=== PATIENT | female | born 1940 | race Caucasian/White ===

== ENCOUNTER 2020-08-06 16:06 | Inpatient (IN) | payer MEDICARE, BC, SELFPAY ==
[2020-08-06] VITALS (11 sets, daily range): BP systolic 118–145; BP diastolic 53–68; PULSE 68–88; RESP 15–22; TEMP 36.7; O2SAT 93–96; BMI 27.1; BMI 26.6
--- NOTE | 2020-08-06 16:07 | CT_ITS ---
STUDY: CT HEAD STROKE PROTOCOL W/O CONTRAST INJECTION REASON FOR EXAM: Female, 79 years old. neuro deficit, acute, stroke suspected, fall also RADIATION DOSAGE (If Supplied By Facility): CTDIvol = ( 44.99 ) mGy, DLP = ( 745.49 ) mGycm TECHNIQUE: Transaxial CT imaging of the brain was performed without administration of intravenous contrast material. Individualized dose optimization techniques were used for this CT. COMPARISON: No relevant priors. FINDINGS: Normal soft tissue structures. Normal calvarium. Normal size ventricles and extra-axial spaces for the patient''s age. Normal white matter tracts of the cerebral hemispheres. Normal basal ganglia and thalami. Normal brainstem. Normal cerebellum. There is no intracranial hemorrhage. There are no findings of an acute ischemic infarction. Normal visualized paranasal sinuses. CT/STROKE Brain/Head without Cont IMPRESSION: No acute intracranial hemorrhage or mass effect. N.B. : The above information has been verbally conveyed by Tirso Díaz MD (Brooks) to Jarrett Saucedo on 08/06/2020 16:18:02 (ET). Electronically Signed: Tirso Díaz MD (Brooks) at 16:19 EST , Service support ,
--- NOTE | 2020-08-06 16:07 | EKG12_ITS ---
Test Reason : STROKE TEAM Blood Pressure : / mmHG Vent. Rate : 075 BPM Atrial Rate : 075 BPM P-R Int : 230 ms QRS Dur : 138 ms QT Int : 430 ms P-R-T Axes : 037 072 031 degrees QTc Int : 480 ms Sinus Rhythm with First Degree AV Block Right bundle branch block Abnormal ECG Confirmed by HARJIT CARRION, KELIN ([id number]), newspaper photo editor RUPERTO NICHOLE ([id number]) on 08/10/2020 9:31:11 AM Referred By: SACHIN Confirmed By:KELIN LOMBARDI MD
--- NOTE | 2020-08-06 16:08 | CT_ITS ---
STUDY: CTA HEAD AND NECK WITH CONTRAST REASON FOR EXAM: Female, 79 years old. STROKE RADIATION DOSAGE (If Supplied By Facility): CTDIvol = ( 25.27 ) mGy, DLP = ( 687.24 ) mGycm TECHNIQUE: CT angiography was performed with a multi-detector CT scanner. Data acquisition was obtained from the skull base through the vertex following intravenous administration of IV 100mL Isovue-370. MIP images were reconstructed from the axial data set. Post-processing of the angiographic images was performed, with multiplanar reformation and 3D reconstruction. Degree of stenosis (when present) measured utilizing NASCET criteria. Individualized dose optimization techniques were used for this CT. COMPARISON: No relevant priors. FINDINGS: Normal bilateral petrous carotid arteries. Normal right cavernous carotid artery with a normal supraclinoid bifurcation. Normal left cavernous carotid artery with a normal supraclinoid bifurcation. Normal right A1 segments of the anterior cerebral artery. Normal left A1 segments of the anterior cerebral artery. Normal intact anterior communicating artery (ACOM). Normal bilateral A2 segments of the anterior cerebral arteries. Normal right M1 and M2 segments of the middle cerebral arteries, with a normal M1 bifurcation. Normal left M1 and M2 segments of the middle cerebral arteries, with a normal M1 bifurcation. Normal right posterior communicating artery (PCOM). Normal left posterior communicating artery (PCOM). Normal bilateral vertebral arteries. Normal basilar artery with a normal basilar bifurcation. The visualized bilateral superior cerebellar (SCA) arteries are normal. Normal bilateral P1, P2 and visualized P3 segments of the posterior cerebral arteries. There is no demonstrated aneurysm of the [place]. There is no demonstrated abnormality of the visualized brain. AORTIC ARCH: There is atherosclerosis of the aortic arch. Minimal atherosclerosis but patent origins of the brachiocephalic, left common carotid, and left subclavian arteries. RIGHT CAROTID ARTERIES: Normal right common carotid artery (CCA). There is mild atherosclerotic plaque formation with minimal narrowing of the right carotid bulb. There is moderate atherosclerotic plaque formation of the origin of the right internal carotid artery with 30% stenosis. There is atherosclerotic tortuous elongation of the cervical portion of the right internal carotid artery. There is mild atherosclerotic plaque formation of the origin of the right external carotid artery with less than 50% cross sectional diameter stenosis. LEFT CAROTID ARTERIES: Normal left common carotid artery (CCA). There is mild atherosclerotic plaque formation with minimal narrowing of the left carotid bulb. There is moderate atherosclerotic plaque formation of the origin of the left internal carotid artery with 40% stenosis. There is atherosclerotic tortuous elongation of the cervical portion of the left internal carotid artery. There is mild atherosclerotic plaque formation of the origin of the left external carotid artery with less than 50% cross sectional diameter stenosis. VERTEBRAL ARTERIES: Normal bilateral vertebral arteries. There are surgical clips on each side of the neck. There are degenerative changes of the cervical spine. Fusion hardware of the mandible noted. There are surgical clips in the submandibular region. There is anterior subluxation of the bilateral mandibular condyles, right more than left, with bony remodeling. CT/STROKE CTA Head AND Neck W/Con IMPRESSION: 1. No large vessel occlusion or intracranial aneurysm. 2. Bilateral proximal ICA atherosclerosis without hemodynamically significant stenosis or arterial dissection. N.B. : The above information has been verbally conveyed by Tirso Díaz MD (Brooks) to Jarrett Saucedo on 08/06/2020 16:34:29 (ET). Electronically Signed: Tirso Díaz MD (Brooks) at 16:40 EST , Service support ,
[2020-08-06 16:23] LABS: Absolute Lymphocyte Count 1.98 X10^3/uL (0.83-4.51); Basophil# 0.04 X10^3/uL; Basophil% 0.4 % (0-1); Eosinophil# 0.11 X10^3/uL; Hemoglobin 12.7 g/dL (12.0-15.0); Lymphocyte # 1.98 X10^3/ul (4.0); Lymphocyte % 17.7 % (19-41); Mean Corp Hgb Conc 33.4 g/dL (32-36); Mean Corpuscular Hgb 31.6 pg (27.0-32.0); Mean Corpuscular Volume 94.5 fL (81-99); Mean Platelet Vol. 9.1 fl (6.2-12.0); Monocyte# 0.93 X10^3/uL; Monocyte% 8.3 % (0-10); NRBC Flagged by Analyzer 0 % (0-5); Neutrophil # 8.02 X10^3/uL (2.7-7.7); Neutrophil % 71.7 % (47-70); Platelet Count 288 K/mm3 (150-450); RBC Distribution Width SD 49.3 fl (35.1-43.9); Red Blood Count 4.02 M/mm3 (4.2-5.4); White Blood Count 11.2 K/mm3 (4.4-11.0)
--- NOTE | 2020-08-06 16:26 | RAD_ITS ---
STUDY: X-RAY - PELVIS AND RIGHT HIP REASON FOR EXAM: Female, 79 years old. right sided hip pain, patient states she unsure of any falls, also stroke patient TECHNIQUE: 3 views of the pelvis and hip. COMPARISON: None. FINDINGS: There is a non-specific bowel gas pattern. Normal visualized soft tissue structures. There is excreted contrast in the urinary bladder. Normal bilateral iliac wings, sacroiliac joints and visualized sacrum. Normal bilateral superior and inferior pubic rami. Normal pubic symphysis. Normal bilateral ischial tuberosities. Right femoral neck fracture identified with proximal subsidence of the femoral shaft. Normal acetabulum. Normal hip joint. RAD/HIP, UNI W/ Pelvis 2-3 Views IMPRESSION: Right femoral neck fracture. Electronically Signed: Tirso Díaz MD (Brooks) at 17:26 EST , Service support ,
--- NOTE | 2020-08-06 16:27 | ED.DCSUM_ITS ---
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 The call received from [facility] was that she was complaining of headache. She was found on the ground and was not responding. In route, the patient began to respond more but was confused. On arrival, she does have a component of expressive aphasia and difficulty moving her right lower extremity. Patient was sent immediately for CT scan which was read as negative. During that time, I did call her significant other, Diony. He was able to explain her symptoms. He states that she was doing very well today. She came out of the bathroom, and collapsed. He states she fell to the ground and had a tonic-clonic seizure that lasted about a minute. He is unsure if he hit her head. He states that she is never had a seizure before. He states that she has been doing very well with her chronic medical conditions and has not been ill at all recently. She has no history of prior stroke. Prior similar symptoms: No Recent Illness/Hospitalization: No Past Medical History - Allergies and Home Meds Allergies/Adverse Reactions: Allergies Penicillins Allergy (Verified 08/06/20 16:48) Rash oxycodone [From OxyContin] Adverse Reaction (Verified 08/06/20 16:48) Vomiting sulfamethoxazole [From Bactrim] Adverse Reaction (Verified 08/06/20 16:48) Vomiting trimethoprim [From Bactrim] Adverse Reaction (Verified 08/06/20 16:48) Vomiting Prior records reviewed: Yes Past Medical History: - - Hypertension, hyperlipidemia, thyroid disease, squamous cell carcinoma of the jaw Surgical History: noncontributory Lives: With Family Smoking Status: Never smoker Review of Systems General: Denies: Chills, Fever, Sweats Eyes: Denies: Visual changes - bilaterally, Diplopia ENT: Denies: Rhinorrhea, Sore throat Cardiovascular: Denies: Chest pain, Palpitations Respiratory: Denies: Dyspnea, Cough, Dyspnea on exertion Gastrointestinal: Denies: Abdominal pain, Nausea, Vomiting, Diarrhea, Melena, Hematochezia Genitourinary: Denies: Dysuria, Hematuria, Frequency Musculoskeletal: Denies: Back pain, Extremity Pain Skin: Denies: Rash, Wounds Neurological: Denies: Headache, Weakness, Numbness Physical Exam Inital Vital Signs reviewed: Yes General: Well nourished, Well developed, No Acute Distress Head: Normocephalic, Atraumatic Eyes: Perrl, EOMI ENT: Moist mucous membranes, No rhinorrhea Neck: Supple, Nontender Cardiovascular: Regular rate, Regular rhythm, No murmurs Respiratory: No distress, CTA bilaterally, Chest nontender Abdomen: Soft, Nontender, Nondistended, Normal bowel sounds Back: Nontender, Normal Inspection Extremities: No edema, Tenderness Skin: Normal color, No rash Neurological: Alert, Oriented x3, Cranial nerves II-XII grossly intact, Normal Strength, Normal Sensation Psychological: Normal affect, Normal Mood Diagnostic/Tx/Re-eval Clinical Impression(s) from Imaging Studies Brain CT 08/06/20 16:07 IMPRESSION: No acute intracranial hemorrhage or mass effect. N.B. : The above information has been verbally conveyed by Tirso Díaz MD (Brooks) to Jarrett Saucedo on 08/06/2020 16:18:02 (ET). Electronically Signed: Tirso Díaz MD (Brooks) at 16:19 EST , Service support , ADDENDUM: 08/06/20 1626 IMPRESSION: No acute intracranial hemorrhage or mass effect. N.B. : The above information has been verbally conveyed by Tirso Díaz MD (Brooks) to Jarrett Saucedo on 08/06/2020 16:18:02 (ET). Electronically Signed: Tirso Díaz MD (Brooks) at 16:19 EST , Service support , Head/Neck CTA 08/06/20 16:08 IMPRESSION: 1. No large vessel occlusion or intracranial aneurysm. 2. Bilateral proximal ICA atherosclerosis without hemodynamically significant stenosis or arterial dissection. N.B. : The above information has been verbally conveyed by Tirso Díaz MD (Brooks) to Jarrett Saucedo on 08/06/2020 16:34:29 (ET). Electronically Signed: Tirso Díaz MD (Brooks) at 16:40 EST , Service support , ADDENDUM: 08/06/20 1647 IMPRESSION: 1. No large vessel occlusion or intracranial aneurysm. 2. Bilateral proximal ICA atherosclerosis without hemodynamically significant stenosis or arterial dissection. N.B. : The above information has been verbally conveyed by Tirso Díaz MD (Brooks) to Jarrett Saucedo on 08/06/2020 16:34:29 (ET). Electronically Signed: Tirso Díaz MD (Brooks) at 16:40 EST , Service support , Hip/Pelvis X-Ray 08/06/20 16:26 IMPRESSION: Right femoral neck fracture. Electronically Signed: Tirso Díaz MD (Brooks) at 17:26 EST , Service support , Chest X-Ray 08/06/20 17:05 IMPRESSION: Left lower lobe atelectasis. Electronically Signed: Tirso Díaz MD (Brooks) at 17:25 EST , Service support , Abnormal Lab Results 08/06/20 08/06/20 08/06/20 16:10 16:10 16:10 WBC 11.2 H RBC 4.02 L Hgb 12.7 Hct 38.0 MCV 94.5 MCH 31.6 MCHC 33.4 RDW Std Deviation 49.3 H RDW Coeff of Alpa 14.0 Plt Count 288 MPV 9.1 Immature Gran % (Auto) 0.900 Neut % (Auto) 71.7 H Lymph % (Auto) 17.7 L [place] % (Auto) 8.3 Eos % (Auto) 1.0 Baso % (Auto) 0.4 Absolute Neuts (auto) 8.0 H Absolute Lymphs (auto) 1.98 Nucleated RBC % 0 PT 12.7 INR 1.0 APTT 25.1 Sodium 135 L Potassium 3.9 Chloride 101 Carbon Dioxide 26.0 Anion Gap 8 BUN 23 H Creatinine 0.93 Estim Creat Clear Calc 44.41 Est GFR (MDRD) Af Amer 74 Est GFR (MDRD) Non-Af 61 BUN/Creatinine Ratio 24.7 H Glucose 120 H Calcium 9.1 Troponin I < 0.015 - Rhythm Strip Rhythm Strip: Sinus Rhythm Rate: 80 Ectopy: None - EKG Initial EKG Interpretation: Sinus Rhythm, AV Block Prior: No Prior - Medical Decision Making On arrival, I did see the patient in the ambulance bay. She did have confused speech. She was answering questions inappropriately but had normal fluency. She also stated that she cannot really move her right leg. Her foot was externally rotated and leg appear to be shortened. She was sent immediately for CT and CTA. I had discussed her presentation with her significant other during that time. It does sound more consistently like she had an acute seizure. CT and CTA were read as negative. Patient was evaluated by neurology who recommended Keppra and MRI. Patient underwent x-ray which was reviewed by myself and the radiologist, which shows impacted femoral neck fracture. I did discuss this with Dr. Pereira, on-call for orthopedics. He did state that they would likely be able to fix this operatively when she is cleared from a neurology standpoint. The patient was discussed with the hospitalist for admission. Impression 1. New onset seizure 2. Right femoral neck fracture - Critical Care Time Critical care time (excluding procedures): 30-74 minutes, Discussing w/Patient &/or Family/Scene And Lighting Design Lecturer, Discussing w/Consultants, Arranging Admission or Transfer, Performing Direct Patient Care at Bedside ED Disposition - Plan for ED Patient: Disposition: Acute Care [facility]
[2020-08-06 16:47] LABS: Anion Gap 8 (5-15); BUN 23 mg/dL (7-18); BUN/Creat Ratio 24.7 RATIO (10-20); Calcium,Total 9.1 mg/dL (8.5-10.1); Chloride 101 mmol/L (98-107); Creatinine, Serum 0.93 mg/dL (0.55-1.02); EST Glomerular Filtration Rate 61 mL/min (>60); Est Glom Filt Rate - Afr Amer 74 mL/min (>60); Estimated Creatinine Clearance 44.41 ml/min; Glucose 120 mg/dL (74-106); Potassium 3.9 mmol/L (3.5-5.1); Sodium Level 135 mmol/L (136-145)
[2020-08-06] MEDS: fentaNYL 100 MCG/2 ML Ampul 50 MCG IV (16:49)
[2020-08-06] MEDS: levETIRAcetam IV 1,000 MG/100 ML BAG 400 MG IV (16:49)
--- NOTE | 2020-08-06 17:05 | RAD_ITS ---
STUDY: X-RAY CHEST REASON FOR EXAM: Female, 79 years old. stroke symptoms, fall TECHNIQUE: AP COMPARISON: None. FINDINGS: EKG leads project over the chest. There is reticulation of the left lung base. There is no demonstrated pleural abnormality. Normal size heart. Normal mediastinum and marco. Normal visualized pulmonary arteries. There is atherosclerotic calcification of the aortic arch with tortuosity. There is demineralization of the osseous structures. Normal visualized ribs, clavicles, and shoulders. Cholecystectomy clips are present. There is excreted contrast in the kidneys. RAD/Chest 1 View IMPRESSION: Left lower lobe atelectasis. Electronically Signed: Tirso Díaz MD (Brooks) at 17:25 EST , Service support ,
[2020-08-06 17:19] LABS: Prothrombin Time (Protime)PT. 12.7 SECONDS (11.7-14.9)
[2020-08-06 17:22] LABS: Partial Thromboplast Time 25.1 Seconds (24.1-36.2)
--- NOTE | 2020-08-06 17:32 | PCM.HP.STD ---
Problem List (1) New onset seizure Status: Acute (2) Hypertension Status: Chronic Qualifiers: Hypertension type: essential hypertension Qualified Code(s): I10 - Essential (primary) hypertension (3) Hip fracture Status: Acute Qualifiers: Encounter type: initial encounter Fracture type: closed Laterality: right Qualified Code(s): S72.001A - Fracture of unspecified part of neck of right femur, initial encounter for closed fracture History of Present Illness Date of Admission: 08/06/20 Chief Complaint: Seizure, fall, right hip pain - 1 day The patient is a 79 year old F with past medical history of cancer of the jaw status post jaw excision, status post plating in October 2019, hypertension, hyperlipidemia numbness in left arm a seizure episode and fall. History was taken from patient and her . Patient was in her usual state of health. No recent illness. She has been fairly stable. She went to the bathroom, came back was going to go for her pitcher of water when her noticed that she fell and was having tonic-clonic seizures. This lasted for a few minutes. The EMS was called and patient was found in the postictal state with weakness on the right side and her mouth was drooping to the left and she had expressive aphasia. This happened at 1530 hrs. She was transferred to the hospital, and stroke alert was called. Teleneurology was consulted and did not think patient had a stroke. Her symptoms of weakness were all resolved by the time she came back from CT. Her vitals in the ED showed temperature of 90 8.1F, heart rate 78, blood pressure 145/61, respiratory rate 21, SPO2 is 95% on room air. Her WBC count 11.2, hemoglobin 12.7, platelet count 288, INR 1.2, sodium 135, potassium 3.9, chloride 101, bicarbonate 26, BUN 20, creatinine 0.93, troponin 0.015. CT of the brain showed no acute intracranial hemorrhage or mass-effect. CTA of the head and neck showed bilateral proximal internal carotid artery atherosclerosis without hemodynamically significant stenosis. X-ray of the hip shows right femoral neck fracture. Chest X-ray shows left lower lobe atelectasis. Past Medical History Past Medical History (Chronic Problems): Chronic Problems Hypertension (Chronic) Allergies Penicillins Allergy (Verified 08/06/20 16:48) Rash oxycodone [From OxyContin] Adverse Reaction (Verified 08/06/20 16:48) Vomiting sulfamethoxazole [From Bactrim] Adverse Reaction (Verified 08/06/20 16:48) Vomiting trimethoprim [From Bactrim] Adverse Reaction (Verified 08/06/20 16:48) Vomiting Home Medications: Ambulatory Orders Medication Instructions Recorded Amlodipine [Norvasc] 10 mg PO DAILY 08/06/20 Aspirin [Aspirin, Baby] 81 mg PO DAILY@0800 08/06/20 Levothyroxine Sodium [Synthroid] 125 mcg PO DAILY 08/06/20 Metoprolol(XL)Succ [Toprol Xl 100 mg PO DAILY 08/06/20 (Beta Dawson)] Surgical History: cholecystectomy, hysterectomy, - - s/p bilateral jaw surgery Psychiatric History: No pertinent psych hx STUFFED CASING TIER History: No pertinent STUFFED CASING TIER history Lives: Spouse/ Significant Other, With Family Smoking Status: Never smoker Tobacco Use: Non-smoker Alcohol: None Drugs: None - *Family History Maternal History Items: Heart Disease Paternal History Items: Stroke Review of Systems Constitutional: Denies: Anorexia, Chills, Fever, Malaise, Weakness, Weight Change, Fatigue Eyes: Denies: Blurred vision, Cataracts, Pain, Redness HEENT: Denies: Difficulty Hearing, Difficulty Swallowing, Head Aches, Hearing Changes, Sinus Congestion, Sinus Drainage Cardiovascular: Denies: Chest Pain, Claudication, Orthopnea, Palpitations, Paroxysmal Noc. Dyspnea Respiratory: Denies: Cough, Hemoptysis, Shortness of breath at rest, Shortness of breath upon exertion, Sputum production Gastrointestinal: Denies: Abdominal Pain, Hematemesis, Hematochezia, Nausea, Vomiting Genitourinary: Denies: Dysuria, Frequency Musculoskeletal: Reports: Joint Pain, Joint Tenderness, Leg Pain, Muscle pain. Denies: Joint stiffness, Joint swelling Skin: Denies: Rash, Wounds Neurological: Denies: Difficulty swallowing, Focal weakness, Numbness, Tingling Psychiatric: Denies: Anxiety, Depression, Homicidal Ideations, Suicidal Ideations Hematologic/ Lymphatic: Denies: Easy Bruising, Easy Bleeding VTE Information - Inpt Only VTE Present on Admission: No VTE Pharm Prophylaxis ordered?: Yes Patient Problems: Active and Suspected Problems New onset seizure (Acute) - Physical Exam Vitals/I&O's: Vital Signs Temp Pulse Resp BP Pulse Ox 98.1 F 71 18 138/59 H 93 08/06/20 16:07 08/06/20 17:00 08/06/20 17:00 08/06/20 17:00 08/06/20 17:00 Oxygen Delivery Method Room Air Weight: 76.1 kg Body Mass Index (BMI) 27.1 Finger Stick Blood Glucose 167 Intake and Output for Last 24 Hours 08/04/20 08/05/20 08/06/20 23:59 23:59 23:59 Intake Total 100 / 100 Balance 100 / 100 General: Alert, Oriented x3, Cooperative, No apparent distress HEENT: Atraumatic, PERRLA, EOMI, Normocephalic Oral: Moist Mucosa Neck: Supple Lungs: Diminished Cardiovascular: Regular rate, Regular Rhythm, Normal S1, Normal S2, No murmurs Abdomen: Bowel Sounds Present, Soft, Non Tender, Non-Distended, No Hepato-splenomegaly Extremities: No edema Skin: No rashes Musculoskeletal: Tenderness - over the right hip Lymphatic: No Cervical, Supraclavicular, or Inguinal Adenopathy Neurological: Cranial nerves II-XII grossly intact, Neuro grossly intact Psych/Mental Status: Normal Affect, Appropriate Laboratory Results 08/06/20 16:10: WBC 11.2 H, RBC 4.02 L, Hgb 12.7, Hct 38.0, MCV 94.5, MCH 31.6, MCHC 33.4, RDW Std Deviation 49.3 H, RDW Coeff of Alpa 14.0, Plt Count 288, MPV 9.1, Immature Gran % (Auto) 0.900, Neut % (Auto) 71.7 H, Lymph % (Auto) 17.7 L, [place] % (Auto) 8.3, Eos % (Auto) 1.0, Baso % (Auto) 0.4, Absolute Neuts (auto) 8.0 H, Absolute Lymphs (auto) 1.98, Nucleated RBC % 0 08/06/20 16:10: PT 12.7, INR 1.0, APTT 25.1 08/06/20 16:10: Sodium 135 L, Potassium 3.9, Chloride 101, Carbon Dioxide 26.0, Anion Gap 8, BUN 23 H, Creatinine 0.93, Estim Creat Clear Calc 44.41, Est GFR (MDRD) Af Amer 74, Est GFR (MDRD) Non-Af 61, BUN/Creatinine Ratio 24.7 H, Glucose 120 H, Calcium 9.1, Troponin I < 0.015 Current Medications Amlodipine Besylate (Amlodipine 10 Mg Tablet) 10 mg PO DAILY [facility] Aspirin (Aspirin 81 Mg Tab.Chew) 81 mg PO DAILY@0800 [facility] Labetalol HCl (Labetalol (Prefilled) 20 Mg/4 Ml) 20 mg IV X1 PRN PRN Reason: Blood Pressure Levothyroxine Sodium (Levothyroxine 125 Mcg Tablet) 125 mcg PO DAILY [facility] Metoprolol Succinate (Metoprolol(Xl)Succ 100 Mg Tablet) 100 mg PO DAILY [facility] Assessment/Plan All Active Problems New onset seizure (Acute) Hip fracture (Acute) 1. New onset seizures in a patient with history of cancer of the jaws status post jaw excisions Reported as generalized tonic-clonic, lasted for a few minutes with subsequent postictal weakness Patient started on Keppra, will continue on Keppra 500 mg IV twice daily Patient will need an MRI to rule out brain metastases -not sure if she could have an MRI in the light of jaw plating Will consult SOC for preop risk stratification, obtain records from [facility] to assist in determining if patient can have an MRI 2. Right hip fracture, traumatic status post fall Orthopedic consulted from ED Will continue with pain control 3. Hypertension, controlled, continue home medications -amlodipine, metoprolol 4. Hypothyroidism, continue levothyroxine 5. DVT prophylaxis - Heparin subcu 6. Code Status: Full code I discussed and explained in details the various types of CODE STATUS-full code, DNR CCA, DNR CC. Patient chose full code. She wants all aggressive measures to keep her alive. Her was in agreement that at bedside. Time spent discussing CODE STATUS 16 minutes Inpatient E&M: 31408 Init Hosp L3 Procedures: 75331 Advncd Care Plan 30 Min
--- NOTE | 2020-08-06 18:55 | TELEMED_ITS ---
SOC Telemed has confirmed receipt of a request for visit. This document confirms receipt of the order initiating the consult. To find the results of the consultation, please view the patient's reports for the scanned Telemed Consult.
[2020-08-06] MEDS: 0.9% Normal Saline 1,000 ML 100 ML IV (19:03)
[2020-08-06] MEDS: 0.9% Saline Lock 10 ML Syringe IV (20:32)
[2020-08-06] MEDS: Heparin Injection (Vial) 5,000 UNIT/ML VIAL 5000 UNIT SC (20:32)
[2020-08-06] MEDS: Morphine 2 MG/ML Syringe IV (20:32)
[2020-08-06] MEDS: Ondansetron 4 MG/2 ML Vial IV (20:32)
[2020-08-07] VITALS (12 sets, daily range): BP systolic 111–155; BP diastolic 42–65; PULSE 65–89; RESP 15–18; TEMP 36.4–38.1; O2SAT 94–96
[2020-08-07 05:31] LABS: Absolute Lymphocyte Count 1.09 X10^3/uL (0.83-4.51); Absolute Neutrophil Count 7.6 X10^3/uL (2.0-7.7); Basophil# 0.02 X10^3/uL; Basophil% 0.2 % (0-1); Eosinophil# 0.03 X10^3/uL; Eosinophils% 0.3 % (0-5); Hematocrit 32.9 % (37-47); Hemoglobin 11.2 g/dL (12.0-15.0); Lymphocyte # 1.09 X10^3/ul (4.0); Lymphocyte % 11.4 % (19-41); Mean Corpuscular Hgb 31.7 pg (27.0-32.0); Mean Corpuscular Volume 93.2 fL (81-99); Mean Platelet Vol. 9.3 fl (6.2-12.0); Monocyte# 0.73 X10^3/uL; Monocyte% 7.6 % (0-10); NRBC Flagged by Analyzer 0 % (0-5); Neutrophil # 7.64 X10^3/uL (2.7-7.7); Neutrophil % 80.1 % (47-70); Platelet Count 252 K/mm3 (150-450); RBC Distribution Width SD 47.5 fl (35.1-43.9); Red Blood Count 3.53 M/mm3 (4.2-5.4); White Blood Count 9.6 K/mm3 (4.4-11.0)
[2020-08-07 05:56] LABS: AST(SGOT) 92 U/L (15-37); Alanine Aminotransfer ALT/SGPT 65 U/L (13-56); Albumin, Serum 3.1 g/dL (3.2-5.0); Alkaline Phosphatase 96 U/L (45-117); Anion Gap 5 (5-15); BUN 14 mg/dL (7-18); BUN/Creat Ratio 20.1 RATIO (10-20); Calcium,Total 8.5 mg/dL (8.5-10.1); Chloride 104 mmol/L (98-107); EST Glomerular Filtration Rate 86 mL/min (>60); Est Glom Filt Rate - Afr Amer 104 mL/min (>60); Glucose 113 mg/dL (74-106); Potassium 3.4 mmol/L (3.5-5.1); Protein, Total 6.1 g/dL (6.4-8.2); Sodium Level 137 mmol/L (136-145)
--- NOTE | 2020-08-07 07:55 | PN_ITS ---
Patient Problems: Active and Suspected Problems New onset seizure (Acute) Hip fracture (Acute) Subjective: Chief complaint: Follow-up after admission for new onset seizure and acute traumatic right femoral neck fracture. Patient seen and examined. No acute events overnight. She complains of right hip pain upon movement. Denied other complaints. Her vital signs are stable. - Physical Exam Vitals/I&O's: Vital Signs Temp Pulse Resp BP Pulse Ox 97.6 F L 81 18 146/63 H 94 08/07/20 02:15 08/07/20 07:31 08/07/20 02:15 08/07/20 02:15 08/07/20 02:15 Oxygen Delivery Method Room Air Weight: 158 lb 1.143 oz Body Mass Index (BMI) 26.6 Finger Stick Blood Glucose 167 Intake and Output for Last 24 Hours 08/05/20 08/06/20 08/07/20 23:59 23:59 23:59 Intake Total 100 / 300 1200 / 1200 Output Total 450 / 450 Balance 100 / -100 750 / 750 General: Alert, Oriented x3, Cooperative, No apparent distress HEENT: Atraumatic, PERRLA, EOMI, Normocephalic Oral: Moist Mucosa, No Gingival or Mucosal Lesions/ Ulcerations Neck: Supple, No JVD, Negative Carotid Bruits, Trachea Midline, Thyroid Normal Size and Texture Lungs: Clear to auscultation, Normal air movement, No rhonchi, No wheeze, No rales, Diminished Cardiovascular: Regular rate, Regular Rhythm, Normal S1, Normal S2, PMI Normal Abdomen: Bowel Sounds Present, Soft, Non Tender, Non-Distended, No Hepato- splenomegaly Extremities: No clubbing, No cyanosis, No edema Skin: No rashes, No breakdown Lymphatic: No Cervical, Supraclavicular, or Inguinal Adenopathy Neurological: Cranial nerves II-XII grossly intact, Motor Exam 5/5 strength throughout Psych/Mental Status: Normal Affect, Appropriate, Alert and oriented to time, place, person, mood and affect Laboratory Results 08/06/20 16:10: WBC 11.2 H, RBC 4.02 L, Hgb 12.7, Hct 38.0, MCV 94.5, MCH 31.6, MCHC 33.4, RDW Std Deviation 49.3 H, RDW Coeff of Alpa 14.0, Plt Count 288, MPV 9.1, Immature Gran % (Auto) 0.900, Neut % (Auto) 71.7 H, Lymph % (Auto) 17.7 L, [place] % (Auto) 8.3, Eos % (Auto) 1.0, Baso % (Auto) 0.4, Absolute Neuts (auto) 8.0 H, Absolute Lymphs (auto) 1.98, Nucleated RBC % 0 08/06/20 16:10: PT 12.7, INR 1.0, APTT 25.1 08/06/20 16:10: Sodium 135 L, Potassium 3.9, Chloride 101, Carbon Dioxide 26.0, Anion Gap 8, BUN 23 H, Creatinine 0.93, Estim Creat Clear Calc 44.41, Est GFR (MDRD) Af Amer 74, Est GFR (MDRD) Non-Af 61, BUN/Creatinine Ratio 24.7 H, Glucose 120 H, Calcium 9.1, Troponin I < 0.015 08/07/20 05:11: WBC 9.6, RBC 3.53 L, Hgb 11.2 L, Hct 32.9 L, MCV 93.2, MCH 31.7, MCHC 34.0, RDW Std Deviation 47.5 H, RDW Coeff of Alpa 14.0, Plt Count 252, MPV 9.3, Immature Gran % (Auto) 0.400, Neut % (Auto) 80.1 H, Lymph % (Auto) 11.4 L, [place] % (Auto) 7.6, Eos % (Auto) 0.3, Baso % (Auto) 0.2, Absolute Neuts (auto) 7.6, Absolute Lymphs (auto) 1.09, Nucleated RBC % 0 08/07/20 05:11: Sodium 137, Potassium 3.4 L, Chloride 104, Carbon Dioxide 28.0, Anion Gap 5, BUN 14, Creatinine 0.70, Estim Creat Clear Calc 41.30, Est GFR (MDRD) Af Amer 104, Est GFR (MDRD) Non-Af 86, BUN/Creatinine Ratio 20.1 H, Glucose 113 H, Calcium 8.5, Total Bilirubin 0.60, AST 92 H, ALT 65 H, Alkaline Phosphatase 96, Total Protein 6.1 L, Albumin 3.1 L, Globulin 3.0, Albumin/Globulin Ratio 1.0 Clinical Impression(s) from Imaging Studies Brain CT 08/06/20 16:07 IMPRESSION: No acute intracranial hemorrhage or mass effect. N.B. : The above information has been verbally conveyed by Tirso Díaz MD ([facility]) to Jarrett Saucedo on 08/06/2020 16:18:02 (ET). Electronically Signed: Tirso Díaz MD ([facility]) at 16:19 EST , Service support , ADDENDUM: 08/06/20 1626 IMPRESSION: No acute intracranial hemorrhage or mass effect. N.B. : The above information has been verbally conveyed by Tirso Díaz MD ([facility]) to Jarrett Saucedo on 08/06/2020 16:18:02 (ET). Electronically Signed: Tirso Díaz MD ([facility]) at 16:19 EST , Service support , Head/Neck CTA 08/06/20 16:08 IMPRESSION: 1. No large vessel occlusion or intracranial aneurysm. 2. Bilateral proximal ICA atherosclerosis without hemodynamically significant stenosis or arterial dissection. N.B. : The above information has been verbally conveyed by Tirso Díaz MD ([facility]) to Jarrett Saucedo on 08/06/2020 16:34:29 (ET). Electronically Signed: Tirso Díaz MD ([facility]) at 16:40 EST , Service support , ADDENDUM: 08/06/20 1647 IMPRESSION: 1. No large vessel occlusion or intracranial aneurysm. 2. Bilateral proximal ICA atherosclerosis without hemodynamically significant stenosis or arterial dissection. N.B. : The above information has been verbally conveyed by Tirso Díaz MD ([facility]) to Jarrett Saucedo on 08/06/2020 16:34:29 (ET). Electronically Signed: Tirso Díaz MD ([facility]) at 16:40 EST , Service support , Hip/Pelvis X-Ray 08/06/20 16:26 IMPRESSION: Right femoral neck fracture. Electronically Signed: Tirso Díaz MD ([facility]) at 17:26 EST , Service support , Chest X-Ray 08/06/20 17:05 IMPRESSION: Left lower lobe atelectasis. Electronically Signed: Tirso Díaz MD ([facility]) at 17:25 EST , Service support , Current Medications Acetaminophen (Acetaminophen 325 Mg Tablet) 650 mg PO Q6H PRN PRN PRN Reason: Pain Score 1-10/Temp > 100.7 F Albuterol Sulfate (Albuterol 2.5 Mg/3 Ml Vial.Neb.) 2.5 mg INHALATION Q2H PRN PRN PRN Reason: SOB/Wheezing Amlodipine Besylate (Amlodipine 10 Mg Tablet) 10 mg PO DAILY [facility] Heparin Sodium (Porcine) (Heparin Injection (Vial) 5,000 Unit/Ml Vial) 5,000 unit SC Q12 [facility] Last Admin: 08/06/20 20:32 Dose: 5,000 unit Documented by: Levetiracetam 500 mg/ Sodium (Chloride) 105 mls @ 400 mls/hr IV Q12 [facility] Levothyroxine Sodium (Levothyroxine 125 Mcg Tablet) 125 mcg PO DAILY@0600 [facility] Last Admin: 08/07/20 05:53 Dose: Not Given Documented by: Lorazepam (Lorazepam 2 Mg/Ml Syringe) 1 mg IV PRN PRN PRN Reason: SEIZURES Metoprolol Succinate (Metoprolol(Xl)Succ 100 Mg Tablet) 100 mg PO DAILY [facility] Morphine Sulfate (Morphine 2 Mg/Ml Syringe) 2 mg IV Q3H PRN PRN PRN Reason: Pain Score 6-10 Last Admin: 08/06/20 20:32 Dose: 2 mg Documented by: Ondansetron HCl (Ondansetron 4 Mg/2 Ml Vial) 4 mg IV Q8H PRN PRN PRN Reason: NAUSEA/VOMITING Last Admin: 08/06/20 20:32 Dose: 4 mg Documented by: Sodium Chloride (0.9% Saline Lock 10 Ml Syringe) 10 - 40 ml IV UD PRN PRN Reason: SALINE FLUSH Last Admin: 08/06/20 20:32 Dose: 10 ml Documented by: Medical Necessity - Tobacco Use Smoking Status: Never smoker Tobacco Use: Non-smoker Assessment/Plan All Active Problems New onset seizure (Acute) Hip fracture (Acute) This is an 79 years old female patient presented to the emergency room because of new onset seizure, found to have acute traumatic right femoral neck fracture and she was admitted for evaluation and treatment. #1 new onset seizure: This was generalized tonic-clonic. Currently, she is on IV Keppra. Her vital signs are stable. Routine blood work was unremarkable a part from potassium of 3.4. LFT was unremarkable. CT scan brain showed no acute findings. CTA of the neck was unremarkable. SOC teleneurology consulted and recommended MRI brain and EEG which was ordered. Plan for MRI and EEG as previous. #2 acute traumatic right femoral neck fracture: Due to fall secondary to seizure. She is on IV morphine as needed for pain, pain is manageable. Orthopedic surgery consulted, awaiting their recommendation. #3 preoperative evaluation: 79 years old with history of hypertension and hypothyroidism as well as new onset seizure. She lives at home with his significant other, doing day-to-day activities without restrictions. Chest x- ray showed no acute findings. EKG revealed normal sinus rhythm with RBBB, no acute ischemic changes. Troponin was negative. Based on her age, kidney function, functional status and past medical history, her estimated risk for perioperative myocardial infarction or cardiac arrest is 0.41%. Based on ACS NSQIP surgical risk calculator, her risk for serious complications as well as any complications is at average, predicted length of stay 5.5 days. This patient will be at moderate to low high risk for perioperative and postoperative medications. No indication for further testing. We can proceed with surgery. #4 hypertension: Blood pressure stable, continue Norvasc and metoprolol. #5 hypothyroidism: Continue levothyroxine. 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 Stable, no acute issues. #7 DVT prophylaxis: Subcu heparin. This note was generated with Datum[employer] software. It may contain incorrect words, spelling, and punctuation that were not noted in checking the note before signing. Inpatient E&M: 09157 Subs Hosp L2
--- NOTE | 2020-08-07 08:16 | PCS.PANDOC ---
PANDEMIC DOCUMENTATION INITIATED: Date: Time: 1604
[2020-08-07] MEDS: amLODIPine 10 MG Tablet PO (08:30)
[2020-08-07] MEDS: Levothyroxine 125 MCG Tablet PO (08:30)
[2020-08-07] MEDS: Morphine 2 MG/ML Syringe IV ×2 (08:30→18:30)
[2020-08-07] MEDS: 0.9% Normal Saline 1,000 ML 75 ML IV ×2 (08:31→21:19)
[2020-08-07] MEDS: 0.9% Saline Lock 10 ML Syringe IV ×2 (08:33→18:31)
--- NOTE | 2020-08-07 09:53 | CON.PCM_ITS ---
Reason for Consult Date of Consultation: 08/07/20 Reason for Consultation: right hip pain s/p fall at home History of Present Illness: The patient is a 79 year old F [was in her usual state of health at home. she had a seizure and fell suffering a right femoral neck fracture. She was admitted to [facility] by the hospitalist. Stroke was ruled out and she was consulted upon via tele neurology. At the time of my evaluation, she complains of right hip pain. She has had no further seizures and has no previous history of seizures.] Past Medical History Past Medical History (Chronic Problems): Chronic Problems Hypertension (Chronic) Allergies Penicillins Allergy (Verified 08/06/20 16:48) Rash oxycodone [From OxyContin] Adverse Reaction (Verified 08/06/20 16:48) Vomiting sulfamethoxazole [From Bactrim] Adverse Reaction (Verified 08/06/20 16:48) Vomiting trimethoprim [From Bactrim] Adverse Reaction (Verified 08/06/20 16:48) Vomiting Home Medications: Ambulatory Orders Medication Instructions Recorded Amlodipine [Norvasc] 10 mg PO DAILY 08/06/20 Aspirin [Aspirin, Baby] 81 mg PO DAILY@0800 08/06/20 Levothyroxine Sodium [Synthroid] 125 mcg PO DAILY 08/06/20 Metoprolol(XL)Succ [Toprol Xl 100 mg PO DAILY 08/06/20 (Beta Dawson)] Surgical History: cholecystectomy, hysterectomy, - - s/p bilateral jaw surgery Psychiatric History: No pertinent psych hx RESIDENT CAREGIVER History: No pertinent RESIDENT CAREGIVER history Lives: Spouse/ Significant Other, With Family Smoking Status: Never smoker Tobacco Use: Non-smoker Alcohol: None Drugs: None - *Family History Maternal History Items: Heart Disease Paternal History Items: Stroke Patient Problems: Active and Suspected Problems New onset seizure (Acute) Hip fracture (Acute) - Physical Exam Vitals/I&O's: Vital Signs Temp Pulse Resp BP Pulse Ox 99.4 F H 79 16 148/58 H 96 08/07/20 08:05 08/07/20 08:05 08/07/20 08:05 08/07/20 08:05 08/07/20 08:05 Oxygen Delivery Method Room Air Weight: 158 lb 1.143 oz Body Mass Index (BMI) 26.6 Finger Stick Blood Glucose 167 Intake and Output for Last 24 Hours 08/05/20 08/06/20 08/07/20 23:59 23:59 23:59 Intake Total 100 / 300 1200 / 1200 Output Total 450 / 450 Balance 100 / -100 750 / 750 General: Alert, Oriented x3, Cooperative, No apparent distress Extremities: Tenderness - About right hip. RLE is shortend and externally rotated. ROM no tested due to known fracture. Skin: No rashes, No breakdown Neurological: Neuro grossly intact Laboratory Results 08/06/20 16:10: WBC 11.2 H, RBC 4.02 L, Hgb 12.7, Hct 38.0, MCV 94.5, MCH 31.6, MCHC 33.4, RDW Std Deviation 49.3 H, RDW Coeff of Alpa 14.0, Plt Count 288, MPV 9.1, Immature Gran % (Auto) 0.900, Neut % (Auto) 71.7 H, Lymph % (Auto) 17.7 L, [place] % (Auto) 8.3, Eos % (Auto) 1.0, Baso % (Auto) 0.4, Absolute Neuts (auto) 8.0 H, Absolute Lymphs (auto) 1.98, Nucleated RBC % 0 08/06/20 16:10: PT 12.7, INR 1.0, APTT 25.1 08/06/20 16:10: Sodium 135 L, Potassium 3.9, Chloride 101, Carbon Dioxide 26.0, Anion Gap 8, BUN 23 H, Creatinine 0.93, Estim Creat Clear Calc 44.41, Est GFR (MDRD) Af Amer 74, Est GFR (MDRD) Non-Af 61, BUN/Creatinine Ratio 24.7 H, Glucose 120 H, Calcium 9.1, Troponin I < 0.015 08/07/20 05:11: WBC 9.6, RBC 3.53 L, Hgb 11.2 L, Hct 32.9 L, MCV 93.2, MCH 31.7, MCHC 34.0, RDW Std Deviation 47.5 H, RDW Coeff of Alpa 14.0, Plt Count 252, MPV 9.3, Immature Gran % (Auto) 0.400, Neut % (Auto) 80.1 H, Lymph % (Auto) 11.4 L, [place] % (Auto) 7.6, Eos % (Auto) 0.3, Baso % (Auto) 0.2, Absolute Neuts (auto) 7.6, Absolute Lymphs (auto) 1.09, Nucleated RBC % 0 08/07/20 05:11: Sodium 137, Potassium 3.4 L, Chloride 104, Carbon Dioxide 28.0, Anion Gap 5, BUN 14, Creatinine 0.70, Estim Creat Clear Calc 41.30, Est GFR (MDRD) Af Amer 104, Est GFR (MDRD) Non-Af 86, BUN/Creatinine Ratio 20.1 H, Glucose 113 H, Calcium 8.5, Total Bilirubin 0.60, AST 92 H, ALT 65 H, Alkaline Phosphatase 96, Total Protein 6.1 L, Albumin 3.1 L, Globulin 3.0, Albumin/Globulin Ratio 1.0 Current Medications Acetaminophen (Acetaminophen 325 Mg Tablet) 650 mg PO Q6H PRN PRN PRN Reason: Pain Score 1-10/Temp > 100.7 F Albuterol Sulfate (Albuterol 2.5 Mg/3 Ml Vial.Neb.) 2.5 mg INHALATION Q2H PRN PRN PRN Reason: SOB/Wheezing Amlodipine Besylate (Amlodipine 10 Mg Tablet) 10 mg PO DAILY [facility] Last Admin: 08/07/20 08:30 Dose: 10 mg Documented by: Heparin Sodium (Porcine) (Heparin Injection (Vial) 5,000 Unit/Ml Vial) 5,000 unit SC Q12 [facility] Last Admin: 08/06/20 20:32 Dose: 5,000 unit Documented by: Levetiracetam 500 mg/ Sodium (Chloride) 105 mls @ 400 mls/hr IV Q12 [facility] Sodium Chloride () 1,000 mls @ 75 mls/hr IV .[id number] [facility] Last Admin: 08/07/20 08:31 Dose: 75 mls/hr Documented by: Levothyroxine Sodium (Levothyroxine 125 Mcg Tablet) 125 mcg PO DAILY@0600 [facility] Last Admin: 08/07/20 08:30 Dose: 125 mcg Documented by: Lorazepam (Lorazepam 2 Mg/Ml Syringe) 1 mg IV PRN PRN PRN Reason: SEIZURES Metoprolol Succinate (Metoprolol(Xl)Succ 100 Mg Tablet) 100 mg PO DAILY [facility] Morphine Sulfate (Morphine 2 Mg/Ml Syringe) 2 mg IV Q3H PRN PRN PRN Reason: Pain Score 6-10 Last Admin: 12/13/20 08:30 Dose: 2 mg Documented by: Ondansetron HCl (Ondansetron 4 Mg/2 Ml Vial) 4 mg IV Q8H PRN PRN PRN Reason: NAUSEA/VOMITING Last Admin: 08/06/20 20:32 Dose: 4 mg Documented by: Sodium Chloride (0.9% Saline Lock 10 Ml Syringe) 10 - 40 ml IV UD PRN PRN Reason: SALINE FLUSH Last Admin: 08/07/20 08:33 Dose: 10 ml Documented by: Assessment/Plan All Active Problems New onset seizure (Acute) Hip fracture (Acute) Displaced subcapital right hip fracture New onset seizure In terms of her right hip fracture, I recommend a cemented right hip hemiarthroplasty. I would plan on doing this tomorrow pending medical and neurology clearance.
[2020-08-07] MEDS: Heparin Injection (Vial) 5,000 UNIT/ML VIAL 5000 UNIT SC ×2 (11:29→21:23)
[2020-08-07 16:34] LABS: Probe Check PASS; Specimen Processing Control PASS
[2020-08-07] MEDS: Acetaminophen 325 MG Tablet 650 MG PO (18:30)
[2020-08-07] MEDS: Metoprolol(XL)Succ 100 MG Tablet PO (21:24)
[2020-08-08] VITALS (15 sets, daily range): BP systolic 117–152; BP diastolic 46–78; PULSE 62–72; RESP 16–20; TEMP 36.2–37; O2SAT 93–100; BMI 26.6
--- NOTE | 2020-08-08 | HIP_PTH ---
PATIENT: ANTOLIN GIPSON LOC: [facility] U#:[id number] AGE/SX: 79/F ROOM: [facility] RE08/06/[address]: Dr. Cam Morales MD : [id number] BED: 1 DIS: 08/10/2020 SPEC #: [id number] RECD: 08/08/20 15:35 STATUS: ARSALAN REQ #: [id number] EVELIN: 08/08/20 00:[address]: Jarrett Rashid DEPT: SURGICAL PATHOLOGY RECD BY: Abhishek Jiang ENTERED: 08/09/20 07:51 SP TYPE: TOTAL HIP OTHR DR: MD Dr. Jarrett Kee DO Dr. Prakash Chand, MD Tissues: Hip, NOS Procedures: Decalcification bone/plaque Surgery Specimen Level IV Comments: @ Ordering doctor for DEC edited from to DR.MKNAPI Johnson by YEN at 08/09/20 09 @ Ordering doctor for SUIV edited from to DR.MKNAPI Johnson by YEN at 08/09/20 09 @ Submitting doctor edited from to DR.MKNAPI Elizabeth BARLOW at 08/09/2020 HEADER OPERATION: Hemiarthroplasty, right hip, cemented PRE-OP DIAGNOSIS: Right hip fracture TISSUE SUBMITTED: Femoral head and soft tissue right hip MICROSCOPIC DIAGNOSIS Femoral head and soft, right hip, hemiarthroplasty: Femoral head and detached pieces of tissue with focal area of hemorrhage, clinically right hip fracture. Fragments of fibroadipose tissue and skeletal muscle tissue. ANANTH:jr 08/12/20 MICROSCOPIC DESCRIPTION Slides are reviewed. GROSS DESCRIPTION Received is one container labeled with the patient's name and designated femoral head and soft tissue of right hip. The specimen consists of a femoral head measuring 4 x 4 x 3 cm. The articular surface is smooth. The resection margin is irregular and hemorrhagic. Also present in the specimen container are multiple pieces of soft tissue measuring in aggregate 3 x 2.5 x 0.3 cm. Also present in the container are multiple pieces of bone measuring in aggregate 6 x 6 x 2 cm. Consumer Marketing Analyst sections are submitted in three cassettes as follows: 1 - soft tissue, entirely submitted, 2 - detached pieces of bone after decalcification, 3 - femoral head after decalcification. / ANANTH:jr 08/09/20 TC:5 CPT: 62385, 45899
--- NOTE | 2020-08-08 07:54 | PN_ITS ---
Patient Problems: Active and Suspected Problems New onset seizure (Acute) Hip fracture (Acute) Subjective: Chief complaint: Follow-up after admission for new onset seizure and acute traumatic right femoral neck fracture. Patient seen and examined. No acute events overnight. Still complaining of right hip pain up with movement. No pain at rest. No other complaints. Her vital signs are stable. - Physical Exam Vitals/I&O's: Vital Signs Temp Pulse Resp BP Pulse Ox 98.2 F 66 16 141/78 H 93 08/08/20 03:15 08/08/20 07:13 08/08/20 03:15 08/08/20 03:15 08/08/20 03:15 Oxygen Delivery Method Room Air Weight: 158 lb 1.143 oz Body Mass Index (BMI) 26.6 Finger Stick Blood Glucose 167 Intake and Output for Last 24 Hours 08/06/20 08/07/20 08/08/20 23:59 23:59 23:59 Intake Total 100 / 300 2850 / 3150 300 / 300 Output Total 1050 / 1550 600 / 600 Balance 100 / -100 1800 / 1600 -300 / -300 General: Alert, Oriented x3, Cooperative, No apparent distress HEENT: Atraumatic, PERRLA, EOMI, Normocephalic Oral: Moist Mucosa, No Gingival or Mucosal Lesions/ Ulcerations Neck: Supple, No JVD, Negative Carotid Bruits, Trachea Midline, Thyroid Normal Size and Texture Lungs: Clear to auscultation, Normal air movement, No rhonchi, No wheeze, No rales Cardiovascular: Regular rate, Regular Rhythm, Normal S1, Normal S2, PMI Normal Abdomen: Bowel Sounds Present, Soft, Non Tender, Non-Distended, No Hepato- splenomegaly Extremities: No clubbing, No cyanosis, No edema Skin: No rashes, No breakdown Lymphatic: No Cervical, Supraclavicular, or Inguinal Adenopathy Neurological: Cranial nerves II-XII grossly intact, Neuro grossly intact Psych/Mental Status: Normal Affect, Appropriate, Alert and oriented to time, place, person, mood and affect Laboratory Results 08/07/20 15:15: COVID-19 (SHEILA) Negative Current Medications Acetaminophen (Acetaminophen 325 Mg Tablet) 650 mg PO Q6H PRN PRN PRN Reason: Pain Score 1-10/Temp > 100.7 F Last Admin: 08/07/20 18:30 Dose: 650 mg Documented by: Albuterol Sulfate (Albuterol 2.5 Mg/3 Ml Vial.Neb.) 2.5 mg INHALATION Q2H PRN PRN PRN Reason: SOB/Wheezing Amlodipine Besylate (Amlodipine 10 Mg Tablet) 10 mg PO DAILY [facility] Last Admin: 08/07/20 08:30 Dose: 10 mg Documented by: Heparin Sodium (Porcine) (Heparin Injection (Vial) 5,000 Unit/Ml Vial) 5,000 unit SC Q12 [facility] Last Admin: 08/07/20 21:23 Dose: 5,000 unit Documented by: Levetiracetam 500 mg/ Sodium (Chloride) 105 mls @ 400 mls/hr IV Q12 [facility] Last Infusion: 08/07/20 21:34 Dose: Infused Documented by: Sodium Chloride () 1,000 mls @ 75 mls/hr IV .[id number] [facility] Last Admin: 08/07/20 21:19 Dose: 75 mls/hr Documented by: Levothyroxine Sodium (Levothyroxine 125 Mcg Tablet) 125 mcg PO DAILY@0600 [facility] Last Admin: 08/08/20 06:17 Dose: Not Given Documented by: Lorazepam (Lorazepam 2 Mg/Ml Syringe) 1 mg IV PRN PRN PRN Reason: SEIZURES Metoprolol Succinate (Metoprolol(Xl)Succ 100 Mg Tablet) 100 mg PO QHS [facility] Last Admin: 08/07/20 21:24 Dose: 100 mg Documented by: Morphine Sulfate (Morphine 2 Mg/Ml Syringe) 2 mg IV Q3H PRN PRN PRN Reason: Pain Score 6-10 Last Admin: 08/07/20 18:30 Dose: 2 mg Documented by: Nutritional Formula (Lactose Free) (Ensure Enlive 120 Ml Liquid) 120 ml PO 4X/DAY [facility] Last Admin: 08/07/20 21:23 Dose: 120 ml Documented by: Ondansetron HCl (Ondansetron 4 Mg/2 Ml Vial) 4 mg IV Q8H PRN PRN PRN Reason: NAUSEA/VOMITING Last Admin: 08/06/20 20:32 Dose: 4 mg Documented by: Sodium Chloride (0.9% Saline Lock 10 Ml Syringe) 10 - 40 ml IV UD PRN PRN Reason: SALINE FLUSH Last Admin: 12/13/20 18:31 Dose: 10 ml Documented by: Medical Necessity - Tobacco Use Smoking Status: Never smoker Tobacco Use: Non-smoker Assessment/Plan All Active Problems New onset seizure (Acute) Hip fracture (Acute) This is an 79 years old female patient presented to the emergency room because of new onset seizure, found to have acute traumatic right femoral neck fracture and she was admitted for evaluation and treatment. #1 new onset seizure: She is on IV Keppra twice daily. She has no more seizure episodes. Her vital signs are stable. CT scan brain showed no acute findings. CTA of the neck was unremarkable. [facility] teleneurology consulted and recommended MRI brain and EEG which was ordered. MRI brain cannot be done because of mandibular implants. Plan for EEG today. #2 acute traumatic right femoral neck fracture: Due to fall secondary to seizure. She is on IV morphine as needed for pain, pain is manageable. Orthopedic surgery consulted. Plan for surgery today. #3 preoperative evaluation: 79 years old with history of hypertension and hypothyroidism as well as new onset seizure. She lives at home with his significant other, doing day-to-day activities without restrictions. Chest x- ray showed no acute findings. EKG revealed normal sinus rhythm with RBBB, no acute ischemic changes. Troponin was negative. Based on her age, kidney function, functional status and past medical history, her estimated risk for perioperative myocardial infarction or cardiac arrest is 0.41%. Based on ACS NSQIP surgical risk calculator, her risk for serious complications as well as any complications is at average, predicted length of stay 5.5 days. This patient will be at intermediate to high risk for perioperative and postoperative medications. No indication for further testing. We can proceed with surgery. #4 hypertension: Blood pressure stable, continue Norvasc and metoprolol. #5 hypothyroidism: Continue levothyroxine. 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 Stable, no acute issues. #7 DVT prophylaxis: Subcu heparin. This note was generated with [employer] software. It may contain incorrect words, spelling, and punctuation that were not noted in checking the note before signing. Inpatient E&M: 32879 Subs Hosp L2
[2020-08-08 08:31] LABS: Absolute Lymphocyte Count 0.93 X10^3/uL (0.83-4.51); Absolute Neutrophil Count 8.3 X10^3/uL (2.0-7.7); Basophil# 0.04 X10^3/uL; Basophil% 0.4 % (0-1); Eosinophil# 0.08 X10^3/uL; Eosinophils% 0.8 % (0-5); Hematocrit 34.1 % (37-47); Hemoglobin 11.2 g/dL (12.0-15.0); Lymphocyte # 0.93 X10^3/ul (4.0); Lymphocyte % 9.1 % (19-41); Mean Corp Hgb Conc 32.8 g/dL (32-36); Mean Corpuscular Hgb 31.3 pg (27.0-32.0); Mean Corpuscular Volume 95.3 fL (81-99); Mean Platelet Vol. 9.1 fl (6.2-12.0); Monocyte# 0.75 X10^3/uL; Monocyte% 7.4 % (0-10); NRBC Flagged by Analyzer 0 % (0-5); Neutrophil # 8.34 X10^3/uL (2.7-7.7); Neutrophil % 81.9 % (47-70); Platelet Count 231 K/mm3 (150-450); RBC Distribution Width CV 14.5 % (11.6-14.6); RBC Distribution Width SD 50.9 fl (35.1-43.9); Red Blood Count 3.58 M/mm3 (4.2-5.4); White Blood Count 10.2 K/mm3 (4.4-11.0)
[2020-08-08 08:38] LABS: Prothrombin Time (Protime)PT. 12.8 SECONDS (11.7-14.9)
[2020-08-08 08:55] LABS: Anion Gap 3 (5-15); BUN 15 mg/dL (7-18); BUN/Creat Ratio 24.9 RATIO (10-20); Calcium,Total 8.7 mg/dL (8.5-10.1); Chloride 106 mmol/L (98-107); EST Glomerular Filtration Rate 101 mL/min (>60); Est Glom Filt Rate - Afr Amer 123 mL/min (>60); Glucose 109 mg/dL (74-106); Potassium 3.7 mmol/L (3.5-5.1); Sodium Level 137 mmol/L (136-145)
--- NOTE | 2020-08-08 09:05 | CASEMGMT ---
Assessment- SW completed assessment with patient at her bedside. SW also confirmed address and phone numbers. Living situation- Patient lives with her significant other in a 1 story home with 2 entry steps. PCP: Amilcar Macias [facility] in [place] Specialists: Cardiology- Dr Gudino [place] Pharmacy: [facility] DME: walker, cane, shower chair ADL's/IADL's: Patient is independent in her activities. She sometimes uses her cane when she is outside of the home. She drives. She manages her own medications. She bathes and dresses herself. Past SNF/rehab: None Past HH: Yes. She does not remember the agency. LW: Yes POA: No. SW spoke with patient letting her know that without having a healthcare Power of Credit Card Specialist in writing any medical decisions would automatically go to her children. SW told her if she wants her significant other to make decisions she should do documents. Plan: OMAR let patient know that OMAR and RN CM will be following for discharge planning. She told SW she does not want to go to a custodial. SW told her that most hip fractures generally end up going to a custodial, but we will watch and follow. SW told her about some of the local facilities including [facility] TCU and [facility] 4th floor Inpatient Rehab Unit. Ivone SANTIAGO MSW
[2020-08-08] MEDS: amLODIPine 10 MG Tablet PO (10:24)
[2020-08-08] MEDS: 0.9% Normal Saline 1,000 ML 75 ML IV ×2 (10:25→16:44)
--- NOTE | 2020-08-08 14:21 | PCM.OPRPT ---
Report of Operation Date of Procedure: 08/08/20 Pre-Operative Diagnosis: Comminuted, displaced subcapital fracture right hip Post-Operative Diagnosis: same Surgery/Procedure Performed:: Cemented hemiarthroplasty right hip Description of Surgical Findings:: Primary Surgeon/Physician: Jarrett Rashid missile tracking technician: REINA Deleon missile tracking technician: Pre-Operative Diagnosis: Displace subcapital fracture right hip Post-Operative Diagnosis: same Surgery/Procedure Performed: Cemented hemiarthroplasty right hip Estimated Blood Loss: 100 cc Specimen's Removed: bone Type of Anesthesia: general ASA Class: III Implants: [Redfield Accolade C size 2 femur with 43 mm, +4 bipolar femoral head ] Surgical Indications: Patient has fracture of the [right ] hip. Patient was cleared from a medical standpoint. The risks of the surgery was discussed with the patient and family at length. Procedure Description: The patient was greeted in the preoperative area. The [right ] hip was marked with surgical marker and preoperative antibiotics administered. The patient was then taken to OR suite in stable condition. Once the patient was placed in the supine position on the operating room table and once adequate anesthesia was obtained the patient was then placed in the lateral decubitus position with the surgical hip facing the field. All bony prominences were well-padded. A commercial hip position was utilized. The appropriate extremity was then prepped and draped in usual sterile fashion. Ioban was placed on the skin. Surgical timeout was performed and surgery was commenced. Standard anterolateral approach to the hip was then performed incision was planned and carried out with a #10 blade. Dissection was then carried length of the incision to the IT band which was split proximally and distally. A Charnley retractor was then placed for soft tissue retraction exposing the gluteus medius. The hip was then approached through a transgluteal approach and dislocated through a posterior capsulectomy. The incarcerated femoral head was removed and measured on the back table. Findings are consistent with a femoral neck fracture. A femoral osteotomy was then created approximately 1 fingerbreadth above the lesser trochanter. No significant abnormality of the acetabulum is identified. Any remaining tissue or bone was removed from the acetabulum Attention was then turned to the femoral preparation. The hip was placed in the 90/90 position and a lateralizing box osteotome was utilized. Femoral starting awl was used followed by sequential broaching to the appropriate size. Excellent purchase was obtained with the stem no stem subsidence and excellent rotational stability was confirmed. A calcar reamer was then used in the trial head neck was placed on the broach. The hip was then located and taken through full range of motion flexion internal and external rotation as well as extension. Excellent stability was noted no impingement was identified of the components and leg lengths appear to be appropriate. The hip was at this point dislocated and the trial femoral components were removed. Cement was mixed under third generation technique while the femoral canal was irrigated, brushed and dried thoroughly. Cement was then introduced in an antegrade fashion and pressurized. The final femoral stem was then implanted and impacted to the appropriate depth. Again excellent purchase was obtained no stem subsidence or rotational instability was noted. The stem was held in placxe in the appropriate version until the cement had cured, The hip was once again trialed and confirmation of leg length and stability was performed. Soft tissue tension also appeared to be appropriate. At this point the hip was redislocated and the trunnion was cleaned and dried meticulously in the appropriate size femoral head was placed on the clean dry trunnion using a 12/14 Espinoza taper. The acetabulum was irrigated and inspected to insure that there wer no incarcerated fragments of bone or cement. The hip was once again relocated and again taken through full range of motion. Copious irrigation was performed. Anatomic closure of the gluteus medius and minimus was performed with #1 Vicryl [id number] type fashion followed by closure of the IT band with #1 Vicryl 0 Vicryl was utilized in subcutaneous tissue and surgical danny were placed in the skin. A well-padded nonadherent dressing was applied. Patient was taken to PACU in stable condition. No complications were identified. Will follow standard postop protocol for hemiarthroplasty. Patient must use assistive device for ambulation for approximately 6 weeks of the gluteal musculature heals. missile tracking technician: Dante Leggett Type of Anesthesia:: General Anesthesiologist: Dillon Bridges Specimen's removed: bone Estimated Blood Loss (mL): 100 cc - Admit VTE Documentation VTE Present on Admission: No VTE Mechan Device Prophylaxis: SCD's VTE Pharm Prophylaxis ordered?: Yes
--- NOTE | 2020-08-08 15:21 | RAD_ITS ---
STUDY: X-RAY - PELVIS AND RIGHT HIP REASON FOR EXAM: Female, 79 years old. Post op right hip TECHNIQUE: 2 views of the pelvis and hip. COMPARISON: Comparison is made with prior study dated 08/06/2020. FINDINGS: The patient is status post total hip replacement. There is good alignment. Postoperative soft tissue changes. RAD/Hip Min 2 Views (Portable) IMPRESSION: Status post total hip replacement. There is good alignment. Postoperative soft tissue changes. Electronically Signed: Bill Foreman, at 15:39 EST , Service support ,
[2020-08-08 16:04] LABS: Hematocrit 36.9 % (37-47); Hemoglobin 12.4 g/dL (12.0-15.0); Mean Corp Hgb Conc 33.6 g/dL (32-36); Mean Corpuscular Hgb 32.5 pg (27.0-32.0); Mean Corpuscular Volume 96.6 fL (81-99); Mean Platelet Vol. 9.9 fl (6.2-12.0); Platelet Count 246 K/mm3 (150-450); RBC Distribution Width CV 14.5 % (11.6-14.6); RBC Distribution Width SD 51.3 fl (35.1-43.9); Red Blood Count 3.82 M/mm3 (4.2-5.4); White Blood Count 15.2 K/mm3 (4.4-11.0)
[2020-08-08 16:06] LABS: Anion Gap 6 (5-15); BUN 11 mg/dL (7-18); BUN/Creat Ratio 16.3 RATIO (10-20); Calcium,Total 8.4 mg/dL (8.5-10.1); Chloride 106 mmol/L (98-107); Creatinine, Serum 0.67 mg/dL (0.55-1.02); EST Glomerular Filtration Rate 89 mL/min (>60); Est Glom Filt Rate - Afr Amer 108 mL/min (>60); Glucose 119 mg/dL (74-106); Potassium 3.6 mmol/L (3.5-5.1); Sodium Level 137 mmol/L (136-145)
[2020-08-08] MEDS: Acetaminophen 500 MG Tablet 1000 MG PO ×2 (16:43→22:08)
[2020-08-08] MEDS: Senna/Docusate Sodium 1 Tablet 2 TABLET PO (22:04)
[2020-08-08] MEDS: Aspirin 81 MG TAB.CHEW PO (22:04)
[2020-08-08] MEDS: Heparin Injection (Vial) 5,000 UNIT/ML VIAL 5000 UNIT SC (22:04)
[2020-08-08] MEDS: Metoprolol(XL)Succ 100 MG Tablet PO (22:07)
[2020-08-09] VITALS (10 sets, daily range): BP systolic 128–159; BP diastolic 48–75; PULSE 54–74; RESP 16–18; TEMP 36.6–37.5; O2SAT 94–97; BMI 26.6
[2020-08-09] MEDS: Levothyroxine 125 MCG Tablet PO (07:00)
[2020-08-09] MEDS: Acetaminophen 500 MG Tablet 1000 MG PO ×3 (07:00→21:46)
[2020-08-09 07:12] LABS: Hematocrit 30.4 % (37-47); Mean Corp Hgb Conc 32.9 g/dL (32-36); Mean Corpuscular Hgb 31.5 pg (27.0-32.0); Mean Corpuscular Volume 95.9 fL (81-99); Platelet Count 245 K/mm3 (150-450); RBC Distribution Width CV 14.4 % (11.6-14.6); RBC Distribution Width SD 50.3 fl (35.1-43.9); Red Blood Count 3.17 M/mm3 (4.2-5.4); White Blood Count 8.4 K/mm3 (4.4-11.0)
[2020-08-09 07:46] LABS: Anion Gap 6 (5-15); BUN 14 mg/dL (7-18); BUN/Creat Ratio 24.3 RATIO (10-20); Calcium,Total 8.5 mg/dL (8.5-10.1); Chloride 105 mmol/L (98-107); Creatinine, Serum 0.58 mg/dL (0.55-1.02); EST Glomerular Filtration Rate 106 mL/min (>60); Est Glom Filt Rate - Afr Amer 129 mL/min (>60); Glucose 98 mg/dL (74-106); Potassium 3.6 mmol/L (3.5-5.1); Sodium Level 138 mmol/L (136-145)
[2020-08-09] MEDS: 0.9% Normal Saline 1,000 ML 75 ML IV (08:04)
--- NOTE | 2020-08-09 08:06 | PN_ITS ---
Patient Problems: Active and Suspected Problems New onset seizure (Acute) Hip fracture (Acute) Vitals/I&O's: Vital Signs Temp Pulse Resp BP Pulse Ox 98.9 F 72 18 141/55 H 97 08/09/20 04:00 08/09/20 07:21 08/09/20 04:00 08/09/20 04:00 08/09/20 04:00 Oxygen Flow Rate (L/min) 6 Oxygen Delivery Method Room Air Weight: 161 lb 6.054 oz Body Mass Index (BMI) 26.6 Finger Stick Blood Glucose 167 Intake and Output for Last 24 Hours 08/07/20 08/08/20 08/09/20 23:59 23:59 23:59 Intake Total 2850 / 3150 2434.25 / 2794.25 2013.0 / 2013.0 Output Total 1050 / 1550 2560 / 2810 775 / 775 Balance 1800 / 1600 -125.75 / -15.75 1239.0 / 1239.0 Laboratory Results 08/08/20 08:20: WBC 10.2, RBC 3.58 L, Hgb 11.2 L, Hct 34.1 L, MCV 95.3, MCH 31.3, MCHC 32.8, RDW Std Deviation 50.9 H, RDW Coeff of Alpa 14.5, Plt Count 231, MPV 9.1, Immature Gran % (Auto) 0.400, Neut % (Auto) 81.9 H, Lymph % (Auto) 9.1 L, Caroline % (Auto) 7.4, Eos % (Auto) 0.8, Baso % (Auto) 0.4, Absolute Neuts (auto) 8.3 H, Absolute Lymphs (auto) 0.93, Nucleated RBC % 0 08/08/20 08:20: PT 12.8, INR 1.0, APTT 27.0 08/08/20 08:20: Sodium 137, Potassium 3.7, Chloride 106, Carbon Dioxide 28.0, Anion Gap 3 L, BUN 15, Creatinine 0.60, Estim Creat Clear Calc 41.30, Est GFR (MDRD) Af Amer 123, Est GFR (MDRD) Non-Af 101, BUN/Creatinine Ratio 24.9 H, Glucose 109 H, Calcium 8.7 08/08/20 08:20: Blood Type A POSITIVE, Antibody Screen NEGATIVE 08/08/20 15:40: WBC 15.2 H, RBC 3.82 L, Hgb 12.4, Hct 36.9 L, MCV 96.6, MCH 32.5 H, MCHC 33.6, RDW Std Deviation 51.3 H, RDW Coeff of Alpa 14.5, Plt Count 246, MPV 9.9 08/08/20 15:47: Sodium 137, Potassium 3.6, Chloride 106, Carbon Dioxide 25.0, Anion Gap 6, BUN 11, Creatinine 0.67, Estim Creat Clear Calc 41.30, Est GFR (MDRD) Af Amer 108, Est GFR (MDRD) Non-Af 89, BUN/Creatinine Ratio 16.3, Glucose 119 H, Calcium 8.4 L 08/09/20 05:35: WBC 8.4, RBC 3.17 L, Hgb 10.0 L, Hct 30.4 L, MCV 95.9, MCH 31.5, MCHC 32.9, RDW Std Deviation 50.3 H, RDW Coeff of Alpa 14.4, Plt Count 245, MPV 10.0 08/09/20 05:35: Sodium 138, Potassium 3.6, Chloride 105, Carbon Dioxide 27.0, Anion Gap 6, BUN 14, Creatinine 0.58, Estim Creat Clear Calc 41.30, Est GFR (MDRD) Af Amer 129, Est GFR (MDRD) Non-Af 106, BUN/Creatinine Ratio 24.3 H, Glucose 98, Calcium 8.5 Current Medications Acetaminophen (Acetaminophen 325 Mg Tablet) 650 mg PO Q6H PRN PRN PRN Reason: Pain Score 1-10/Temp > 100.7 F Last Admin: 08/07/20 18:30 Dose: 650 mg Documented by: Acetaminophen (Acetaminophen 500 Mg Tablet) 1,000 mg PO Q8 [facility] Last Admin: 08/09/20 07:00 Dose: 1,000 mg Documented by: Albuterol Sulfate (Albuterol 2.5 Mg/3 Ml Vial.Neb.) 2.5 mg INHALATION Q2H PRN PRN PRN Reason: SOB/Wheezing Amlodipine Besylate (Amlodipine 10 Mg Tablet) 10 mg PO DAILY [facility] Last Admin: 08/08/20 10:24 Dose: 10 mg Documented by: Aspirin (Aspirin 81 Mg Tab.Chew) 81 mg PO BID [facility] Last Admin: 08/08/20 22:04 Dose: 81 mg Documented by: Heparin Sodium (Porcine) (Heparin Injection (Vial) 5,000 Unit/Ml Vial) 5,000 unit SC Q12 [facility] Last Admin: 08/08/20 22:04 Dose: 5,000 unit Documented by: Levetiracetam 500 mg/ Sodium (Chloride) 105 mls @ 400 mls/hr IV Q12 [facility] Last Infusion: 08/08/20 22:19 Dose: Infused Documented by: Sodium Chloride () 1,000 mls @ 75 mls/hr IV .[id number] [facility] Last Infusion: 08/09/20 06:55 Dose: Infused Documented by: Levothyroxine Sodium (Levothyroxine 125 Mcg Tablet) 125 mcg PO DAILY@0600 [facility] Last Admin: 08/09/20 07:00 Dose: 125 mcg Documented by: Lorazepam (Lorazepam 2 Mg/Ml Syringe) 1 mg IV PRN PRN PRN Reason: SEIZURES Metoprolol Succinate (Metoprolol(Xl)Succ 100 Mg Tablet) 100 mg PO QHS [facility] Last Admin: 08/08/20 22:07 Dose: 100 mg Documented by: Morphine Sulfate (Morphine 2 Mg/Ml Syringe) 2 mg IV Q3H PRN PRN PRN Reason: Pain Score 6-10 Last Admin: 08/07/20 18:30 Dose: 2 mg Documented by: Nutritional Formula (Lactose Free) (Ensure Enlive 120 Ml Liquid) 120 ml PO 4X/DAY [facility] Last Admin: 08/08/20 22:04 Dose: 120 ml Documented by: Ondansetron HCl (Ondansetron 4 Mg/2 Ml Vial) 4 mg IV Q8H PRN PRN PRN Reason: NAUSEA/VOMITING Last Admin: 08/06/20 20:32 Dose: 4 mg Documented by: Promethazine HCl (Promethazine 25 Mg/Ml Syringe) 12.5 mg IM Q6H PRN PRN; Protocol PRN Reason: NAUSEA/VOMITING Senna/Docusate Sodium (Senna/Docusate Sodium 1 Tablet) 2 tablet PO BID [facility] Last Admin: 08/08/20 22:04 Dose: 2 tablet Documented by: Sodium Chloride (0.9% Saline Lock 10 Ml Syringe) 10 - 40 ml IV UD PRN PRN Reason: SALINE FLUSH Last Admin: 08/07/20 18:31 Dose: 10 ml Documented by: Tramadol HCl (Tramadol 50 Mg Tablet) 50 - 100 mg PO Q6H PRN PRN PRN Reason: Pain Score 4-10 STROKE Vital Signs/Narrative: Vital Signs Pulse 08/09/20 07:21 72 Medical Necessity - Tobacco Use Smoking Status: Never smoker Tobacco Use: Non-smoker Assessment/Plan All Active Problems New onset seizure (Acute) Hip fracture (Acute) This is an 79 years old female patient presented to the emergency room because of new onset seizure, found to have acute traumatic right femoral neck fracture and she was admitted for evaluation and treatment. #1 new onset seizure: She is on IV Keppra twice daily. She has no more seizure episodes. Her vital signs are stable. CT scan brain showed no acute findings. CTA of the neck was unremarkable. SOC teleneurology consulted and recommended MRI brain and EEG which was ordered. MRI brain cannot be done because of mandibular implants. Plan for EEG today. #2 acute traumatic right femoral neck fracture: Due to fall secondary to seizure. She is on IV morphine as needed for pain, pain is manageable. Orthopedic surgery consulted. Plan for surgery today. #3 preoperative evaluation: 79 years old with history of hypertension and hypothyroidism as well as new onset seizure. She lives at home with his significant other, doing day-to-day activities without restrictions. Chest x- ray showed no acute findings. EKG revealed normal sinus rhythm with RBBB, no acute ischemic changes. Troponin was negative. Based on her age, kidney function, functional status and past medical history, her estimated risk for perioperative myocardial infarction or cardiac arrest is 0.41%. Based on ACS NSQIP surgical risk calculator, her risk for serious complications as well as any complications is at average, predicted length of stay 5.5 days. This patient will be at intermediate to high risk for perioperative and postoperative medications. No indication for further testing. We can proceed with surgery. #4 hypertension: Blood pressure stable, continue Norvasc and metoprolol. #5 hypothyroidism: Continue levothyroxine. 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 Stable, no acute issues. #7 DVT prophylaxis: Subcu heparin.
--- NOTE | 2020-08-09 08:25 | PN.ORTHO_ITS ---
Patient Problems: Active and Suspected Problems New onset seizure (Acute) Hip fracture (Acute) Subjective: Pt. doing well. Pain well controlled on current regimen. - Physical Exam Vitals/I&O's: Vital Signs Temp Pulse Resp BP Pulse Ox 98.9 F 72 18 141/55 H 97 08/09/20 04:00 08/09/20 07:21 08/09/20 04:00 08/09/20 04:00 08/09/20 04:00 Oxygen Flow Rate (L/min) 6 Oxygen Delivery Method Room Air Weight: 161 lb 6.054 oz Body Mass Index (BMI) 26.6 Finger Stick Blood Glucose 167 Intake and Output for Last 24 Hours 08/07/20 08/08/20 08/09/20 23:59 23:59 23:59 Intake Total 2850 / 3150 2434.25 / 2794.25 2014.0 / 2014.0 Output Total 1050 / 1550 2560 / 2810 775 / 775 Balance 1800 / 1600 -125.75 / -15.75 1239.0 / 1239.0 General: Alert, Oriented x3, Cooperative, No apparent distress Extremities: No clubbing, No cyanosis, No edema, Capillary Refill Less than 3 Seconds Skin: Incision - stable Neurological: Neuro grossly intact Laboratory Results 08/08/20 08:20: WBC 10.2, RBC 3.58 L, Hgb 11.2 L, Hct 34.1 L, MCV 95.3, MCH 31.3, MCHC 32.8, RDW Std Deviation 50.9 H, RDW Coeff of Alpa 14.5, Plt Count 231, MPV 9.1, Immature Gran % (Auto) 0.400, Neut % (Auto) 81.9 H, Lymph % (Auto) 9.1 L, [place] % (Auto) 7.4, Eos % (Auto) 0.8, Baso % (Auto) 0.4, Absolute Neuts (auto) 8.3 H, Absolute Lymphs (auto) 0.93, Nucleated RBC % 0 08/08/20 08:20: PT 12.8, INR 1.0, APTT 27.0 08/08/20 08:20: Sodium 137, Potassium 3.7, Chloride 106, Carbon Dioxide 28.0, Anion Gap 3 L, BUN 15, Creatinine 0.60, Estim Creat Clear Calc 41.30, Est GFR (MDRD) Af Amer 123, Est GFR (MDRD) Non-Af 101, BUN/Creatinine Ratio 24.9 H, Glucose 109 H, Calcium 8.7 08/08/20 08:20: Blood Type A POSITIVE, Antibody Screen NEGATIVE 08/08/20 15:40: WBC 15.2 H, RBC 3.82 L, Hgb 12.4, Hct 36.9 L, MCV 96.6, MCH 32.5 H, MCHC 33.6, RDW Std Deviation 51.3 H, RDW Coeff of Alpa 14.5, Plt Count 246, MPV 9.9 08/08/20 15:47: Sodium 137, Potassium 3.6, Chloride 106, Carbon Dioxide 25.0, Anion Gap 6, BUN 11, Creatinine 0.67, Estim Creat Clear Calc 41.30, Est GFR (MDRD) Af Amer 108, Est GFR (MDRD) Non-Af 89, BUN/Creatinine Ratio 16.3, Glucose 119 H, Calcium 8.4 L 08/09/20 05:35: WBC 8.4, RBC 3.17 L, Hgb 10.0 L, Hct 30.4 L, MCV 95.9, MCH 31.5, MCHC 32.9, RDW Std Deviation 50.3 H, RDW Coeff of Alpa 14.4, Plt Count 245, MPV 10.0 08/09/20 05:35: Sodium 138, Potassium 3.6, Chloride 105, Carbon Dioxide 27.0, Anion Gap 6, BUN 14, Creatinine 0.58, Estim Creat Clear Calc 41.30, Est GFR (MDRD) Af Amer 129, Est GFR (MDRD) Non-Af 106, BUN/Creatinine Ratio 24.3 H, Glucose 98, Calcium 8.5 Current Medications Acetaminophen (Acetaminophen 325 Mg Tablet) 650 mg PO Q6H PRN PRN PRN Reason: Pain Score 1-10/Temp > 100.7 F Last Admin: 08/07/20 18:30 Dose: 650 mg Documented by: Acetaminophen (Acetaminophen 500 Mg Tablet) 1,000 mg PO Q8 [facility] Last Admin: 08/09/20 07:00 Dose: 1,000 mg Documented by: Albuterol Sulfate (Albuterol 2.5 Mg/3 Ml Vial.Neb.) 2.5 mg INHALATION Q2H PRN PRN PRN Reason: SOB/Wheezing Amlodipine Besylate (Amlodipine 10 Mg Tablet) 10 mg PO DAILY [facility] Last Admin: 08/08/20 10:24 Dose: 10 mg Documented by: Aspirin (Aspirin 81 Mg Tab.Chew) 81 mg PO BID [facility] Last Admin: 08/08/20 22:04 Dose: 81 mg Documented by: Heparin Sodium (Porcine) (Heparin Injection (Vial) 5,000 Unit/Ml Vial) 5,000 unit SC Q12 [facility] Last Admin: 08/08/20 22:04 Dose: 5,000 unit Documented by: Levetiracetam 500 mg/ Sodium (Chloride) 105 mls @ 400 mls/hr IV Q12 [facility] Last Infusion: 08/08/20 22:19 Dose: Infused Documented by: Sodium Chloride () 1,000 mls @ 75 mls/hr IV .[id number] [facility] Last Admin: 08/09/20 08:04 Dose: 75 mls/hr Documented by: Levothyroxine Sodium (Levothyroxine 125 Mcg Tablet) 125 mcg PO DAILY@0600 [facility] Last Admin: 08/09/20 07:00 Dose: 125 mcg Documented by: Lorazepam (Lorazepam 2 Mg/Ml Syringe) 1 mg IV PRN PRN PRN Reason: SEIZURES Metoprolol Succinate (Metoprolol(Xl)Succ 100 Mg Tablet) 100 mg PO QHS [facility] Last Admin: 08/08/20 22:07 Dose: 100 mg Documented by: Morphine Sulfate (Morphine 2 Mg/Ml Syringe) 2 mg IV Q3H PRN PRN PRN Reason: Pain Score 6-10 Last Admin: 08/07/20 18:30 Dose: 2 mg Documented by: Nutritional Formula (Lactose Free) (Ensure Enlive 120 Ml Liquid) 120 ml PO 4X/DAY [facility] Last Admin: 08/08/20 22:04 Dose: 120 ml Documented by: Ondansetron HCl (Ondansetron 4 Mg/2 Ml Vial) 4 mg IV Q8H PRN PRN PRN Reason: NAUSEA/VOMITING Last Admin: 08/06/20 20:32 Dose: 4 mg Documented by: Promethazine HCl (Promethazine 25 Mg/Ml Syringe) 12.5 mg IM Q6H PRN PRN; Protocol PRN Reason: NAUSEA/VOMITING Senna/Docusate Sodium (Senna/Docusate Sodium 1 Tablet) 2 tablet PO BID [facility] Last Admin: 08/08/20 22:04 Dose: 2 tablet Documented by: Sodium Chloride (0.9% Saline Lock 10 Ml Syringe) 10 - 40 ml IV UD PRN PRN Reason: SALINE FLUSH Last Admin: 08/07/20 18:31 Dose: 10 ml Documented by: Tramadol HCl (Tramadol 50 Mg Tablet) 50 - 100 mg PO Q6H PRN PRN PRN Reason: Pain Score 4-10 Medical Necessity - Tobacco Use Smoking Status: Never smoker Tobacco Use: Non-smoker Assessment/Plan All Active Problems New onset seizure (Acute) Hip fracture (Acute) s/p right hi hemiarthroplasty Continue WBAT D/c danny 10 days post op Continue PT May discharge when stable per hospitalist F/u in my office 2 weeks post discharge Ortho off case for now Will see agin at your request, otherwise will follow up as an outpatient.
[2020-08-09] MEDS: Heparin Injection (Vial) 5,000 UNIT/ML VIAL 5000 UNIT SC ×2 (08:38→21:47)
[2020-08-09] MEDS: Aspirin 81 MG TAB.CHEW PO ×2 (08:38→21:46)
[2020-08-09] MEDS: Senna/Docusate Sodium 1 Tablet 2 TABLET PO ×2 (08:39→21:45)
[2020-08-09] MEDS: amLODIPine 10 MG Tablet PO (08:39)
[2020-08-09] MEDS: traMADol 50 MG Tablet PO (10:51)
--- NOTE | 2020-08-09 11:59 | CASEMGMT ---
SW spoke with therapy and patient did not do well. It is being recommended she go to a SNF for rehab. SW met with patient. SW asked her how therapy went. She said it was harder than what she thought it would be. SW asked her if she would like SW to check on a bed in out TCU or another community SNF. She said she is going home. She said she has a that can take care of her. SW asked her if he could care for her even in this condition. She said, Yes. OMAR asked if she will be able to get in and out of a car. She said, I hope so. OMAR will follow and see how patient does with therapy tomorrow. Ivone SANTIAGO [employer] SUPERVISOR
[2020-08-09] MEDS: 0.9% Saline Lock 10 ML Syringe IV (12:46)
--- NOTE | 2020-08-09 13:03 | PN_ITS ---
<Quinn Liang - Last Filed: 08/09/20 13:03> Patient Problems: Active and Suspected Problems New onset seizure (Acute) Hip fracture (Acute) Reason for Visit: new onset seizure Subjective: Pt resting comfortably in bed NAD. No fever/chills. No further seizure activity. Ongoing right hip pain. Vitals/I&O's: Vital Signs Temp Pulse Resp BP Pulse Ox 98.2 F 70 18 128/59 H 97 08/09/20 12:48 08/09/20 12:48 08/09/20 12:48 08/09/20 12:48 08/09/20 12:48 Oxygen Flow Rate (L/min) 6 Oxygen Delivery Method Room Air Weight: 161 lb 6.054 oz Body Mass Index (BMI) 26.6 Finger Stick Blood Glucose 167 Intake and Output for Last 24 Hours 08/07/20 08/08/20 08/09/20 23:59 23:59 23:59 Intake Total 2850 / 3150 2434.25 / 2794.25 2384.25 / 2384.25 Output Total 1050 / 1550 2560 / 2810 775 / 775 Balance 1800 / 1600 -125.75 / -15.75 1609.25 / 1609.25 General: Alert, Oriented x3, Cooperative HEENT: Atraumatic, PERRLA, EOMI, Normocephalic Neck: Supple, No JVD, Negative Carotid Bruits Lungs: Clear to auscultation, Normal air movement Cardiovascular: Regular rate, No murmurs Abdomen: Bowel Sounds Present, Soft, Non Tender Extremities: No edema, Capillary Refill Less than 3 Seconds Skin: No rashes, No breakdown Musculoskeletal: No Tenderness to Palpation of Joints or Extremities Neurological: Cranial nerves II-XII grossly intact Psych/Mental Status: Normal Affect, Appropriate, Alert and oriented to time, place, person, mood and affect Laboratory Results 08/08/20 15:40: WBC 15.2 H, RBC 3.82 L, Hgb 12.4, Hct 36.9 L, MCV 96.6, MCH 32.5 H, MCHC 33.6, RDW Std Deviation 51.3 H, RDW Coeff of Alpa 14.5, Plt Count 246, MPV 9.9 08/08/20 15:47: Sodium 137, Potassium 3.6, Chloride 106, Carbon Dioxide 25.0, Anion Gap 6, BUN 11, Creatinine 0.67, Estim Creat Clear Calc 41.30, Est GFR (MDRD) Af Amer 108, Est GFR (MDRD) Non-Af 89, BUN/Creatinine Ratio 16.3, Glucose 119 H, Calcium 8.4 L 08/09/20 05:35: WBC 8.4, RBC 3.17 L, Hgb 10.0 L, Hct 30.4 L, MCV 95.9, MCH 31.5, MCHC 32.9, RDW Std Deviation 50.3 H, RDW Coeff of Alpa 14.4, Plt Count 245, MPV 10.0 08/09/20 05:35: Sodium 138, Potassium 3.6, Chloride 105, Carbon Dioxide 27.0, Anion Gap 6, BUN 14, Creatinine 0.58, Estim Creat Clear Calc 41.30, Est GFR (MDRD) Af Amer 129, Est GFR (MDRD) Non-Af 106, BUN/Creatinine Ratio 24.3 H, Glucose 98, Calcium 8.5 Current Medications Acetaminophen (Acetaminophen 325 Mg Tablet) 650 mg PO Q6H PRN PRN PRN Reason: Pain Score 1-10/Temp > 100.7 F Last Admin: 08/07/20 18:30 Dose: 650 mg Documented by: Acetaminophen (Acetaminophen 500 Mg Tablet) 1,000 mg PO Q8 [facility] Last Admin: 08/09/20 07:00 Dose: 1,000 mg Documented by: Albuterol Sulfate (Albuterol 2.5 Mg/3 Ml Vial.Neb.) 2.5 mg INHALATION Q2H PRN PRN PRN Reason: SOB/Wheezing Amlodipine Besylate (Amlodipine 10 Mg Tablet) 10 mg PO DAILY [facility] Last Admin: 08/09/20 08:39 Dose: 10 mg Documented by: Aspirin (Aspirin 81 Mg Tab.Chew) 81 mg PO BID [facility] Last Admin: 08/09/20 08:38 Dose: 81 mg Documented by: Heparin Sodium (Porcine) (Heparin Injection (Vial) 5,000 Unit/Ml Vial) 5,000 unit SC Q12 [facility] Last Admin: 08/09/20 08:38 Dose: 5,000 unit Documented by: Levetiracetam 500 mg/ Sodium (Chloride) 105 mls @ 400 mls/hr IV Q12 [facility] Last Infusion: 08/09/20 11:05 Dose: Infused Documented by: Sodium Chloride () 1,000 mls @ 75 mls/hr IV .[id number] [facility] Last Infusion: 08/09/20 12:48 Dose: Infused Documented by: Levothyroxine Sodium (Levothyroxine 125 Mcg Tablet) 125 mcg PO DAILY@0600 [facility] Last Admin: 08/09/20 07:00 Dose: 125 mcg Documented by: Lorazepam (Lorazepam 2 Mg/Ml Syringe) 1 mg IV PRN PRN PRN Reason: SEIZURES Metoprolol Succinate (Metoprolol(Xl)Succ 100 Mg Tablet) 100 mg PO QHS [facility] Last Admin: 08/08/20 22:07 Dose: 100 mg Documented by: Morphine Sulfate (Morphine 2 Mg/Ml Syringe) 2 mg IV Q3H PRN PRN PRN Reason: Pain Score 6-10 Last Admin: 08/07/20 18:30 Dose: 2 mg Documented by: Nutritional Formula (Lactose Free) (Ensure Enlive 120 Ml Liquid) 120 ml PO 4X/DAY [facility] Last Admin: 08/09/20 08:38 Dose: 120 ml Documented by: Ondansetron HCl (Ondansetron 4 Mg/2 Ml Vial) 4 mg IV Q8H PRN PRN PRN Reason: NAUSEA/VOMITING Last Admin: 08/06/20 20:32 Dose: 4 mg Documented by: Promethazine HCl (Promethazine 25 Mg/Ml Syringe) 12.5 mg IM Q6H PRN PRN; Protocol PRN Reason: NAUSEA/VOMITING Senna/Docusate Sodium (Senna/Docusate Sodium 1 Tablet) 2 tablet PO BID [facility] Last Admin: 08/09/20 08:39 Dose: 2 tablet Documented by: Sodium Chloride (0.9% Saline Lock 10 Ml Syringe) 10 - 40 ml IV UD PRN PRN Reason: SALINE FLUSH Last Admin: 08/09/20 12:46 Dose: 10 ml Documented by: Tramadol HCl (Tramadol 50 Mg Tablet) 50 - 100 mg PO Q6H PRN PRN PRN Reason: Pain Score 4-10 Last Admin: 08/09/20 10:51 Dose: 50 mg Documented by: STROKE Vital Signs/Narrative: Vital Signs Temp Pulse Resp BP Pulse Ox 08/09/20 12:48 98.2 F 70 18 128/59 H 97 Medical Necessity - Tobacco Use Smoking Status: Never smoker Tobacco Use: Non-smoker Assessment/Plan All Active Problems New onset seizure (Acute) Hip fracture (Acute) 1. New onset seizure - continue keppra. EEG read pending. Cannot have MRI due to mandibular implants. 2. post op right total hip, right femoral neck fracture - per Dr. Rashid POD#1. Doing well. PTOT evals. Has not walked yet. 3. 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 hypothyroidism - synthroid 5. anemia - normocytic - may be normal post op loss/fluid dilution. will recheck Hgb in AM. 6. HTN - stable DVT ppx: per ortho aspirin bid DC planning: possible SNF placement - PTOT evals pending This patient was seen by Quinn Liang PA-C under the supervision of Dr. Morales <Cam Morales - Last Filed: 08/09/20 16:40> Reason for Visit: Follow-up for new onset seizure. Objective: Patient denies any previous history of seizure disorder. EEG was done and reported as no focal epileptiform activity. CTA brain did not show large vessel occlusion or intracranial aneurysm. Bilateral proximal ICA atherosclerosis without hemodynamically significant stenosis or arterial dissection. Patient had right femoral neck fracture. Physical exam General: Alert, Oriented x3, Cooperative HEENT: Atraumatic, PERRLA, EOMI, Normocephalic Oral: No Gingival or Mucosal Lesions/ Ulcerations Neck: Supple, No JVD, Negative Carotid Bruits Lungs: Air entry diminished in bilateral lung bases. No crepitation/rhonchi Cardiovascular: Regular rate, Regular Rhythm, Normal S1, Normal S2, No murmurs Abdomen: Bowel Sounds Present, Soft, Non Tender, Non-Distended : No renal angle tenderness. No suprapubic tenderness. Extremities: No edema, Capillary Refill Less than 3 Seconds Skin: No rashes, No breakdown Musculoskeletal: Right femoral neck surgical site is dry. No hematoma. Mild expected postoperative tenderness. Neurological: Cranial nerves II-XII grossly intact, Deep Tendon Reflexes 2+/4 and Symmetrical, Neuro grossly intact Psych/Mental Status: Normal Affect, Appropriate. Vitals/I&O's: Vital Signs Temp Pulse Resp BP Pulse Ox 98.2 F 54 L 18 128/59 H 97 08/09/20 12:48 08/09/20 13:30 08/09/20 12:48 08/09/20 12:48 08/09/20 13:40 Oxygen Flow Rate (L/min) 6 Oxygen Delivery Method Room Air Weight: 161 lb 6.054 oz Body Mass Index (BMI) 26.6 Finger Stick Blood Glucose 167 Intake and Output for Last 24 Hours 08/07/20 08/08/20 08/09/20 23:59 23:59 23:59 Intake Total 2850 / 3150 2434.25 / 2794.25 2384.25 / 2384.25 Output Total 1050 / 1550 2560 / 2810 1125 / 1125 Balance 1800 / 1600 -125.75 / -15.75 1259.25 / 1259.25 Laboratory Results 08/09/20 05:35: WBC 8.4, RBC 3.17 L, Hgb 10.0 L, Hct 30.4 L, MCV 95.9, MCH 31.5, MCHC 32.9, RDW Std Deviation 50.3 H, RDW Coeff of Alpa 14.4, Plt Count 245, MPV 10.0 08/09/20 05:35: Sodium 138, Potassium 3.6, Chloride 105, Carbon Dioxide 27.0, Anion Gap 6, BUN 14, Creatinine 0.58, Estim Creat Clear Calc 41.30, Est GFR (MDRD) Af Amer 129, Est GFR (MDRD) Non-Af 106, BUN/Creatinine Ratio 24.3 H, Glucose 98, Calcium 8.5 Current Medications Acetaminophen (Acetaminophen 325 Mg Tablet) 650 mg PO Q6H PRN PRN PRN Reason: Pain Score 1-10/Temp > 100.7 F Last Admin: 08/07/20 18:30 Dose: 650 mg Documented by: Acetaminophen (Acetaminophen 500 Mg Tablet) 1,000 mg PO Q8 [facility] Last Admin: 08/09/20 14:53 Dose: 1,000 mg Documented by: Albuterol Sulfate (Albuterol 2.5 Mg/3 Ml Vial.Neb.) 2.5 mg INHALATION Q2H PRN PRN PRN Reason: SOB/Wheezing Amlodipine Besylate (Amlodipine 10 Mg Tablet) 10 mg PO DAILY [facility] Last Admin: 08/09/20 08:39 Dose: 10 mg Documented by: Aspirin (Aspirin 81 Mg Tab.Chew) 81 mg PO BID [facility] Last Admin: 08/09/20 08:38 Dose: 81 mg Documented by: Heparin Sodium (Porcine) (Heparin Injection (Vial) 5,000 Unit/Ml Vial) 5,000 unit SC Q12 [facility] Last Admin: 08/09/20 08:38 Dose: 5,000 unit Documented by: Levetiracetam 500 mg/ Sodium (Chloride) 105 mls @ 400 mls/hr IV Q12 [facility] Last Infusion: 08/09/20 11:05 Dose: Infused Documented by: Sodium Chloride () 1,000 mls @ 75 mls/hr IV .[id number] [facility] Last Infusion: 08/09/20 12:48 Dose: Infused Documented by: Levothyroxine Sodium (Levothyroxine 125 Mcg Tablet) 125 mcg PO DAILY@0600 [facility] Last Admin: 08/09/20 07:00 Dose: 125 mcg Documented by: Lorazepam (Lorazepam 2 Mg/Ml Syringe) 1 mg IV PRN PRN PRN Reason: SEIZURES Metoprolol Succinate (Metoprolol(Xl)Succ 100 Mg Tablet) 100 mg PO QHS [facility] Last Admin: 08/08/20 22:07 Dose: 100 mg Documented by: Morphine Sulfate (Morphine 2 Mg/Ml Syringe) 2 mg IV Q3H PRN PRN PRN Reason: Pain Score 6-10 Last Admin: 08/07/20 18:30 Dose: 2 mg Documented by: Nutritional Formula (Lactose Free) (Ensure Enlive 120 Ml Liquid) 120 ml PO 4X/DAY [facility] Last Admin: 08/09/20 14:53 Dose: 120 ml Documented by: Ondansetron HCl (Ondansetron 4 Mg/2 Ml Vial) 4 mg IV Q8H PRN PRN PRN Reason: NAUSEA/VOMITING Last Admin: 08/06/20 20:32 Dose: 4 mg Documented by: Promethazine HCl (Promethazine 25 Mg/Ml Syringe) 12.5 mg IM Q6H PRN PRN; Protocol PRN Reason: NAUSEA/VOMITING Senna/Docusate Sodium (Senna/Docusate Sodium 1 Tablet) 2 tablet PO BID [facility] Last Admin: 08/09/20 08:39 Dose: 2 tablet Documented by: Sodium Chloride (0.9% Saline Lock 10 Ml Syringe) 10 - 40 ml IV UD PRN PRN Reason: SALINE FLUSH Last Admin: 08/09/20 12:46 Dose: 10 ml Documented by: Tramadol HCl (Tramadol 50 Mg Tablet) 50 - 100 mg PO Q6H PRN PRN PRN Reason: Pain Score 4-10 Last Admin: 08/09/20 10:51 Dose: 50 mg Documented by: STROKE Vital Signs/Narrative: Vital Signs Temp Pulse Resp BP Pulse Ox 08/09/20 13:40 97 08/09/20 13:30 54 L 08/09/20 12:48 98.2 F 70 18 128/59 H 97 Assessment/Plan This patient was seen in conjunction with Quinn ROSE. I have independently interviewed and examined the patient and reviewed pertinent history, examination findings, laboratory and plan of management. I have reviewed the note and agree with the documented findings with the few additional points. In brief, patient is 79-year-old patient female was admitted with new onset seizure. Patient on Keppra. EEG did not show epileptiform focus or activity. Patient cannot have MRI due to mandibular implant. CTA shows bilateral ICA atherosclerotic but no hemodynamically segment stenosis or aneurysm. Right head comminuted displaced subcapital fracture right hip. Patient had cemented hemiarthroplasty of right hip. PT and OT on board. Patient has other comorbid including squamous cell cancer of the jaw status post reconstruction and radiation in the past. Hypothyroidism, chronic normocytic anemia and hypertension. VTE prophylaxis as per orthopedic surgeon. I have discussed my assessment with Quinn ROSE and orders have been reviewed. Inpatient E&M: 04986 Subs Hosp L2
--- NOTE | 2020-08-09 14:23 | CHAPLAIN ---
Type of Pastoral Visit _x__ Initial Visit ___ Follow-up Visit ___ On-call Visit ___ General Patient Visit ___ Spiritual Assessment ___ Family Conference ___ Bereavement ___ Rapid Response ___ Code Blue ___ Other (describe below) Pastoral Care Referral From _x__ Patient ___ Family ___ Nurse ___ Physician ___ Risk Control Representative ___ Quality Process Engineer ___ Other (describe below) Sacrament/Intervention _x__ Active listening ___ Anointing ___ Taoist ___ Bereavement ___ Communion ___ Ella exploration ___ ___ Life review _x__ Prayer ___ Reconciliation ___ Sacrament of Sick _x__ Supportive presence ___ Wedding ___ Other (describe below) Pastoral Comments patient welcoming of spiritual care; pt is member of [employer] and they are aware of her admittance; pt states she feels bad about falling and having to be in hospital; prayer welcomed
--- NOTE | 2020-08-09 18:19 | NURSING ---
Removed jaimes cath. Yuly care given.
[2020-08-09] MEDS: Metoprolol(XL)Succ 100 MG Tablet PO (21:47)
[2020-08-10 01:00] VITALS: PULSE 57
[2020-08-10 02:00] VITALS: BP 143/63; PULSE 67; RESP 18; TEMP 36.6; O2SAT 97
[2020-08-10 03:05] VITALS: PULSE 56
[2020-08-10 05:41] LABS: Absolute Lymphocyte Count 0.85 X10^3/uL (0.83-4.51); Absolute Neutrophil Count 9.3 X10^3/uL (2.0-7.7); Basophil# 0.03 X10^3/uL; Basophil% 0.3 % (0-1); Eosinophil# 0.14 X10^3/uL; Eosinophils% 1.2 % (0-5); Hematocrit 31.9 % (37-47); Hemoglobin 10.2 g/dL (12.0-15.0); Lymphocyte # 0.85 X10^3/ul (4.0); Lymphocyte % 7.4 % (19-41); Mean Corpuscular Hgb 31.3 pg (27.0-32.0); Mean Corpuscular Volume 97.9 fL (81-99); Mean Platelet Vol. 9.2 fl (6.2-12.0); Monocyte# 1.14 X10^3/uL; Monocyte% 9.9 % (0-10); NRBC Flagged by Analyzer 0 % (0-5); Neutrophil # 9.34 X10^3/uL (2.7-7.7); Neutrophil % 80.7 % (47-70); Platelet Count 215 K/mm3 (150-450); RBC Distribution Width CV 14.5 % (11.6-14.6); RBC Distribution Width SD 52.3 fl (35.1-43.9); Red Blood Count 3.26 M/mm3 (4.2-5.4); White Blood Count 11.6 K/mm3 (4.4-11.0)
[2020-08-10] MEDS: Levothyroxine 125 MCG Tablet PO (06:49)
[2020-08-10] MEDS: Acetaminophen 500 MG Tablet 1000 MG PO ×2 (06:49→14:26)
[2020-08-10 07:15] VITALS: PULSE 67
[2020-08-10 10:00] VITALS: PULSE 75; RESP 18
--- NOTE | 2020-08-10 10:38 | CASEMGMT ---
Per MILTON Ball, patient is willing to go to TCU if her significant other is in agreement. SW called patient's significant other, Diony and explained the situations. He said he wants whatever is best for patient. He was hoping she would be able to walk a little bit before coming home and according to the patient she is not doing this. SW told her that is correct. He is in agreement with her going to TCU. SW told him she would stay there until she is a little stronger to return home. He thanked SW for the phone call. SW went to patient's room and let her know SW did talk with Diony and he is in agreement with her going to TCU. She thanked SW. Plan: d/c to [facility] TCU under skilled level of care. Ivone SANTIAGO MSW
[2020-08-10 11:15] VITALS: BP 145/64; PULSE 75; RESP 18; TEMP 36.6; O2SAT 99
[2020-08-10] MEDS: Heparin Injection (Vial) 5,000 UNIT/ML VIAL 5000 UNIT SC (11:18)
[2020-08-10] MEDS: Aspirin 81 MG TAB.CHEW PO (11:18)
[2020-08-10] MEDS: amLODIPine 10 MG Tablet PO (11:19)
[2020-08-10] MEDS: Senna/Docusate Sodium 1 Tablet 2 TABLET PO (11:19)
[2020-08-10] MEDS: levETIRAcetam 500 MG Tablet PO (11:19)
--- NOTE | 2020-08-10 11:26 | PCM.EXTCARCO ---
<Quinn Liang - Last Filed: 08/10/20 11:26> - Diet 08/09/20 13:22 Diet: Regular - General Is pt able to select menu?: Yes - Routine Orders/Code Status Suppository Type: Dulcolax 10mg Suppository Frequency: Daily PRN Routine Lab Work: CBC - 5 days, BMP - 5 days Code Status: Full Code - Wound(s) RIGHT HIP Wound Type: Surgical Incision - Therapies Weight Bearing: Weight bearing as tolerated Physical Therapy: Eval and Treat Occupational Therapy: Eval and Treat - Problem/Diagnosis (1) Hip fracture Status: Acute (2) New onset seizure Status: Acute (3) Anemia Status: Chronic (4) Hypothyroid Status: Chronic (5) 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 (6) Hypertension Status: Chronic - Allergies/Procedures Done in Hospital Allergies/Adverse Reactions: Allergies Penicillins Allergy (Verified 08/06/20 16:48) Rash oxycodone [From OxyContin] Adverse Reaction (Verified 08/06/20 16:48) Vomiting sulfamethoxazole [From Bactrim] Adverse Reaction (Verified 08/06/20 16:48) Vomiting trimethoprim [From Bactrim] Adverse Reaction (Verified 08/06/20 16:48) Vomiting Procedures: Electroencephalogram - Type of Care/Length of Stay Estimated LOS: Convalescent Care Less Than 30 days Type of Care Needed: Skilled Rehab Potential: Fair Prognosis: Fair - Additional Orders/Day of Discharge Day of Discharge: 08/10/20 - Dietary and Speech Recommendations Dietitian Recommendations/Changes: Advance diet as tolerated to regular- pt requesting mechanical soft d/t jaw surgery. 240mL strawberry Ensure Enlive w/ breakfast. 120mL ensure enlive 4x/day w/ medpass. - Follow Up Care Primary Care Physician: Care Physician,No Primary [NON-STAFF] - Please follow up with your Primary Care Physician in: 1-2 weeks Please Follow Up With: Jerry Chow MD - Neurology When: 2 weeks Please Follow Up With: Jarrett Rashid DO - Orthopedics When: 2 weeks <Cam Morales - Last Filed: 08/10/20 12:14> - Diet 08/09/20 13:22 Diet: Regular - General Is pt able to select menu?: Yes
--- NOTE | 2020-08-10 11:50 | PHA.DC.MR ---
Pharmacy Service has performed discharge medication reconciliation for this patient. The patient's discharge medication list was reviewed for discrepancies and discrepancies were resolved. Home Medications Amlodipine [Norvasc] 10 mg PO DAILY 08/06/20 Levothyroxine Sodium [Synthroid] 125 mcg PO DAILY 08/06/20 Metoprolol(XL)Succ [Toprol Xl (Beta Dawson)] 100 mg PO DAILY 08/06/20 Acetaminophen [Tylenol] 1,000 mg PO Q8 tab 08/10/20 Aspirin [Aspirin, Baby] 81 mg PO BID tab.chew 08/10/20 Ensure Enlive 120 ml PO 4X/DAY liquid 08/10/20 Senna/Docusate Sodium [Senokot-S] 2 tab PO BID tab 08/10/20 levETIRAcetam tablet [Keppra tablet] 500 mg PO BID tab 08/10/20 traMADol [Ultram] 50 mg PO Q6H PRN PRN #12 tab 08/10/20
--- NOTE | 2020-08-10 13:34 | DS.PCM_ITS ---
<Quinn Liang - Last Filed: 08/10/20 13:34> Discharge Date and Diagnosis - Problem List Patient Problems: Active and Suspected Problems New onset seizure (Acute) Hip fracture (Acute) Date of Admission: 08/06/20 Date of Discharge: 08/10/20 - Primary Discharge Diagnosis Acute Problems: Active Problems New onset seizure (Acute) Hip fracture (Acute) - Secondary Discharge Diagnosis Chronic Problems: Chronic Problems Hypertension (Chronic) Anemia (Chronic) Hypothyroid (Chronic) Squamous cell carcinoma of mandible (Chronic) Hospital Course and Treatment Imaging Results: CT/STROKE Brain/Head without Cont IMPRESSION: No acute intracranial hemorrhage or mass effect. CT/STROKE CTA Head AND Neck W/Con IMPRESSION: 1. No large vessel occlusion or intracranial aneurysm. 2. Bilateral proximal ICA atherosclerosis without hemodynamically significant stenosis or arterial dissection. RAD/HIP, UNI W/ Pelvis 2-3 Views IMPRESSION: Right femoral neck fracture. RAD/Chest 1 View IMPRESSION: Left lower lobe atelectasis. RAD/Hip Min 2 Views (Portable) IMPRESSION: Status post total hip replacement. There is good alignment. Postoperative soft tissue changes. 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 She was found by the having tonic-clonic seizures. She was found by EMS to have weakness on the right side, mouth drooping to the left, and expressive aphasia. She was brought to the ER. Stroke alert was called-teleneurology did not feel that she had a stroke. She was felt to have had a seizure. She appeared to have a right femoral neck fracture on x-ray of the hip. She was admitted to the PCU. She was started on IV Keppra. She was taken to the OR for cemented right hemiarthroplasty by on August 08. Teleneurology was consulted. EEG did not demonstrate any further seizure activity. She could not have an MRI due to the reconstruction surgery on her jaw. She was transitioned to oral Keppra. She continued to have severe difficulty ambulating and SNF was recommended. She was discharged to the TCU in stable condition. She will need to follow-up with PCP in 1 to 2 weeks, neurology 2 weeks, orthopedics 2 weeks. This patient was seen by Quinn Liang PA-C under the supervision of Doctor Andrew. [] Patient Problems: Active and Suspected Problems New onset seizure (Acute) Hip fracture (Acute) - Physical Exam Vitals/I&O's: Vital Signs Temp Pulse Resp BP Pulse Ox 98 F 75 18 145/64 H 99 08/10/20 11:15 08/10/20 11:15 08/10/20 11:15 08/10/20 11:15 08/10/20 11:15 Oxygen Flow Rate (L/min) 6 Oxygen Delivery Method Room Air Weight: 166 lb 0.129 oz Body Mass Index (BMI) 26.6 Finger Stick Blood Glucose 167 Intake and Output for Last 24 Hours 08/08/20 08/09/20 08/10/20 23:59 23:59 23:59 Intake Total 2434.25 / 2794.25 2489.25 / 2489.25 930 / 930 Output Total 2560 / 2810 1275 / 1275 900 / 900 Balance -125.75 / -15.75 1214.25 / 1214.25 30 / 30 General: Alert, Oriented x3, Cooperative HEENT: Atraumatic, PERRLA, EOMI, Normocephalic Neck: Supple, No JVD, Negative Carotid Bruits Lungs: Clear to auscultation, Normal air movement Cardiovascular: Regular rate, No murmurs Abdomen: Bowel Sounds Present, Soft, Non Tender Extremities: No edema, Capillary Refill Less than 3 Seconds Skin: No rashes, No breakdown Musculoskeletal: No Tenderness to Palpation of Joints or Extremities Neurological: Cranial nerves II-XII grossly intact Psych/Mental Status: Normal Affect, Appropriate, Alert and oriented to time, place, person, mood and affect Laboratory Results 08/10/20 05:30: WBC 11.6 H, RBC 3.26 L, Hgb 10.2 L, Hct 31.9 L, MCV 97.9, MCH 31.3, MCHC 32.0, RDW Std Deviation 52.3 H, RDW Coeff of Alpa 14.5, Plt Count 215, MPV 9.2, Immature Gran % (Auto) 0.500, Neut % (Auto) 80.7 H, Lymph % (Auto) 7.4 L, [place] % (Auto) 9.9, Eos % (Auto) 1.2, Baso % (Auto) 0.3, Absolute Neuts (auto) 9.3 H, Absolute Lymphs (auto) 0.85, Nucleated RBC % 0 Current Medications Acetaminophen (Acetaminophen 325 Mg Tablet) 650 mg PO Q6H PRN PRN PRN Reason: Pain Score 1-10/Temp > 100.7 F Last Admin: 08/07/20 18:30 Dose: 650 mg Documented by: Acetaminophen (Acetaminophen 500 Mg Tablet) 1,000 mg PO Q8 [facility] Last Admin: 08/10/20 06:49 Dose: 1,000 mg Documented by: Albuterol Sulfate (Albuterol 2.5 Mg/3 Ml Vial.Neb.) 2.5 mg INHALATION Q2H PRN PRN PRN Reason: SOB/Wheezing Amlodipine Besylate (Amlodipine 10 Mg Tablet) 10 mg PO DAILY [facility] Last Admin: 08/10/20 11:19 Dose: 10 mg Documented by: Aspirin (Aspirin 81 Mg Tab.Chew) 81 mg PO BID [facility] Last Admin: 08/10/20 11:18 Dose: 81 mg Documented by: Heparin Sodium (Porcine) (Heparin Injection (Vial) 5,000 Unit/Ml Vial) 5,000 unit SC Q12 [facility], [facility] Last Admin: 08/10/20 11:18 Dose: 5,000 unit Documented by: Levetiracetam (Levetiracetam 500 Mg Tablet) 500 mg PO BID [facility] Last Admin: 08/10/20 11:19 Dose: 500 mg Documented by: Levothyroxine Sodium (Levothyroxine 125 Mcg Tablet) 125 mcg PO DAILY@0600 [facility] Last Admin: 08/10/20 06:49 Dose: 125 mcg Documented by: Lorazepam (Lorazepam 2 Mg/Ml Syringe) 1 mg IV PRN PRN PRN Reason: SEIZURES Metoprolol Succinate (Metoprolol(Xl)Succ 100 Mg Tablet) 100 mg PO QHS [facility] Last Admin: 08/09/20 21:47 Dose: 100 mg Documented by: Morphine Sulfate (Morphine 2 Mg/Ml Syringe) 2 mg IV Q3H PRN PRN PRN Reason: Pain Score 6-10 Last Admin: 08/07/20 18:30 Dose: 2 mg Documented by: Nutritional Formula (Lactose Free) (Ensure Enlive 120 Ml Liquid) 120 ml PO 4X/DAY [facility] Last Admin: 08/10/20 11:18 Dose: 120 ml Documented by: Ondansetron HCl (Ondansetron 4 Mg/2 Ml Vial) 4 mg IV Q8H PRN PRN PRN Reason: NAUSEA/VOMITING Last Admin: 08/06/20 20:32 Dose: 4 mg Documented by: Promethazine HCl (Promethazine 25 Mg/Ml Syringe) 12.5 mg IM Q6H PRN PRN; Protocol PRN Reason: NAUSEA/VOMITING Senna/Docusate Sodium (Senna/Docusate Sodium 1 Tablet) 2 tablet PO BID [facility] Last Admin: 08/10/20 11:19 Dose: 2 tablet Documented by: Sodium Chloride (0.9% Saline Lock 10 Ml Syringe) 10 - 40 ml IV UD PRN PRN Reason: SALINE FLUSH Last Admin: 08/09/20 12:46 Dose: 10 ml Documented by: Tramadol HCl (Tramadol 50 Mg Tablet) 50 - 100 mg PO Q6H PRN PRN PRN Reason: Pain Score 4-10 Last Admin: 08/09/20 10:51 Dose: 50 mg Documented by: Discharge Diet: Low fat/ Low Cholesterol, 2000 mg Sodium Diet Discharge Activity: Return to Normal Activity Home Medications: Medications to take at Discharge Amlodipine [Norvasc] 10 mg PO DAILY 08/06/20 Levothyroxine Sodium [Synthroid] 125 mcg PO DAILY 08/06/20 Metoprolol(XL)Succ [Toprol Xl (Beta Dawson)] 100 mg PO DAILY 08/06/20 Acetaminophen [Tylenol] 1,000 mg PO Q8 tab 08/10/20 Aspirin [Aspirin, Baby] 81 mg PO BID tab.chew 08/10/20 Ensure Enlive 120 ml PO 4X/DAY liquid 08/10/20 Senna/Docusate Sodium [Senokot-S] 2 tab PO BID tab 08/10/20 levETIRAcetam tablet [Keppra tablet] 500 mg PO BID tab 08/10/20 traMADol [Ultram] 50 mg PO Q6H PRN PRN #12 tab 08/10/20 Following Prescriptions Were Given to Patient: traMADol [Ultram] 50 mg PO Q6H PRN PRN #12 tab PRN Reason: Pain Score 4-10 Prescription Printed Primary Care Physician: Care Physician,No Primary [NON-STAFF] - Please follow up with your Primary Care Physician in: 1-2 weeks Please Follow Up With: Jerry Chow MD - Neurology When: 2 weeks Please Follow Up With: Jarrett Rashid DO - Orthopedics When: 2 weeks Medical Necessity - Tobacco Use Smoking Status: Never smoker Tobacco Use: Non-smoker Meaningful Use Info Meaningful Use Diagnoses (Choose all that apply): None applicable <Cam Morales - Last Filed: 08/10/20 15:55> Discharge Date and Diagnosis - Primary Discharge Diagnosis Acute Problems: Active Problems New onset seizure (Acute) Hip fracture (Acute) - Secondary Discharge Diagnosis Chronic Problems: Chronic Problems Hypertension (Chronic) Anemia (Chronic) Hypothyroid (Chronic) Squamous cell carcinoma of mandible (Chronic) Hospital Course and Treatment Summary of Care Provided: This patient was seen in conjunction with Quinn ROSE. I have independently interviewed and examined the patient and reviewed pertinent history, examination findings, laboratory and plan of management. I have reviewed the note and agree with the documented findings with the few additional points. In brief, patient is 79-year-old patient female was admitted with new onset seizure. Patient on Keppra. EEG did not show epileptiform focus or activity. Patient cannot have MRI due to mandibular implant. CTA shows bilateral ICA atherosclerotic but no hemodynamically segment stenosis or aneurysm. Continue Keppra. Right head comminuted displaced subcapital fracture right hip. Patient had cemented hemiarthroplasty of right hip. PT and OT on board. Patient has other comorbid including squamous cell cancer of the jaw status post reconstruction and radiation in the past. Hypothyroidism, chronic normocytic anemia and hypertension. VTE prophylaxis as per orthopedic surgeon. Physical therapist recommended additional skilled physical therapy and patient agreed to go to SNF. Discharge to TCU. Discharge medication reconciliation done. Discharge follow-up instructions completed. Discharge process discussed with the patient and all questions were answered to patient's satisfaction. Total time spent, exact 35 minutes on discharge meds reconciliation, examination, coordination of care with nurses and ancillary staff, review of imaging and blood test and discussion with the patient on follow-up instructions I have discussed my assessment with Quinn ROSE and orders have been reviewed. [] Objective: Seen and examined. Patient agreed to go to SNF. No acute event overnight. Physical therapist recommended additional skilled therapy to return home. Patient has impaired ambulation, balance, and transfer ability. Decreased right lower extremity strength. Physical exam General: Alert, Oriented x3, Cooperative HEENT: Atraumatic, PERRLA, EOMI, Normocephalic Oral: No Gingival or Mucosal Lesions/ Ulcerations Neck: Supple, No JVD, Negative Carotid Bruits Lungs: Air entry diminished in bilateral lung bases. No crepitation/rhonchi Cardiovascular: Regular rate, Regular Rhythm, Normal S1, Normal S2, No murmurs Abdomen: Bowel Sounds Present, Soft, Non Tender, Non-Distended : No renal angle tenderness. No suprapubic tenderness. Extremities: No edema, Capillary Refill Less than 3 Seconds Skin: No rashes, No breakdown Musculoskeletal: Right femoral neck surgical site is dry. No hematoma. No tenderness. Neurological: Cranial nerves II-XII grossly intact, Deep Tendon Reflexes 2+/4 and Symmetrical, Neuro grossly intact Psych/Mental Status: Normal Affect, Appropriate. - Physical Exam Vitals/I&O's: Vital Signs Temp Pulse Resp BP Pulse Ox 98 F 75 18 145/64 H 99 08/10/20 11:15 08/10/20 11:15 08/10/20 11:15 08/10/20 11:15 08/10/20 11:15 Oxygen Flow Rate (L/min) 6 Oxygen Delivery Method Room Air Weight: 166 lb 0.129 oz Body Mass Index (BMI) 26.6 Finger Stick Blood Glucose 167 Intake and Output for Last 24 Hours 08/08/20 08/09/20 08/10/20 23:59 23:59 23:59 Intake Total 2434.25 / 2794.25 2489.25 / 2489.25 930 / 930 Output Total 2560 / 2810 1275 / 1275 900 / 900 Balance -125.75 / -15.75 1214.25 / 1214.25 30 / 30 Laboratory Results 08/10/20 05:30: WBC 11.6 H, RBC 3.26 L, Hgb 10.2 L, Hct 31.9 L, MCV 97.9, MCH 31.3, MCHC 32.0, RDW Std Deviation 52.3 H, RDW Coeff of Alpa 14.5, Plt Count 215, MPV 9.2, Immature Gran % (Auto) 0.500, Neut % (Auto) 80.7 H, Lymph % (Auto) 7.4 L, [place] % (Auto) 9.9, Eos % (Auto) 1.2, Baso % (Auto) 0.3, Absolute Neuts (auto) 9.3 H, Absolute Lymphs (auto) 0.85, Nucleated RBC % 0 Current Medications Acetaminophen (Acetaminophen 325 Mg Tablet) 650 mg PO Q6H PRN PRN PRN Reason: Pain Score 1-10/Temp > 100.7 F Last Admin: 08/07/20 18:30 Dose: 650 mg Documented by: Acetaminophen (Acetaminophen 500 Mg Tablet) 1,000 mg PO Q8 [facility] Last Admin: 08/10/20 14:26 Dose: 1,000 mg Documented by: Albuterol Sulfate (Albuterol 2.5 Mg/3 Ml Vial.Neb.) 2.5 mg INHALATION Q2H PRN PRN PRN Reason: SOB/Wheezing Amlodipine Besylate (Amlodipine 10 Mg Tablet) 10 mg PO DAILY [facility] Last Admin: 08/10/20 11:19 Dose: 10 mg Documented by: Aspirin (Aspirin 81 Mg Tab.Chew) 81 mg PO BID [facility] Last Admin: 08/10/20 11:18 Dose: 81 mg Documented by: Heparin Sodium (Porcine) (Heparin Injection (Vial) 5,000 Unit/Ml Vial) 5,000 unit SC Q12 [facility] Last Admin: 08/10/20 11:18 Dose: 5,000 unit Documented by: Levetiracetam (Levetiracetam 500 Mg Tablet) 500 mg PO BID [facility] Last Admin: 08/10/20 11:19 Dose: 500 mg Documented by: Levothyroxine Sodium (Levothyroxine 125 Mcg Tablet) 125 mcg PO DAILY@0600 [facility] Last Admin: 08/10/20 06:49 Dose: 125 mcg Documented by: Lorazepam (Lorazepam 2 Mg/Ml Syringe) 1 mg IV PRN PRN PRN Reason: SEIZURES Metoprolol Succinate (Metoprolol(Xl)Succ 100 Mg Tablet) 100 mg PO QHS [facility] Last Admin: 08/09/20 21:47 Dose: 100 mg Documented by: Morphine Sulfate (Morphine 2 Mg/Ml Syringe) 2 mg IV Q3H PRN PRN PRN Reason: Pain Score 6-10 Last Admin: 08/07/20 18:30 Dose: 2 mg Documented by: Nutritional Formula (Lactose Free) (Ensure Enlive 120 Ml Liquid) 120 ml PO 4X/DAY [facility] Last Admin: 08/10/20 14:26 Dose: 120 ml Documented by: Ondansetron HCl (Ondansetron 4 Mg/2 Ml Vial) 4 mg IV Q8H PRN PRN PRN Reason: NAUSEA/VOMITING Last Admin: 08/06/20 20:32 Dose: 4 mg Documented by: Promethazine HCl (Promethazine 25 Mg/Ml Syringe) 12.5 mg IM Q6H PRN PRN; Protocol PRN Reason: NAUSEA/VOMITING Senna/Docusate Sodium (Senna/Docusate Sodium 1 Tablet) 2 tablet PO BID [facility] Last Admin: 08/10/20 11:19 Dose: 2 tablet Documented by: Sodium Chloride (0.9% Saline Lock 10 Ml Syringe) 10 - 40 ml IV UD PRN PRN Reason: SALINE FLUSH Last Admin: 08/09/20 12:46 Dose: 10 ml Documented by: Tramadol HCl (Tramadol 50 Mg Tablet) 50 - 100 mg PO Q6H PRN PRN PRN Reason: Pain Score 4-10 Last Admin: 08/09/20 10:51 Dose: 50 mg Documented by: Inpatient E&M: [id number] [facility]
== END 2020-08-10 18:41 | disposition skilled nursing facility (03) | DRG 522 ==
LOC: ED 17:20 → PCU 17:37
PROVIDERS: Hospitalist; Orthopaedic Surgery; Physician Assistant; Admitting Provider Internal Medicine; Emergency Provider Emergency Medicine; Visit Provider Internal Medicine
PROC: 0SRR0J9 Replacement of Right Hip Joint, Femoral Surface with Synthetic Substitute, Cemented, Open Approach (ICD-10-PCS; CPT 27125; principal; 2020-08-08 12:10)
DX: S72.011A Unspecified intracapsular fracture of right femur, initial encounter for closed fracture (principal); D62 Acute posthemorrhagic anemia; G40.409 Other generalized epilepsy and epileptic syndromes, not intractable, without status epilepticus; W19.XXXA Unspecified fall, initial encounter; Y93.9 Activity, unspecified; Y92.9 Unspecified place or not applicable; E03.9 Hypothyroidism, unspecified; E78.5 Hyperlipidemia, unspecified; I10 Essential (primary) hypertension; I45.10 Unspecified right bundle-branch block; I65.23 Occlusion and stenosis of bilateral carotid arteries; Z79.82 Long term (current) use of aspirin; Z79.899 Other long term (current) drug therapy; Z85.830 Personal history of malignant neoplasm of bone; Z92.3 Personal history of irradiation
CPT/HCPCS: 36415; 70450; 70496; 70498; 71045; 73502; 80048; 80053; 84484; 85025; 85027; 85610; 85730; 86850; 86900; 86901; 87635; 88305; 88311; 93005; 95819; 97110; 97162; 97166; 97535; 97802; 99285; C1776; J7030; Q9967; A4216; J2405; U0002

== ENCOUNTER 2020-08-10 19:01 | Inpatient (IN) | payer MEDICARE, BC, SELFPAY ==
[2020-08-06 18:21] VITALS: BMI 26.6
[2020-08-10 19:29] VITALS: BP 142/55; PULSE 77; RESP 16; TEMP 37.2; BMI 25.9; BMI 26.0
--- NOTE | 2020-08-10 21:50 | HP.PCM_ITS ---
Problem List (1) Debility Status: Acute (2) Fall Status: Acute (3) Unresponsive Status: Acute (4) Closed right hip fracture Status: Acute (5) Seizure disorder Status: Acute (6) Squamous cell cancer of skin of jawline Status: Chronic (7) Melanoma Status: Chronic (8) Hyperlipidemia Status: Chronic (9) Hypertension Status: Chronic Qualifiers: (10) Hypothyroid Status: Chronic History of Present Illness Date of Admission: 08/10/20 Chief Complaint: Here for rehabilitation, strengthening, prior to discharge home with family. 08/06/20 The patient is a 79 year old Female with below past medical history presented to [facility] [place] with neuro signs and symptoms. Expressive aphasia, right lower extremity weakness, left facial droop. 08/06/20 CT brain negative. 08/06/20 CTA head/neck no large vessel occlusion or intracranial aneurysm, bilateral proximal internal carotid artery atherosclerosis without significant stenosis. 08/06/20 Chest X-ray negative. 08/06/20 X-ray pelvis, right hip showed right hip fracture. Headache, concern for stroke, found on ground. Not responding, expressive aphasia. Collapsed, tonic-clonic seizure x 1 minute. Neurology recommended Keppra, MRI brain. 08/08/20 Admit to Hospital. Keppra 500MG IV twice daily for new onset seizure disorder. Recommended MRI brain to rule out mets, recent squamous cell cancer of jaw requiring bilateral reconstruction jaw surgery. 08/08/20 Orthopedics performed cemented hemiarthroplasty of right hip. EEG NEGATIVE Seizure activity. MRI brain unable due to reconstruction of jaw. IV Keppra transitioned to oral Keppra. PT/OT recommended Snf Facility. 08/10/20 Admit to TCU with debility, here for rehabilitation, strengthening, prior to discharge home with family. 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 (Chronic) Melanoma (Chronic) Hyperlipidemia (Chronic) Allergies Penicillins Allergy (Verified 08/06/20 16:48) Rash oxycodone [From OxyContin] Adverse Reaction (Verified 08/06/20 16:48) Vomiting sulfamethoxazole [From Bactrim] Adverse Reaction (Verified 08/06/20 16:48) Vomiting trimethoprim [From Bactrim] Adverse Reaction (Verified 12/12/20 16:48) Vomiting Home Medications: Ambulatory Orders Medication Instructions Recorded Amlodipine [Norvasc] 10 mg PO DAILY 08/06/20 Levothyroxine Sodium [Synthroid] 125 mcg PO DAILY 08/06/20 Metoprolol(XL)Succ [Toprol Xl 100 mg PO DAILY 08/06/20 (Beta Dawson)] Acetaminophen [Tylenol] 1,000 mg PO Q8 08/10/20 Aspirin [Aspirin, Baby] 81 mg PO BID 08/10/20 Ensure Enlive 120 ml PO 4X/DAY 08/10/20 Senna/Docusate Sodium [Senokot-S] 2 tab PO BID 08/10/20 levETIRAcetam tablet [Keppra 500 mg PO BID 08/10/20 tablet] traMADol [Ultram] 50 mg PO Q6H PRN PRN #12 tab 08/10/20 Surgical History: cholecystectomy, hysterectomy, - - s/p bilateral jaw surgery Psychiatric History: No pertinent psych hx TIRE ADJUSTER History: No pertinent TIRE ADJUSTER history Lives: With Family Smoking Status: Never smoker Tobacco Use: Non-smoker Alcohol: None, Rare - *Family History Maternal History Items: Heart Disease Paternal History Items: Stroke Review of Systems Constitutional: Reports: Weakness. Denies: Chills, Fever, Weight Change HEENT: Denies: Head Aches, Sinus Congestion, Sinus Drainage Cardiovascular: Denies: Chest Pain, Palpitations Respiratory: Denies: Cough, Shortness of breath at rest, Sputum production Gastrointestinal: Denies: Abdominal Pain, Nausea, Vomiting Genitourinary: Denies: Dysuria Musculoskeletal: Denies: Joint Pain, Joint Tenderness Skin: Denies: Rash, Wounds Neurological: Denies: Numbness, Tingling, Focal weakness Psychiatric: Denies: Anxiety, Depression, Homicidal Ideations, Suicidal Ideations Hematologic/ Lymphatic: Denies: Easy Bruising, Easy Bleeding VTE Information - Inpt Only VTE Present on Admission: No VTE Mechan Device Prophylaxis: Knee High [place] Hose VTE Pharm Prophylaxis ordered?: Yes Patient Problems: Active and Suspected Problems Debility (Acute) Fall (Acute) Unresponsive (Acute) Closed right hip fracture (Acute) Seizure disorder (Acute) - Physical Exam Vitals/I&O's: Vital Signs Temp Pulse Resp BP 98.9 F 77 16 142/55 H 08/10/20 19:29 08/10/20 19:29 08/10/20 19:29 08/10/20 19:29 Oxygen Delivery Method Room Air Weight: 73.028 kg Body Mass Index (BMI) 25.9 Finger Stick Blood Glucose 167 General: Alert, Oriented x3, Cooperative HEENT: Atraumatic, PERRLA, EOMI, Normocephalic Neck: Supple, No JVD, Negative Carotid Bruits Lungs: Clear to auscultation, Normal air movement Cardiovascular: Regular rate, No murmurs Abdomen: Bowel Sounds Present, Soft, Non Tender Extremities: No edema, Capillary Refill Less than 3 Seconds Skin: No rashes, No breakdown Musculoskeletal: No Tenderness to Palpation of Joints or Extremities Neurological: Cranial nerves II-XII grossly intact Psych/Mental Status: Normal Affect, Appropriate Current Medications Acetaminophen (Acetaminophen 500 Mg Tablet) 1,000 mg PO Q8 [facility] Amlodipine Besylate (Amlodipine 10 Mg Tablet) 10 mg PO DAILY [facility] Aspirin (Aspirin 81 Mg Tab.Chew) 81 mg PO BIDCM [facility] Levetiracetam (Levetiracetam 500 Mg Tablet) 500 mg PO BID [facility] Levothyroxine Sodium (Levothyroxine 125 Mcg Tablet) 125 mcg PO DAILY [facility] Metoprolol Succinate (Metoprolol(Xl)Succ 100 Mg Tablet) 100 mg PO QHS [facility] Nutritional Formula (Lactose Free) (Ensure Enlive 120 Ml Liquid) 120 ml PO 4X/DAY [facility] Senna/Docusate Sodium (Senna/Docusate Sodium 1 Tablet) 2 tablet PO BID [facility] Tramadol HCl (Tramadol 50 Mg Tablet) 50 mg PO Q6H PRN PRN PRN Reason: Pain Score 4-10 Tuberculin PPD (Tuberculin,Purif.Prot.Deriv. 50 Tu/Ml Vial) 5 tu ID [id number] ONE Stop: 08/11/20 10:01 Tuberculin PPD (Tuberculin,Purif.Prot.Deriv. 50 Tu/Ml Vial) 5 tu ID X1 ONE Stop: 08/18/20 10:01 Assessment/Plan All Active Problems New onset seizure (Acute) Hip fracture (Acute) Debility (Acute) Fall (Acute) Unresponsive (Acute) Closed right hip fracture (Acute) Seizure disorder (Acute) 79 year old female with below past medical history hospitalized for right hip fracture, underwent right hip cemented hemiarthroplasty 08/08/20, complicated by new onset seizure disorder, admitted to TCU with debility, here for rehabilitation, strengthening, prior to discharge home with family. * Debility - PT/OT. * Pain - Tylenol 1000MG Q8H, Tramadol 50MG Q6H PRN pain (4-10). * Bowel - Miralax 17GM daily, Senna/colace 2 tablets BID, MOM 30ML daily PRN, Dulcolax 10MG [place] daily PRN. * Adult immunization - Administer Prevnar 13, Pneumovax 23, Fluzone as appropriate. * DVT prophylaxis - Aspirin 81MG BID. * Hypertension - Metoprolol succinate 100MG QHS, Amlodipine 10MG daily. * Nutrition - Ensure Enlive 120ML 4x/day. * Seizure disorder - Keppra 500MG BID. * Hypothyroidism - Levothyroxine 125MCG daily.
[2020-08-10] MEDS: Acetaminophen 500 MG Tablet 1000 MG PO (22:40)
[2020-08-10 22:41] VITALS: BP 144/58; PULSE 81
[2020-08-10] MEDS: Metoprolol(XL)Succ 100 MG Tablet PO (22:41)
[2020-08-10] MEDS: levETIRAcetam 500 MG Tablet PO (22:41)
[2020-08-11 06:25] VITALS: BP 154/62; PULSE 72; RESP 16; TEMP 36.9; O2SAT 97
[2020-08-11] MEDS: amLODIPine 10 MG Tablet PO (06:28)
[2020-08-11] MEDS: levETIRAcetam 500 MG Tablet PO ×2 (06:28→16:52)
[2020-08-11] MEDS: Acetaminophen 500 MG Tablet 1000 MG PO ×3 (06:28→20:53)
[2020-08-11] MEDS: Levothyroxine 125 MCG Tablet PO (06:28)
[2020-08-11 07:12] LABS: Absolute Lymphocyte Count 1.49 X10^3/uL (0.83-4.51); Basophil# 0.02 X10^3/uL; Basophil% 0.2 % (0-1); Eosinophil# 0.11 X10^3/uL; Eosinophils% 1.1 % (0-5); Hematocrit 28.9 % (37-47); Hemoglobin 9.9 g/dL (12.0-15.0); Lymphocyte # 1.49 X10^3/ul (4.0); Lymphocyte % 15.4 % (19-41); Mean Corp Hgb Conc 34.3 g/dL (32-36); Mean Corpuscular Hgb 31.8 pg (27.0-32.0); Mean Corpuscular Volume 92.9 fL (81-99); Mean Platelet Vol. 9.6 fl (6.2-12.0); Monocyte# 1.04 X10^3/uL; Monocyte% 10.7 % (0-10); NRBC Flagged by Analyzer 0 % (0-5); Neutrophil # 6.97 X10^3/uL (2.7-7.7); Neutrophil % 71.9 % (47-70); Platelet Count 282 K/mm3 (150-450); RBC Distribution Width CV 14.2 % (11.6-14.6); RBC Distribution Width SD 47.8 fl (35.1-43.9); Red Blood Count 3.11 M/mm3 (4.2-5.4); White Blood Count 9.7 K/mm3 (4.4-11.0)
[2020-08-11 07:54] LABS: Anion Gap 6 (5-15); BUN 20 mg/dL (7-18); BUN/Creat Ratio 30.8 RATIO (10-20); Calcium,Total 8.8 mg/dL (8.5-10.1); Chloride 101 mmol/L (98-107); Creatinine, Serum 0.65 mg/dL (0.55-1.02); EST Glomerular Filtration Rate 93 mL/min (>60); Est Glom Filt Rate - Afr Amer 112 mL/min (>60); Glucose 105 mg/dL (74-106); Potassium 3.9 mmol/L (3.5-5.1); Sodium Level 137 mmol/L (136-145)
[2020-08-11] MEDS: Aspirin 81 MG TAB.CHEW PO ×2 (08:46→16:52)
[2020-08-11] MEDS: Tuberculin,Purif.prot.deriv. 50 TU/ML Vial 5 ML ID (10:45)
[2020-08-11 13:06] VITALS: BP 126/55; PULSE 75; RESP 16; TEMP 36.8; O2SAT 97
--- NOTE | 2020-08-11 14:56 | PCM.PN.RX ---
<Razia Licea - Last Filed: 08/11/20 14:56> Progress Note - Pharmacy Subjective: TCU Admission Objective: Allergies Penicillins Allergy (Verified 08/06/20 16:48) Rash oxycodone [From OxyContin] Adverse Reaction (Verified 08/06/20 16:48) Vomiting sulfamethoxazole [From Bactrim] Adverse Reaction (Verified 08/06/20 16:48) Vomiting trimethoprim [From Bactrim] Adverse Reaction (Verified 08/06/20 16:48) Vomiting Current Medications Generic Name Dose Route Start Last Admin Trade Name Freq PRN Reason Stop Dose Admin Acetaminophen 1,000 mg 08/10/20 22:00 08/11/20 13:04 Acetaminophen 500 Mg Tablet PO 1,000 mg Q8 KEYONNA Administration Amlodipine Besylate 10 mg 08/11/20 06:00 08/11/20 06:28 Amlodipine 10 Mg Tablet PO 10 mg DAILY KEYONNA Administration Aspirin 81 mg 08/11/20 08:00 08/11/20 08:46 Aspirin 81 Mg Tab.Chew PO 81 mg BIDCM KEYONNA Administration Bisacodyl 10 mg 08/10/20 22:03 Bisacodyl 10 Mg Suppository RECTAL DAILY PRN Constipation Levetiracetam 500 mg 08/10/20 22:00 08/11/20 06:28 Levetiracetam 500 Mg Tablet PO 500 mg BID KEYONNA Administration Levothyroxine Sodium 125 mcg 08/11/20 06:00 08/11/20 06:28 Levothyroxine 125 Mcg Tablet PO 125 mcg DAILY KEYONNA Administration Magnesium Hydroxide 30 ml 08/10/20 22:03 Magnesium Hydroxide 30 Ml Udc PO DAILY PRN Constipation Metoprolol Succinate 100 mg 08/10/20 22:00 08/10/20 22:41 Metoprolol(Xl)Succ 100 Mg Tablet PO 100 mg QHS KEYONNA Administration Nutritional Formula (Lactose Free) 120 ml 08/10/20 22:00 08/11/20 11:58 Ensure Enlive 120 Ml Liquid PO 120 ml 4X/DAY KEYONNA Administration Polyethylene Glycol 17 gm 08/11/20 06:00 08/11/20 06:28 Polyethylene Glycol 3350 17 Gm Packet PO Not Given DAILY KEYONNA Senna/Docusate Sodium 2 tablet 08/11/20 06:00 08/11/20 06:28 Senna/Docusate Sodium 1 Tablet PO Not Given BID KEYONNA Sodium Chloride 10 - 40 ml 08/10/20 21:59 0.9% Saline Lock 10 Ml Syringe IV UD PRN SALINE FLUSH Tramadol HCl 50 mg 08/10/20 19:35 Tramadol 50 Mg Tablet PO Q6H PRN PRN Pain Score 4-10 Tuberculin PPD 5 tu 08/18/20 10:00 Tuberculin,Purif.Prot.Deriv. 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) Melanoma (Chronic) Hyperlipidemia (Chronic) Vital Signs Temp Pulse Resp BP Pulse Ox 98.3 F 75 16 126/55 H 97 08/11/20 13:06 08/11/20 13:06 08/11/20 13:06 08/11/20 13:06 08/11/20 13:06 Oxygen Delivery Method Room Air Weight: 73.028 kg Body Mass Index (BMI) 25.9 Finger Stick Blood Glucose 167 Sodium 137 mmol/L (136-145) 08/11/20 06:46 Potassium 3.9 mmol/L (3.5-5.1) 08/11/20 06:46 Chloride 101 mmol/L (98-107) 08/11/20 06:46 Carbon Dioxide 30.0 mmol/L (21.0-32.0) 08/11/20 06:46 Anion Gap 6 (5-15) 08/11/20 06:46 BUN 20 mg/dL (7-18) H 08/11/20 06:46 Creatinine 0.65 mg/dL (0.55-1.02) 08/11/20 06:46 Est GFR (MDRD) Af Amer 112 mL/min (>60) 08/11/20 06:46 Est GFR (MDRD) Non-Af 93 mL/min (>60) 08/11/20 06:46 BUN/Creatinine Ratio 30.8 RATIO (10-20) H 08/11/20 06:46 Glucose 105 mg/dL (74-106) 08/11/20 06:46 Assessment/Plan: 1. Pain: acetaminophen 1000mg PO Q8H and tramadol 50mg PO Q6H PRN pain 4-06/04. Please continue to monitor for increased pain and PRN usage. 2. DVT prophylaxis: aspirin 81mg PO BIDCM. Please continue to monitor for S/S of bleeding and DVT. 3. Hypertension: metoprolol succinate 100mg PO QHS and amlodipine 10mg PO daily. Please continue to monitor BP (last 126/55) and HR (last 75). 4. Seizure disorder: levetiracetam 500mg PO BID. Please continue to monitor for seizures, headache, and dizziness. *5. Hypothyroidism: levothyroxine 125mcg PO daily. Please consider ordering a TSH if clinically appropriate. Patient does not have one in chart. Thanks. Psychotropic Medications: None Unnecessary Medications: None Bowel Regimen: Miralax 17gm PO daily, senna/docusate 2T PO BID, MOM 30mL PO daily PRN constipation, and bisacodyl 10mg ND daily PRN constipation. Please continue to monitor for constipation and PRN usage. Date of Note:: 08/11/20 - Provider Comments Provider responsibility: Provider responsible to enter orders to implement recommendations <Bay Gonzalez Chi - Last Filed: 08/11/20 17:47> Progress Note - Pharmacy Subjective: [] Objective: Allergies Penicillins Allergy (Verified 08/06/20 16:48) Rash oxycodone [From OxyContin] Adverse Reaction (Verified 08/06/20 16:48) Vomiting sulfamethoxazole [From Bactrim] Adverse Reaction (Verified 08/06/20 16:48) Vomiting trimethoprim [From Bactrim] Adverse Reaction (Verified 08/06/20 16:48) Vomiting Current Medications Generic Name Dose Route Start Last Admin Trade Name Freq PRN Reason Stop Dose Admin Acetaminophen 1,000 mg 08/10/20 22:00 08/11/20 13:04 Acetaminophen 500 Mg Tablet PO 1,000 mg Q8 KEYONNA Administration Amlodipine Besylate 10 mg 08/11/20 06:00 08/11/20 06:28 Amlodipine 10 Mg Tablet PO 10 mg DAILY KEYONNA Administration Aspirin 81 mg 08/11/20 08:00 08/11/20 16:52 Aspirin 81 Mg Tab.Chew PO 81 mg BIDCM KEYONNA Administration Bisacodyl 10 mg 08/10/20 22:03 Bisacodyl 10 Mg Suppository RECTAL DAILY PRN Constipation Levetiracetam 500 mg 08/10/20 22:00 08/11/20 16:52 Levetiracetam 500 Mg Tablet PO 500 mg BID KEYONNA Administration Levothyroxine Sodium 125 mcg 08/11/20 06:00 08/11/20 06:28 Levothyroxine 125 Mcg Tablet PO 125 mcg DAILY KEYONNA Administration Magnesium Hydroxide 30 ml 08/10/20 22:03 Magnesium Hydroxide 30 Ml Udc PO DAILY PRN Constipation Metoprolol Succinate 100 mg 08/10/20 22:00 08/10/20 22:41 Metoprolol(Xl)Succ 100 Mg Tablet PO 100 mg QHS KEYONNA Administration Nutritional Formula (Lactose Free) 120 ml 08/10/20 22:00 08/11/20 16:52 Ensure Enlive 120 Ml Liquid PO 120 ml 4X/DAY KEYONNA Administration Polyethylene Glycol 17 gm 08/11/20 06:00 08/11/20 06:28 Polyethylene Glycol 3350 17 Gm Packet PO Not Given DAILY KEYONNA Senna/Docusate Sodium 2 tablet 08/11/20 06:00 08/11/20 17:36 Senna/Docusate Sodium 1 Tablet PO Not Given BID [facility] Sodium Chloride 10 - 40 ml 08/10/20 21:59 0.9% Saline Lock 10 Ml Syringe IV UD PRN SALINE FLUSH Tramadol HCl 50 mg 08/10/20 19:35 Tramadol 50 Mg Tablet PO Q6H PRN PRN Pain Score 4-10 Tuberculin PPD 5 tu 08/18/20 10:00 Tuberculin,Purif.Prot.Deriv. 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) Melanoma (Chronic) Hyperlipidemia (Chronic) Vital Signs Temp Pulse Resp BP Pulse Ox 98.3 F 75 16 126/55 H 97 08/11/20 13:06 08/11/20 13:06 08/11/20 13:06 08/11/20 13:06 08/11/20 13:06 Oxygen Delivery Method Room Air Weight: 73.028 kg Body Mass Index (BMI) 25.9 Finger Stick Blood Glucose 167 Sodium 137 mmol/L (136-145) 08/11/20 06:46 Potassium 3.9 mmol/L (3.5-5.1) 08/11/20 06:46 Chloride 101 mmol/L (98-107) 08/11/20 06:46 Carbon Dioxide 30.0 mmol/L (21.0-32.0) 08/11/20 06:46 Anion Gap 6 (5-15) 08/11/20 06:46 BUN 20 mg/dL (7-18) H 08/11/20 06:46 Creatinine 0.65 mg/dL (0.55-1.02) 08/11/20 06:46 Est GFR (MDRD) Af Amer 112 mL/min (>60) 08/11/20 06:46 Est GFR (MDRD) Non-Af 93 mL/min (>60) 08/11/20 06:46 BUN/Creatinine Ratio 30.8 RATIO (10-20) H 08/11/20 06:46 Glucose 105 mg/dL (74-106) 08/11/20 06:46 Assessment/Plan: Psychotropic Medications: Unnecessary Medications: Bowel Regimen: - Provider Comments Provider responsibility: Provider responsible to enter orders to implement recommendations Provider Comments to Recommendations by Pharmacy: Agree
--- NOTE | 2020-08-11 16:33 | CASEMGMT ---
Social Work SW reviewed end of life issues with pt and assisted with completing MOLST form. PT choosing full code with intubation and artificial nutrition. MOLST form placed on pt chart. TONYA Murphy
[2020-08-11] MEDS: 0.9% Saline Lock 10 ML Syringe IV (20:49)
[2020-08-11 20:53] VITALS: BP 156/67; PULSE 88
[2020-08-11] MEDS: Metoprolol(XL)Succ 100 MG Tablet PO (20:53)
[2020-08-12 05:12] VITALS: BP 152/66; PULSE 88; RESP 16; TEMP 37.6; O2SAT 96
[2020-08-12] MEDS: Levothyroxine 125 MCG Tablet PO (05:16)
[2020-08-12] MEDS: amLODIPine 10 MG Tablet PO (05:16)
[2020-08-12] MEDS: levETIRAcetam 500 MG Tablet PO ×2 (05:16→18:06)
[2020-08-12] MEDS: Acetaminophen 500 MG Tablet 1000 MG PO ×3 (05:16→20:59)
--- NOTE | 2020-08-12 06:00 | NURSING ---
Pt had several loose stools during night, message left for Dr Gonzalez
[2020-08-12] MEDS: Aspirin 81 MG TAB.CHEW PO ×2 (08:25→18:06)
--- NOTE | 2020-08-12 10:05 | RAD_ITS ---
STUDY: X-RAY - ABDOMEN/PELVIS REASON FOR EXAM: Female, 79 years old. DIARRHEA TECHNIQUE: Single AP view of the abdomen / pelvis. COMPARISON: None. FINDINGS: There is elevation of the left hemidiaphragm. There is an unremarkable bowel gas pattern. Surgical clips are seen in the right upper quadrant suggestive of prior cholecystectomy. There is a 7.8 mm calcification overlying the upper pole of the right kidney. Normal soft tissue structures. There are degenerative changes of the visualized lumbar spine. RAD/Abdomen Single View IMPRESSION: Nonspecific bowel gas pattern. 7.8 mm calcification in the upper pole of the right kidney. Electronically Signed: Bill Foreman, at 12:39 EST , Service support ,
[2020-08-12 14:56] VITALS: BP 120/50; PULSE 80; RESP 18; TEMP 36.9; O2SAT 92
[2020-08-12 15:23] VITALS: PULSE 80; RESP 18; O2SAT 92
--- NOTE | 2020-08-12 16:38 | NURSING ---
Resident and significant other notified of staff member testing positive for COVID.
[2020-08-12] MEDS: 0.9% Saline Lock 10 ML Syringe IV (20:58)
[2020-08-12 21:00] VITALS: BP 139/47; PULSE 68
[2020-08-12] MEDS: Metoprolol(XL)Succ 100 MG Tablet PO (21:00)
--- NOTE | 2020-08-12 23:43 | NURSING ---
Pt states had 1 loose stool this am and 1 this evelina, states feels better than last night
[2020-08-13 04:00] VITALS: BP 121/89; PULSE 71; RESP 15; TEMP 36.3; O2SAT 96
[2020-08-13] MEDS: Acetaminophen 500 MG Tablet 1000 MG PO ×3 (05:44→20:52)
[2020-08-13] MEDS: amLODIPine 10 MG Tablet PO (05:45)
[2020-08-13] MEDS: Levothyroxine 125 MCG Tablet PO (05:45)
[2020-08-13] MEDS: levETIRAcetam 500 MG Tablet PO ×2 (05:45→17:04)
[2020-08-13] MEDS: Aspirin 81 MG TAB.CHEW PO ×2 (08:48→17:04)
[2020-08-13 13:53] VITALS: BP 140/46; PULSE 72; RESP 18; TEMP 36.9; O2SAT 91
[2020-08-13 20:53] VITALS: BP 137/52; PULSE 67
[2020-08-13] MEDS: Metoprolol(XL)Succ 100 MG Tablet PO (20:53)
[2020-08-14 04:00] VITALS: BP 142/62; PULSE 65; RESP 16; TEMP 36.9; O2SAT 96
[2020-08-14] MEDS: levETIRAcetam 500 MG Tablet PO ×2 (05:27→16:14)
[2020-08-14] MEDS: Acetaminophen 500 MG Tablet 1000 MG PO ×3 (05:27→20:24)
[2020-08-14] MEDS: Levothyroxine 125 MCG Tablet PO (05:27)
[2020-08-14] MEDS: amLODIPine 10 MG Tablet PO (05:27)
[2020-08-14] MEDS: Aspirin 81 MG TAB.CHEW PO ×2 (08:36→16:14)
[2020-08-14 12:26] VITALS: BP 127/48; PULSE 60; RESP 18; TEMP 36.8; O2SAT 96
[2020-08-14 20:22] VITALS: BP 125/51; PULSE 63
[2020-08-14] MEDS: Metoprolol(XL)Succ 100 MG Tablet PO (20:22)
[2020-08-15 05:27] VITALS: BP 152/58; PULSE 65; RESP 16; TEMP 36.8; O2SAT 95
[2020-08-15] MEDS: amLODIPine 10 MG Tablet PO (05:28)
[2020-08-15] MEDS: levETIRAcetam 500 MG Tablet PO ×2 (05:28→17:08)
[2020-08-15] MEDS: Levothyroxine 125 MCG Tablet PO (05:28)
[2020-08-15] MEDS: Acetaminophen 500 MG Tablet 1000 MG PO ×3 (05:28→21:22)
[2020-08-15 05:30] VITALS: BP 146/62
[2020-08-15] MEDS: Loratadine 10 MG Tablet PO (08:36)
[2020-08-15] MEDS: Aspirin 81 MG TAB.CHEW PO ×2 (08:36→17:08)
[2020-08-15 14:53] VITALS: BP 125/48; PULSE 64; RESP 18; TEMP 36.3; O2SAT 94
[2020-08-15 21:22] VITALS: BP 131/46; PULSE 64
[2020-08-15] MEDS: Metoprolol(XL)Succ 100 MG Tablet PO (21:22)
[2020-08-16 04:27] VITALS: BP 146/51; PULSE 62; RESP 16; TEMP 37; O2SAT 96
[2020-08-16] MEDS: Saliva Substitute 237 ML BOTTLE 15 ML MM (04:28)
[2020-08-16] MEDS: Acetaminophen 500 MG Tablet 1000 MG PO ×3 (04:30→20:05)
[2020-08-16] MEDS: amLODIPine 10 MG Tablet PO (04:30)
[2020-08-16] MEDS: Levothyroxine 125 MCG Tablet PO (04:30)
[2020-08-16] MEDS: levETIRAcetam 500 MG Tablet PO ×2 (04:30→17:32)
[2020-08-16] MEDS: Loratadine 10 MG Tablet PO (04:30)
[2020-08-16] MEDS: Menthol/Lanolin/Calamine/Znox 113 GM Tube 1 APPLIC TOPICAL ×2 (04:34→20:05)
[2020-08-16] MEDS: Aspirin 81 MG TAB.CHEW PO ×2 (08:02→17:32)
[2020-08-16 14:31] VITALS: BP 109/39; PULSE 64; RESP 14; TEMP 36.9; O2SAT 95
[2020-08-16 20:05] VITALS: PULSE 80
[2020-08-16] MEDS: Metoprolol(XL)Succ 100 MG Tablet PO (20:05)
[2020-08-17 04:00] VITALS: BP 142/49; PULSE 60; RESP 16; TEMP 36.9; O2SAT 95
[2020-08-17] MEDS: Menthol/Lanolin/Calamine/Znox 113 GM Tube 1 APPLIC TOPICAL ×2 (07:08→19:36)
[2020-08-17] MEDS: Loratadine 10 MG Tablet PO (07:08)
[2020-08-17] MEDS: levETIRAcetam 500 MG Tablet PO ×2 (07:09→16:49)
[2020-08-17] MEDS: Levothyroxine 125 MCG Tablet PO (07:09)
[2020-08-17] MEDS: amLODIPine 10 MG Tablet PO (07:09)
[2020-08-17] MEDS: Acetaminophen 500 MG Tablet 1000 MG PO ×3 (07:10→19:36)
[2020-08-17] MEDS: Aspirin 81 MG TAB.CHEW PO ×2 (08:25→16:49)
--- NOTE | 2020-08-17 11:30 | CASEMGMT ---
Social Work IDT met with patient and via conference call for care plan meeting. Discussed patient's progress in therapy. Pt is min for bed mobility, SBA for tx, ambulating 100ft with FWW at SBA, 2# wts on LLE. Pt is CGA for toilet tx, CGA for LE dressing, SBA for toileting tasks. Pt is on a regular diet, mech soft textures, receiving ensure. pt is out of isolation 08/24. Explained Medicare benefit. pt lives at home with and both requesting pt to DC home 08/18. states he can assist her physically and with IADLs. IDT agreeable to DC 08/18. Pt requesting [facility]. Referral made for PT/OT/SN. No DME needs. to transport pt. Plan: DC home with with [facility] PT/OT/SN, no DME GLENYS LopezW
[2020-08-17 15:02] VITALS: BP 111/56; PULSE 60; RESP 18; TEMP 36.8; O2SAT 91
--- NOTE | 2020-08-17 16:05 | DCINST_ITS ---
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) Melanoma (Chronic) Hyperlipidemia (Chronic) You will use the following diet at home:: No restrictions, Regular Your food should be the consistency of: Regular Your liquids should be the consistency of: Regular/Thin Discharge Activity: Return to Normal Activity, May Shower, Use Walker Weight Bearing Status: Weight bearing as tolerated Call your doctor if you observe: Fever of 101 or Higher, Inability to urinate, Inability to have a bowel movement, Shortness of breath, Chest pain, Uncontrolled pain Allergies/Adverse Reactions: Allergies Penicillins Allergy (Verified 08/06/20 16:48) Rash oxycodone [From OxyContin] Adverse Reaction (Verified 08/06/20 16:48) Vomiting sulfamethoxazole [From Bactrim] Adverse Reaction (Verified 08/06/20 16:48) Vomiting trimethoprim [From Bactrim] Adverse Reaction (Verified 08/06/20 16:48) Vomiting Medications to take at Discharge Amlodipine [Norvasc] 10 mg PO DAILY 08/06/20 Levothyroxine Sodium [Synthroid] 125 mcg PO DAILY 08/06/20 Metoprolol(XL)Succ [Toprol Xl (Beta Dawson)] 100 mg PO DAILY 08/06/20 Aspirin [Aspirin, Baby] 81 mg PO BID 08/10/20 Menthol/Lanolin/Calamine/Znox [Calmoseptine Ointment] 1 applic TOPICAL 0600,2200 tube 08/17/20 Saliva Substitute [Biotene] 15 ml MM 5X/DAY PRN bottle 08/17/20 levETIRAcetam tablet [Keppra tablet] 500 mg PO BID #60 tab 08/17/20 The following prescriptions were given: levETIRAcetam tablet [Keppra tablet] 500 mg PO BID #60 tab Transmission Status: Pending to [id number] Primary Care Physician: Bay Gonzalez Chi, MD [COURTESY STAFF PHYSICIAN] - Please follow up with your Primary Care Physician in: 1 week. Test Results: Test results from this visit will be discussed in further detail at your follow- up appointment, if applicable. Please Follow Up With: Jarrett Rashid DO When: 2 weeks Please Follow Up With: Jerry Chow MD When: 2 weeks Proposed Discharge Date: 08/18/20
--- NOTE | 2020-08-17 16:07 | DS.PCM_ITS ---
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 Ensure pudding L&D. Clinical Impression(s) from Imaging Studies KUB X-Ray 08/12/20 10:05 IMPRESSION: Nonspecific bowel gas pattern. 7.8 mm calcification in the upper pole of the right kidney. Electronically Signed: Bill Foreman, at 12:39 EST , Service support , Microbiology 08/15/20 14:00 Nasal Secretion SARS-CoV-2 Antigen (Rapid) - Final Operations: None, - - 08/08 cemented hemiarthroplasty right hip Procedures: None Summary of Care Provided: The patient is a 79 year old Female with below past medical history hospitalized for right hip fracture, underwent right hip cemented hemiarthroplasty 08/08/20, complicated by new onset seizure disorder, admitted to TCU with debility, here for rehabilitation, strengthening, prior to discharge home with family. Discharge home with , [facility] PT/OT/SN, No durable medical equipment needs. Patient Problems: Active and Suspected Problems Debility (Acute) Fall (Acute) Unresponsive (Acute) Closed right hip fracture (Acute) Seizure disorder (Acute) - Physical Exam Vitals/I&O's: Vital Signs Temp Pulse Resp BP Pulse Ox 98.2 F 60 18 111/56 L 91 08/17/20 15:02 08/17/20 15:02 08/17/20 15:02 08/17/20 15:02 08/17/20 15:02 Oxygen Delivery Method Room Air Weight: 72.688 kg Body Mass Index (BMI) 25.9 Finger Stick Blood Glucose 167 Intake and Output for Last 24 Hours 08/15/20 08/16/20 08/17/20 23:59 23:59 23:59 Intake Total 720 / 720 1680 / 1680 120 / 120 Balance 720 / 720 1680 / 1680 120 / 120 Microbiology Past 72 Hours 08/15/20 14:00 Nasal Secretion SARS-CoV-2 Antigen (Rapid) - Final Current Medications Acetaminophen (Acetaminophen 500 Mg Tablet) 1,000 mg PO Q8 [facility] Last Admin: 08/17/20 13:06 Dose: 1,000 mg Documented by: Amlodipine Besylate (Amlodipine 10 Mg Tablet) 10 mg PO DAILY [facility] Last Admin: 08/17/20 07:09 Dose: 10 mg Documented by: Aspirin (Aspirin 81 Mg Tab.Chew) 81 mg PO BIDCM [facility] Last Admin: 08/17/20 08:25 Dose: 81 mg Documented by: Bisacodyl (Bisacodyl 10 Mg Suppository) 10 mg RECTAL DAILY PRN PRN Reason: Constipation Calamine/Phenol (Menthol/Lanolin/Calamine/Znox 113 Gm Tube) 1 applic TOPICAL 0600,2200 [facility], [facility]; Protocol Last Admin: 08/17/20 07:08 Dose: 1 applicatio Documented by: Levetiracetam (Levetiracetam 500 Mg Tablet) 500 mg PO BID [facility] Last Admin: 08/17/20 07:09 Dose: 500 mg Documented by: Levothyroxine Sodium (Levothyroxine 125 Mcg Tablet) 125 mcg PO DAILY [facility] Last Admin: 08/17/20 07:09 Dose: 125 mcg Documented by: Loratadine (Loratadine 10 Mg Tablet) 10 mg PO DAILY [facility] Last Admin: 08/17/20 07:08 Dose: 10 mg Documented by: Magnesium Hydroxide (Magnesium Hydroxide 30 Ml Udc) 30 ml PO DAILY PRN PRN Reason: Constipation Metoprolol Succinate (Metoprolol(Xl)Succ 100 Mg Tablet) 100 mg PO QHS [facility] Last Admin: 08/16/20 20:05 Dose: 100 mg Documented by: Polyethylene Glycol (Polyethylene Glycol 3350 17 Gm Packet) 17 gm PO DAILY [facility] Last Admin: 08/17/20 07:09 Dose: Not Given Documented by: Saliva Substitute (Saliva Substitute 237 Ml Bottle) 15 ml MM 5X/DAY PRN PRN Reason: DRY MOUTH Last Admin: 08/16/20 04:28 Dose: 15 ml Documented by: Senna/Docusate Sodium (Senna/Docusate Sodium 1 Tablet) 2 tablet PO BID [facility] Last Admin: 08/17/20 07:09 Dose: Not Given Documented by: Sodium Chloride (0.9% Saline Lock 10 Ml Syringe) 10 - 40 ml IV UD PRN PRN Reason: SALINE FLUSH Last Admin: 08/12/20 20:58 Dose: 10 ml Documented by: Sodium Chloride (0.9% Saline Lock 10 Ml Syringe) 10 - 40 ml IV UD PRN PRN Reason: SALINE FLUSH Tramadol HCl (Tramadol 50 Mg Tablet) 50 mg PO Q6H PRN PRN PRN Reason: Pain Score 4-10 Tuberculin PPD (Tuberculin,Purif.Prot.Deriv. 50 Tu/Ml Vial) 5 tu ID X1 ONE Stop: 08/18/20 10:01 Discharge Diet: No Restrictions, - - Mechanical texture. Discharge Activity: Return to Normal Activity, May Shower, Use Walker Weight Bearing Status: Weight bearing as tolerated Call your doctor if you observe: Fever of 101 or Higher, Inability to urinate, Inability to have a bowel movement, Shortness of breath, Chest pain, Uncontrolled pain Home Medications: Medications to take at Discharge Amlodipine [Norvasc] 10 mg PO DAILY 08/06/20 Levothyroxine Sodium [Synthroid] 125 mcg PO DAILY 08/06/20 Metoprolol(XL)Succ [Toprol Xl (Beta Dawson)] 100 mg PO DAILY 08/06/20 Aspirin [Aspirin, Baby] 81 mg PO BID 08/10/20 Menthol/Lanolin/Calamine/Znox [Calmoseptine Ointment] 1 applic TOPICAL 0600,2200 tube 08/17/20 Saliva Substitute [Biotene] 15 ml MM 5X/DAY PRN bottle 08/17/20 levETIRAcetam tablet [Keppra tablet] 500 mg PO BID #60 tab 08/17/20 Following Prescriptions Were Given to Patient: levETIRAcetam tablet [Keppra tablet] 500 mg PO BID #60 tab Transmission Status: Pending to [facility] Primary Care Physician: Bay Gonzalez Chi, MD [COURTESY STAFF PHYSICIAN] - Please follow up with your Primary Care Physician in: 1 week. Please Follow Up With: Jarrett Rashid DO When: 2 weeks Please Follow Up With: Jerry Chow MD When: 2 weeks Disposition: Home with Home Health Minutes spent on discharge:: 35 Patient Condition:: Stable Medical Necessity - Tobacco Use Smoking Status: Never smoker Tobacco Use: Non-smoker Meaningful Use Info Meaningful Use Diagnoses (Choose all that apply): None applicable
[2020-08-17 19:36] VITALS: BP 132/41; PULSE 63
[2020-08-17] MEDS: Metoprolol(XL)Succ 100 MG Tablet PO (19:36)
[2020-08-18 04:00] VITALS: BP 141/49; PULSE 89; RESP 16; TEMP 36.9; O2SAT 96
[2020-08-18 05:17] LABS: Absolute Lymphocyte Count 1.03 X10^3/uL (0.83-4.51); Absolute Neutrophil Count 4.8 X10^3/uL (2.0-7.7); Basophil# 0.04 X10^3/uL; Basophil% 0.6 % (0-1); Eosinophil# 0.14 X10^3/uL; Hematocrit 27.3 % (37-47); Hemoglobin 9.1 g/dL (12.0-15.0); Lymphocyte # 1.03 X10^3/ul (4.0); Lymphocyte % 14.8 % (19-41); Mean Corp Hgb Conc 33.3 g/dL (32-36); Mean Corpuscular Hgb 31.3 pg (27.0-32.0); Mean Corpuscular Volume 93.8 fL (81-99); Mean Platelet Vol. 8.8 fl (6.2-12.0); Monocyte# 0.88 X10^3/uL; Monocyte% 12.6 % (0-10); NRBC Flagged by Analyzer 0 % (0-5); Neutrophil # 4.79 X10^3/uL (2.7-7.7); Neutrophil % 68.7 % (47-70); Platelet Count 445 K/mm3 (150-450); RBC Distribution Width CV 14.6 % (11.6-14.6); RBC Distribution Width SD 50.2 fl (35.1-43.9); Red Blood Count 2.91 M/mm3 (4.2-5.4)
[2020-08-18 05:36] LABS: Anion Gap 6 (5-15); BUN 19 mg/dL (7-18); BUN/Creat Ratio 31.4 RATIO (10-20); Calcium,Total 8.1 mg/dL (8.5-10.1); Chloride 99 mmol/L (98-107); EST Glomerular Filtration Rate 101 mL/min (>60); Est Glom Filt Rate - Afr Amer 122 mL/min (>60); Glucose 95 mg/dL (74-106); Potassium 4.1 mmol/L (3.5-5.1); Sodium Level 130 mmol/L (136-145)
[2020-08-18] MEDS: Acetaminophen 500 MG Tablet 1000 MG PO (06:53)
[2020-08-18] MEDS: levETIRAcetam 500 MG Tablet PO (06:53)
[2020-08-18] MEDS: amLODIPine 10 MG Tablet PO (06:53)
[2020-08-18] MEDS: Levothyroxine 125 MCG Tablet PO (06:53)
[2020-08-18] MEDS: Loratadine 10 MG Tablet PO (06:53)
[2020-08-18] MEDS: Menthol/Lanolin/Calamine/Znox 113 GM Tube 1 APPLIC TOPICAL (06:54)
[2020-08-18] MEDS: Aspirin 81 MG TAB.CHEW PO (08:56)
--- NOTE | 2020-08-18 09:49 | NURSING ---
25 danny removed from rt hip incision, well approximated, sm amt of redness proximal incision. drsg applied. no active drng noted.
[2020-08-18 09:50] VITALS: PULSE 62; RESP 18; O2SAT 96
--- NOTE | 2020-08-23 08:42 | MDS.RN ---
Information for the mds was obtained from review of the clinical record, interview of resident, staff, and direct observation of resident's care.
== END 2020-08-18 10:13 | disposition home health service (06) | DRG 561 ==
PROVIDERS: Admitting Provider Family Medicine Geriatric Medicine; Visit Provider Family Medicine Geriatric Medicine
DX: S72.001D Fracture of unspecified part of neck of right femur, subsequent encounter for closed fracture with routine healing (principal); W19.XXXD Unspecified fall, subsequent encounter; E78.5 Hyperlipidemia, unspecified; I10 Essential (primary) hypertension; G40.909 Epilepsy, unspecified, not intractable, without status epilepticus; E03.9 Hypothyroidism, unspecified; Z85.820 Personal history of malignant melanoma of skin; Z85.830 Personal history of malignant neoplasm of bone
CPT/HCPCS: 74018; 80048; 85025; 87426; 87635; 97110; 97116; 97162; 97166; 97530; 97535; A4216; U0003

== ENCOUNTER → 2020-09-05 07:31 | Outpatient (CLI) | payer MEDICARE, BC, SELFPAY ==
[2020-09-02 09:25] VITALS: BMI 25.9
[2020-09-05 08:22] LABS: Hematocrit 35.7 % (37-47); Mean Corp Hgb Conc 33.6 g/dL (32-36); Mean Corpuscular Hgb 31.4 pg (27.0-32.0); Mean Corpuscular Volume 93.5 fL (81-99); Mean Platelet Vol. 8.9 fl (6.2-12.0); Platelet Count 347 K/mm3 (150-450); RBC Distribution Width CV 15.2 % (11.6-14.6); RBC Distribution Width SD 52.5 fl (35.1-43.9); Red Blood Count 3.82 M/mm3 (4.2-5.4); White Blood Count 6.9 K/mm3 (4.4-11.0)
[2020-09-05 08:54] LABS: Vitamin B12 839 pg/mL (211-911)
[2020-09-05 09:14] LABS: AST(SGOT) 12 U/L (15-37); Alanine Aminotransfer ALT/SGPT 14 U/L (13-56); Albumin, Serum 3.5 g/dL (3.2-5.0); Alkaline Phosphatase 72 U/L (45-117); Anion Gap 6 (5-15); BUN 20 mg/dL (7-18); BUN/Creat Ratio 27.1 RATIO (10-20); Calcium,Total 9.5 mg/dL (8.5-10.1); Chloride 98 mmol/L (98-107); Creatinine, Serum 0.74 mg/dL (0.55-1.02); EST Glomerular Filtration Rate 80 mL/min (>60); Est Glom Filt Rate - Afr Amer 97 mL/min (>60); Ferritin 99 ng/mL (8-252); Globulin 3.6 g/dL (2.2-4.2); Glucose 90 mg/dL (74-106); Iron 57 ug/dL (50-170); Potassium 3.8 mmol/L (3.5-5.1); Protein, Total 7.1 g/dL (6.4-8.2); Sodium Level 133 mmol/L (136-145); Thyroid Stim Hormone (TSH) 8.92 uIU/mL (0.358-3.74)
== END ==
PROVIDERS: Referring Provider Psychiatry & Neurology Neurology; Visit Provider Psychiatry & Neurology Neurology
DX: G40.909 Epilepsy, unspecified, not intractable, without status epilepticus (principal); E03.9 Hypothyroidism, unspecified; I10 Essential (primary) hypertension; D64.9 Anemia, unspecified; Z86.2 Personal history of diseases of the blood and blood-forming organs and certain disorders involving the immune mechanism
CPT/HCPCS: 36415; 80053; 82607; 82728; 82746; 83540; 84443; 85027

== ENCOUNTER → 2020-09-13 10:17 | Outpatient (CLI) | payer MEDICARE, BC, SELFPAY ==
[2020-09-02 09:25] VITALS: BMI 25.9
--- NOTE | 2020-09-13 10:21 | MRI_ITS ---
STUDY: MRI BRAIN WITH AND WITHOUT CONTRAST REASON FOR EXAM: Female, 80 years old. epilepsy, pt had one seizure 08/06/20 TECHNIQUE: Standardized multiplanar fat and water weighted pulse sequences were obtained. IV Dotarem 14ml was administered for the contrast portion of the examination. COMPARISON: CT 08/06/2020 FINDINGS: Normal size of the ventricles and extra-axial spaces for the patient''s age. Normal white matter tracts of the supratentorial brain. There is no evidence for recent intracranial ischemia or other cause of cytotoxic edema on diffusion weighted imaging (DWI). Normal T2* images of the brain without demonstrated susceptibility artifact. There is no demonstrated hemosiderin stain. Thin section coronal T2-weighted images through the temporal lobes demonstrate no evidence of hippocampal atrophy or hyperintensity to suggest mesial temporal sclerosis. Normal bilateral basal ganglia. Normal thalami. There is no extra-axial fluid accumulation. Normal flow voids within the major intracranial circulation suggesting patency by spin echo criteria. Normal venous enhancement. There is no enhancing intra-axial or extra-axial abnormality. Normal sella turcica, pituitary gland, infundibular stalk, optic chiasm and hypothalamus. Normal tectal plate and pineal gland. Normal midbrain, damaris and medulla. Normal cerebellum. Normal basal cisterns. Normal bilateral temporal bones. Normal bilateral internal auditory canals. No demonstrated orbital abnormality, within the constraints of a routine brain study. Normal visualized paranasal sinuses. Normal calvarium and skull base. Normal visualized soft tissue structures. Normal visualized upper cervical spine. MRI/Brain W/WO Contrast IMPRESSION: Normal unenhanced and enhanced MRI of the brain. Electronically Signed: Harsha Davis MD at 12:12 EST Tel , Service support ,
== END ==
PROVIDERS: Referring Provider Psychiatry & Neurology Neurology; Visit Provider Psychiatry & Neurology Neurology
DX: G40.909 Epilepsy, unspecified, not intractable, without status epilepticus (principal)
CPT/HCPCS: 70553; A9575

== ENCOUNTER → 2020-10-17 07:23 | Outpatient (CLI) | payer MEDICARE, BC, SELFPAY ==
[2020-10-19 12:16] LABS: KEPPRA (LEVETIRACETAM) 12.5 ug/mL (10.0-40.0)
== END ==
PROVIDERS: PCP Family Medicine Geriatric Medicine; Referring Provider Psychiatry & Neurology Neurology; Visit Provider Psychiatry & Neurology Neurology
DX: G40.909 Epilepsy, unspecified, not intractable, without status epilepticus (principal)
CPT/HCPCS: 36415; 80177

== ENCOUNTER 2020-11-10 09:58 | Outpatient (RCR) | payer MEDICARE, BC, SELFPAY ==
[2020-11-10] MEDS: COVID-19 VACC, MRNA(PFIZER)/PF 30 MCG/0.3 ML SYRINGE IM (15:09)
[2020-12-01] MEDS: COVID-19 VACC, MRNA(PFIZER)/PF 30 MCG/0.3 ML SYRINGE IM (15:09)
== END 2020-11-10 23:59 ==
LOC: IMMUN 09:58
PROVIDERS: PCP Family Medicine Geriatric Medicine; Visit Provider Family Medicine
DX: Z23 Encounter for immunization (principal)
CPT/HCPCS: 0001A; 0002A; 91300

== ENCOUNTER → 2020-11-21 16:24 | Outpatient (CLI) | payer MEDICARE, BC, SELFPAY ==
[2020-11-21 17:29] LABS: Absolute Lymphocyte Count 2.02 X10^3/uL (0.83-4.51); Absolute Neutrophil Count 4.5 X10^3/uL (2.0-7.7); Basophil# 0.04 X10^3/uL; Basophil% 0.5 % (0-1); Eosinophil# 0.18 X10^3/uL; Eosinophils% 2.4 % (0-5); Hematocrit 41.2 % (37-47); Hemoglobin 13.7 g/dL (12.0-15.0); Lymphocyte # 2.02 X10^3/ul (4.0); Lymphocyte % 26.4 % (19-41); Mean Corp Hgb Conc 33.3 g/dL (32-36); Mean Corpuscular Hgb 29.9 pg (27.0-32.0); Mean Platelet Vol. 9.7 fl (6.2-12.0); Monocyte# 0.89 X10^3/uL; Monocyte% 11.6 % (0-10); NRBC Flagged by Analyzer 0 % (0-5); Neutrophil % 58.8 % (47-70); Platelet Count 365 K/mm3 (150-450); RBC Distribution Width CV 14.8 % (11.6-14.6); RBC Distribution Width SD 48.6 fl (35.1-43.9); Red Blood Count 4.58 M/mm3 (4.2-5.4); White Blood Count 7.7 K/mm3 (4.4-11.0)
[2020-11-21 17:42] LABS: Vitamin D,25 Hydroxy 38.7 ng/mL
[2020-11-21 17:48] LABS: AST(SGOT) 17 U/L (15-37); Alanine Aminotransfer ALT/SGPT 18 U/L (13-56); Albumin, Serum 3.9 g/dL (3.2-5.0); Alkaline Phosphatase 88 U/L (45-117); Anion Gap 7 (5-15); BUN 22 mg/dL (7-18); BUN/Creat Ratio 29.9 RATIO (10-20); Calcium,Total 9.7 mg/dL (8.5-10.1); Chloride 99 mmol/L (98-107); Creatinine, Serum 0.74 mg/dL (0.55-1.02); EST Glomerular Filtration Rate 80 mL/min (>60); Est Glom Filt Rate - Afr Amer 97 mL/min (>60); Glucose 91 mg/dL (74-106); Protein, Total 7.9 g/dL (6.4-8.2); Sodium Level 134 mmol/L (136-145); Thyroid Stim Hormone (TSH) 4.29 uIU/mL (0.358-3.74)
== END ==
PROVIDERS: PCP Family Medicine Geriatric Medicine; Visit Provider Family Medicine Geriatric Medicine
DX: E55.9 Vitamin D deficiency, unspecified (principal); R53.83 Other fatigue
CPT/HCPCS: 36415; 80053; 82306; 84443; 85025

== ENCOUNTER → 2021-01-17 12:28 | Outpatient (CLI) | payer MEDICARE, BC, SELFPAY ==
[2021-01-17 15:09] LABS: Thyroid Stim Hormone (TSH) 2.99 uIU/mL (0.358-3.74)
== END ==
PROVIDERS: PCP Family Medicine Geriatric Medicine; Visit Provider Family Medicine Geriatric Medicine
DX: E03.9 Hypothyroidism, unspecified (principal)
CPT/HCPCS: 36415; 84443

== ENCOUNTER → 2021-03-21 08:10 | Outpatient (CLI) | payer MEDICARE, BC, SELFPAY ==
[2021-02-14 08:38] VITALS: BMI 25.9
[2021-03-24 10:19] LABS: KEPPRA (LEVETIRACETAM) 17.2 ug/mL (10.0-40.0)
== END ==
PROVIDERS: Psychiatry & Neurology Neurology; PCP Family Medicine Geriatric Medicine; Referring Provider Nurse Practitioner Family; Visit Provider Nurse Practitioner Family
DX: G40.309 Generalized idiopathic epilepsy and epileptic syndromes, not intractable, without status epilepticus (principal)
CPT/HCPCS: 36415; 80177; 82140

== ENCOUNTER → 2021-04-14 11:25 | Outpatient (CLI) | payer MEDICARE, BC, SELFPAY | PROVIDERS: PCP Family Medicine Geriatric Medicine; Visit Provider Family Medicine Geriatric Medicine | DX: R68.83 Chills (without fever) (principal) | CPT/HCPCS: 87426; 87804; 87807; C9803 ==

== ENCOUNTER → 2021-05-19 09:25 | Outpatient (CLI) | payer MEDICARE, BC, SELFPAY ==
[2021-05-19 12:52] LABS: Absolute Lymphocyte Count 0.71 X10^3/uL (0.83-4.51); Absolute Neutrophil Count 4.3 X10^3/uL (2.0-7.7); Basophil# 0.05 X10^3/uL; Basophil% 0.8 % (0-1); Eosinophil# 0.14 X10^3/uL; Eosinophils% 2.3 % (0-5); Hematocrit 36.7 % (37-47); Hemoglobin 12.4 g/dL (12.0-15.0); Lymphocyte # 0.71 X10^3/ul (0.83-4.51); Lymphocyte % 11.5 % (19-41); Mean Corp Hgb Conc 33.8 g/dL (32-36); Mean Corpuscular Hgb 31.2 pg (27.0-32.0); Mean Corpuscular Volume 92.4 fL (81-99); Mean Platelet Vol. 9.1 fl (6.2-12.0); Monocyte# 0.91 X10^3/uL; Monocyte% 14.8 % (0-10); NRBC Flagged by Analyzer 0 % (0-5); Neutrophil # 4.32 X10^3/uL (2.7-7.7); Neutrophil % 70.1 % (47-70); Platelet Count 285 K/mm3 (150-450); RBC Distribution Width CV 14.2 % (11.6-14.6); Red Blood Count 3.97 M/mm3 (4.2-5.4); White Blood Count 6.2 K/mm3 (4.4-11.0)
[2021-05-19 13:08] LABS: Vitamin D,25 Hydroxy 35.5 ng/mL
[2021-05-19 13:17] LABS: ALB/GLOB Ratio 0.8 RATIO (0.9-2.4); AST(SGOT) 18 U/L (15-37); Alanine Aminotransfer ALT/SGPT 23 U/L (13-56); Albumin, Serum 3.1 g/dL (3.2-5.0); Alkaline Phosphatase 80 U/L (45-117); Anion Gap 5 (5-15); BUN 15 mg/dL (7-18); BUN/Creat Ratio 21.8 RATIO (10-20); Chloride 98 mmol/L (98-107); Creatinine, Serum 0.69 mg/dL (0.55-1.02); EST Glomerular Filtration Rate 87 mL/min (>60); Est Glom Filt Rate - Afr Amer 105 mL/min (>60); Globulin 3.9 g/dL (2.2-4.2); Glucose 106 mg/dL (74-106); Potassium 4.3 mmol/L (3.5-5.1); Sodium Level 131 mmol/L (136-145); Thyroid Stim Hormone (TSH) 1.18 uIU/mL (0.358-3.74)
== END ==
PROVIDERS: PCP Family Medicine Geriatric Medicine; Visit Provider Family Medicine Geriatric Medicine
DX: I10 Essential (primary) hypertension (principal); E55.9 Vitamin D deficiency, unspecified
CPT/HCPCS: 36415; 80053; 82306; 84443; 85025

== ENCOUNTER 2021-09-08 09:26 | Outpatient (CLI) | payer MEDICARE, BC, SELFPAY | END 2021-09-08 23:59 | disposition short-term general hospital (02) | LOC: PSN 09:27 | PROVIDERS: PCP Family Medicine Geriatric Medicine; Referring Provider Family Medicine Geriatric Medicine; Visit Provider Family Medicine Geriatric Medicine | DX: R68.83 Chills (without fever) (principal) | CPT/HCPCS: 87635; 87804; 87807; C9803; U0003; U0005 ==

== ENCOUNTER 2021-09-15 11:55 | Outpatient (CLI) | payer MEDICARE, BC, SELFPAY ==
--- NOTE | 2021-09-15 12:05 | RAD_ITS ---
STUDY: X-RAY CHEST REASON FOR EXAM: Female, 81 years old. Fever cough and wheezing TECHNIQUE: PA and lateral views of the chest. COMPARISON: 08/06/2020 FINDINGS: Lungs are hyperexpanded with chronic interstitial changes, there is a new band of opacification in the right midlung field suggesting infiltrate or atelectasis. Follow-up is recommended to show resolution. No demonstrated effusions. Normal size heart. Normal mediastinum and marco. Normal visualized pulmonary arteries. There is atherosclerotic calcification of the aortic arch with tortuosity. There are diffuse degenerative changes of the visualized thoracic spine. There is degenerative osteoarthritis of the bilateral shoulders. There is no demonstrated abnormality of the visualized soft tissue structures of the upper abdomen. RAD/Chest PA and Lateral IMPRESSION: Hyperexpanded lungs with chronic interstitial changes. There is a linear band of opacification in the right midlung field likely atelectasis or early infiltrate. Follow-up recommended to ensure resolution Electronically Signed: Mor Kwan MD at 13:30 EST , Service support ,
== END 2021-09-15 23:59 | disposition short-term general hospital (02) ==
PROVIDERS: PCP Family Medicine Geriatric Medicine; Referring Provider Family Medicine Geriatric Medicine; Visit Provider Family Medicine Geriatric Medicine
DX: R06.2 Wheezing (principal); R68.83 Chills (without fever)
CPT/HCPCS: 71046; 87635; 87804; 87807; C9803; U0003; U0005

== ENCOUNTER 2021-09-25 11:07 | Outpatient (CLI) | payer MEDICARE, BC, SELFPAY ==
--- NOTE | 2021-09-25 11:11 | RAD_ITS ---
STUDY: X-RAY - THORACIC SPINE REASON FOR EXAM: Female, 81 years old. RIB PAIN TECHNIQUE: 3 view(s) of the thoracic spine were obtained. COMPARISON: Chest x-ray 09/15/2021 FINDINGS: There is an increase in the normal thoracic kyphosis. There is no substantial scoliosis. There is demineralization of the thoracic spine with endplate spondylosis. There is multilevel disc space narrowing of the thoracic spine. No compression fracture. Stable fibrotic band of the right upper lobe. RAD/Thoracic Spine 2 Views IMPRESSION: Multilevel degenerative changes. No compression fracture. Electronically Signed: Tirso Díaz MD ([place]) at 12:42 EST Reading Location ID and State: / [place] , Service support ,
--- NOTE | 2021-09-25 11:25 | RAD_ITS ---
STUDY: X-RAY - LUMBAR SPINE REASON FOR EXAM: Female, 81 years old. RIB PAIN TECHNIQUE: 3 view(s) of the lumbar spine were obtained. COMPARISON: None FINDINGS: Normal lumbar lordosis. There is no substantial scoliosis. Degenerative anterolisthesis of L3-L4 due to facet arthropathy (grade 1). There is diffuse demineralization with multi-level endplate spondylosis. There is multi-level degenerative disc disease with multi-level disc space narrowing. There is no demonstrated fracture. Multilevel facet arthropathy throughout the lumbar spine. There is atherosclerotic calcification of the abdominal aorta without a demonstrated aneurysm. Right hip replacement noted. Cholecystectomy clips. RAD/Lumbar Spine 2 or 3 Views IMPRESSION: Degenerative disc disease and facet arthropathy. No compression fracture. Electronically Signed: Tirso Díaz MD ([place]) at 12:47 EST ,
== END 2021-09-25 23:59 | disposition short-term general hospital (02) ==
LOC: RAD 11:10
PROVIDERS: PCP Family Medicine Geriatric Medicine; Referring Provider Family Medicine Geriatric Medicine; Visit Provider Family Medicine Geriatric Medicine
DX: R07.89 Other chest pain (principal)
CPT/HCPCS: 72070; 72100

== ENCOUNTER 2021-11-05 00:54 | Observation (INO) | payer MEDICARE, BC, SELFPAY ==
[2021-11-05] VITALS (8 sets, daily range): BP systolic 128–170; BP diastolic 50–69; PULSE 62–106; RESP 18; TEMP 36.4–37.2; O2SAT 93–95; BMI 27.5; BMI 25.8
--- NOTE | 2021-11-05 01:18 | RAD_ITS ---
STUDY: X-RAY - PELVIS AND LEFT HIP REASON FOR EXAM: Female, 81 years old. pain TECHNIQUE: 3 views of the pelvis and hip. COMPARISON: None. FINDINGS: Right hip arthroplasty appears intact. No acute findings of the left hip. RAD/HIP, UNI W/ Pelvis 2-3 Views IMPRESSION: As above Electronically Signed: Talat Mott DO at 3:22 EDT ,
[2021-11-05] MEDS: Ondansetron 4 MG/2 ML Vial IV (01:36)
[2021-11-05] MEDS: Morphine 4 MG/ML Syringe IV ×3 (01:37→13:43)
--- NOTE | 2021-11-05 01:37 | CT_ITS ---
STUDY: CT LUMBAR SPINE WITHOUT CONTRAST REASON FOR EXAM: Female, 81 years old. pain RADIATION DOSAGE (If Supplied By Facility): CTDIvol = ( 27.31 ) mGy, DLP = ( 814.04 ) mGycm TECHNIQUE: The patient was scanned in a multi detector CT scanner. High resolution transaxial imaging was performed. Images were obtained from T12 to S1. Sagittal and coronal images were reconstructed. Individualized dose optimization techniques were used for this CT. COMPARISON: None FINDINGS: Normal lumbar lordosis. There is no substantial scoliosis. Normal vertebrae of the lumbar spine. Moderate multilevel degenerative disc disease. No critical stenosis. No acute fracture or listhesis. Normal visualized paraspinous soft tissue structures. CT/Spine Lumbar without Contrast IMPRESSION: Multilevel degenerative changes, as described above. Electronically Signed: Talat Mott DO at 3:24 EDT ,
[2021-11-05] MEDS: Orphenadrine 60 MG/2 ML Ampul IV (01:40)
[2021-11-05 01:51] LABS: Absolute Lymphocyte Count 1.31 X10^3/uL (0.83-4.51); Basophil# 0.03 X10^3/uL; Basophil% 0.2 % (0-1); Eosinophil# 0.02 X10^3/uL; Eosinophils% 0.1 % (0-5); Hematocrit 33.9 % (37-47); Lymphocyte # 1.31 X10^3/ul (0.83-4.51); Lymphocyte % 9.2 % (19-41); Mean Corp Hgb Conc 35.4 g/dL (32-36); Mean Corpuscular Hgb 32.2 pg (27.0-32.0); Mean Corpuscular Volume 90.9 fL (81-99); Mean Platelet Vol. 8.2 fl (6.2-12.0); Monocyte# 0.76 X10^3/uL; Monocyte% 5.3 % (0-10); NRBC Flagged by Analyzer 0 % (0-5); Neutrophil # 11.96 X10^3/uL (2.7-7.7); Neutrophil % 84.1 % (47-70); Platelet Count 496 K/mm3 (150-450); RBC Distribution Width CV 15.6 % (11.6-14.6); RBC Distribution Width SD 51.7 fl (35.1-43.9); Red Blood Count 3.73 M/mm3 (4.2-5.4); White Blood Count 14.2 K/mm3 (4.4-11.0)
[2021-11-05 03:02] LABS: Anion Gap 9 (5-15); BUN 10 mg/dL (7-18); BUN/Creat Ratio 12.9 RATIO (10-20); Calcium,Total 9.4 mg/dL (8.5-10.1); Chloride 94 mmol/L (98-107); Creatinine, Serum 0.78 mg/dL (0.55-1.02); EST Glomerular Filtration Rate 75 mL/min (>60); Est Glom Filt Rate - Afr Amer 91 mL/min (>60); Glucose 153 mg/dL (74-106); Potassium 3.8 mmol/L (3.5-5.1); Sodium Level 129 mmol/L (136-145)
[2021-11-05 03:27] LABS: Bacteria 0 SEEN /hpf (None Seen); Mucous, Urine 0 SEEN /hpf (<or=2+); Red Blood Cells-Urine 0 SEEN /hpf (0-5)
[2021-11-05 03:28] LABS: Color, Urine Yellow (Yellow); Glucose, Dipstick Normal (Normal); Ketone-Dipstick 5 mg/dl (Negative); Leukocyte Esterase-Dipstick Negative /ul (Negative); Nitrite-Dipstick Negative (Negative); Occult Blood-Urine Negative /ul (Negative); Protein-Dipstick 15 mg/dl (Negative); Specific Gravity, Urine 1.015 (1.002-1.030); Urine Bilirubin Dipstick Negative (Negative); Urine Clarity Clear (Clear); Urine Urobilinogen Normal (Normal)
[2021-11-05 03:37] LABS: Squamous Epithelial Cells - UA 0-5 SEEN /hpf (5-10); White Blood Cells 0-5 SEEN /hpf (0-5)
--- NOTE | 2021-11-05 03:42 | EX.ED.DYSGE1 ---
HPI History of Present Illness Chief Complaint: Back Narrative Narrative: Patient is 81-year-old female from home who reports a past medical history of metastatic jaw cancer. She states she gets scans secondary to this every few months. She reports her last scan showed degenerative changes in her low back. She states that she has been treated with hydrocodone as well as steroids because of this. She states that in the last 4 to 5 days she has been noticing increased pain despite taking her medication. She denies any trauma prior to the increased pain and she denies any loss of bowel or bladder control or IV drug use. Patient states that it is to the point now where she cannot stand and ambulate because of the increased pain with any type of motion and therefore comes in for evaluation [facility] Medical History (Updated 11/05/21 @ 04:[address] Clair Swann MD) Anemia Generalized idiopathic epilepsy and epileptic syndromes, not intractable, without status epilepticus Hyperlipidemia Hypertension Hypothyroid Metastatic bone cancer Seizure disorder Squamous cell carcinoma of mandible Home Medications amlodipine 10 mg PO DAILY 08/06/20 [History Last Taken 08/10/20 11:19] levothyroxine 137 mcg PO DAILY 08/06/20 [History Last Taken 08/10/20 06:49] metoprolol succinate 100 mg PO DAILY 08/06/20 [History Last Taken 08/09/20 21:47] aspirin 81 mg PO DAILY 08/10/20 [History Last Taken 08/10/20 11:18] saliva substitute combo no.9 15 ml MM 5X/DAY PRN bottle 08/17/20 [Rx Last Taken Unknown] fexofenadine 60 mg tablet 60 mg PO DAILY tab 02/14/21 [History Last Taken Unknown] levetiracetam 750 mg tablet 750 mg PO BID #60 tab 06/19/21 [Rx Last Taken Unknown] Allergy/AdvReac Type Severity Reaction Status Date / Time Penicillins Allergy Rash Verified 11/05/21 00:55 oxycodone [From OxyContin] AdvReac Vomiting Verified 11/05/21 00:55 sulfamethoxazole AdvReac Vomiting Verified 11/05/21 00:55 [From Bactrim] trimethoprim [From Bactrim] AdvReac Vomiting Verified 11/05/21 00:55 Family History Mother Cerebral aneurysm Brother Cerebral aneurysm Father Myocardial infarction Surgical History (Updated 11/05/21 @ 03:[address] Clair Swann MD) History of cholecystectomy History of hysterectomy History of lumpectomy History of oral surgery Social History (Updated 11/05/21 @ 04:[address] Clair Swann MD) household members: spouse Smoking Status: Never smoker Electronic Cigarette Use: not used second hand exposure: Yes alcohol intake: never substance use type: does not use ROS ROS ED Constitutional Constitutional ED: Denies chills or fever(s) ENT ENT ED: Denies sore throat Cardiovascular Cardiovascular: Denies chest pain Respiratory/Chest Respiratory/Chest: Denies cough or dyspnea Gastrointestinal Gastrointestinal: Denies abdominal pain, diarrhea, nausea or vomiting Genitourinary Genitourinary ED: Denies dysuria Musculoskeletal Musculoskeletal: Reports arthralgias and back pain; Denies myalgias Integumentary Denies rash Neurologic Neurologic: Denies headache(s) Hematologic/Lymphatic Hematologic/Lymphatic: Denies easy bleeding or easy bruising EXAM Physical Exam Const Vital Signs: 11/05/21 00:55 Temperature 97.6 F L Temperature Source Oral Pulse Rate 106 H Respiratory Rate 18 Blood Pressure 170/69 H Blood Pressure Mean 102 Pulse Ox 94 Oxygen Delivery Method Room Air Positive well nourished and well developed General Appearance ED: well developed Eyes PERRL and EOMs intact bilaterally Neck supple Resp normal respiratory effort and clear to auscultation bilaterally Cardio regular rate and regular rhythm Rate: other Other Details: Radial pulses are plus 2 out of 4 bilaterally are equal and symmetric GI non-tender, non-distended and no masses GI Narrative: At soft nontender and nondistended with hypoactive bowel sounds. No voluntary guarding or rigidity no pulsatile mass. Palpation: soft Back/Spine Back/Spine Narrative: No bony deformity or step-off of the thoracic or lumbar spine no midline pain on palpation. No saddle anesthesia. Negative straight leg raise. No clonus or Babinski. Patellar reflexes are plus 1 out of 4 bilaterally Extremity Extremity Narrative: No asymmetric edema no pitting edema negative Homans' sign bilaterally. Pelvis is stable there is no shortening or external rotation of either lower extremity. Patient does have pain with palpation at and just above the left iliac crest. This pain worsens with flexion extension and rotation. No overlying soft tissue changes to suggest trauma or infection Neuro oriented x3 and CN's II-XII intact bilaterally Sensorium / Orientation: alert Psych mental status grossly normal Skin no rashes or lesions noted MDM MDM MDM Narrative Medical decision making narrative: Patient presented to the ER mildly hypertensive and tachycardic but otherwise afebrile. I felt the hypertension and tachycardia was secondary to pain based on her physical exam and history of present illness. She described back pain and talked about a recent scan showing a herniated disc but her location of pain is most consistent with abdominal wall muscle or hip. Therefore I did elect to perform a noncontrast CT of her low spine but also did a hip x-ray and basic blood work. Labs showed leukocytosis the patient has recently had a steroid injection as well as been on prednisone at home. Otherwise there is no clinically significant findings. Imaging studies also revealed degenerative disc disease/arthritis but no acute findings as the cause of her symptoms such as a pathologic fracture or metastatic mass. Patient did have improvement of her pain with morphine and Norflex but is still to the point where she could not sit up or turn without severe pain. Therefore at this time as the patient can still not stand and ambulate secondary to the persistent pain despite medication she will not be safe for discharge and will have to be admitted to the hospital to discuss further treatment options and possible retirement/rehab placement Lab Data Attestation: I reviewed the patient's lab results. Labs: Laboratory Results - last 24 hr 11/05/21 11/05/21 11/05/21 01:40 01:40 03:20 WBC 14.2 H RBC 3.73 L Hgb 12.0 Hct 33.9 L MCV 90.9 MCH 32.2 H MCHC 35.4 RDW Std Deviation 51.7 H RDW Coeff of Alpa 15.6 H Plt Count 496 H MPV 8.2 Immature Gran % (Auto) 1.100 H Neut % (Auto) 84.1 H Lymph % (Auto) 9.2 L Esmeralda % (Auto) 5.3 Eos % (Auto) 0.1 Baso % (Auto) 0.2 Absolute Neuts (auto) 12.0 H Absolute Lymphs (auto) 1.31 Nucleated RBC % 0 Sodium 129 L Potassium 3.8 Chloride 94 L Carbon Dioxide 26.0 Anion Gap 9 BUN 10 Creatinine 0.78 Estim Creat Clear Calc 39.90 Est GFR (MDRD) Af Amer 91 Est GFR (MDRD) Non-Af 75 BUN/Creatinine Ratio 12.9 Glucose 153 H Calcium 9.4 Urine Color Yellow Urine Clarity Clear Urine pH 7.0 Ur Specific [place] 1.015 Urine Protein 15 H Urine Glucose (UA) Normal Urine Ketones 5 H Urine Occult Blood Negative Urine Nitrite Negative Urine Bilirubin Negative Urine Urobilinogen Normal Ur Leukocyte Esterase Negative Urine RBC 0 SEEN Urine WBC 0-5 SEEN Ur Squamous Epith Cells 0-5 SEEN Urine Bacteria 0 SEEN Urine Mucus 0 SEEN Radiography Diagnostic Testing: Clinical Impression(s) from Imaging Studies Hip/Pelvis X-Ray 11/05/21 01:18 IMPRESSION: As above Electronically Signed: Talat Mott DO at 3:22 EDT Reading Location ID and State: [facility] / [place] Tel , Service support , Lumbar Spine CT 11/05/21 01:37 IMPRESSION: Multilevel degenerative changes, as described above. Electronically Signed: Talat Mott DO at 3:24 EDT , Discharge Plan Dx/Rx/DC Orders Clinical Impression: Inability to walk Disposition Disposition: Acute Care [facility]
--- NOTE | 2021-11-05 03:55 | HP.PCM.HOS_ITS ---
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 Orosco with lumbar injection and oral steroids; however, despite these interventions she had worsened pain over the last 1 week with near inability to sit up or walk with severe onset pain, sharp, 10/10 in severity prompting ED evaluation. Her notes that he has been helping her to perform all activities. In the ED work-up included T 97.6, heart rate 106, BP 10 70/69, respiratory rate 18, 94% on room air, CBC with WC 14.2, hemoglobin 12, platelet 496 with left shift, BMP with sodium 129, chloride 94, glucose 153 otherwise not marked appearing, urinalysis with no obvious evidence of UTI but mild dehydration, plain film of the left hip and pelvis with no acute findings with noted right hip arthroplasty intact, CT lumbar spine with multilevel degenerative changes otherwise no acute findings. In the ED patient was administered Norflex, Zofran and morphine with some improvement but still notable debility. [facility] Medical History (Updated 11/05/21 @ 04:[address] Clair Swann MD) Anemia Generalized idiopathic epilepsy and epileptic syndromes, not intractable, without status epilepticus Hyperlipidemia Hypertension Hypothyroid Metastatic bone cancer Seizure disorder Squamous cell carcinoma of mandible Home Medications amlodipine 10 mg PO DAILY 08/06/20 [History Last Taken 08/10/20 11:19] levothyroxine 137 mcg PO DAILY 08/06/20 [History Last Taken 08/10/20 06:49] metoprolol succinate 100 mg PO DAILY 08/06/20 [History Last Taken 08/09/20 21:47] aspirin 81 mg PO DAILY 08/10/20 [History Last Taken 08/10/20 11:18] saliva substitute combo no.9 15 ml MM 5X/DAY PRN bottle 08/17/20 [Rx Last Taken Unknown] fexofenadine 60 mg tablet 60 mg PO DAILY tab 02/14/21 [History Last Taken Unknown] levetiracetam 750 mg tablet 750 mg PO BID #60 tab 06/19/21 [Rx Last Taken Unknown] Allergy/AdvReac Type Severity Reaction Status Date / Time Penicillins Allergy Rash Verified 11/05/21 00:55 oxycodone [From OxyContin] AdvReac Vomiting Verified 11/05/21 00:55 sulfamethoxazole AdvReac Vomiting Verified 11/05/21 00:55 [From Bactrim] trimethoprim [From Bactrim] AdvReac Vomiting Verified 11/05/21 00:55 Family History Mother Cerebral aneurysm Brother Cerebral aneurysm Father Myocardial infarction Surgical History (Updated 11/05/21 @ 03:[address] Clair Swann MD) History of cholecystectomy History of hysterectomy History of lumpectomy History of oral surgery Social History (Updated 11/05/21 @ 04:[address] Clair Swann MD) household members: spouse Smoking Status: Never smoker Electronic Cigarette Use: not used second hand exposure: Yes alcohol intake: never substance use type: does not use ROS ROS Narrative Admission Review of Systems: CONSTITUTIONAL: No weight loss, fever, chills, + weakness or fatigue. HEENT: Eyes: No visual loss, blurred vision, double vision or yellow sclerae. Ears, Nose, Throat: No hearing loss, sneezing, congestion, runny nose or sore throat. SKIN: No rash or itching, lesions, wounds. CARDIOVASCULAR: No chest pain, chest pressure or chest discomfort, palpitations, edema, orthopnea, syncopal events. RESPIRATORY: No shortness of breath, cough or sputum, wheezing, hemoptysis. GASTROINTESTINAL: No anorexia, nausea, vomiting or diarrhea, abdominal pain, melena, BRBPR. GENITOURINARY: No dysuria, frequency, urgency or retention. NEUROLOGICAL: + Difficulty ambulation, No headache, dizziness, syncope, paralysis, ataxia, numbness or tingling in the extremities, focal weakness, change in bowel or bladder control, seizure. MUSCULOSKELETAL: + muscle, back pain, joint pain or stiffness. HEMATOLOGIC: + anemia, bleeding or bruising. LYMPHATICS: No enlarged nodes. No history of splenectomy. PSYCHIATRIC: No history of depression or anxiety. ENDOCRINOLOGIC: No reports of sweating, cold or heat intolerance. No polyuria or polydipsia. ALLERGIES: No history of asthma, hives, eczema or rhinitis. Vital Signs Vital Signs Vital Signs: 11/05/21 00:55 Temperature 97.6 F L Temperature Source Oral Pulse Rate 106 H Respiratory Rate 18 Blood Pressure 170/69 H Blood Pressure Mean 102 Pulse Ox 94 Oxygen Delivery Method Room Air Weight Weight: 170 lb 6.677 oz Body Mass Index (BMI) 27.5 Physical Exam Narrative Physical Examination: General: Awake, alert, oriented x 3 and cooperative, laying in the ED bed, notes pain meds did recently help but she is not moving or attempting to sit up. Skin: Normal color, normal turgor, no icterus, no cyanosis. HEENT: AT/NC, EOMI, PERRLA, moderately dry MM, no carotid bruits or JVD noted. Lungs: CTA bilaterally, moderate effort, mild decrease BL bases, no rales, ronchi or wheezing. Heart: Currently regular rate and rhythm; no gallop, rub audible. Abdomen: Soft, obese, NTTP, ND, normal BS, no HSM. Extremities: No cyanosis, clubbing, or edema. Tenderness to palpation of the left hip primarily the left iliac crest and discomfort with left paraspinous palpation. Neurological: Patient awake, alert, oriented as noted, cognitive function intact; pupils equally reactive to light and accommodation, cranial nerves II- XII grossly normal, moving all 4 extremities except limited with any movements that cause discomfort, strength severely global decreased, sensation intact. Psychiatric: Affect appears fatigued, no acute evidence of depressive or anxiety feelings. Results Lab / Micro Data Result Diagrams: 11/05/21 01:40 11/05/21 01:40 Labs: Laboratory Results - last 24 hr 11/05/21 01:40: WBC 14.2 H, RBC 3.73 L, Hgb 12.0, Hct 33.9 L, MCV 90.9, MCH 32.2 H, MCHC 35.4, RDW Std Deviation 51.7 H, RDW Coeff of Alpa 15.6 H, Plt Count 496 H , MPV 8.2, Immature Gran % (Auto) 1.100 H, Neut % (Auto) 84.1 H, Lymph % (Auto) 9.2 L, Hill % (Auto) 5.3, Eos % (Auto) 0.1, Baso % (Auto) 0.2, Absolute Neuts (auto) 12.0 H, Absolute Lymphs (auto) 1.31, Nucleated RBC % 0 11/05/21 01:40: Sodium 129 L, Potassium 3.8, Chloride 94 L, Carbon Dioxide 26.0, Anion Gap 9, BUN 10, Creatinine 0.78, Estim Creat Clear Calc 39.90, Est GFR (MDRD) Af Amer 91, Est GFR (MDRD) Non-Af 75, BUN/Creatinine Ratio 12.9, Glucose 153 H, Calcium 9.4 11/05/21 03:20: Urine Color Yellow, Urine Clarity Clear, Urine pH 7.0, Ur Specific [place] 1.015, Urine Protein 15 H, Urine Glucose (UA) Normal, Urine Ketones 5 H, Urine Occult Blood Negative, Urine Nitrite Negative, Urine Bilirubin Negative, Urine Urobilinogen Normal, Ur Leukocyte Esterase Negative, Urine RBC 0 SEEN, Urine WBC 0-5 SEEN, Ur Squamous Epith Cells 0-5 SEEN, Urine Bacteria 0 SEEN, Urine Mucus 0 SEEN Radiology Impression Hip/Pelvis X-Ray 11/05/21 01:18 IMPRESSION: As above Electronically Signed: Talat Mott DO at 3:22 EDT Reading Location ID and State: [facility] / [place] Tel , Service support , Lumbar Spine CT 11/05/21 01:37 IMPRESSION: Multilevel degenerative changes, as described above. 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 Orosco with lumbar injection and oral steroids; however, despite these interventions she had worsened pain over the last 1 week with near inability to sit up or walk with severe onset pain, sharp, 10/10 in severity prompting ED evaluation. Her notes that he has been helping her to perform all activities. #1. Intractable L Hip pain, Illiac Crest Pain, L Paraspinous musculoskeletal pain: Failed conservative therapies and treatments, will admit to [facility], maintain on fall precautions, frequent position changes, initiate regimen with arthritic compound, low dose gabapentin, PRN tramadol, PRN morphine, scheduled low dose toradol x 3 doses, bowel regimen, DVT Prophylaxis, PT/OT/CM for discharge planning. If ongoing debility, pain may need to consider additional imaging. #2. Leukocytosis, suspect secondary to recent steroid usage: CBC with WC 14.2 with left shift, from discussion patient had recent injection and oral steroid regimen, suspect this is likely the source, will continue to trend. #3. Hyponatremia, suspect hypovolemic: Suspect patient's poor intake contributing, admission BMP with sodium 129, chloride 94, will judiciously hydrate, repeat CMP in AM. #4. 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 Plain film with no obvious findings however if again i nterventions as noted above #1 not successful may need further in-depth imaging. #4. Seizure disorder: We will continue patient home Keppra regimen. #5. Chronic normocytic anemia: Admission hemoglobin 12, baseline more recently appears 11-12 but has in 2019 dropped as low as 9.9, continue to trend. #6. Hypothyroidism: We will continue patient home levothyroxine regimen. #7. Hypertension: Continue home regimen including amlodipine, PRN hydralazine. #8. Obesity: Weight loss and lifestyle changes encouraged. #9. DVT prophylaxis: SCDs, Lovenox. #10. CODE status: Patient RITO is her who is present and living will is currently in place. Discussed CODE status at length including difference between FULL code, DNR-CCA and DNR-CC status. Following discussions about the differences in these status, requested Full Code status. Advanced Care Planning Face to Face Time: 16 minutes. Charges/Coding Visit Charges OBSV E&M: 84351 Initial observation care L2 Procedures Hospitalists Procedures: 81968 Advncd Care Plan 30 Min
[2021-11-05] MEDS: 0.9% Normal Saline 1,000 ML 100 ML IV (05:11)
[2021-11-05] MEDS: 0.9% Saline Lock 10 ML Syringe IV ×3 (05:12→20:55)
[2021-11-05] MEDS: Ketorolac 15 MG/ML Vial IV ×3 (05:29→21:01)
[2021-11-05] MEDS: Gabapentin 100 MG Capsule PO (05:29)
[2021-11-05] MEDS: Levothyroxine 137 MCG Tablet PO (06:08)
[2021-11-05] MEDS: Arthritis Pain Compound 60 CLICK TUBE TOPICAL ×2 (06:08→20:52)
[2021-11-05] MEDS: tiZANidine HCl 2 MG Tablet PO (06:09)
--- NOTE | 2021-11-05 07:24 | PN.HOSP_ITS ---
Hospitalist Note Patient is an 81-year-old lady with multiple comorbidities including essential hypertension hypothyroidism history of facial melanoma status post resection , mandibular bone squamous cell carcinoma status post surgical resection and jaw reconstructionin October 2019 with mets to the lungs, seizure disorder who presented with intractable pain in the left hip. Imaging studies did not demonstrate any fractures. Admitted to regular nursing floor for pain management Patient seen and evaluated, her initial assessment including history and physic al, diagnostic data and management orders reviewed will follow.
[2021-11-05 08:36] LABS: Absolute Lymphocyte Count 0.82 X10^3/uL (0.83-4.51); Absolute Neutrophil Count 11.8 X10^3/uL (2.0-7.7); Basophil# 0.02 X10^3/uL; Basophil% 0.1 % (0-1); Eosinophil# 0.01 X10^3/uL; Eosinophils% 0.1 % (0-5); Hemoglobin 9.2 g/dL (12.0-15.0); Lymphocyte # 0.82 X10^3/ul (0.83-4.51); Mean Corp Hgb Conc 34.1 g/dL (32-36); Mean Corpuscular Hgb 31.1 pg (27.0-32.0); Mean Corpuscular Volume 91.2 fL (81-99); Monocyte# 0.84 X10^3/uL; Monocyte% 6.2 % (0-10); NRBC Flagged by Analyzer 0 % (0-5); Neutrophil # 11.78 X10^3/uL (2.7-7.7); Neutrophil % 86.6 % (47-70); Platelet Count 384 K/mm3 (150-450); RBC Distribution Width CV 15.8 % (11.6-14.6); RBC Distribution Width SD 52.4 fl (35.1-43.9); Red Blood Count 2.96 M/mm3 (4.2-5.4); White Blood Count 13.6 K/mm3 (4.4-11.0)
[2021-11-05 08:56] LABS: ALB/GLOB Ratio 0.8 RATIO (0.9-2.4); AST(SGOT) 669 U/L (15-37); Alanine Aminotransfer ALT/SGPT 359 U/L (13-56); Albumin, Serum 2.2 g/dL (3.2-5.0); Alkaline Phosphatase 197 U/L (45-117); Anion Gap 8 (5-15); BUN 9 mg/dL (7-18); BUN/Creat Ratio 13.3 RATIO (10-20); Calcium,Total 8.5 mg/dL (8.5-10.1); Chloride 99 mmol/L (98-107); Creatinine, Serum 0.68 mg/dL (0.55-1.02); EST Glomerular Filtration Rate 88 mL/min (>60); Est Glom Filt Rate - Afr Amer 107 mL/min (>60); Globulin 2.8 g/dL (2.2-4.2); Glucose 129 mg/dL (74-106); Potassium 3.7 mmol/L (3.5-5.1); Sodium Level 133 mmol/L (136-145)
[2021-11-05 09:13] LABS: Hemoglobin A1c 5.9 % (3.8-5.6)
[2021-11-05] MEDS: levETIRAcetam 750 MG Tablet PO ×2 (09:21→20:52)
[2021-11-05] MEDS: Aspirin 81 MG TAB.CHEW PO (09:22)
[2021-11-05] MEDS: Loratadine 10 MG Tablet PO (09:22)
[2021-11-05] MEDS: Enoxaparin 40 MG/0.4 ML Syringe SC (09:22)
[2021-11-05] MEDS: Saliva Substitute 237 ML BOTTLE 15 ML MUCOUS MEM (09:23)
[2021-11-05] MEDS: amLODIPine 10 MG Tablet PO (09:25)
[2021-11-05] MEDS: Metoprolol(XL)Succ 100 MG Tablet PO (09:25)
[2021-11-05] MEDS: Acetaminophen 325 MG Tablet 650 MG PO (16:14)
[2021-11-05] MEDS: Gabapentin 100 MG Capsule 200 MG PO (16:15)
[2021-11-05] MEDS: Senna Tablet 1 TABLET PO (20:52)
[2021-11-06] VITALS (10 sets, daily range): BP systolic 118–155; BP diastolic 53–71; PULSE 70–96; RESP 16–18; TEMP 36.3–37.1; O2SAT 91–97
[2021-11-06] MEDS: Levothyroxine 137 MCG Tablet PO (05:43)
[2021-11-06] MEDS: Arthritis Pain Compound 60 CLICK TUBE TOPICAL ×2 (08:22→20:56)
[2021-11-06] MEDS: Gabapentin 100 MG Capsule 200 MG PO ×3 (08:22→17:53)
[2021-11-06] MEDS: HYDROcodone Bitartrate/Apap 5/325 Tablet PO ×2 (08:22→17:56)
[2021-11-06] MEDS: Aspirin 81 MG TAB.CHEW PO (08:23)
[2021-11-06] MEDS: Enoxaparin 40 MG/0.4 ML Syringe SC (08:23)
[2021-11-06] MEDS: levETIRAcetam 750 MG Tablet PO ×2 (08:23→20:56)
[2021-11-06] MEDS: Loratadine 10 MG Tablet PO (08:23)
[2021-11-06] MEDS: amLODIPine 10 MG Tablet PO (08:23)
[2021-11-06] MEDS: Senna Tablet 1 TABLET PO (08:24)
[2021-11-06] MEDS: Metoprolol(XL)Succ 100 MG Tablet PO (08:24)
--- NOTE | 2021-11-06 10:01 | PCM.PN.HOSP ---
Subjective Subjective Follow-up on intractable hip pain: Patient was seen and examined. She complains of mild right lower quadrant pain, feels is related to constipation. Denied any fever or chills. Objective Data Objective Data Vital Signs: Vital Signs Temp Pulse Resp BP Pulse Ox 97.3 F L 78 18 143/59 H 97 11/06/21 08:09 11/06/21 08:24 11/06/21 08:09 11/06/21 08:24 11/06/21 08:09 Oxygen Flow Rate (L/min) 2 Oxygen Delivery Method Nasal Cannula Weight: 72.5 kg Body Mass Index (BMI) 25.8 Intake & Output: Intake and Output for Last 24 Hours 11/04/21 11/05/21 11/06/21 22:59 23:59 23:59 Intake Total Output Total 300 / 300 Balance -300 / -300 Lab / Micro Data Result Diagrams: 11/05/21 07:39 11/05/21 07:39 Physical Exam Narrative Physical exam: General: Alert, Oriented x3, Cooperative, No apparent distress,appears HEENT: Atraumatic Oral: Moist Mucosa Neck: Supple Lungs: Clear to auscultation Cardiovascular: HS I+II, regular, no murmurs Abdomen: Bowel Sounds Present, Soft, tenderness in RLQ, flank pain Extremities: No edema Assessment & Plan Assessment/Plan (1) Hip pain, left: PLAN: 1. Acute intractable left hip pain, status post conservative treatment, Imaging including hip x-ray, CT of the lumbar spine have been unremarkable. Patient states that her pain is controlled PT and OT consulted to evaluate and treat Discharge planning ongoing for [facility] 2. Chronic hyponatremia, stable Continue to monitor 3. 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 Seizure disorder, continue Keppra 5. Rest of chronic medical conditions including hypothyroidism, hypertension, obesity remained stable Home meds continued 6. DVT prophylaxis?Lovenox subcu Charges/Coding Visit Charges Inpatient E&M: 98658 Subs Hosp L2
--- NOTE | 2021-11-06 10:50 | CASEMGMT ---
RN CM Face to Face with patient for initial transition planning/care coordination assessment. RN CM introduced self and role at [facility]. Patient lying in bed, alert and oriented. Patient willing to participate in assessment and is able to answer all questions appropriately. Care providers, pharmacy, and demographics verified. Patient wishes to discharge home and would like HHC at discharge. Patient provided with list and prefers [facility]. Patient states she has no further needs or concerns at this time. CM to follow for discharge planning needs that may arise. PCP: Carlos Specialists: [facility] Oncologist Preferred Pharmacy: [facility] Insurance: [employer] Prescription Benefit: yes Living Will/HPOA: yes, significant other Diony Juares LNOK: significant other Living Arrangements: Patient lives with significant other in a single story home with 1 step to enter. Patient states she is independent at home. Transportation: significant other DME/HHC: Patient has shower chair, raised toilet, walker, rollator at home. Patient has had [facility] in the past. Disposition Plan: Patient to discharge home with HHC, family support, and follow-up plans in place. Tika FERRARA, RN, CM
--- NOTE | 2021-11-06 10:57 | CASEMGMT ---
TINA CM in to complete LEAL form with patient. RN APARNA explained LEAL form to patient, patient voiced understanding. Patient signed LEAL form and filed in chart. Copy of signed LEAL form provided to patient. Patient had no further questions or concerns at this time.
[2021-11-06] MEDS: Magnesium Hydroxide 30 ML UDC PO (11:05)
--- NOTE | 2021-11-06 13:04 | CHAPLAIN ---
Type of Pastoral Visit _x__ Initial Visit ___ Follow-up Visit ___ On-call Visit ___ General Patient Visit ___ Spiritual Assessment ___ Family Conference ___ Bereavement ___ Rapid Response ___ Code Blue ___ Other (describe below) Pastoral Care Referral From __x_ Patient ___ Family ___ Nurse ___ Physician ___ Reel Fed Printer ___ Cricket Coach ___ Other (describe below) Sacrament/Intervention _x__ Active listening ___ Anointing ___ Lutheran ___ Bereavement ___ Communion ___ Ella exploration ___ _x__ Life review _x__ Prayer ___ Reconciliation ___ Sacrament of Sick _x__ Supportive presence ___ Wedding ___ Other (describe below) Pastoral Comments patient reviews her recent history and the hopes of making good changes in living situation closer to family; pt has gone through cancer and survived well; pt seeks time and prayer for spiritual care support
--- NOTE | 2021-11-06 15:30 | CASEMGMT ---
TINA BRAUN discussed progress with therapy. Therapy recommending SNF for loss of balance with ambulation. TINA BRAUN in to discuss with patient and significant other. Patient states she would like to go home with [facility] for therapy. TINA BRAUN inquired if significant other felt comfortable with plan. Diony states he is able to assist patient with transfers and ambulation. TINA BRAUN called [facility] to make referral. [facility] is able to accept once Dr. Gonzalez approves. TINA BRAUN called and scheduled follow-up appt with Dr Gonzalez for 11/07/211499. TINA BRAUN updated [facility] and the patient. CM will continue to follow this patient and plan for a safe discharge.
--- NOTE | 2021-11-06 22:13 | NURSING ---
pt w/ Alfredo RN, assistting pt to get back in bed from the BR, pt states her legs started getting weak. Alfredo lowered pt down to the floor. pt denies lightheadedness or dizziness and pain at this time. vitals taken, WNL. sub plant manager Corey and Alfredo assisted pt back to bed. purewick placed.
[2021-11-07 03:57] VITALS: BP 148/60; PULSE 84; RESP 16; TEMP 36.6; O2SAT 95
[2021-11-07] MEDS: Levothyroxine 137 MCG Tablet PO (05:26)
[2021-11-07 06:46] LABS: Absolute Lymphocyte Count 0.91 X10^3/uL (0.83-4.51); Absolute Neutrophil Count 13.2 X10^3/uL (2.0-7.7); Basophil# 0.02 X10^3/uL; Basophil% 0.1 % (0-1); Eosinophil# 0.02 X10^3/uL; Eosinophils% 0.1 % (0-5); Hematocrit 26.2 % (37-47); Hemoglobin 9.2 g/dL (12.0-15.0); Lymphocyte # 0.91 X10^3/ul (0.83-4.51); Lymphocyte % 6.1 % (19-41); Mean Corp Hgb Conc 35.1 g/dL (32-36); Mean Corpuscular Hgb 31.4 pg (27.0-32.0); Mean Corpuscular Volume 89.4 fL (81-99); Mean Platelet Vol. 8.5 fl (6.2-12.0); Monocyte# 0.62 X10^3/uL; Monocyte% 4.1 % (0-10); NRBC Flagged by Analyzer 0 % (0-5); Neutrophil % 88.2 % (47-70); Platelet Count 366 K/mm3 (150-450); RBC Distribution Width CV 15.3 % (11.6-14.6); RBC Distribution Width SD 49.7 fl (35.1-43.9); Red Blood Count 2.93 M/mm3 (4.2-5.4)
--- NOTE | 2021-11-07 07:18 | MRI_ITS ---
STUDY: MRI LUMBAR SPINE WITHOUT CONTRAST REASON FOR EXAM: Female, 81 years old. PAIN, back and left flank radiates anterior, Hx of malignant cancer TECHNIQUE: Standardized fat and water weighted pulse sequences were obtained in the sagittal and axial planes. COMPARISON: CT 11/05/2021, x-ray 09/25/2021 FINDINGS: T12-L1: Normal endplates. Normal disc height, hydration and morphology. Normal bilateral facet joints. Normal central canal and bilateral lateral recesses. Normal bilateral intervertebral neural foramina. Normal lumbar lordosis. Mild levoscoliosis centered at L4. Normal conus medullaris that terminates at the L1/L2. L1-2: Mild broad disc protrusion produces mild spinal stenosis and mild bilateral neural foraminal stenosis. L2-3: Moderate bilateral facet hypertrophy and ligamentum flavum hypertrophy. Mild bilateral disc protrusion produces mild central stenosis and mild bilateral neural foraminal stenosis. L3-4: Severe bilateral facet hypertrophy and moderate ligament flavum hypertrophy. Moderate broad disc protrusion produces severe spinal stenosis with severe bilateral recess stenosis with effacement of the L4 nerve roots bilaterally and moderate bilateral neural foraminal stenosis with abutment of the L3 nerve root laterally. L4-5: Moderate bilateral facet hypertrophy and ligament flavum hypertrophy. Mild bilobed disc protrusion with left foraminal or annular tear produces mild spinal stenosis and mild bilateral neural foraminal stenosis. L5-S1: Moderate bilateral facet hypertrophy and ligament flavum hypertrophy. Mild broad disc protrusion produces mild spinal stenosis and mild bilateral neural foraminal stenosis. Normal visualized sacral ala. Moderate friction related edema in the posterior subcutaneous fat. MRI/Spine Lumbar (Routine) IMPRESSION: Mild levoscoliosis with disc disease as described above. Electronically Signed: Harsha Davis MD at 14:38 EDT ,
--- NOTE | 2021-11-07 07:18 | MRI_ITS ---
STUDY: MRI THORACIC SPINE WITHOUT CONTRAST REASON FOR EXAM: Female, 81 years old. PAIN, back and left flank radiates anterior, Hx of malignant cancer TECHNIQUE: Standardized fat and water weighted pulse sequences were obtained in the sagittal and axial planes. COMPARISON: None. FINDINGS: Normal kyphosis of the thoracic spine. There is no substantial scoliosis. Acute severe compression fracture of the T11 vertebral body with 10 mm of retropulsion into the spinal canal producing severe spinal stenosis with effacement of the left hemicord. T1-2, T2-3, T3-4, T4-5, T5-6, T6-7, T7-8, T8-9, T9-10, T10-11, T11-12: Normal endplates. Normal disc hydration, heights and morphology of the corresponding intervertebral discs. Normal central canal and intervertebral neural foramina at the corresponding levels. Normal visualized thoracic cord. Normal conus medullaris that terminates at the L1.. The soft tissue structures are unremarkable. MRI/Spine Thoracic (Routine) IMPRESSION: Acute severe compression fracture of T11 with 10 mm retropulsion into the spinal canal producing severe spinal stenosis with effacement of the left hemicord. Electronically Signed: Harsha Davis MD at 14:33 EDT ,
--- NOTE | 2021-11-07 07:18 | MRI_ITS ---
STUDY: MR PELVIS WITHOUT CONTRAST REASON FOR EXAM: Female, 81 years old. PAIN, back and left flank radiates anterior, Hx of malignant cancer TECHNIQUE: Standardized fat and water weighted pulse sequences were obtained in all 3 orthogonal planes. COMPARISON: X-ray 11/05/2021 FINDINGS: Normal urinary bladder. Normal visualized small intestine. There are multiple colonic diverticula of the sigmoid colon consistent with chronic diverticulosis. There is no pelvic fluid. There is no pelvic mass lesion or lymphadenopathy. Normal visualized pelvic arteries. Normal osseous structures. Moderate left gluteal tendinosis and peritendinitis. Status post right hip arthroplasty which produces aspect distortion ratio artifact. MRI/Pelvis (Routine) IMPRESSION: Moderate left gluteal tendinosis and peritendinitis. Electronically Signed: Harsha Davis MD at 14:30 EDT ,
[2021-11-07 07:25] LABS: ALB/GLOB Ratio 0.6 RATIO (0.9-2.4); AST(SGOT) 60 U/L (15-37); Alanine Aminotransfer ALT/SGPT 247 U/L (13-56); Alkaline Phosphatase 145 U/L (45-117); Anion Gap 5 (5-15); BUN 22 mg/dL (7-18); BUN/Creat Ratio 39.1 RATIO (10-20); Calcium,Total 8.7 mg/dL (8.5-10.1); Chloride 90 mmol/L (98-107); Creatinine, Serum 0.56 mg/dL (0.55-1.02); EST Glomerular Filtration Rate 109 mL/min (>60); Est Glom Filt Rate - Afr Amer 132 mL/min (>60); Globulin 3.5 g/dL (2.2-4.2); Glucose 137 mg/dL (74-106); Potassium 4.2 mmol/L (3.5-5.1); Protein, Total 5.5 g/dL (6.4-8.2); Sodium Level 123 mmol/L (136-145)
[2021-11-07 08:02] VITALS: O2SAT 97
[2021-11-07] MEDS: levETIRAcetam 750 MG Tablet PO (08:21)
[2021-11-07] MEDS: HYDROcodone Bitartrate/Apap 5/325 Tablet PO ×2 (08:21→13:53)
[2021-11-07] MEDS: Gabapentin 100 MG Capsule 200 MG PO ×2 (08:21→11:43)
[2021-11-07] MEDS: Aspirin 81 MG TAB.CHEW PO (08:21)
[2021-11-07] MEDS: Senna Tablet 1 TABLET PO (08:21)
[2021-11-07 08:22] VITALS: PULSE 66
[2021-11-07] MEDS: Loratadine 10 MG Tablet PO (08:22)
[2021-11-07] MEDS: Metoprolol(XL)Succ 100 MG Tablet PO (08:22)
[2021-11-07] MEDS: amLODIPine 10 MG Tablet PO (08:22)
[2021-11-07] MEDS: Enoxaparin 40 MG/0.4 ML Syringe SC (08:22)
[2021-11-07] MEDS: Arthritis Pain Compound 60 CLICK TUBE TOPICAL (08:25)
[2021-11-07 09:12] VITALS: BP 141/56; PULSE 66; RESP 16; TEMP 36.4; O2SAT 95
--- NOTE | 2021-11-07 11:45 | CASEMGMT ---
Addendum entered by Danya Nicole 11/07/21 13:36: Correction in previous note: sig other, not RN APARNA and hospitalist in to pt room. Pt sig other present. Hospitalist discussed pt progress with therapy and assistance needed for pt while in the hospital with concern for pt returning home. Pt sig other and pt still state that they would like to return home. They are aware to reach out to Dr. Gonzalez of [facility] should they get home and feel this is not feasible. They deny any further questions. Addendum entered by Danya Nicole 11/07/21 11:58: Updated hospitalist on plan. Original Note: RN APARNA in to pt room, pt sitting up in bed with at bedside. Discussed dc planning. Pt states she wants to go home. Discussed with and he is in agreement with this plan. He states I have been taking care of her for years. Pt has an appt with at 3pm. TC to their office to confirm. Pt states that [facility] has been in touch with them and will be out tomorrow. Received confirmation via travis from Freida at [facility] that they complete SOC tomorrow.
[2021-11-07] MEDS: Morphine 4 MG/ML Syringe IV (11:46)
[2021-11-07] MEDS: 0.9% Saline Lock 10 ML Syringe IV (11:46)
[2021-11-07 11:55] VITALS: BP 148/59; PULSE 91; RESP 16; TEMP 37.2; O2SAT 93
--- NOTE | 2021-11-07 13:01 | PCM.DC ---
Discharge Instructions Diet Discharge Diet: No restrictions Activity Discharge Activity: Return to Normal Activity Follow Up Care Test Results: Test results from this visit will be discussed in further detail at your follow-up appointment, if applicable. Discharge Plan Admission Admit Date/Time: 11/05/21 03:48 Primary Reason for Your Visit: Intractable left hip pain Attending Provider: Katie Meneses Primary Care Provider: Bay Gonzalez Chi Instructions Additional Instructions / Restrictions: Continue to follow-up with you primary care doctor in the outpatient. Continue with pain management appointment Discharge Orders/Prescriptions Prescriptions: Continued fexofenadine [Ashia Allergy] 60 mg tablet 60 mg PO DAILY RF: 0 levetiracetam 750 mg tablet 750 mg PO BID Qty: 60 RF: 6 metoprolol succinate 100 MG tablet 100 mg PO DAILY RF: 0 amlodipine 10 MG tablet 10 mg PO DAILY RF: 0 levothyroxine 125 MCG tablet 137 mcg PO DAILY RF: 0 aspirin 81 MG tablet,chewable 81 mg PO DAILY RF: 0 saliva substitute combo no.9 237 ML bottle 15 ml MM 5X/DAY PRN (Reason: Dry Mouth) RF: 0 hydrocodone-acetaminophen 5-325 mg Tablet 1 tab PO Q4H PRN (Reason: Pain) RF: 0 Referrals / Follow Up: Bay Gonzalez Chi, MD [Primary Care Provider] - 11/07/21 3:00 pm Disposition Disposition (needs filled in before D/C Order can be placed): Home Health Service
--- NOTE | 2021-11-07 13:08 | DS.PCM_ITS ---
Providers Date of Admission: 11/05/21 Date of Discharge: 11/07/21 Primary Care Physician: Dr. Bay Gonzalez MD Reason For Visit: INTRACTABLE L HIP PAIN Diagnosis Discharge Diagnosis (1) Hip pain, left: Status: Acute Code(s): M25.552 - Pain in left hip (2) Intractable back pain: Status: Acute Code(s): M54.9 - Dorsalgia, unspecified Medications at Discharge Home Medications amlodipine 10 mg PO DAILY 08/06/20 levothyroxine 137 mcg PO DAILY 08/06/20 metoprolol succinate 100 mg PO DAILY 08/06/20 aspirin 81 mg PO DAILY 08/10/20 saliva substitute combo no.9 15 ml MM 5X/DAY PRN bottle 08/17/20 fexofenadine 60 mg tablet 60 mg PO DAILY tab 02/14/21 levetiracetam 750 mg tablet 750 mg PO BID #60 tab 06/19/21 hydrocodone-acetaminophen 1 tab PO Q4H PRN 11/05/21 Hospital Course Operations None Procedures None Summary of Care Provided Minutes Spent on Discharge: 45 Hospital Course: 81-year-old female with history of seizure disorder, 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 Patient had followed up with Dr. Orosco and had lumbar injection as well as oral steroids but still had persistent pain. X-ray of the left hip and pelvis shows no acute findings. CT of the lumbar spine showed multilevel degenerative changes. Patient was admitted for management of intractable left hip and back pain. Patient continued to improve. She had MRI of the thoracic, lumbar and pelvis that showed acute severe compression fracture of T11 with 10 mm retropulsion into the spinal canal producing severe spinal stenosis with effacement of the left hemicord. Patient was recommended to be discharged to senior care facility. She and her declined. She wanted discharged with home health. Discussed with Dr. Gonzalez who had an appointment with them on the day of discharge at 3 PM. Her MRI results were not resulted at time of discharge. Dr Gonzalez will follow-up with that. Physical Exam Narrative Physical exam: General: Alert, Oriented x3, Cooperative, No apparent distress,appears HEENT: Atraumatic Oral: Moist Mucosa Neck: Supple Lungs: Clear to auscultation Cardiovascular: HS I+II, regular, no murmurs Abdomen: Bowel Sounds Present, Soft, Extremities: No edema Weight / BMI Weight Weight: 73.119 kg Body Mass Index (BMI) 25.8 ABG / Lab / Microbiology Data Result Diagrams: 11/07/21 06:10 11/07/21 06:10 Laboratory: Laboratory Results - last 24 hr 11/07/21 06:10: WBC 15.0 H, RBC 2.93 L, Hgb 9.2 L, Hct 26.2 L, MCV 89.4, MCH 31.4, MCHC 35.1, RDW Std Deviation 49.7 H, RDW Coeff of Alpa 15.3 H, Plt Count 366, MPV 8.5, Immature Gran % (Auto) 1.400 H, Neut % (Auto) 88.2 H, Lymph % (Auto) 6.1 L, [place] % (Auto) 4.1, Eos % (Auto) 0.1, Baso % (Auto) 0.1, Absolute Neuts (auto) 13.2 H, Absolute Lymphs (auto) 0.91, Nucleated RBC % 0 11/07/21 06:10: Sodium 123 L, Potassium 4.2, Chloride 90 L, Carbon Dioxide 28.0, Anion Gap 5, BUN 22 H, Creatinine 0.56, Estim Creat Clear Calc 39.90, Est GFR (MDRD) Af Amer 132, Est GFR (MDRD) Non-Af 109, BUN/Creatinine Ratio 39.1 H, Glucose 137 H, Calcium 8.7, Total Bilirubin 0.50, AST 60 H, ALT 247 H, Alkaline Phosphatase 145 H, Total Protein 5.5 L, Albumin 2.0 L, Globulin 3.5, Albumin /Globulin Ratio 0.6 L D/C Instructions Discharge Diet: No restrictions Meaningful Use Info Meaningful Use Diagnoses (Choose all that apply): None applicable Discharge Plan Admission Admit Date/Time: 11/05/21 03:48 Primary Reason for Your Visit: Intractable left hip pain Attending Provider: Katie Meneses Primary Care Provider: Bay Gonzalez Chi Instructions Additional Instructions / Restrictions: Continue to follow-up with you primary care doctor in the outpatient. Continue with pain management appointment Discharge Orders/Prescriptions Prescriptions: Continued fexofenadine [Ashia Allergy] 60 mg tablet 60 mg PO DAILY RF: 0 levetiracetam 750 mg tablet 750 mg PO BID Qty: 60 RF: 6 metoprolol succinate 100 MG tablet 100 mg PO DAILY RF: 0 amlodipine 10 MG tablet 10 mg PO DAILY RF: 0 levothyroxine 125 MCG tablet 137 mcg PO DAILY RF: 0 aspirin 81 MG tablet,chewable 81 mg PO DAILY RF: 0 saliva substitute combo no.9 237 ML bottle 15 ml MM 5X/DAY PRN (Reason: Dry Mouth) RF: 0 hydrocodone-acetaminophen 5-325 mg Tablet 1 tab PO Q4H PRN (Reason: Pain) RF: 0 Referrals / Follow Up: Bay Gonzalez Chi, MD [Primary Care Provider] - 11/07/21 3:00 pm Disposition Disposition (needs filled in before D/C Order can be placed): Home Health Service Charges/Coding Visit Charges OBSV E&M: 43518 Observation care discharge
== END 2021-11-07 14:48 | disposition home health service (06) ==
LOC: ED 03:43 → MS3 03:57
PROVIDERS: Admitting Provider Family Medicine; Emergency Provider Emergency Medicine; PCP Family Medicine Geriatric Medicine; Referring Provider Family Medicine; Visit Provider Internal Medicine
DX: M25.552 Pain in left hip (principal); G40.909 Epilepsy, unspecified, not intractable, without status epilepticus; E86.0 Dehydration; I10 Essential (primary) hypertension; E78.5 Hyperlipidemia, unspecified; E87.1 Hypo-osmolality and hyponatremia; R26.2 Difficulty in walking, not elsewhere classified; Z79.899 Other long term (current) drug therapy; Z79.890 Hormone replacement therapy; Z79.82 Long term (current) use of aspirin; Z85.830 Personal history of malignant neoplasm of bone
CPT/HCPCS: 36415; 72131; 72146; 72148; 72195; 73502; 80048; 80053; 81001; 83036; 85025; 96361; 96372; 96374; 96375; 96376; 97110; 97162; 97165; 97530; 97535; 99218; 99251; 99284; J7030; A4216; G0378; G0463; J2405

== ENCOUNTER 2021-11-17 17:27 | Inpatient (IN) | payer MEDICARE, BC, SELFPAY ==
[2021-11-17] VITALS (13 sets, daily range): BP systolic 112–181; BP diastolic 59–77; PULSE 79–98; RESP 16–26; TEMP 36.1–36.8; O2SAT 87–96; BMI 26.9; BMI 25.8
--- NOTE | 2021-11-17 18:01 | ED.VIS.DYS ---
HPI History of Present Illness Chief Complaint: Shortness of Breath Informant: patient and spouse/S.O. Onset/Context/Timing Onset: Weeks (3) Context: gradual Timing: Waxes and wanes Quality: Positive for Dyspnea on exertion and Orthopnea Worsened by: Exertion and Lying flat Relieved by: Rest Associated Symptoms cough; Negative for rhinorrhea, ear pain, fever, sore throat, chills, clear sputum, white sputum, yellow sputum or green sputum Chest Pain: Positive for None Narrative Narrative: Patient presents with shortness of breath that has been getting worse over the last 3 weeks. Patient states it is gradually gotten worse. Patient states it waxes and wanes. Patient states it is worse with any exertion. Patient also admits to two-pillow orthopnea. Patient admits to a cough but denies any sputum production. Patient denies any fevers or chills. Patient denies any sore throat or rhinorrhea. Patient denies any chest pain. PE Risk Factors: Positive for Cancer; Negative for OCP + Smoking + > 35, Prior DVT or PE, Recent immobilization and Recent surgery [facility] Medical History Anemia Cancer Generalized idiopathic epilepsy and epileptic syndromes, not intractable, without status epilepticus Hyperlipidemia Hypertension Hypothyroid Metastatic bone cancer Seizure disorder Squamous cell carcinoma of mandible Home Medications amlodipine 10 mg PO DAILY 08/06/20 [History Last Taken 08/10/20 11:19] levothyroxine 137 mcg PO DAILY 08/06/20 [History Last Taken 08/10/20 06:49] metoprolol succinate 100 mg PO DAILY 08/06/20 [History Last Taken 08/09/20 21:47] fexofenadine 60 mg tablet 60 mg PO DAILY PRN tab 02/14/21 [History Last Taken Unknown] levetiracetam 750 mg tablet 750 mg PO BID #60 tab 06/19/21 [Rx Last Taken Unknown] hydrocodone-acetaminophen 1 tab PO Q4H PRN 11/05/21 [History Last Taken Unknown] Allergy/AdvReac Type Severity Reaction Status Date / Time Penicillins Allergy Rash Verified 11/05/21 00:55 oxycodone [From OxyContin] AdvReac Vomiting Verified 11/05/21 00:55 sulfamethoxazole AdvReac Vomiting Verified 11/05/21 00:55 [From Bactrim] trimethoprim [From Bactrim] AdvReac Vomiting Verified 11/05/21 00:55 Family History Mother Cerebral aneurysm Brother Cerebral aneurysm Father Myocardial infarction Surgical History History of cholecystectomy History of hysterectomy History of lumpectomy History of oral surgery Social History household members: spouse Smoking Status: Never smoker Electronic Cigarette Use: not used second hand exposure: Yes alcohol intake: never substance use type: does not use ROS ROS ED Constitutional Constitutional ED: Denies chills or fever(s) Eyes Eyes: Denies blurry vision or change in vision ENT ENT ED: Denies rhinorrhea or sore throat Cardiovascular Cardiovascular: Denies chest pain or palpitations Respiratory/Chest Respiratory/Chest: Reports cough and dyspnea; Denies sputum Gastrointestinal Gastrointestinal: Reports nausea; Denies vomiting Genitourinary Genitourinary ED: Denies dysuria or hematuria Musculoskeletal Musculoskeletal: Reports back pain; Denies neck pain Integumentary Denies abscess or rash Neurologic Neurologic: Denies headache(s) or weakness Allergic/Immunologic Allergic/Immunologic ED: Denies mouth swelling or urticaria EXAM Physical Exam Const Vital Signs: 11/17/21 17:28 11/17/21 17:55 11/17/21 17:59 Temperature 97.3 F L Temperature Source Temporal Pulse Rate 98 Respiratory Rate 16 24 H 24 H Respiratory Effort Respiratory Pattern Blood Pressure 181/70 H Blood Pressure Mean 107 Pulse Ox 93 87 96 Oxygen Delivery Method Room Air Room Air Nasal Cannula Oxygen Flow Rate (L/min) 2 11/17/21 18:00 11/17/21 18:07 11/17/21 18:30 Temperature 96.9 F L Temperature Source Oral Pulse Rate 79 Respiratory Rate 19 H Respiratory Effort Short of Breath Respiratory Pattern Blood Pressure 112/68 Blood Pressure Mean 82 Pulse Ox 96 96 Oxygen Delivery Method Nasal Cannula Nasal Cannula Room Air Oxygen Flow Rate (L/min) 2 2 11/17/21 18:42 11/17/21 20:30 Temperature Temperature Source Pulse Rate 91 94 Respiratory Rate 16 24 H Respiratory Effort Respiratory Pattern Normal Blood Pressure 131/77 H Blood Pressure Mean 95 Pulse Ox 94 Oxygen Delivery Method Nasal Cannula Oxygen Flow Rate (L/min) 2 Positive well nourished and well developed General Appearance ED: well developed and NAD HEENT Reports moist mucous membranes Neck supple and no JVD Resp normal respiratory effort Auscultation: rhonchi right upper and right lower Cardio regular rate and regular rhythm GI non-tender Palpation: soft Neuro oriented x3, CN's II-XII intact bilaterally and no sensory deficits noted Sensorium / Orientation: alert Motor Exam: strength 5/5 throughout Psych mental status grossly normal MDM MDM MDM Narrative Medical decision making narrative: Patient was placed on oxygen. Patient was given a DuoNeb aerosol. Patient was given aspirin. EKG was obtained. On my interpretation, there is a normal sinus rhythm with a rate of 83. There are occasional ectopics noted. There is a right bundle branch block pattern noted. DE interval was within normal limits. QRS interval was 126. QTc interval was normal. [place] was normal. There are no acute ST or T wave changes. CBC shows a mild leukocytosis of 15.7. Hemoglobin was 9.8 and hematocrit was 27.9. Platelets were elevated at 754. PT with INR was within normal limits. PTT was normal. D-dimer was elevated at 2.67. Comprehensive metabolic profile shows a sodium of 125 and chloride of 91. Anion gap was normal. BUN and creatinine were within normal limits. High-sensitivity troponin was 100. BNP was 131.9. 2-hour repeat high-sensitivity troponin was 99. Chest x-ray was obtained. There are 2 views. On my interpretation, there is scarring of the right upper lobe. There is a T11 spinal compression fracture. These were unchanged compared to previous x-rays. Radiologist also interpreted the x-ray and agrees. Because of the elevated D-dimer, CTA of the chest was ordered. There is no evidence of pulmonary embolism or aortic dissection. There are multiple bilateral alveolar infiltrates in the right upper lobe and right middle lobe. There are also infiltrates in the left upper lobe and a small patchy infiltrate in the left lower lobe. These findings may be indicative of Covid pneumonia. Because of this a COVID-19 rapid antigen and influenza a and influenza B swabs were obtained and were negative. Blood cultures were obtained. Patient was started on Levaquin. Case was discussed with the hospitalist. He will admit the patient to the hospital. Patient and spouse understood and were agreeable with the plan. All questions were answered. Lab Data Attestation: I reviewed the patient's lab results. Labs: Laboratory Results - last 24 hr 11/17/21 11/17/21 11/17/21 18:00 18:00 18:00 WBC 15.7 H RBC 3.15 L Hgb 9.8 L Hct 27.9 L MCV 88.6 MCH 31.1 MCHC 35.1 RDW Std Deviation 51.0 H RDW Coeff of Alpa 15.9 H Plt Count 754 H* MPV 8.3 Immature Gran % (Auto) 2.600 H Neut % (Auto) 85.7 H Lymph % (Auto) 4.8 L [place] % (Auto) 5.9 Eos % (Auto) 0.7 Baso % (Auto) 0.3 Absolute Neuts (auto) 13.4 H Absolute Lymphs (auto) 0.76 L Nucleated RBC % 0.3 Differential Comment SCANNED Diff Path Review December foll PT 15.1 H INR 1.3 APTT 35.1 D-Dimer Quant (PE/DVT) 2.67 H* Sodium 125 L Potassium 4.1 Chloride 91 L Carbon Dioxide 26.0 Anion Gap 8 BUN 15 Creatinine 0.79 Estim Creat Clear Calc 39.90 Est GFR (MDRD) Af Amer 90 Est GFR (MDRD) Non-Af 74 BUN/Creatinine Ratio 19.0 Glucose 150 H Calcium 8.6 Total Bilirubin 0.30 AST 50 H ALT 66 H Alkaline Phosphatase 78 Troponin I High Sens 100 H B-Natriuretic Peptide Total Protein 6.1 L Albumin 2.1 L Globulin 4.0 Albumin/Globulin Ratio 0.5 L 11/17/21 11/17/21 18:00 20:47 WBC RBC Hgb Hct MCV MCH MCHC RDW Std Deviation RDW Coeff of Alpa Plt Count MPV Immature Gran % (Auto) Neut % (Auto) Lymph % (Auto) [place] % (Auto) Eos % (Auto) Baso % (Auto) Absolute Neuts (auto) Absolute Lymphs (auto) Nucleated RBC % Differential Comment Diff Path Review PT INR APTT D-Dimer Quant (PE/DVT) Sodium Potassium Chloride Carbon Dioxide Anion Gap BUN Creatinine Estim Creat Clear Calc Est GFR (MDRD) Af Amer Est GFR (MDRD) Non-Af BUN/Creatinine Ratio Glucose Calcium Total Bilirubin AST ALT Alkaline Phosphatase Troponin I High Sens 99 H B-Natriuretic Peptide 131.9 H Total Protein Albumin Globulin Albumin/Globulin Ratio Radiography Chest X-Ray - ED: 2 View, Read by ED Physician, Read by Radiologist and Chronic Changes Diagnostic Testing: Clinical Impression(s) from Imaging Studies Chest X-Ray 11/17/21 18:12 IMPRESSION: Chronic pulmonary changes, likely lung cancer and treatment related. T11 spinal compression fracture. Electronically Signed: Jordan Hair MD at 18:53 EDT , Chest CTA 11/17/21 19:35 IMPRESSION: 1. No evidence of pulmonary thromboembolism. 2. No evidence of a thoracic aortic dissection or aneurysm. 3. Multiple bilateral alveolar infiltrates: Extensive alveolar infiltrate in the right upper lobe extending anteriorly, right middle lobe, 2 adjacent moderate size bibasilar infiltrates anterior segment left upper lobe, and small patchy alveolar infiltrates in left lower lobe. There is no evidence of atelectasis or effusion. These findings may be indicative of Covid pneumonias. 4. Borderline cardiomegaly without heart failure. 5. Prominent thoracic kyphosis and normal ribs and sternum. 6. Poor inspiratory effort. 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
--- NOTE | 2021-11-17 18:05 | EKG12_ITS ---
Test Reason : SOB Blood Pressure : / mmHG Vent. Rate : 083 BPM Atrial Rate : 083 BPM P-R Int : 190 ms QRS Dur : 126 ms QT Int : 372 ms P-R-T Axes : 041 021 018 degrees QTc Int : 437 ms Sinus rhythm with Premature atrial complexes Right bundle branch block Abnormal ECG Confirmed by JOSE CARRION, LUPE ([id number]), order editor RUPERTO NICHOLE ([id number]) on 11/21/2021 11:10:40 AM Referred By: Cam Morales Confirmed By:LUPE GARCIA MD
--- NOTE | 2021-11-17 18:12 | RAD_ITS ---
STUDY: X-RAY CHEST REASON FOR EXAM: Female, 81 years old. Dyspnea increasing shortness of breath history of February reconstruction 2 years ago and lung cancer TECHNIQUE: Frontal and lateral views of the chest COMPARISON: 15 September 2021 FINDINGS: Appearance is comparable to prior. There is extensive chronic change, possibly scarring and chronic pleural effusion in the right lung. Mediastinal contour is difficult to evaluate due to patient''s rotation and treatment related distortion. There is no cardia mentally, pulmonary edema or pleural effusions. There is a pathologic compression fracture in the lower thoracic spine. RAD/Chest PA and Lateral IMPRESSION: Chronic pulmonary changes, likely lung cancer and treatment related. T11 spinal compression fracture. Electronically Signed: Jordan Hair MD at 18:53 EDT ,
[2021-11-17 18:33] LABS: Absolute Lymphocyte Count 0.76 X10^3/uL (0.83-4.51); Absolute Neutrophil Count 13.4 X10^3/uL (2.0-7.7); Basophil# 0.04 X10^3/uL; Basophil% 0.3 % (0-1); Eosinophil# 0.11 X10^3/uL; Eosinophils% 0.7 % (0-5); Hematocrit 27.9 % (37-47); Hemoglobin 9.8 g/dL (12.0-15.0); Lymphocyte # 0.76 X10^3/ul (0.83-4.51); Lymphocyte % 4.8 % (19-41); Mean Corp Hgb Conc 35.1 g/dL (32-36); Mean Corpuscular Hgb 31.1 pg (27.0-32.0); Mean Corpuscular Volume 88.6 fL (81-99); Mean Platelet Vol. 8.3 fl (6.2-12.0); Monocyte# 0.93 X10^3/uL; Monocyte% 5.9 % (0-10); NRBC Flagged by Analyzer 0.3 % (0-5); Neutrophil # 13.43 X10^3/uL (2.7-7.7); Neutrophil % 85.7 % (47-70); POSITIVE COUNT YES; RBC Distribution Width CV 15.9 % (11.6-14.6); Red Blood Count 3.15 M/mm3 (4.2-5.4); White Blood Count 15.7 K/mm3 (4.4-11.0)
[2021-11-17 18:36] LABS: International Normalized Ratio 1.3; Prothrombin Time (Protime)PT. 15.1 SECONDS (11.7-14.9)
[2021-11-17 18:37] LABS: Partial Thromboplast Time 35.1 Seconds (24.1-36.2)
[2021-11-17] MEDS: Ipratropium/Albuterol Sulfate 3 ML AMPUL.NEB INHALATION (18:41)
[2021-11-17 18:50] LABS: ALB/GLOB Ratio 0.5 RATIO (0.9-2.4); AST(SGOT) 50 U/L (15-37); Alanine Aminotransfer ALT/SGPT 66 U/L (13-56); Albumin, Serum 2.1 g/dL (3.2-5.0); Alkaline Phosphatase 78 U/L (45-117); Anion Gap 8 (5-15); BUN 15 mg/dL (7-18); Calcium,Total 8.6 mg/dL (8.5-10.1); Chloride 91 mmol/L (98-107); Creatinine, Serum 0.79 mg/dL (0.55-1.02); EST Glomerular Filtration Rate 74 mL/min (>60); Est Glom Filt Rate - Afr Amer 90 mL/min (>60); Glucose 150 mg/dL (74-106); Platelet Count 754 K/mm3 (150-450); Potassium 4.1 mmol/L (3.5-5.1); Protein, Total 6.1 g/dL (6.4-8.2); Sodium Level 125 mmol/L (136-145); Troponin-I HS 100 pg/mL (3.0-54.0)
[2021-11-17 18:51] LABS: Differential Indicated SCAN CRITERIA MET
[2021-11-17 19:01] LABS: D-Dimer Quantitative (DVT/PE) 2.67 FEU/ug/m (0.27-0.49)
[2021-11-17 19:09] LABS: Differential Comment SCANNED
[2021-11-17 19:15] LABS: BNP,B-Type NATRIURETIC PEPTIDE 131.9 pg/mL (0-100)
--- NOTE | 2021-11-17 19:35 | CT_ITS ---
STUDY: PULMONARY AND CHEST CT ANGIOGRAPHY OF 1941 HOURS ON 11/17/2021 REASON FOR EXAM: 81-year-old male with an elevated d-dimer and chest pain. RADIATION DOSAGE (If Supplied By Facility): CTDIvol = ( 10.9 ) mGy, DLP = ( 407.58 ) mGycm TECHNIQUE: The examination was performed with the intravenous administration of IV 100mL Isovue-370. Post-processing of the angiographic images was performed, with multiplanar reformation and 3D reconstruction. Individualized dose optimization techniques were used for this CT. COMPARISON: None. FINDINGS: There is a prominent thoracic kyphosis. Normal ribs and sternum. There is poor inspiratory effort. There is borderline cardiomegaly. There is no evidence of heart failure. There is a moderate, relatively extensive confluent alveolar infiltrate process in the right upper lobe, extending anteriorly. There is a right middle lobe alveolar infiltrative process. This also evidence of 2 adjacent moderate size alveolar infiltrative processes in the anterior segment left upper lobe. There are small patchy alveolar infiltrates in the left lower lobe. There is no evidence of atelectasis or effusion. Multiple patchy alveolar infiltrates may be indicative of Covid pneumonias. There is no evidence of pulmonary thromboembolism. There is no evidence of a thoracic aortic dissection or aneurysm. CT/CTA Chest W/WO Contrast IMPRESSION: 1. No evidence of pulmonary thromboembolism. 2. No evidence of a thoracic aortic dissection or aneurysm. 3. Multiple bilateral alveolar infiltrates: Extensive alveolar infiltrate in the right upper lobe extending anteriorly, right middle lobe, 2 adjacent moderate size bibasilar infiltrates anterior segment left upper lobe, and small patchy alveolar infiltrates in left lower lobe. There is no evidence of atelectasis or effusion. These findings may be indicative of Covid pneumonias. 4. Borderline cardiomegaly without heart failure. 5. Prominent thoracic kyphosis and normal ribs and sternum. 6. Poor inspiratory effort. Electronically Signed: Jose Fish MD at 20:23 EDT ,
[2021-11-17] MEDS: Aspirin 81 MG TAB.CHEW 324 MG PO (20:44)
[2021-11-17 21:19] LABS: Troponin-I HS 99 pg/mL (3.0-54.0)
[2021-11-17] MEDS: levoFLOXacin IV 750 MG/150 ML BAG 100 MG IV (21:45)
--- NOTE | 2021-11-17 22:19 | HP.PCM.HOS_ITS ---
HPI - General General Date of Admission: 11/17/21 Date of Service: 11/17/21 Chief Complaint: Worsening of shortness of breath for 1 week HPI Narrative ANTOLIN GIPSON, is a 81 F with complex past medical history as mentioned below came to ER for progressive worsening of shortness of breath for 1 week. Patient was just admitted about 10 days ago for severe left hip pain and intractable back pain. Is supposed to follow Dr. Orosco to consider kyphoplasty. After discharge, she complained of dyspnea on exertion for last 1 week which is p rogressively getting worse. Denies dyspnea at rest. She had chronic mild shortness of breath on exertion because of multiple comorbidities but denies history of chronic heart disease. She she is also using more pillows to sleep but does not have increased leg swelling, abdominal swelling or facial puffiness. No chest pain tightness or pressure. She has mild occasional cough which is not much concerned. No sputum production. Denies tachypnea, fever or chills. No URI symptoms including sore throat rhinorrhea. Patient had pneumonia about a year ago when she had increased cough and sputum production. ED vitals reviewed, afebrile no hypoxia. Respiratory rate 16 to 24/min. No hypotension. Labs reviewed. In ED, she had chest x-ray which showed chronic changes of previous lung cancer treatment. Chest CTA was done because of elevated D-dimer. Negative for pulmonary thromboembolism but shows multiple bilateral, extensive alveolar infiltrates in right upper lobe, right middle lobe left upper and left lower lobe. Patient had Covid and flu antigen negative. Patient had 2 doses to posterior for COVID-19, pneumonia and flu shot in the past. Twelve-lead EKG shows normal sinus rhythm with PAC, RBBB, 83/min. QTc 451 ms. QRS 126 ms [facility] Medical History Anemia Cancer Generalized idiopathic epilepsy and epileptic syndromes, not intractable, without status epilepticus History of femur fracture Hx of fall Hyperlipidemia Hypertension Hypothyroid Metastatic bone cancer Seizure disorder Squamous cell carcinoma of mandible Home Medications amlodipine 10 mg PO DAILY 08/06/20 [History Last Taken 08/10/20 11:19] levothyroxine 137 mcg PO DAILY 08/06/20 [History Last Taken 08/10/20 06:49] metoprolol succinate 100 mg PO DAILY 08/06/20 [History Last Taken 08/09/20 21:47] fexofenadine 60 mg tablet 60 mg PO DAILY PRN tab 02/14/21 [History Last Taken Unknown] levetiracetam 750 mg tablet 750 mg PO BID #60 tab 06/19/21 [Rx Last Taken Unknown] hydrocodone-acetaminophen 1 tab PO Q4H PRN 11/05/21 [History Last Taken Unknown] Allergy/AdvReac Type Severity Reaction Status Date / Time Penicillins Allergy Rash Verified 11/05/21 00:55 oxycodone [From OxyContin] AdvReac Vomiting Verified 11/05/21 00:55 sulfamethoxazole AdvReac Vomiting Verified 11/05/21 00:55 [From Bactrim] trimethoprim [From Bactrim] AdvReac Vomiting Verified 11/05/21 00:55 Family History Mother Cerebral aneurysm Brother Cerebral aneurysm Father Myocardial infarction Surgical History History of cholecystectomy History of hysterectomy History of lumpectomy History of oral surgery Social History household members: spouse Smoking Status: Never smoker Electronic Cigarette Use: not used second hand exposure: Yes alcohol intake: never substance use type: does not use ROS ROS Narrative Constitutional: Reports fatigue and weakness. No fever HEENT: Mandibulectomy. Reports systems reviewed and no addt'l complaints, except as documented Respiratory/Chest: As mentioned in HPI Gastrointestinal: Denies coffee ground emesis, hematemesis or vomiting Genitourinary: Denies burning urination or new urinary tract symptoms Musculoskeletal: Chronic back pain and right hip pain arthritis. Neurologic: Denies new or recent seizure-like activity. History of epilepsy. skin: No ulcer. No rash Endocrinology: Reports systems reviewed and no addt'l complaints, except as documented Hematologic/Lymphatic: Reports systems reviewed and no addt'l complaints, except as documented Rest 14 ROS are negative except as mentioned in HPI Vital Signs Vital Signs Vital Signs: 11/17/21 17:28 11/17/21 17:55 11/17/21 17:59 Temperature 97.3 F L Temperature Source Temporal Pulse Rate 98 Respiratory Rate 16 24 H 24 H Respiratory Effort Respiratory Pattern Blood Pressure 181/70 H Blood Pressure Mean 107 Pulse Ox 93 87 96 Oxygen Delivery Method Room Air Room Air Nasal Cannula Oxygen Flow Rate (L/min) 2 11/17/21 18:00 11/17/21 18:07 11/17/21 18:30 Temperature 96.9 F L Temperature Source Oral Pulse Rate 79 Respiratory Rate 19 H Respiratory Effort Short of Breath Respiratory Pattern Blood Pressure 112/68 Blood Pressure Mean 82 Pulse Ox 96 96 Oxygen Delivery Method Nasal Cannula Nasal Cannula Room Air Oxygen Flow Rate (L/min) 2 2 11/17/21 18:42 11/17/21 20:30 11/17/21 21:48 Temperature 97.9 F Temperature Source Temporal Pulse Rate 91 94 93 Respiratory Rate 16 24 H 23 H Respiratory Effort Respiratory Pattern Normal Blood Pressure 131/77 H 148/59 H Blood Pressure Mean 95 88 Pulse Ox 94 95 Oxygen Delivery Method Nasal Cannula Nasal Cannula Oxygen Flow Rate (L/min) 2 2 11/17/21 21:50 11/17/21 22:17 Temperature 97.9 F Temperature Source Temporal Pulse Rate 93 92 Respiratory Rate 23 H 26 H Respiratory Effort Respiratory Pattern Blood Pressure 148/59 H 145/68 H Blood Pressure Mean 88 93 Pulse Ox 95 94 Oxygen Delivery Method Nasal Cannula Nasal Cannula Oxygen Flow Rate (L/min) 2 2 Weight Weight: 167 lb Body Mass Index (BMI) 26.9 Physical Exam Narrative General: Alert, Oriented x3, Cooperative HEENT: Atraumatic, PERRLA, EOMI, Normocephalic Oral: No Gingival or Mucosal Lesions/ Ulcerations. Status post mandibulectomy. Titanium plate in place of lower jaw Neck: Supple, No JVD, Negative Carotid Bruits Lungs: Dyspnea at rest. Air entry diminished in bilateral lung bases. No crepitation/rhonchi. Cardiovascular: Irregular rhythm with PACs, Normal S1, Normal S2, systolic murmur LLSB Abdomen: Bowel Sounds Present, Soft, Non Tender, Non-Distended : No renal angle tenderness. No suprapubic tenderness. Extremities: Subtle/very mild pitting bilateral ankle edema, Capillary Refill Less than 3 Seconds Skin: No rashes, No breakdown Musculoskeletal: Mild tenderness on deep palpation right hip. Fracture of T11. Neurological: Cranial nerves II-XII grossly intact, DTR 2+/4 and Symmetrical, Neuro grossly intact Psych/Mental Status: Normal Affect, Appropriate Results Lab / Micro Data Result Diagrams: 11/17/21 18:00 11/17/21 18:00 Labs: Laboratory Results - last 24 hr 11/17/21 18:00: WBC 15.7 H, RBC 3.15 L, Hgb 9.8 L, Hct 27.9 L, MCV 88.6, MCH 31.1, MCHC 35.1, RDW Std Deviation 51.0 H, RDW Coeff of Alpa 15.9 H, Plt Count 754 H*, MPV 8.3, Immature Gran % (Auto) 2.600 H, Neut % (Auto) 85.7 H, Lymph % (Auto) 4.8 L, [place] % (Auto) 5.9, Eos % (Auto) 0.7, Baso % (Auto) 0.3, Absolute Neuts (auto) 13.4 H, Absolute Lymphs (auto) 0.76 L, Nucleated RBC % 0.3, Differential Comment SCANNED, Diff Path Review December11/17/21 18:00: PT 15.1 H, INR 1.3, APTT 35.1, D-Dimer Quant (PE/DVT) 2.67 H* 11/17/21 18:00: Sodium 125 L, Potassium 4.1, Chloride 91 L, Carbon Dioxide 26.0, Anion Gap 8, BUN 15, Creatinine 0.79, Estim Creat Clear Calc 39.90, Est GFR (MDRD) Af Amer 90, Est GFR (MDRD) Non-Af 74, BUN/Creatinine Ratio 19.0, Glucose 150 H, Calcium 8.6, Total Bilirubin 0.30, AST 50 H, ALT 66 H, Alkaline Phosphatase 78, Troponin I High Sens 100 H, Total Protein 6.1 L, Albumin 2.1 L, Globulin 4.0, Albumin/Globulin Ratio 0.5 L 11/17/21 18:00: B-Natriuretic Peptide 131.9 H 11/17/21 20:47: Troponin I High Sens 99 H Micro: Microbiology 11/17/21 20:46 Nasal Secretion SARS-CoV-2 & FLU Antigen (Rapid) - Final Radiology Impression Chest X-Ray 11/17/21 18:12 IMPRESSION: Chronic pulmonary changes, likely lung cancer and treatment related. T11 spinal compression fracture. Electronically Signed: Jordan Hair MD at 18:53 EDT , Chest CTA 11/17/21 19:35 IMPRESSION: 1. No evidence of pulmonary thromboembolism. 2. No evidence of a thoracic aortic dissection or aneurysm. 3. Multiple bilateral alveolar infiltrates: Extensive alveolar infiltrate in the right upper lobe extending anteriorly, right middle lobe, 2 adjacent moderate size bibasilar infiltrates anterior segment left upper lobe, and small patchy alveolar infiltrates in left lower lobe. There is no evidence of atelectasis or effusion. These findings may be indicative of Covid pneumonias. 4. Borderline cardiomegaly without heart failure. 5. Prominent thoracic kyphosis and normal ribs and sternum. 6. Poor inspiratory effort. Electronically Signed: Jose Fish MD at 20:23 EDT , Assessment & Plan Assessment/Plan (1) Community acquired pneumonia: QUALIFIERS: Laterality: unspecified laterality Qualified Code(s): J18.9 - Pneumonia, unspecified organism PLAN: 1. Dyspnea on exertion most probably due to acute bilateral pneumonia with concern for heart failure: Patient is being admitted on [facility] on telemetry. Blood cultures x2, urinary antigens, sputum culture and respiratory panel ordered. Patient is started on Levaquin 750 mg IV daily. Chest x-ray and CTPA not impressive of pulmonary edema. Chest x-ray and CTA chest independently reviewed shows multifocal, multilobar extensive alveolar infiltrative process. Patient does not have usual pneumonia symptoms. Cycle troponin enzymes. BNP is elevated. 2D echo ordered. I do not think patient needs Lasix at this time. PE ruled out. 2. Recent admission for fall, left hip pain, and severe back pain, history of closed right hip fracture: MRI was done. Severe compression fracture of T10 with 10 mm retropulsion into spinal cord causing severe spinal stenosis and effacement of left hemicord 3. Chronic isovolemic hypotonic hyponatremia: This was present during previous hospital admission. Usually sodium is between 128 125. 4. 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 Had mandibulectomy and radiotherapy of lung. Unclear CT chest might also represent radiation changes/radiation pneumonitis Follows up with oncology in the outpatient 4. Seizure disorder, continue Keppra 5. Rest of chronic medical conditions including hypothyroidism, hypertension, obesity, grade 2: Home medication reconciliation done 6. DVT prophylaxis, high risk?Lovenox 40 mg subcu daily. Discontinue if platelet count drops less than 50,000 or hemoglobin less than 8 g% Living will/advanced directive/end of life care: Patient does have living will or advanced directive. After discussion of benefits/risks procedures involved with full code, DNR CC arrest and DNR CC, the patient opted for full code. She said her and daughters wanted full code. Patient was educated about the meaning of advanced directive. Patient does want artificial life support including intubation, tube feed, ventilator and/chest compression, central venous catheter, vasopressor and DC shock if needed Total time spent in [id number] encounter in discussion of advanced directive 16 minutes. ED documentation or diagnoses not addressed in the H&P have been ruled out, unless otherwise noted/mentioned. Charges/Coding Visit Charges Inpatient E&M: 95563 Init Hosp L3 Procedures Hospitalists Procedures: 73783 Advncd Care Plan 30 Min
[2021-11-17 23:07] LABS: Magnesium 1.6 mg/dL (1.6-2.6)
[2021-11-18] VITALS (13 sets, daily range): BP systolic 130–150; BP diastolic 47–87; PULSE 78–113; RESP 18–24; TEMP 36.6–37.3; O2SAT 92–97
[2021-11-18] MEDS: 0.9% Saline Lock 10 ML Syringe IV ×3 (00:17→22:35)
[2021-11-18] MEDS: levETIRAcetam 750 MG Tablet PO ×3 (00:17→21:22)
[2021-11-18] MEDS: Enoxaparin 40 MG/0.4 ML Syringe SC ×2 (00:18→09:40)
[2021-11-18 00:57] LABS: Troponin-I HS 99 pg/mL (3.0-54.0)
[2021-11-18 03:06] LABS: Troponin-I HS 90 pg/mL (3.0-54.0)
[2021-11-18] MEDS: Acetaminophen 325 MG Tablet 650 MG PO ×2 (04:17→14:32)
[2021-11-18] MEDS: Levothyroxine 137 MCG Tablet PO (04:18)
--- NOTE | 2021-11-18 05:55 | ECHOD_ITS ---
Reason For Study: DYSPNEA Procedure This was a 2D Doppler, Color Flow transthoracic echocardiogram. The study was technically difficult. Pt positioned sitting upright and to her right due to difficulty breathing. Exam performed portable in patient room. Left Ventricle Normal left ventricle. The estimated ejection fraction is 55-60 %. Right Ventricle Normal right ventricle. Normal systolic function. Atria Normal left atrium. Normal right atrium. Mitral Valve There is mild mitral annular calcification. Trivial mitral valve insufficiency. Tricuspid Valve Normal tricuspid valve. Aortic Valve Mild diffuse aortic valve calcification. Mild (1+) aortic valve insufficiency. Pulmonic Valve The pulmonic valve is not well visualized. Great Vessels Normal aortic root. MMode/2D Measurements & Calculations RVDd: 3.2 cm Ao root diam: 3.4 cm LAV(MOD-bp): 36.2 ml LA dimension: 3.5 cm LAV(MOD-bp) Indexed: 19.9 ml/m2 LAV(MOD-sp2): 35.7 ml LAV(MOD-sp4): 36.9 ml LVAd ap4: 22.1 cm2 SV(MOD-sp4): 32.2 ml SV(sp4-el): 35.0 ml LVLd ap4: 7.4 cm EDV(MOD-sp4): 52.4 ml EDV(sp4-el): 56.1 ml LVAs ap4: 12.4 cm2 LVLs ap4: 6.1 cm ESV(MOD-sp4): 20.2 ml ESV(sp4-el): 21.2 ml EF(MOD-sp4): 61.4 % EF(sp4-el): 62.3 % LA A4 area: 15.1 cm2 RA A4 area: 11.8 cm2 Doppler Measurements & Calculations MV E max damion: 40.3 cm/sec Lat Peak E' Damion: 12.7 cm/sec Med Peak E' Damion: 8.0 cm/sec MV A max damion: 80.4 cm/sec E/E' lat: 3.2 E/E' med: 5.0 MV E/A: 0.50 Ao V2 max: 148.3 cm/sec AI max damion: 459.4 cm/sec LV V1 max: 142.0 cm/sec Ao max P.8 mmHg AI max P.4 mmHg LV V1 max P.1 mmHg AI dec slope: 405.2 cm/sec2 AI P1/2t: 332.1 msec PA V2 max: 124.0 cm/sec TR max damion: 285.1 cm/sec TR max P.5 mmHg ECHO/Echo Complete Interpretation Summary The estimated ejection fraction is 55-60 %. Normal LV systolic function No previous echo to compare Ordering Physician: Cam Morales Referring Physician: FRANKIE DAWSON Performed By: Guerita Montemayor, RDCS, RVT
[2021-11-18 06:37] LABS: Absolute Lymphocyte Count 0.58 X10^3/uL (0.83-4.51); Absolute Neutrophil Count 11.3 X10^3/uL (2.0-7.7); Basophil# 0.01 X10^3/uL; Basophil% 0.1 % (0-1); Eosinophil# 0.07 X10^3/uL; Eosinophils% 0.5 % (0-5); Hematocrit 22.5 % (37-47); Hemoglobin 8.3 g/dL (12.0-15.0); Lymphocyte # 0.58 X10^3/ul (0.83-4.51); Lymphocyte % 4.4 % (19-41); Mean Corp Hgb Conc 36.9 g/dL (32-36); Mean Corpuscular Hgb 31.2 pg (27.0-32.0); Mean Corpuscular Volume 84.6 fL (81-99); Mean Platelet Vol. 8.3 fl (6.2-12.0); Monocyte# 0.77 X10^3/uL; Monocyte% 5.9 % (0-10); NRBC Flagged by Analyzer 0 % (0-5); Neutrophil # 11.33 X10^3/uL (2.7-7.7); Neutrophil % 86.8 % (47-70); POSITIVE DIFFERENTIAL YES; Platelet Count 647 K/mm3 (150-450); RBC Distribution Width CV 15.5 % (11.6-14.6); RBC Distribution Width SD 47.8 fl (35.1-43.9); Red Blood Count 2.66 M/mm3 (4.2-5.4); White Blood Count 13.1 K/mm3 (4.4-11.0)
[2021-11-18 06:50] LABS: Differential Indicated SCAN CRITERIA MET
[2021-11-18 06:57] LABS: Differential Comment SCANNED
--- NOTE | 2021-11-18 07:04 | NURSING ---
Patient refusing seizure pads. Patient had one seizure approximately one year ago.
[2021-11-18 07:06] LABS: Troponin-I HS 84 pg/mL (3.0-54.0)
[2021-11-18 07:27] LABS: Anion Gap 8 (5-15); BUN 10 mg/dL (7-18); BUN/Creat Ratio 21.6 RATIO (10-20); Chloride 94 mmol/L (98-107); Cholesterol 122 mg/dL (200); Creatinine, Serum 0.46 mg/dL (0.55-1.02); EST Glomerular Filtration Rate 136 mL/min (>60); Est Glom Filt Rate - Afr Amer 165 mL/min (>60); Glucose 117 mg/dL (74-106); High Density Lipoprotein 48 mg/dL; Sodium Level 127 mmol/L (136-145); Thyroid Stim Hormone (TSH) 1.32 uIU/mL (0.358-3.74); Triglycerides 76 mg/dL; Very Low Density Lipoprotein 15 mg/dL (5-40)
[2021-11-18] MEDS: Aspirin E.C. 81 MG Tablet PO (08:07)
[2021-11-18] MEDS: guaiFENesin 1,200 MG Tablet 1200 MG PO ×2 (09:40→21:22)
[2021-11-18] MEDS: amLODIPine 10 MG Tablet PO (09:41)
[2021-11-18] MEDS: Metoprolol(XL)Succ 100 MG Tablet PO (09:41)
--- NOTE | 2021-11-18 11:42 | CASEMGMT ---
Social Work Consult: [facility] Referral source: RN APARNA Met with patient in room. Introduced self and clinical social worker role. Patient agreeable to speak with this clinical social worker. Patient reports to live at home with significant other, Diony Juares. Patient reports to not be to Diony but to have been in a relationship for a long time. Patient reports that Diony is patient Health Care Power of Advertising Assistant Manager. Patient does not believe that Health Care Power of Advertising Assistant Manager paperwork is on file, this clinical social worker encouraged patient to have Diony bring paperwork in when able. Patient reports to have been using Home Health Care in the home and is active with [facility]. Patient reports that oxygen is new for patient. Patient is concerned about being able to return to home and inquired about the Transitional care Unit at [facility] I have been there before. This clinical social worker acknowledging with patient that therapy evaluations are pending, but patient reports to not be able to walk to bathroom in patient room without not being able to breathe. This clinical social worker provided patient with list of in-network nursing facilities that are local to patient geographical region. Patient request for referral to be made to TCU, if I need to go. Patient reports that main contact is Diony and is agreeable to Diony being contacted in regards to patient care. Active support and listening provided. Telephone call to [facility] Diane OCHOA. Confidential Voicemail left with information on patient to be added to referral list. Social Work to continue to follow. PLAN: Home vs. SNF pending therapy evaluations. Social Work to continue to follow. Christy VERONICA, ANGELICA
--- NOTE | 2021-11-18 11:44 | CASEMGMT ---
TINA BRAUN NOTE: Call placed to Aiyana @ [facility]. Pt is active w/them and receives PT only. Aiyana made aware pt has been admitted to [facility]. Issa FERRARA RN, CM
--- NOTE | 2021-11-18 17:20 | PN.HOSP_ITS ---
Subjective Subjective Patient was seen and examined today, he does not complain of any shortness of breath at rest. She is on low-flow nasal cannula oxygen at this time. Objective Data Objective Data Vital Signs: Vital Signs Temp Pulse Resp BP Pulse Ox 99.1 F 87 18 136/60 H 93 11/18/21 14:12 11/18/21 14:12 11/18/21 14:16 11/18/21 14:12 11/18/21 14:12 Oxygen Flow Rate (L/min) 2 Oxygen Delivery Method Nasal Cannula Weight: 73 kg Body Mass Index (BMI) 25.8 Intake & Output: Intake and Output for Last 24 Hours 11/16/21 11/17/21 11/18/21 23:59 23:59 23:59 Intake Total 350 / 350 Output Total 550 / 550 Balance -200 / -200 Lab / Micro Data Result Diagrams: 11/18/21 06:26 11/18/21 06:26 Labs: Laboratory Results - last 24 hr 11/17/21 18:00: WBC 15.7 H, RBC 3.15 L, Hgb 9.8 L, Hct 27.9 L, MCV 88.6, MCH 31.1, MCHC 35.1, RDW Std Deviation 51.0 H, RDW Coeff of Alpa 15.9 H, Plt Count 754 H*, MPV 8.3, Immature Gran % (Auto) 2.600 H, Neut % (Auto) 85.7 H, Lymph % (Auto) 4.8 L, [place] % (Auto) 5.9, Eos % (Auto) 0.7, Baso % (Auto) 0.3, Absolute Neuts (auto) 13.4 H, Absolute Lymphs (auto) 0.76 L, Nucleated RBC % 0.3, Differential Comment SCANNED, Diff Path Review December11/17/21 18:00: PT 15.1 H, INR 1.3, APTT 35.1, D-Dimer Quant (PE/DVT) 2.67 H* 11/17/21 18:00: Sodium 125 L, Potassium 4.1, Chloride 91 L, Carbon Dioxide 26.0, Anion Gap 8, BUN 15, Creatinine 0.79, Estim Creat Clear Calc 39.90, Est GFR (MDRD) Af Amer 90, Est GFR (MDRD) Non-Af 74, BUN/Creatinine Ratio 19.0, Glucose 150 H, Calcium 8.6, Total Bilirubin 0.30, AST 50 H, ALT 66 H, Alkaline Phosphatase 78, Troponin I High Sens 100 H, Total Protein 6.1 L, Albumin 2.1 L, Globulin 4.0, Albumin/Globulin Ratio 0.5 L 11/17/21 18:00: B-Natriuretic Peptide 131.9 H 11/17/21 20:47: Troponin I High Sens 99 H 11/17/21 20:47: Magnesium 1.6 11/18/21 00:20: Troponin I High Sens 99 H 11/18/21 02:43: Troponin I High Sens 90 H 11/18/21 06:20: Troponin I High Sens 84 H 11/18/21 06:26: WBC 13.1 H, RBC 2.66 L, Hgb 8.3 L, Hct 22.5 L, MCV 84.6, MCH 31.2, MCHC 36.9 H D, RDW Std Deviation 47.8 H, RDW Coeff of Alpa 15.5 H, Plt Count 647 H, MPV 8.3, Immature Gran % (Auto) 2.300 H, Neut % (Auto) 86.8 H, Lymph % (Auto) 4.4 L, [place] % (Auto) 5.9, Eos % (Auto) 0.5, Baso % (Auto) 0.1, Absolute Neuts (auto) 11.3 H, Absolute Lymphs (auto) 0.58 L, Nucleated RBC % 0, Differential Comment SCANNED 11/18/21 06:26: Sodium 127 L, Potassium 4.0, Chloride 94 L, Carbon Dioxide 25.0, Anion Gap 8, BUN 10, Creatinine 0.46 L, Estim Creat Clear Calc 39.90, Est GFR (MDRD) Af Amer 165, Est GFR (MDRD) Non-Af 136, BUN/Creatinine Ratio 21.6 H, Glucose 117 H, Calcium 8.0 L, Triglycerides 76, Cholesterol 122, LDL Cholesterol 59, VLDL Cholesterol 15, HDL Cholesterol 48, TSH 1.32 Micro: Microbiology 11/18/21 01:23 Mucosa - Nasopharyngeal Respiratory Panel (PCR) - Final 11/17/21 Unknown Urine, Random Legionella Antigen - Final 11/17/21 Unknown Urine, Random Streptococcus pneumoniae Antigen (M - Final 11/17/21 20:46 Nasal Secretion SARS-CoV-2 & FLU Antigen (Rapid) - Final Radiography Diagnostic Testing: Radiology Impression Chest X-Ray 11/17/21 18:12 IMPRESSION: Chronic pulmonary changes, likely lung cancer and treatment related. T11 spinal compression fracture. Electronically Signed: oJrdan Hair MD at 18:53 EDT , Chest CTA 11/17/21 19:35 IMPRESSION: 1. No evidence of pulmonary thromboembolism. 2. No evidence of a thoracic aortic dissection or aneurysm. 3. Multiple bilateral alveolar infiltrates: Extensive alveolar infiltrate in the right upper lobe extending anteriorly, right middle lobe, 2 adjacent moderate size bibasilar infiltrates anterior segment left upper lobe, and small patchy alveolar infiltrates in left lower lobe. There is no evidence of atelectasis or effusion. These findings may be indicative of Covid pneumonias. 4. Borderline cardiomegaly without heart failure. 5. Prominent thoracic kyphosis and normal ribs and sternum. 6. Poor inspiratory effort. Electronically Signed: Jose Fish MD at 20:23 EDT , Echocardiogram 11/18/21 05:55 Interpretation Summary The estimated ejection fraction is 55-60 %. Normal LV systolic function No previous echo to compare Ordering Physician: Cam Morales Referring Physician: FRANKIE DAWSON Performed By: Guerita Montemayor, RDCS, RVT Physical Exam Const alert, oriented x3, no apparent distress and average body habitus General Appearance: cooperative, well kempt and well developed Orientation / Consciousness: awake, oriented to person, oriented to place and oriented to time HEENT normocephalic and head/scalp atraumatic Eyes PERRL, EOMs intact bilaterally and conjunctivae normal Neck nuchal rigidity, supple, no JVD, thyroid normal and no carotid bruits General: trachea midline Resp normal respiratory effort, no retractions and no use of accessory muscles Resp Narrative: Scattered inspiratory rales are noted over the patient's lower lung reyes bilaterally Auscultation: Negative for rhonchi or wheezes Cardio regular rate, regular rhythm, S1 normal heart sound, S2 normal heart sound, no murmurs, no rub and no gallops GI normal to inspection, nondistended, normoactive bowel sounds, soft to palpation, non-tender and non-distended Extremity no clubbing, cyanosis or edema Skin no rashes or lesions noted General Skin Exam: no breakdown Neuro oriented x3, CN's II-XII intact bilaterally, no focal motor deficits and no sensory deficits noted Sensorium / Orientation: awake and alert Speech: speech normal Psych affect normal Assessment & Plan Assessment/Plan (1) Community acquired pneumonia: QUALIFIERS: Laterality: unspecified laterality Qualified Code(s): J18.9 - Pneumonia, unspecified organism PLAN: 1. Acute bilateral pneumonia-probably bacterial in nature, continue levofloxacin #2 acute hypoxic respiratory failure-continue to monitor pulse ox #3 spinal stenosis and recent compression fracture of [id number] will be seen by PT and OT, patient may need to consider going to an extended care facility for rehab services at the time of discharge, she was recently in the hospital here and declined to go to an extended care facility for rehab services. 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
[2021-11-18] MEDS: Ipratropium/Albuterol Sulfate 3 ML AMPUL.NEB INHALATION (19:32)
[2021-11-18 20:20] LABS: Ferritin 213 ng/mL (8-252); Iron 14 ug/dL (50-170)
--- NOTE | 2021-11-18 21:02 | PN.HOSP_ITS ---
Hospitalist Note The patient had 3-4 loose bowel movement, black tarry, melanotic in nature. Also complained of mild abdominal discomfort/pain over epigastric umbilical, paramedian region. She felt like burning, associated with mild nausea/acid reflux symptoms. She had associated nausea but no vomiting. She does not remember any last GI bleed but most probably about 20 years ago. Patient is on baby aspirin which I think most likely primary preventive. She denies any chronic heart disease, TN, stent, CHF or stroke. On labs, troponins slightly elevated but trending down. Hemoglobin dropped to 8.3. Repeat H&H ordered. Stool for occult blood positive. Magnesium 1.6, replaced. On exam Air entry diminished bilaterally. Heart S1-S2 regular. Abdomen; soft nontender nondistended bowel sounds present 2D echo EF 55 to 60% normal left and right ventricle. Normal left and right atrium. Troponins elevated most likely due to demand ischemia or pneumonia Plan Repeat H&H. Orthostatic blood pressure. Monitor heart rate and blood pressure. Telemetry ordered. Lovenox subcu discontinued. If further drop in H&H, will stop baby aspirin. GI is consulted Microbiology Past 72 Hours 11/18/21 18:57 Stool Stool Occult Blood (MARIE) - Final Occult Blood Positive 11/18/21 01:23 Mucosa - Nasopharyngeal Respiratory Panel (PCR) - Final 11/17/21 Unknown Urine, Random Legionella Antigen - Final 11/17/21 Unknown Urine, Random Streptococcus pneumoniae Antigen (M - Final 11/17/21 20:46 Nasal Secretion SARS-CoV-2 & FLU Antigen (Rapid) - Final Laboratory Results 11/17/21 20:47: Troponin I High Sens 99 H 11/17/21 20:47: Magnesium 1.6 11/18/21 00:20: Troponin I High Sens 99 H 11/18/21 02:43: Troponin I High Sens 90 H 11/18/21 06:20: Troponin I High Sens 84 H 11/18/21 06:20: Iron 14 L, Ferritin 213 11/18/21 06:26: WBC 13.1 H, RBC 2.66 L, Hgb 8.3 L, Hct 22.5 L, MCV 84.6, MCH 31.2, MCHC 36.9 H D, RDW Std Deviation 47.8 H, RDW Coeff of Alpa 15.5 H, Plt Count 647 H, MPV 8.3, Immature Gran % (Auto) 2.300 H, Neut % (Auto) 86.8 H, Lymph % (Auto) 4.4 L, [place] % (Auto) 5.9, Eos % (Auto) 0.5, Baso % (Auto) 0.1, Absolute Neuts (auto) 11.3 H, Absolute Lymphs (auto) 0.58 L, Nucleated RBC % 0, Differential Comment SCANNED 11/18/21 06:26: Sodium 127 L, Potassium 4.0, Chloride 94 L, Carbon Dioxide 25.0, Anion Gap 8, BUN 10, Creatinine 0.46 L, Estim Creat Clear Calc 39.90, Est GFR (MDRD) Af Amer 165, Est GFR (MDRD) Non-Af 136, BUN/Creatinine Ratio 21.6 H, Glucose 117 H, Calcium 8.0 L, Triglycerides 76, Cholesterol 122, LDL Cholesterol 59, VLDL Cholesterol 15, HDL Cholesterol 48, TSH 1.32 11/18/21 06:26: Cortisol Pending
[2021-11-18] MEDS: Atorvastatin Calcium 40 MG Tablet PO (21:22)
--- NOTE | 2021-11-18 21:39 | EKG12_ITS ---
Test Reason : DYSRHYTHMIA Blood Pressure : / mmHG Vent. Rate : 097 BPM Atrial Rate : 097 BPM P-R Int : 184 ms QRS Dur : 124 ms QT Int : 362 ms P-R-T Axes : 018 017 012 degrees QTc Int : 459 ms Normal sinus rhythm Right bundle branch block Abnormal ECG When compared with ECG of 06-AUG-2020 16:46, Previous ECG has undetermined rhythm, needs review Confirmed by JOSE CARRION, LUPE ([id number]), newspaper editor RUPERTO NICHOLE ([id number]) on 11/21/2021 11:14:00 AM Referred By: Cam Morales Confirmed By:LUPE GARCIA MD
[2021-11-18 21:40] LABS: Hematocrit 21.9 % (37-47); Hemoglobin 7.9 g/dL (12.0-15.0)
[2021-11-19] VITALS (23 sets, daily range): BP systolic 115–136; BP diastolic 50–70; PULSE 67–92; RESP 18–24; TEMP 36.2–37.3; O2SAT 90–95
[2021-11-19] MEDS: Lactated Ringers 500 ML 999 ML IV (01:53)
[2021-11-19] MEDS: Lactated Ringers 1,000 ML 100 ML IV (02:16)
[2021-11-19] MEDS: Levothyroxine 137 MCG Tablet PO (06:03)
[2021-11-19 06:35] LABS: Absolute Lymphocyte Count 0.73 X10^3/uL (0.83-4.51); Basophil# 0.02 X10^3/uL; Basophil% 0.1 % (0-1); Eosinophil# 0.02 X10^3/uL; Eosinophils% 0.1 % (0-5); Hemoglobin 6.9 g/dL (12.0-15.0); Lymphocyte # 0.73 X10^3/ul (0.83-4.51); Lymphocyte % 4.5 % (19-41); Mean Corp Hgb Conc 36.3 g/dL (32-36); Mean Corpuscular Hgb 30.9 pg (27.0-32.0); Mean Corpuscular Volume 85.2 fL (81-99); Mean Platelet Vol. 8.9 fl (6.2-12.0); Monocyte# 0.93 X10^3/uL; Monocyte% 5.8 % (0-10); NRBC Flagged by Analyzer 0.2 % (0-5); Neutrophil # 14.02 X10^3/uL (2.7-7.7); Neutrophil % 87.3 % (47-70); Platelet Count 618 K/mm3 (150-450); RBC Distribution Width CV 15.4 % (11.6-14.6); RBC Distribution Width SD 48.1 fl (35.1-43.9); RET-HE 25.7 pg (30-35); Red Blood Count 2.23 M/mm3 (4.2-5.4); Reticulocyte Count 2.28 % (0.5-1.5); White Blood Count 16.1 K/mm3 (4.4-11.0)
[2021-11-19 06:56] LABS: Anion Gap 8 (5-15); BUN 21 mg/dL (7-18); BUN/Creat Ratio 48.4 RATIO (10-20); Calcium,Total 7.6 mg/dL (8.5-10.1); Chloride 96 mmol/L (98-107); Creatinine, Serum 0.43 mg/dL (0.55-1.02); EST Glomerular Filtration Rate 147 mL/min (>60); Est Glom Filt Rate - Afr Amer 178 mL/min (>60); Glucose 131 mg/dL (74-106); Magnesium 2.1 mg/dL (1.6-2.6); Potassium 4.3 mmol/L (3.5-5.1); Sodium Level 128 mmol/L (136-145)
--- NOTE | 2021-11-19 08:03 | RAD_ITS ---
STUDY: X-RAY CHEST REASON FOR EXAM: Female, 81 years old. shortness of breath TECHNIQUE: Single AP portable view of the chest. COMPARISON: 11/17/2021 FINDINGS: No change in discoid atelectasis or scarring adjacent to the minor fissure the right lung. There is no demonstrated pleural abnormality. Normal size heart. Normal mediastinum and marco. Normal visualized pulmonary arteries. Normal visualized aortic arch and descending thoracic aorta. Normal visualized thoracic spine. Normal visualized ribs, clavicles, and shoulders. There is no demonstrated abnormality of the visualized soft tissue structures of the upper abdomen. RAD/Chest 1 View (Portable) IMPRESSION: No change from 11/17/2021. Electronically Signed: Harsha Davis MD at 8:33 EDT ,
--- NOTE | 2021-11-19 10:52 | EX.PCM.CONCC ---
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 Initiate mucolytic therapy with aggressive pulmonary toileting 2. Wean supplemental oxygen as tolerated 3. Continue antibiotics for now 4. Potential outpatient bronchoscopy IMPRESSIONS: 1. Acute hypoxic respiratory failure of unclear etiology Patient does have a leukocytosis with scattered infiltrates bilaterally. 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 Patient also has significant narrowing of the right pulmonary tree. Some concern patient may be having poor pulmonary toileting leading to acute worsening in oxygen saturations. Patient reportedly has been followed at the [facility] with CT scans and PET scans that show no residual cancer. Patient may ultimately need a bronchoscopy for evaluation of airway architecture. In the interim, will initiate mucolytic and vest therapy for aggressive pulmonary toileting. If this is related to the mucous plugging, anticipate rapid improvement. Cultures to this point have been negative. PET scan would likely not be helpful as the differential would include infection and malignancy. 2. Acute blood loss anemia Patient to be transfused today. Hemoglobin low at 6.9. Patient has received some volume resuscitation, but does not clinically appear to be volume overloaded. Patient does have a positive guaiac stool. Defer to hospitalist, but GI evaluation may be indicated. Reticulocyte panel is suggestive that the patient is trying to compensate meaning that this would likely not be related to any chemo or radiation therapy or bone marrow failure. 3. 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 Volume restriction is likely adequate. No indication for 3% saline from my perspective. Could attempt to obtain information from [facility] on patient's current malignant burden. 4. Spinal stenosis/compression fracture/epilepsy/hypertension/chronic pain syndrome/advanced age/hypothyroidism Complicates care, management, recovery and prognosis. Patient does have an element of kyphosis that may be adding to problem #1. Patient is on her baseline medications and appear to be tolerating this well. Patient states her pain is well controlled. Blood pressures have been adequate. No indication for change in medications from my perspective. Okay to continue with metoprolol and Norvasc. HPI Consult Data Date of Consult: 11/19/21 HPI Narrative HPI Narrative: ANTOLIN GIPSON is an 81 F, with past medical history listed below, who presented to [facility] on 11/17/2021 secondary to 3 weeks of progressive shortness of breath and productive cough. Patient had reported a waxing and waning course with shortness of breath on exertion and two-pillow orthopnea. Patient reported a wet, but nonproductive cough, but denied any fevers or chills. Patient did not have any allergy type symptoms such as sore throat, rhinorrhea or itchy eyes. Patient had denied any chest pain. In the ER, patient was afebrile, but tachypneic at 24 breaths/min and hypertensive at 181/70. Patient was noted to be 87% on room air and was placed on 2 L nasal cannula. Laboratory work-up showed a white blood cell count of 15.7, hemoglobin of 9.8 and a platelet count of 954. Patient's D-dimer was elevated, but coagulation studies were within normal limits. Chemistry work-up was relatively unremarkable except for a low sodium at 125, elevated glucose at 150 and a troponin of 100. BNP was slightly elevated at 131. Chest x-ray showed chronic pulmonary changes with a T11 spinal compression fracture. This was subsequently followed with a CTA of the chest showing no PE with multiple bilateral alveolar infiltrates, prominent kyphosis and cardiomegaly. Personal review of this CT from my perspective shows narrowing of the right middle lobe. COVID and influenza testing were both negative. Patient was given Levaquin and admitted to the hospital. Over the course of the hospitalization, patient's oxygen requirements have increased significantly. Patient is currently requiring 6 L to maintain saturations. Patient is positive about 1300 cc over the course of the hospitalization. However, given increased oxygen requirements, a pulmonary consult was obtained. 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 There was reported metastasis to the lung on the right. This was primarily treated at the [facility]. Patient did receive radiation therapy to the chest on the right. Patient states that she has been told that she had some narrowing of her esophagus, but to her knowledge has never had a bronchoscopy. Patient also carries a diagnosis of melanoma, but believes that it was treated. From a pulmonary perspective, patient has never been a smoker. Patient denies any noxious exposures. No pet or travel history. Patient has not required supplemental oxygen previously. Patient does have a history of seizures controlled with Keppra. No aspiration event was noted by her . Review of systems otherwise negative from a constitutional, HEENT, respiratory, cardiovascular, GI, genitourinary, musculoskeletal, skin, neurologic, psychiatric and hematologic system unless stated above. [facility] Medical History Anemia Cancer Generalized idiopathic epilepsy and epileptic syndromes, not intractable, without status epilepticus History of femur fracture Hx of fall Hyperlipidemia Hypertension Hypertension Hypothyroid Metastatic bone cancer Non-smoker Osteoporosis Rheumatoid arthritis Seizure disorder Seizures Squamous cell carcinoma of mandible Home Medications amlodipine 10 mg PO DAILY 08/06/20 [History Last Taken 08/10/20 11:19] levothyroxine 137 mcg PO DAILY 08/06/20 [History Last Taken 08/10/20 06:49] metoprolol succinate 100 mg PO DAILY 08/06/20 [History Last Taken 08/09/20 21:47] fexofenadine 60 mg tablet 60 mg PO DAILY PRN tab 02/14/21 [History Last Taken Unknown] levetiracetam 750 mg tablet 750 mg PO BID #60 tab 06/19/21 [Rx Last Taken Unknown] hydrocodone-acetaminophen 1 tab PO Q4H PRN 11/05/21 [History Last Taken Unknown] Allergy/AdvReac Type Severity Reaction Status Date / Time Penicillins Allergy Rash Verified 11/05/21 00:55 oxycodone [From OxyContin] AdvReac Vomiting Verified 11/05/21 00:55 sulfamethoxazole AdvReac Vomiting Verified 11/05/21 00:55 [From Bactrim] trimethoprim [From Bactrim] AdvReac Vomiting Verified 11/05/21 00:55 Family History Mother Cerebral aneurysm Brother Cerebral aneurysm Father Myocardial infarction Surgical History History of appendectomy History of cholecystectomy History of hysterectomy History of lumpectomy History of oral surgery Social History household members: spouse Smoking Status: Never smoker Electronic Cigarette Use: not used second hand exposure: Yes alcohol intake: never substance use type: does not use ROS ROS Narrative See HPI Physical Exam Const alert, oriented x3, no apparent distress and average body habitus General Appearance: cooperative, well kempt and well developed Nutritional Appearance: overweight HEENT normocephalic and head/scalp atraumatic Eyes PERRL, EOMs intact bilaterally and conjunctivae normal Neck nuchal rigidity, supple, no JVD, thyroid normal and no carotid bruits General: trachea midline Chest inspection of chest normal Chest Narrative: Kyphosis noted Chest: symmetrical chest wall rise and crepitus Resp normal respiratory effort, no retractions and no use of accessory muscles Resp Narrative: Scattered rales are noted over the patient's lower lung reyes bilaterally Auscultation: Negative for rhonchi or wheezes Cardio regular rate, regular rhythm, S1 normal heart sound, S2 normal heart sound, no murmurs, no rub and no gallops GI normal to inspection, nondistended, normoactive bowel sounds, soft to palpation, non-tender and non-distended Extremity no clubbing, cyanosis or edema Skin no rashes or lesions noted General Skin Exam: no breakdown Neuro oriented x3, CN's II-XII intact bilaterally, no focal motor deficits and no sensory deficits noted Sensorium / Orientation: awake and alert Speech: speech normal Psych affect normal Lab / Micro Data Result Diagrams: 11/19/21 05:50 11/19/21 05:50 Labs: Laboratory Results - last 24 hr 11/18/21 06:20: Iron 14 L, Ferritin 213 11/18/21 21:31: Hgb 7.9 L, Hct 21.9 L 11/19/21 05:50: WBC 16.1 H, RBC 2.23 L, Hgb 6.9 L, Hct 19.0 L, MCV 85.2, MCH 30.9, MCHC 36.3 H, RDW Std Deviation 48.1 H, RDW Coeff of Alpa 15.4 H, Plt Count 618 H, MPV 8.9, Immature Gran % (Auto) 2.200 H, Neut % (Auto) 87.3 H, Lymph % (Auto) 4.5 L, [place] % (Auto) 5.8, Eos % (Auto) 0.1, Baso % (Auto) 0.1, Absolute Neuts (auto) 14.0 H, Absolute Lymphs (auto) 0.73 L, Nucleated RBC % 0.2, Retic Count 2.28 H, Immature Retic Fraction 43.80 H, Retic Hgb Equivalent 25.7 L 11/19/21 05:50: Sodium 128 L, Potassium 4.3, Chloride 96 L, Carbon Dioxide 24.0, Anion Gap 8, BUN 21 H, Creatinine 0.43 L, Estim Creat Clear Calc 39.90, Est GFR (MDRD) Af Amer 178, Est GFR (MDRD) Non-Af 147, BUN/Creatinine Ratio 48.4 H, Glucose 131 H, Calcium 7.6 L, Magnesium 2.1 11/19/21 08:00: Blood Type A POSITIVE, Antibody Screen NEGATIVE, Crossmatch See Detail Micro: Microbiology 11/18/21 18:57 Stool Stool Occult Blood (MARIE) - Final Occult Blood Positive Radiology Impression Echocardiogram 11/18/21 05:55 Interpretation Summary The estimated ejection fraction is 55-60 %. Normal LV systolic function No previous echo to compare Ordering Physician: Cam Morales Referring Physician: FRANKIE DAWSON Performed By: Guerita Montemayor, RDCS, RVT Chest X-Ray 11/19/21 08:03 IMPRESSION: No change from 11/17/2021. Electronically Signed: Harsha Davis MD at 8:33 EDT , Charges/Coding Visit Charges Inpatient E&M: 08121 Init Hosp L3
--- NOTE | 2021-11-19 11:06 | EX.PCM.CON.G ---
HPI Consult Data Date of Consult: 11/19/21 HPI Narrative HPI Narrative: ANTOLIN GIPSON, is a 81 F who presents progressive shortness of breath and weakness. 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 It showed multiple bilateral extensive alveolar infiltrates consistent with multifocal pneumonia. Her work-up thus far has been negative for community-acquired or hospital-acquired pneumonia and Covid.She had elevated troponins and she was started on heparin therapy. She had multiple episodes of cramping and bloody stools. I was called to see her due to a possible GI bleed and worsening anemia.When she came into the hospital her hemoglobin was almost 13 and this morning it is 6.9. She is scheduled to get 2 units of packed red blood cells. However her oxygen requirements have increased to 7 8 L to maintain oxygen saturation level above 90%. [facility] Medical History (Updated 11/19/21 @ 11:[address] Garcias Friend, ) Anemia Cancer Generalized idiopathic epilepsy and epileptic syndromes, not intractable, without status epilepticus History of femur fracture Hx of fall Hyperlipidemia Hypertension Hypertension Hypothyroid Metastatic bone cancer Non-smoker Osteoporosis Rheumatoid arthritis Seizure disorder Seizures Squamous cell carcinoma of mandible Home Medications amlodipine 10 mg PO DAILY 08/06/20 [History Last Taken 08/10/20 11:19] levothyroxine 137 mcg PO DAILY 08/06/20 [History Last Taken 08/10/20 06:49] metoprolol succinate 100 mg PO DAILY 08/06/20 [History Last Taken 08/09/20 21:47] fexofenadine 60 mg tablet 60 mg PO DAILY PRN tab 02/14/21 [History Last Taken Unknown] levetiracetam 750 mg tablet 750 mg PO BID #60 tab 06/19/21 [Rx Last Taken Unknown] hydrocodone-acetaminophen 1 tab PO Q4H PRN 11/05/21 [History Last Taken Unknown] Allergy/AdvReac Type Severity Reaction Status Date / Time Penicillins Allergy Rash Verified 11/05/21 00:55 oxycodone [From OxyContin] AdvReac Vomiting Verified 11/05/21 00:55 sulfamethoxazole AdvReac Vomiting Verified 11/05/21 00:55 [From Bactrim] trimethoprim [From Bactrim] AdvReac Vomiting Verified 11/05/21 00:55 Family History Mother Cerebral aneurysm Brother Cerebral aneurysm Father Myocardial infarction Surgical History History of appendectomy History of cholecystectomy History of hysterectomy History of lumpectomy History of oral surgery Social History household members: spouse Smoking Status: Never smoker Electronic Cigarette Use: not used second hand exposure: Yes alcohol intake: never substance use type: does not use ROS Respiratory/Chest Respiratory/Chest: Reports dyspnea on exertion, restlessness and shortness of breath with exertion Gastrointestinal Gastrointestinal: Reports hematochezia, melena and rectal bleeding Physical Exam Const alert General Appearance: cooperative Orientation / Consciousness: oriented to person HEENT hearing grossly normal bilaterally Head and Scalp: normal to inspection Face and Sinus: face symmetric Nose: external nose normal Mouth: oral and palatal mucosa normal Eyes conjunctivae normal General Eye: normal appearance of both eyes Neck full ROM General: normal visual inspection Lymph Lymphatic: no lymphadenopathy noted Chest inspection of chest normal and palpation of chest normal Chest: symmetrical chest wall rise Resp normal respiratory effort Effort and Inspection: able to speak in complete sentences Cardio regular rate GI non-distended Percussion: normal to percussion Rectal Exam: deferred Neuro Speech: speech normal Gait (Neuro): normal gait Lab / Micro Data Result Diagrams: 11/19/21 05:50 11/19/21 05:50 Labs: Laboratory Results - last 24 hr 11/18/21 06:20: Iron 14 L, Ferritin 213 11/18/21 21:31: Hgb 7.9 L, Hct 21.9 L 11/19/21 05:50: WBC 16.1 H, RBC 2.23 L, Hgb 6.9 L, Hct 19.0 L, MCV 85.2, MCH 30.9, MCHC 36.3 H, RDW Std Deviation 48.1 H, RDW Coeff of Alpa 15.4 H, Plt Count 618 H, MPV 8.9, Immature Gran % (Auto) 2.200 H, Neut % (Auto) 87.3 H, Lymph % (Auto) 4.5 L, [place] % (Auto) 5.8, Eos % (Auto) 0.1, Baso % (Auto) 0.1, Absolute Neuts (auto) 14.0 H, Absolute Lymphs (auto) 0.73 L, Nucleated RBC % 0.2, Retic Count 2.28 H, Immature Retic Fraction 43.80 H, Retic Hgb Equivalent 25.7 L 11/19/21 05:50: Sodium 128 L, Potassium 4.3, Chloride 96 L, Carbon Dioxide 24.0, Anion Gap 8, BUN 21 H, Creatinine 0.43 L, Estim Creat Clear Calc 39.90, Est GFR (MDRD) Af Amer 178, Est GFR (MDRD) Non-Af 147, BUN/Creatinine Ratio 48.4 H, Glucose 131 H, Calcium 7.6 L, Magnesium 2.1 11/19/21 08:00: Blood Type A POSITIVE, Antibody Screen NEGATIVE, Crossmatch See Detail Micro: Microbiology 11/18/21 18:57 Stool Stool Occult Blood (MARIE) - Final Occult Blood Positive Radiology Impression Echocardiogram 11/18/21 05:55 Interpretation Summary The estimated ejection fraction is 55-60 %. Normal LV systolic function No previous echo to compare Ordering Physician: Cam Morales Referring Physician: FRANKIE DAWSON Performed By: Guerita Montemayor, RDCS, RVT Chest X-Ray 11/19/21 08:03 IMPRESSION: No change from 11/17/2021. Electronically Signed: Harsha Davis MD at 8:33 EDT , Assessment & Plan Assessment/Plan (1) Anemia: QUALIFIERS: Anemia type: unspecified type Qualified Code(s): D64.9 - Anemia, unspecified PLAN: The differential diagnosis for her worsening anemia is likely GI bleed from an upper or lower source. She did get heparin and she got aspirin therapy.She is on a PPI drip. She was going to receive 2 units of packed red blood cells. I will give her 1 dose of Lasix now and a dose of Lasix in between due to her oxygen requirements. (2) GI bleed: PLAN: I would like to see her medically stable from a oxygen requirement standpoint prior to undergoing endoscopy. This is because she would likely require more oxygen with sedation and be more likely to get intubated during the procedure. Recommend to watch her hemoglobin for now. When her oxygen requirements decreased we can locate the site of bleeding. The patient and the patient's family were okay with this plan at this time. Charges/Coding Visit Charges Inpatient E&M: 34944 Init Hosp L3
[2021-11-19] MEDS: Furosemide 20 MG/2 ML VIAL IV ×2 (11:10→15:36)
[2021-11-19] MEDS: 0.9% Saline Lock 10 ML Syringe IV ×5 (11:10→21:47)
[2021-11-19] MEDS: Metoprolol(XL)Succ 100 MG Tablet PO (11:17)
[2021-11-19] MEDS: amLODIPine 10 MG Tablet PO (11:17)
[2021-11-19] MEDS: levETIRAcetam 750 MG Tablet PO ×2 (11:17→21:48)
[2021-11-19] MEDS: guaiFENesin 1,200 MG Tablet 1200 MG PO ×2 (11:17→21:48)
--- NOTE | 2021-11-19 15:19 | PN_ITS ---
Subjective Subjective Patient was seen and examined today, I talked to her who was in the room today. Also talked with her daughter who is also in her room. Patient's hemoglobin dropped today to 6.9, I am not sure what the etiology of the presumed bleeding is at this time, GI saw the patient this morning, I also ask pulmonary medicine to see the patient regarding the worsening of her oxygen requirement. Pulmonary medicine indicated to me that she may ultimately need a bronchoscopy. Patient's white blood cell count remains elevated today. Objective Data Objective Data Vital Signs: Vital Signs Temp Pulse Resp BP Pulse Ox 98.1 F 89 20 H 115/53 L 90 11/19/21 15:09 11/19/21 15:09 11/19/21 15:09 11/19/21 15:09 11/19/21 15:09 Oxygen Flow Rate (L/min) 6 Oxygen Delivery Method Nasal Cannula Weight: 73 kg Body Mass Index (BMI) 25.8 Intake & Output: Intake and Output for Last 24 Hours 11/17/21 11/18/21 11/19/21 23:59 23:59 23:59 Intake Total 385 / 385 2420.67 / 2420.67 Output Total 550 / 550 725 / 725 Balance -165 / -165 1695.67 / 1695.67 Lab / Micro Data Result Diagrams: 11/19/21 05:50 11/19/21 05:50 Labs: Laboratory Results - last 24 hr 11/18/21 06:20: Iron 14 L, Ferritin 213 11/18/21 21:31: Hgb 7.9 L, Hct 21.9 L 11/19/21 05:50: WBC 16.1 H, RBC 2.23 L, Hgb 6.9 L, Hct 19.0 L, MCV 85.2, MCH 30.9, MCHC 36.3 H, RDW Std Deviation 48.1 H, RDW Coeff of Alpa 15.4 H, Plt Count 618 H, MPV 8.9, Immature Gran % (Auto) 2.200 H, Neut % (Auto) 87.3 H, Lymph % (Auto) 4.5 L, [place] % (Auto) 5.8, Eos % (Auto) 0.1, Baso % (Auto) 0.1, Absolute Neuts (auto) 14.0 H, Absolute Lymphs (auto) 0.73 L, Nucleated RBC % 0.2, Retic Count 2.28 H, Immature Retic Fraction 43.80 H, Retic Hgb Equivalent 25.7 L 11/19/21 05:50: Sodium 128 L, Potassium 4.3, Chloride 96 L, Carbon Dioxide 24.0, Anion Gap 8, BUN 21 H, Creatinine 0.43 L, Estim Creat Clear Calc 39.90, Est GFR (MDRD) Af Amer 178, Est GFR (MDRD) Non-Af 147, BUN/Creatinine Ratio 48.4 H, Glucose 131 H, Calcium 7.6 L, Magnesium 2.1 11/19/21 08:00: Blood Type A POSITIVE, Antibody Screen NEGATIVE, Crossmatch See Detail Micro: Microbiology 11/18/21 18:57 Stool Stool Occult Blood (MARIE) - Final Occult Blood Positive 11/18/21 01:23 Mucosa - Nasopharyngeal Respiratory Panel (PCR) - Final 11/17/21 Unknown Urine, Random Legionella Antigen - Final 11/17/21 Unknown Urine, Random Streptococcus pneumoniae Antigen (M - Final 11/17/21 20:46 Nasal Secretion SARS-CoV-2 & FLU Antigen (Rapid) - Final Radiography Diagnostic Testing: Radiology Impression Chest X-Ray 11/19/21 08:03 IMPRESSION: No change from 11/17/2021. Electronically Signed: Harsha Davis MD at 8:33 EDT , Physical Exam Narrative alert, oriented x3, no apparent distress and average body habitus General Appearance: cooperative, well kempt and well developed Orientation / Consciousness: awake, oriented to person, oriented to place and oriented to time HEENT normocephalic and head/scalp atraumatic Eyes PERRL, EOMs intact bilaterally and conjunctivae normal Neck nuchal rigidity, supple, no JVD, thyroid normal and no carotid bruits General: trachea midline Resp normal respiratory effort, no retractions and no use of accessory muscles Resp Narrative: Scattered inspiratory rales are noted over the patient's lower lung reyes bilaterally Auscultation: Negative for rhonchi or wheezes Cardio regular rate, regular rhythm, S1 normal heart sound, S2 normal heart sound, no murmurs, no rub and no gallops GI normal to inspection, nondistended, normoactive bowel sounds, soft to palpation, non-tender and non-distended Extremity no clubbing, cyanosis or edema Skin no rashes or lesions noted General Skin Exam: no breakdown Neuro oriented x3, CN's II-XII intact bilaterally, no focal motor deficits and no sensory deficits noted Sensorium / Orientation: awake and alert Speech: speech normal Psych affect normal Assessment & Plan Assessment/Plan (1) GI bleed: (2) Community acquired pneumonia: QUALIFIERS: Laterality: unspecified laterality Qualified Code(s): J18.9 - Pneumonia, unspecified organism PLAN: 1. Acute bilateral pneumonia-probably bacterial in nature, continue levofloxacin, pulmonary medicine is participating in care #2 acute hypoxic respiratory failure-continue to monitor pulse ox, at the time of my examination patient was on 6 L via nasal cannula #3 spinal stenosis and recent compression fracture of [id number] will be seen by PT and OT, patient may need to consider going to an extended care facility for rehab services at the time of discharge, she was recently in the hospital here and declined to go to an extended care facility for rehab services. 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 Charges/Coding Visit Charges Inpatient E&M: 17614 Subs Hosp L2
[2021-11-19] MEDS: levoFLOXacin IV 750 MG/150 ML BAG 100 MG IV (21:42)
[2021-11-19] MEDS: Atorvastatin Calcium 40 MG Tablet PO (21:48)
[2021-11-20] VITALS (14 sets, daily range): BP systolic 116–137; BP diastolic 54–61; PULSE 69–94; RESP 18–24; TEMP 36.4–36.9; O2SAT 89–94
[2021-11-20] MEDS: Levothyroxine 137 MCG Tablet PO (05:10)
[2021-11-20 06:06] LABS: Absolute Lymphocyte Count 0.63 X10^3/uL (0.83-4.51); Absolute Neutrophil Count 12.1 X10^3/uL (2.0-7.7); Basophil# 0.04 X10^3/uL; Basophil% 0.3 % (0-1); Eosinophil# 0.05 X10^3/uL; Eosinophils% 0.4 % (0-5); Hematocrit 24.6 % (37-47); Hemoglobin 8.5 g/dL (12.0-15.0); Lymphocyte # 0.63 X10^3/ul (0.83-4.51); Lymphocyte % 4.5 % (19-41); Mean Corp Hgb Conc 34.6 g/dL (32-36); Mean Corpuscular Hgb 29.6 pg (27.0-32.0); Mean Corpuscular Volume 85.7 fL (81-99); Mean Platelet Vol. 8.3 fl (6.2-12.0); Monocyte# 0.75 X10^3/uL; Monocyte% 5.4 % (0-10); NRBC Flagged by Analyzer 0.2 % (0-5); Neutrophil # 12.05 X10^3/uL (2.7-7.7); Neutrophil % 86.1 % (47-70); Platelet Count 481 K/mm3 (150-450); RBC Distribution Width CV 16.8 % (11.6-14.6); RBC Distribution Width SD 52.1 fl (35.1-43.9); Red Blood Count 2.87 M/mm3 (4.2-5.4)
[2021-11-20] MEDS: Ipratropium/Albuterol Sulfate 3 ML AMPUL.NEB INHALATION ×2 (06:42→19:48)
[2021-11-20] MEDS: amLODIPine 10 MG Tablet PO (09:45)
[2021-11-20] MEDS: Metoprolol(XL)Succ 100 MG Tablet PO (09:45)
[2021-11-20] MEDS: levETIRAcetam 750 MG Tablet PO ×2 (09:45→21:12)
[2021-11-20] MEDS: guaiFENesin 1,200 MG Tablet 1200 MG PO ×2 (09:45→21:12)
[2021-11-20] MEDS: Acetaminophen 325 MG Tablet 650 MG PO ×2 (10:37→18:21)
--- NOTE | 2021-11-20 10:59 | CASEMGMT ---
Addendum entered by Tika Lynch 11/20/21 12:03: SW in to speak with pt. SW updated pt that TCU can accept pt Saturday. Pt states understanding. Original Note: Social Work Note SW received call from Diane with TCU stating TCU can accept pt Saturday. SW to continue to follow. Tika Lynch [employer] ADMINISTRATOR
--- NOTE | 2021-11-20 11:33 | PN.CC_ITS ---
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 Continue mucolytic therapy with aggressive pulmonary toileting 2. Wean supplemental oxygen as tolerated 3. Continue antibiotics for now 4. Potential inpatient bronchoscopy IMPRESSIONS: 1. Acute hypoxic respiratory failure of unclear etiology Patient does have a leukocytosis with scattered infiltrates bilaterally. 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 Patient also has significant narrowing of the right pulmonary tree. Some concern patient may be having poor pulmonary toileting leading to acute worsening in oxygen saturations. Patient reportedly has been followed at the [facility] with CT scans and PET scans that show no residual cancer. Will attempt conservative therapy with aggressive pulmonary toileting for another 24 hours. If patient continues to have issues, may need to repeat CT scan and proceed with bronchoscopy. Removal of secretions with bronchoscopy will be temporary, but may improve oxygenation and help with diagnostic criteria. Risk of desaturation with bronchoscopy would be high. Could not exclude the need for intubation if retained secretions not the etiology for hypoxia. 2. Acute blood loss anemia Patient to be transfused today. Hemoglobin low at 6.9. Patient has received some volume resuscitation, but does not clinically appear to be volume overloaded. Patient does have a positive guaiac stool. GI has been consulted, but would like to stabilize patient further before any acute interventions. Reticulocyte panel is suggestive that the patient is trying to compensate meaning that this would likely not be related to any chemo or radiation therapy or bone marrow failure. 3. 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 Volume restriction is likely adequate. No indication for 3% saline from my perspective. Could attempt to obtain information from [facility] on patient's current malignant burden. 4. Spinal stenosis/compression fracture/epilepsy/hypertension/chronic pain syndrome/advanced age/hypothyroidism Complicates care, management, recovery and prognosis. Patient does have an element of kyphosis that may be adding to problem #1. Patient is on her baseline medications and appear to be tolerating this well. Patient states her pain is well controlled. Blood pressures have been adequate. No indication for change in medications from my perspective. Okay to continue with metoprolol and Norvasc. Subjective Subjective Patient did okay overnight. Patient states that she has used the vest, but is not having much production. Patient was as low as 6 L/min this morning, but required 14 L with ambulating to the bathroom. No hemoptysis is been reported. Objective Data Objective Data Vital Signs: Vital Signs Temp Pulse Resp BP Pulse Ox 36.7 C 83 18 137/58 H 94 11/20/21 10:00 11/20/21 10:00 11/20/21 10:00 11/20/21 10:00 11/20/21 10:00 Oxygen Flow Rate (L/min) 8 Oxygen Delivery Method Room Air Weight: 73.6 kg Body Mass Index (BMI) 25.8 Intake & Output: Intake and Output for Last 24 Hours 11/18/21 11/19/21 11/20/21 23:59 23:59 23:59 Intake Total 385 / 385 3470.67 / 3470.67 598.17 / 598.17 Output Total 550 / 550 3225 / 3225 300 / 300 Balance -165 / -165 245.67 / 245.67 298.17 / 298.17 Lab / Micro Data Result Diagrams: 11/20/21 05:54 11/19/21 05:50 Labs: Laboratory Results - last 24 hr 11/18/21 06:26: Cortisol 22.30 11/19/21 08:00: Blood Type A POSITIVE, Antibody Screen NEGATIVE, Crossmatch See Detail 11/20/21 05:54: WBC 14.0 H, RBC 2.87 L, Hgb 8.5 L, Hct 24.6 L, MCV 85.7, MCH 29.6, MCHC 34.6, RDW Std Deviation 52.1 H, RDW Coeff of Alpa 16.8 H, Plt Count 481 H, MPV 8.3, Immature Gran % (Auto) 3.300 H, Neut % (Auto) 86.1 H, Lymph % (Auto) 4.5 L, [place] % (Auto) 5.4, Eos % (Auto) 0.4, Baso % (Auto) 0.3, Absolute Neuts (auto) 12.1 H, Absolute Lymphs (auto) 0.63 L, Nucleated RBC % 0.2 Micro: Microbiology 11/18/21 18:57 Stool Stool Occult Blood (MARIE) - Final Occult Blood Positive 11/18/21 01:23 Mucosa - Nasopharyngeal Respiratory Panel (PCR) - Final 11/17/21 Unknown Urine, Random Legionella Antigen - Final 11/17/21 Unknown Urine, Random Streptococcus pneumoniae Antigen (M - Final 11/17/21 20:46 Nasal Secretion SARS-CoV-2 & FLU Antigen (Rapid) - Final Physical Exam Const alert, oriented x3, no apparent distress and average body habitus General Appearance: cooperative, well kempt and well developed Nutritional Appearance: overweight HEENT normocephalic and head/scalp atraumatic Eyes PERRL, EOMs intact bilaterally and conjunctivae normal Neck nuchal rigidity, supple, no JVD, thyroid normal and no carotid bruits General: trachea midline Chest inspection of chest normal Chest Narrative: Kyphosis noted Chest: symmetrical chest wall rise and crepitus Resp normal respiratory effort, no retractions and no use of accessory muscles Resp Narrative: Scattered rales are noted over the patient's lower lung reyes bilaterally Auscultation: Negative for rhonchi or wheezes Cardio regular rate, regular rhythm, S1 normal heart sound, S2 normal heart sound, no murmurs, no rub and no gallops GI normal to inspection, nondistended, normoactive bowel sounds, soft to palpation, non-tender and non-distended Extremity no clubbing, cyanosis or edema Skin no rashes or lesions noted General Skin Exam: no breakdown Neuro oriented x3, CN's II-XII intact bilaterally, no focal motor deficits and no sensory deficits noted Sensorium / Orientation: awake and alert Speech: speech normal Psych affect normal Charges/Coding Visit Charges Inpatient E&M: 47401 Subs Hosp L3
--- NOTE | 2021-11-20 13:59 | PN.HOSP_ITS ---
Subjective Subjective Feeling well despite increased oxygen requirements. Objective Data Objective Data Vital Signs: Vital Signs Temp Pulse Resp BP Pulse Ox 36.7 C 83 18 137/58 H 94 11/20/21 10:00 11/20/21 10:00 11/20/21 10:00 11/20/21 10:00 11/20/21 10:00 Oxygen Flow Rate (L/min) 8 Oxygen Delivery Method High Flow Weight: 73.6 kg Body Mass Index (BMI) 25.8 Intake & Output: Intake and Output for Last 24 Hours 11/18/21 11/19/21 11/20/21 23:59 23:59 23:59 Intake Total 385 / 385 3470.67 / 3470.67 598.17 / 598.17 Output Total 550 / 550 3225 / 3225 300 / 300 Balance -165 / -165 245.67 / 245.67 298.17 / 298.17 Lab / Micro Data Result Diagrams: 11/20/21 05:54 11/19/21 05:50 Labs: Laboratory Results - last 24 hr 11/18/21 06:26: Cortisol 22.30 11/19/21 08:00: Blood Type A POSITIVE, Antibody Screen NEGATIVE, Crossmatch See Detail 11/20/21 05:54: WBC 14.0 H, RBC 2.87 L, Hgb 8.5 L, Hct 24.6 L, MCV 85.7, MCH 29.6, MCHC 34.6, RDW Std Deviation 52.1 H, RDW Coeff of Alpa 16.8 H, Plt Count 481 H, MPV 8.3, Immature Gran % (Auto) 3.300 H, Neut % (Auto) 86.1 H, Lymph % (Auto) 4.5 L, [place] % (Auto) 5.4, Eos % (Auto) 0.4, Baso % (Auto) 0.3, Absolute Neuts (auto) 12.1 H, Absolute Lymphs (auto) 0.63 L, Nucleated RBC % 0.2 Micro: Microbiology 11/18/21 18:57 Stool Stool Occult Blood (MARIE) - Final Occult Blood Positive 11/18/21 01:23 Mucosa - Nasopharyngeal Respiratory Panel (PCR) - Final 11/17/21 Unknown Urine, Random Legionella Antigen - Final 11/17/21 Unknown Urine, Random Streptococcus pneumoniae Antigen (M - Final 11/17/21 20:46 Nasal Secretion SARS-CoV-2 & FLU Antigen (Rapid) - Final Physical Exam Const alert and no apparent distress Resp normal respiratory effort and no retractions Resp Narrative: coarse BS bilatearlly Cardio regular rate, regular rhythm, S1 normal heart sound and S2 normal heart sound GI normal to inspection, nondistended, normoactive bowel sounds, soft to palpation, non-tender and non-distended Extremity normal to inspection Assessment & Plan Assessment/Plan (1) GI bleed: QUALIFIERS: GI bleed type/associated pathology: unspecified gastrointestinal hemorrhage type Qualified Code(s): K92.2 - Gastrointestinal hemorrhage, unspecified (2) Community acquired pneumonia: QUALIFIERS: Laterality: unspecified laterality Qualified Code(s): J18.9 - Pneumonia, unspecified organism PLAN: 1. Acute bilateral pneumonia probably bacterial in nature, continue levofloxacin, pulmonary medicine is participating in care on LVQ 2. acute hypoxic respiratory failure 2/2 pneumonia +/- radiation fibrosis possible inpatient bronch pulm following 3. acute blood loss anemia s/p 1 unit 2/2 GIB 4. GI bleed seen by GI. hold on endoscopy until respiratory status stabilized on pantoprazole 5. Chronic issues--complicates care and recovery * spinal stenosis and recent compression fracture of [id number] will be seen by PT and OT, patient may need to consider going to an extended care facility for rehab services at the time of discharge, she was recently in the hospital here and declined to go to an extended care facility for rehab services. 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 VTE prophylaxis: SCDs Charges/Coding Visit Charges Inpatient E&M: 34497 Subs Hosp L2
--- NOTE | 2021-11-20 15:16 | CHAPLAIN ---
Type of Pastoral Visit _x__ Initial Visit ___ Follow-up Visit ___ On-call Visit ___ General Patient Visit ___ Spiritual Assessment ___ Family Conference ___ Bereavement ___ Rapid Response ___ Code Blue ___ Other (describe below) Pastoral Care Referral From _x__ Patient ___ Family ___ Nurse ___ Physician ___ Enrollment Eligibility Representative ___ Mechanical Product Design Engineer ___ Other (describe below) Sacrament/Intervention _x__ Active listening ___ Anointing ___ Christianity ___ Bereavement ___ Communion ___ Ella exploration ___ ___ Life review _x__ Prayer ___ Reconciliation ___ Sacrament of Sick _x__ Supportive presence ___ Wedding ___ Other (describe below) Pastoral Comments patient has been admitted here before and has requested spiritual care support again; SO is with pt in the room; pt acknowledges that this episode she is worse shape; pt welcomes the support and prayers
--- NOTE | 2021-11-20 17:27 | PN_ITS ---
Subjective Subjective She is still short of breath. She is requiring supplemental oxygen. She is tolerating a diet. Objective Data Objective Data Vital Signs: Vital Signs Temp Pulse Resp BP Pulse Ox 98.0 F 80 18 137/58 H 94 11/20/21 10:00 11/20/21 13:59 11/20/21 10:00 11/20/21 10:00 11/20/21 10:00 Oxygen Flow Rate (L/min) 8 Oxygen Delivery Method High Flow Weight: 162 lb 4.163 oz Body Mass Index (BMI) 25.8 Intake & Output: Intake and Output for Last 24 Hours 11/18/21 11/19/21 11/20/21 23:59 23:59 23:59 Intake Total 385 / 385 3470.67 / 3470.67 598.17 / 598.17 Output Total 550 / 550 3225 / 3225 300 / 300 Balance -165 / -165 245.67 / 245.67 298.17 / 298.17 Lab / Micro Data Result Diagrams: 11/20/21 05:54 11/19/21 05:50 Labs: Laboratory Results - last 24 hr 11/18/21 06:26: Cortisol 22.30 11/19/21 08:00: Crossmatch See Detail 11/20/21 05:54: WBC 14.0 H, RBC 2.87 L, Hgb 8.5 L, Hct 24.6 L, MCV 85.7, MCH 29.6, MCHC 34.6, RDW Std Deviation 52.1 H, RDW Coeff of Alpa 16.8 H, Plt Count 481 H, MPV 8.3, Immature Gran % (Auto) 3.300 H, Neut % (Auto) 86.1 H, Lymph % (Auto) 4.5 L, [place] % (Auto) 5.4, Eos % (Auto) 0.4, Baso % (Auto) 0.3, Absolute Neuts (auto) 12.1 H, Absolute Lymphs (auto) 0.63 L, Nucleated RBC % 0.2 Micro: Microbiology 11/18/21 18:57 Stool Stool Occult Blood (MARIE) - Final Occult Blood Positive 11/18/21 01:23 Mucosa - Nasopharyngeal Respiratory Panel (PCR) - Final 11/17/21 Unknown Urine, Random Legionella Antigen - Final 11/17/21 Unknown Urine, Random Streptococcus pneumoniae Antigen (M - Final 11/17/21 20:46 Nasal Secretion SARS-CoV-2 & FLU Antigen (Rapid) - Final Physical Exam Const alert General Appearance: cooperative Orientation / Consciousness: oriented to person HEENT hearing grossly normal bilaterally Head and Scalp: normal to inspection Face and Sinus: face symmetric Nose: external nose normal Mouth: oral and palatal mucosa normal Eyes conjunctivae normal General Eye: normal appearance of both eyes Neck full ROM General: normal visual inspection Lymph Lymphatic: no lymphadenopathy noted Chest inspection of chest normal and palpation of chest normal Chest: symmetrical chest wall rise Resp normal respiratory effort Effort and Inspection: able to speak in complete sentences Cardio regular rate GI non-distended Percussion: normal to percussion Rectal Exam: deferred Neuro Speech: speech normal Gait (Neuro): normal gait Assessment & Plan Assessment/Plan (1) GI bleed: QUALIFIERS: GI bleed type/associated pathology: unspecified gastrointestinal hemorrhage type Qualified Code(s): K92.2 - Gastrointestinal hemorrhage, unspecified PLAN: I am more concerned about upper GI bleed or lower GI bleed at this time. 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 She will need to have his upper and lower endoscopy to identify all bleeding sources. (2) Anemia: QUALIFIERS: Anemia type: unspecified type Qualified Code(s): D64.9 - Anemia, unspecified PLAN: She is not stable from a respiratory standpoint at this time to undergo endoscopy or colonoscopy. Her hemoglobin is to 8.6 after 2 units of packed red blood cells. Her BUN/creatinine is still elevated which makes me suspicious for an upper GI bleed source. Continue to monitor and keep hematocrit above 35% of possible. We will continue PPI therapy and institute anti secretory therapy. Charges/Coding Visit Charges Inpatient E&M: 81999 Subs Hosp L2
[2021-11-20] MEDS: Atorvastatin Calcium 40 MG Tablet PO (21:12)
[2021-11-21] VITALS (22 sets, daily range): BP systolic 130–153; BP diastolic 46–90; PULSE 80–99; RESP 12–32; TEMP 35.8–37.3; O2SAT 86–96
[2021-11-21] MEDS: Levothyroxine 137 MCG Tablet PO (05:26)
[2021-11-21 07:17] LABS: Absolute Lymphocyte Count 0.41 X10^3/uL (0.83-4.51); Absolute Neutrophil Count 14.1 X10^3/uL (2.0-7.7); Basophil# 0.04 X10^3/uL; Basophil% 0.3 % (0-1); Eosinophil# 0.04 X10^3/uL; Eosinophils% 0.3 % (0-5); Hematocrit 27.2 % (37-47); Hemoglobin 9.7 g/dL (12.0-15.0); Lymphocyte # 0.41 X10^3/ul (0.83-4.51); Lymphocyte % 2.6 % (19-41); Mean Corp Hgb Conc 35.7 g/dL (32-36); Mean Corpuscular Hgb 29.5 pg (27.0-32.0); Mean Corpuscular Volume 82.7 fL (81-99); Mean Platelet Vol. 8.6 fl (6.2-12.0); Monocyte# 0.78 X10^3/uL; Monocyte% 4.9 % (0-10); NRBC Flagged by Analyzer 0.1 % (0-5); Neutrophil # 14.11 X10^3/uL (2.7-7.7); Neutrophil % 88.9 % (47-70); POSITIVE DIFFERENTIAL YES; Platelet Count 376 K/mm3 (150-450); RBC Distribution Width CV 16.2 % (11.6-14.6); RBC Distribution Width SD 48.8 fl (35.1-43.9); Red Blood Count 3.29 M/mm3 (4.2-5.4); White Blood Count 15.9 K/mm3 (4.4-11.0)
[2021-11-21 07:19] LABS: Differential Indicated SCAN CRITERIA MET
[2021-11-21 07:40] LABS: Anion Gap 8 (5-15); BUN 13 mg/dL (7-18); BUN/Creat Ratio 25.4 RATIO (10-20); Calcium,Total 8.5 mg/dL (8.5-10.1); Chloride 95 mmol/L (98-107); Creatinine, Serum 0.51 mg/dL (0.55-1.02); EST Glomerular Filtration Rate 122 mL/min (>60); Est Glom Filt Rate - Afr Amer 147 mL/min (>60); Glucose 149 mg/dL (74-106); Potassium 3.7 mmol/L (3.5-5.1); Sodium Level 129 mmol/L (136-145)
[2021-11-21 08:04] LABS: Hypochromasia 1+
[2021-11-21] MEDS: 0.9% Saline Lock 10 ML Syringe IV ×2 (08:18→17:45)
[2021-11-21] MEDS: Furosemide 40 MG/4 ML Vial IV (08:18)
--- NOTE | 2021-11-21 08:32 | NURSING ---
lasix given per order. Pt going down to Radiology per orders at this time.
--- NOTE | 2021-11-21 08:39 | PCM.PN.INT ---
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 Obtain chest x-ray for evaluation of right lower lobe 2. Wean supplemental oxygen as tolerated 3. Continue antibiotics for now 4. Potential inpatient bronchoscopy with high risks for intubation IMPRESSIONS: 1. Acute hypoxic respiratory failure of unclear etiology Patient does have a leukocytosis with scattered infiltrates bilaterally. 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 Patient also has significant narrowing of the right pulmonary tree. Some concern patient may be having poor pulmonary toileting leading to acute worsening in oxygen saturations. Patient reportedly has been followed at the [facility] with CT scans and PET scans that show no residual cancer. Patient does not appear to be responding to conservative therapy. Will obtain a chest x-ray to see if there is collapse of the right lower or right middle lobes. If there is collapse, potentially could complete a bronchoscopy with rapid improvement in oxygenation. It is unclear if this would be sustainable as she appears to have some stenosis of the airways from previous radiation. However, given patient's current oxygen requirements, patient needs to be prepared that intubation may be necessary. Patient will discuss with her and get back with me on how to proceed. Patient does not like the idea of a bronchoscopy, may challenge with diuretics, but negative fluid balance has not helped thus far. 2. Acute blood loss anemia Patient to be transfused today. Hemoglobin low at 6.9. Patient has received some volume resuscitation, but does not clinically appear to be volume overloaded. Patient does have a positive guaiac stool. GI has been consulted, but would like to stabilize patient further before any acute interventions. Reticulocyte panel is suggestive that the patient is trying to compensate meaning that this would likely not be related to any chemo or radiation therapy or bone marrow failure. Cannot exclude an underlying GI malignancy 3. 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 Volume restriction is likely adequate. No indication for 3% saline from my perspective. Could attempt to obtain information from [facility] on patient's current malignant burden. 4. Spinal stenosis/compression fracture/epilepsy/hypertension/chronic pain syndrome/advanced age/hypothyroidism Complicates care, management, recovery and prognosis. Patient does have an element of kyphosis that may be adding to problem #1. Patient is on her baseline medications and appear to be tolerating this well. Patient states her pain is well controlled. Blood pressures have been adequate. No indication for change in medications from my perspective. Okay to continue with metoprolol and Norvasc. Addendum 12:47 PM: Did review chest x-ray. This does not show lobar collapse in the right middle and right lower lobe. Patient does appear to have increased infiltrates in the left. This would make bronchoscopy high risk for intubation. Will attempt to hold off on bronchoscopy if possible. Subjective Subjective Patient described yesterday as rough. Patient states that she did not feel the energy to get out of bed and had difficulty coughing up any secretions. Patient feels like there is something in there but reports little improvement with vest therapy. Patient has not reported any epistaxis, but does have significant nasal cannula/BiPAP requirements. Patient felt better on BiPAP overnight and felt that she slept better with this in place. Objective Data Objective Data Vital Signs: Vital Signs Temp Pulse Resp BP Pulse Ox 35.8 C L 83 18 145/64 H 86 11/21/21 07:29 11/21/21 07:29 11/21/21 07:29 11/21/21 07:29 11/21/21 07:29 Oxygen Flow Rate (L/min) 15 Oxygen Delivery Method Bi-pap Weight: 74.2 kg Body Mass Index (BMI) 25.8 Intake & Output: Intake and Output for Last 24 Hours 11/19/21 11/20/21 11/21/21 23:59 23:59 23:59 Intake Total 3470.67 / 3470.67 698.17 / 998.17 400 / 400 Output Total 3225 / 3225 800 / 1350 750 / 750 Balance 245.67 / 245.67 -101.83 / -351.83 -350 / -350 Lab / Micro Data Result Diagrams: 11/21/21 06:50 11/21/21 06:50 Labs: Laboratory Results - last 24 hr 11/18/21 06:26: Cortisol 22.30 11/21/21 06:50: WBC 15.9 H, RBC 3.29 L, Hgb 9.7 L, Hct 27.2 L, MCV 82.7, MCH 29.5, MCHC 35.7, RDW Std Deviation 48.8 H, RDW Coeff of Alpa 16.2 H, Plt Count 376, MPV 8.6, Immature Gran % (Auto) 3.000 H, Neut % (Auto) 88.9 H, Lymph % (Auto) 2.6 L, [place] % (Auto) 4.9, Eos % (Auto) 0.3, Baso % (Auto) 0.3, Absolute Neuts (auto) 14.1 H, Absolute Lymphs (auto) 0.41 L, Nucleated RBC % 0.1, Hypochromasia 1+ 11/21/21 06:50: Sodium 129 L, Potassium 3.7, Chloride 95 L, Carbon Dioxide 26.0, Anion Gap 8, BUN 13, Creatinine 0.51 L, Estim Creat Clear Calc 39.90, Est GFR (MDRD) Af Amer 147, Est GFR (MDRD) Non-Af 122, BUN/Creatinine Ratio 25.4 H, Glucose 149 H, Calcium 8.5 Micro: Microbiology 11/18/21 18:57 Stool Stool Occult Blood (MARIE) - Final Occult Blood Positive 11/18/21 01:23 Mucosa - Nasopharyngeal Respiratory Panel (PCR) - Final 11/17/21 Unknown Urine, Random Legionella Antigen - Final 11/17/21 Unknown Urine, Random Streptococcus pneumoniae Antigen (M - Final 11/17/21 20:46 Nasal Secretion SARS-CoV-2 & FLU Antigen (Rapid) - Final Physical Exam Const alert, oriented x3, no apparent distress and average body habitus General Appearance: cooperative, well kempt and well developed Nutritional Appearance: overweight HEENT normocephalic and head/scalp atraumatic Eyes PERRL, EOMs intact bilaterally and conjunctivae normal Neck nuchal rigidity, supple, no JVD, thyroid normal and no carotid bruits General: trachea midline Chest inspection of chest normal Chest Narrative: Kyphosis noted Chest: symmetrical chest wall rise and crepitus Resp normal respiratory effort, no retractions and no use of accessory muscles Resp Narrative: Significantly diminished in the right lower lobe Auscultation: Negative for rhonchi or wheezes Cardio regular rate, regular rhythm, S1 normal heart sound, S2 normal heart sound, no murmurs, no rub and no gallops GI normal to inspection, nondistended, normoactive bowel sounds, soft to palpation, non-tender and non-distended Extremity no clubbing, cyanosis or edema Skin no rashes or lesions noted General Skin Exam: no breakdown Neuro oriented x3, CN's II-XII intact bilaterally, no focal motor deficits and no sensory deficits noted Sensorium / Orientation: awake and alert Speech: speech normal Psych affect normal Charges/Coding Visit Charges Inpatient E&M: 49268 Subs Hosp L3
--- NOTE | 2021-11-21 08:40 | RAD_ITS ---
STUDY: X-RAY CHEST REASON FOR EXAM: Female, 81 years old. Hypoxia TECHNIQUE: AP and lateral views of the chest. COMPARISON: Comparison is made with prior study 11/19/2021. FINDINGS: EKG electrodes are seen. Progressive infiltrate in the left hemithorax. Persistent right hilar soft tissue density and the linear density in the right minor fissure although this has improved as compared to prior study. Normal size heart. Normal mediastinum and marco. Normal visualized pulmonary arteries. There is atherosclerotic calcification of the aortic arch with tortuosity. There are diffuse degenerative changes of the visualized thoracic spine. Increased kyphosis. There is degenerative osteoarthritis of the bilateral shoulders. There is no demonstrated abnormality of the visualized soft tissue structures of the upper abdomen. RAD/Chest PA and Lateral IMPRESSION: Progressive infiltrate in the left hemithorax. Electronically Signed: Bill Foreman MD at 13:23 EDT ,
--- NOTE | 2021-11-21 08:53 | NURSING ---
This nurse is aware of vitals taken this morning by Antoinette Li nursing informatics clinical analyst.
--- NOTE | 2021-11-21 09:46 | PCM.RX.CS ---
Consult Pharmacy has been consulted to manage selected antiobiotic: Vancomycin Type of Consult: New start Suspected Infection: Pneumonia Labs: Sodium 129 mmol/L (136-145) L 11/21/21 06:50 Potassium 3.7 mmol/L (3.5-5.1) 11/21/21 06:50 Chloride 95 mmol/L (98-107) L 11/21/21 06:50 Carbon Dioxide 26.0 mmol/L (21.0-32.0) 11/21/21 06:50 Anion Gap 8 (5-15) 11/21/21 06:50 BUN 13 mg/dL (7-18) 11/21/21 06:50 Creatinine 0.51 mg/dL (0.55-1.02) L 11/21/21 06:50 Est GFR (MDRD) Af Amer 147 mL/min (>60) 11/21/21 06:50 Est GFR (MDRD) Non-Af 122 mL/min (>60) 11/21/21 06:50 BUN/Creatinine Ratio 25.4 RATIO (10-20) H 11/21/21 06:50 Glucose 149 mg/dL (74-106) H 11/21/21 06:50 Microbiology: Microbiology 11/17/21 21:38 Blood Culture (Wb) - No Site/Description Given Blood Culture - Preliminary No growth in 48 hours. 11/17/21 21:45 Blood Culture (Wb) - Anticubital Left Blood Culture - Preliminary No growth in 48 hours. 11/18/21 18:57 Stool Stool Occult Blood (MARIE) - Final Occult Blood Positive 11/18/21 01:23 Mucosa - Nasopharyngeal Respiratory Panel (PCR) - Final 11/17/21 Unknown Urine, Random Legionella Antigen - Final 11/17/21 Unknown Urine, Random Streptococcus pneumoniae Antigen (M - Final 11/17/21 20:46 Nasal Secretion SARS-CoV-2 & FLU Antigen (Rapid) - Final Weight used for dosin kg Estimated Creatinine Clearance: 66.5 Goal Trough: 15-20 mcg/mL Pharmacy Plan for Drug Dosing: Start Vancomycin 750mg q12h at 2100 on 11/21/21 Pharmacy Service will continue to monitor and adjust dosing as required. Follow-Up Labs: Trough Vancomycin Labs to be done on [date and time ordered]: 11/22/21 @2030
--- NOTE | 2021-11-21 11:39 | CASEMGMT ---
Social Work Note Pt is not medically ready for discharge. SW placed a call to Diane with TCU and updated her. Plan: TCU when medically cleared Tika Lynch MOTHER REPAIRER, [employer]AL SAM[employer]ER
[2021-11-21] MEDS: levETIRAcetam 750 MG Tablet PO ×2 (11:45→22:45)
[2021-11-21] MEDS: Metoprolol(XL)Succ 100 MG Tablet PO (11:45)
[2021-11-21] MEDS: amLODIPine 10 MG Tablet PO (11:45)
--- NOTE | 2021-11-21 12:23 | PN.HOSP_ITS ---
Subjective Subjective Coughing some. Increased oxygen requirements. Objective Data Objective Data Vital Signs: Vital Signs Temp Pulse Resp BP Pulse Ox 36.7 C 88 18 131/56 H 86 11/21/21 11:30 11/21/21 11:45 11/21/21 11:30 11/21/21 11:30 11/21/21 11:30 Oxygen Flow Rate (L/min) 15 Oxygen Delivery Method T-piece Weight: 74.2 kg Body Mass Index (BMI) 25.8 Intake & Output: Intake and Output for Last 24 Hours 11/19/21 11/20/21 11/21/21 23:59 23:59 23:59 Intake Total 3470.67 / 3470.67 698.17 / 998.17 434.67 / 434.67 Output Total 3225 / 3225 800 / 1350 750 / 750 Balance 245.67 / 245.67 -101.83 / -351.83 -315.33 / -315.33 Lab / Micro Data Result Diagrams: 11/21/21 06:50 11/21/21 06:50 Labs: Laboratory Results - last 24 hr 11/21/21 06:50: WBC 15.9 H, RBC 3.29 L, Hgb 9.7 L, Hct 27.2 L, MCV 82.7, MCH 29.5, MCHC 35.7, RDW Std Deviation 48.8 H, RDW Coeff of Alpa 16.2 H, Plt Count 376, MPV 8.6, Immature Gran % (Auto) 3.000 H, Neut % (Auto) 88.9 H, Lymph % (Auto) 2.6 L, [place] % (Auto) 4.9, Eos % (Auto) 0.3, Baso % (Auto) 0.3, Absolute Neuts (auto) 14.1 H, Absolute Lymphs (auto) 0.41 L, Nucleated RBC % 0.1, Hypochromasia 1+ 11/21/21 06:50: Sodium 129 L, Potassium 3.7, Chloride 95 L, Carbon Dioxide 26.0, Anion Gap 8, BUN 13, Creatinine 0.51 L, Estim Creat Clear Calc 39.90, Est GFR (MDRD) Af Amer 147, Est GFR (MDRD) Non-Af 122, BUN/Creatinine Ratio 25.4 H, Glucose 149 H, Calcium 8.5 Micro: Microbiology 11/17/21 21:38 Blood Culture (Wb) - No Site/Description Given Blood Culture - Preliminary No growth in 48 hours. 11/17/21 21:45 Blood Culture (Wb) - Anticubital Left Blood Culture - Preliminary No growth in 48 hours. 11/18/21 18:57 Stool Stool Occult Blood (MARIE) - Final Occult Blood Positive 11/18/21 01:23 Mucosa - Nasopharyngeal Respiratory Panel (PCR) - Final 11/17/21 Unknown Urine, Random Legionella Antigen - Final 11/17/21 Unknown Urine, Random Streptococcus pneumoniae Antigen (M - Final 11/17/21 20:46 Nasal Secretion SARS-CoV-2 & FLU Antigen (Rapid) - Final Physical Exam Const alert and no apparent distress Resp normal respiratory effort and no retractions Resp Narrative: coarse BS bilaterally. Cardio regular rate, regular rhythm, S1 normal heart sound and S2 normal heart sound GI normal to inspection, nondistended, normoactive bowel sounds, soft to palpation, non-tender and non-distended Extremity normal to inspection Neuro Sensorium / Orientation: awake and alert Assessment & Plan Assessment/Plan (1) GI bleed: QUALIFIERS: GI bleed type/associated pathology: unspecified gastrointestinal hemorrhage type Qualified Code(s): K92.2 - Gastrointestinal hemorrhage, unspecified (2) Community acquired pneumonia: QUALIFIERS: Laterality: unspecified laterality Qualified Code(s): J18.9 - Pneumonia, unspecified organism PLAN: 1. Acute bilateral pneumonia * probably bacterial in nature, * given worsening respiratory failure, broaden abx to aztreonam (PCN allergy) and vancomycin 2. acute hypoxic respiratory failure * 2/2 pneumonia +/- radiation fibrosis * possible inpatient bronch * pulm following * add furosemide challenge 3. acute blood loss anemia * s/p 1 unit * 2/2 GIB 4. GI bleed * seen by GI. * hold on endoscopy until respiratory status stabilized * on pantoprazole 5. Chronic issues--complicates care and recovery * spinal stenosis and recent compression fracture of [id number] will be seen by PT and OT, patient may need to consider going to an extended care facility for rehab services at the time of discharge, she was recently in the hospital here and declined to go to an extended care facility for rehab services. 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 VTE prophylaxis: SCDs Charges/Coding Visit Charges Inpatient E&M: 14011 Subs Hosp L2
[2021-11-21 13:53] LABS: Pathologist Review Reviewed
--- NOTE | 2021-11-21 15:38 | PCM.PROGNOTE ---
Subjective Subjective Patient is requiring a lot of oxygen. She has been on heated high flow oxygen and BiPAP. Objective Data Objective Data Vital Signs: Vital Signs Temp Pulse Resp BP Pulse Ox 99.1 F 97 28 H 132/59 H 93 11/21/21 15:37 11/21/21 15:37 11/21/21 15:37 11/21/21 15:37 11/21/21 15:37 Oxygen Flow Rate (L/min) 15 Oxygen Delivery Method Bi-pap Weight: 163 lb 9.328 oz Body Mass Index (BMI) 25.8 Intake & Output: Intake and Output for Last 24 Hours 11/19/21 11/20/21 11/21/21 23:59 23:59 23:59 Intake Total 3470.67 / 3470.67 698.17 / 998.17 969.67 / 969.67 Output Total 3225 / 3225 800 / 1350 1600 / 1600 Balance 245.67 / 245.67 -101.83 / -351.83 -630.33 / -630.33 Lab / Micro Data Result Diagrams: 11/21/21 06:50 11/21/21 06:50 Labs: Laboratory Results - last 24 hr 11/17/21 18:00: Diff Path Review Reviewed 11/21/21 06:50: WBC 15.9 H, RBC 3.29 L, Hgb 9.7 L, Hct 27.2 L, MCV 82.7, MCH 29.5, MCHC 35.7, RDW Std Deviation 48.8 H, RDW Coeff of Alpa 16.2 H, Plt Count 376, MPV 8.6, Immature Gran % (Auto) 3.000 H, Neut % (Auto) 88.9 H, Lymph % (Auto) 2.6 L, [place] % (Auto) 4.9, Eos % (Auto) 0.3, Baso % (Auto) 0.3, Absolute Neuts (auto) 14.1 H, Absolute Lymphs (auto) 0.41 L, Nucleated RBC % 0.1, Hypochromasia 1+ 11/21/21 06:50: Sodium 129 L, Potassium 3.7, Chloride 95 L, Carbon Dioxide 26.0, Anion Gap 8, BUN 13, Creatinine 0.51 L, Estim Creat Clear Calc 39.90, Est GFR (MDRD) Af Amer 147, Est GFR (MDRD) Non-Af 122, BUN/Creatinine Ratio 25.4 H, Glucose 149 H, Calcium 8.5 Micro: Microbiology 11/17/21 21:38 Blood Culture (Wb) - No Site/Description Given Blood Culture - Preliminary No growth in 48 hours. 11/17/21 21:45 Blood Culture (Wb) - Anticubital Left Blood Culture - Preliminary No growth in 48 hours. 11/18/21 18:57 Stool Stool Occult Blood (MARIE) - Final Occult Blood Positive 11/18/21 01:23 Mucosa - Nasopharyngeal Respiratory Panel (PCR) - Final 11/17/21 Unknown Urine, Random Legionella Antigen - Final 11/17/21 Unknown Urine, Random Streptococcus pneumoniae Antigen (M - Final 11/17/21 20:46 Nasal Secretion SARS-CoV-2 & FLU Antigen (Rapid) - Final Radiography Diagnostic Testing: Radiology Impression Chest X-Ray 11/21/21 08:40 IMPRESSION: Progressive infiltrate in the left hemithorax. Electronically Signed: Bill Foreman MD at 13:23 EDT , Physical Exam Const alert General Appearance: cooperative Orientation / Consciousness: oriented to person HEENT hearing grossly normal bilaterally Head and Scalp: normal to inspection Face and Sinus: face symmetric Nose: external nose normal Mouth: oral and palatal mucosa normal Eyes conjunctivae normal General Eye: normal appearance of both eyes Neck full ROM General: normal visual inspection Lymph Lymphatic: no lymphadenopathy noted Chest inspection of chest normal and palpation of chest normal Chest: symmetrical chest wall rise Resp normal respiratory effort Effort and Inspection: able to speak in complete sentences Auscultation: diminished lung sounds Cardio regular rate GI non-distended Percussion: normal to percussion Rectal Exam: deferred Neuro Speech: speech normal Gait (Neuro): normal gait Assessment & Plan Assessment/Plan (1) GI bleed: QUALIFIERS: GI bleed type/associated pathology: unspecified gastrointestinal hemorrhage type Qualified Code(s): K92.2 - Gastrointestinal hemorrhage, unspecified PLAN: Patient is not stable enough at this time to undergo an upper endoscopy or colonoscopy to determine the source of acute blood loss anemia. Her hemoglobin seems to be holding steady after getting transfused and being on proton pump inhibitor. I will wait for pulmonary opinion regarding the next step. She had a chest x-ray today but the results are pending. From my standpoint she can eat unless she is going to undergo a bronchoscopy today. (2) Anemia: QUALIFIERS: Anemia type: unspecified type Qualified Code(s): D64.9 - Anemia, unspecified PLAN: Continue to monitor H&H. Continue PPI as previously ordered. Charges/Coding Visit Charges Inpatient E&M: 44439 Subs Hosp L2
[2021-11-21 17:01] LABS: Base Excess 2 mmol/L (-2 to +2); Blood Gas Specimen Type ART; FI02 60; Mode BiLevel; O2 Delivery Device BiPAP; PO2 47 mmHG (75-100); RR 12; SITE R Radial; SO2 87 % (95-99); Total Carbon Dioxide 26 mmol/L; pCO2 31.1 mmHg (35-45); pH 7.51 (7.35-7.45)
[2021-11-21] MEDS: Ipratropium/Albuterol Sulfate 3 ML AMPUL.NEB INHALATION (19:13)
[2021-11-21] MEDS: guaiFENesin 1,200 MG Tablet 1200 MG PO (22:48)
[2021-11-22] VITALS (33 sets, daily range): BP systolic 118–145; BP diastolic 52–76; PULSE 74–99; RESP 12–38; TEMP 36.1–36.6; O2SAT 92–98
[2021-11-22 05:26] LABS: Absolute Lymphocyte Count 0.61 X10^3/uL (0.83-4.51); Absolute Neutrophil Count 13.8 X10^3/uL (2.0-7.7); Basophil# 0.03 X10^3/uL; Basophil% 0.2 % (0-1); Eosinophil# 0.04 X10^3/uL; Eosinophils% 0.3 % (0-5); Hematocrit 24.5 % (37-47); Hemoglobin 8.6 g/dL (12.0-15.0); Lymphocyte # 0.61 X10^3/ul (0.83-4.51); Lymphocyte % 3.9 % (19-41); Mean Corp Hgb Conc 35.1 g/dL (32-36); Mean Corpuscular Hgb 29.3 pg (27.0-32.0); Mean Corpuscular Volume 83.3 fL (81-99); Mean Platelet Vol. 8.7 fl (6.2-12.0); Monocyte# 0.79 X10^3/uL; NRBC Flagged by Analyzer 0 % (0-5); Neutrophil # 13.84 X10^3/uL (2.7-7.7); Neutrophil % 88.4 % (47-70); Platelet Count 259 K/mm3 (150-450); RBC Distribution Width CV 16.3 % (11.6-14.6); RBC Distribution Width SD 48.6 fl (35.1-43.9); Red Blood Count 2.94 M/mm3 (4.2-5.4); White Blood Count 15.7 K/mm3 (4.4-11.0)
[2021-11-22 05:50] LABS: Anion Gap 8 (5-15); BUN 15 mg/dL (7-18); BUN/Creat Ratio 28.7 RATIO (10-20); Calcium,Total 8.1 mg/dL (8.5-10.1); Chloride 97 mmol/L (98-107); Creatinine, Serum 0.52 mg/dL (0.55-1.02); EST Glomerular Filtration Rate 119 mL/min (>60); Est Glom Filt Rate - Afr Amer 144 mL/min (>60); Glucose 140 mg/dL (74-106); Potassium 3.1 mmol/L (3.5-5.1); Sodium Level 132 mmol/L (136-145)
[2021-11-22] MEDS: Potassium Chloride 10mEq/100mL 10 MEQ/100 ML IV.SOLN. 100 MEQ IV BOLUS ×4 (09:21→13:54)
[2021-11-22] MEDS: amLODIPine 10 MG Tablet PO (09:24)
[2021-11-22] MEDS: Metoprolol(XL)Succ 100 MG Tablet PO (09:24)
[2021-11-22] MEDS: levETIRAcetam 750 MG Tablet PO ×2 (09:24→22:12)
[2021-11-22] MEDS: guaiFENesin 1,200 MG Tablet 1200 MG PO ×2 (09:24→22:12)
--- NOTE | 2021-11-22 09:41 | PN.CC_ITS ---
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 Agree with broadening antibiotics 2. Wean supplemental oxygen as tolerated. BiPAP with sleep 3. Add empiric steroid therapy 4. Cannot exclude the need for intubation IMPRESSIONS: 1. Acute hypoxic respiratory failure of unclear etiology Patient does have a leukocytosis with scattered infiltrates bilaterally. 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 Patient also has significant narrowing of the right pulmonary tree. Some concern patient may be having poor pulmonary toileting leading to acute worsening in oxygen saturations. Patient reportedly has been followed at the [facility] with CT scans and PET scans that show no residual cancer. Patient does not appear to be responding to conservative therapy. Concern yesterday was for mucous plugging leading to lobar collapse. However, chest x- ray shows worsening infiltrates on the left. Antibiotics were broadened yesterday. However, given high oxygen requirements, patient will be placed empirically on steroid therapy. Continue BiPAP with sleep. Although patient does have bronchial narrowing in the right middle lobe, chest x-ray is suggestive that left-sided infiltrates are likely the etiology of worsening oxygen status. 2. Acute blood loss anemia Patient to be transfused today. Hemoglobin low at 6.9. Patient has received some volume resuscitation, but does not clinically appear to be volume overloaded. Patient does have a positive guaiac stool. GI has been consulted, but would like to stabilize patient further before any acute interventions. Reticulocyte panel is suggestive that the patient is trying to compensate meaning that this would likely not be related to any chemo or radiation therapy or bone marrow failure. Cannot exclude an underlying GI malignancy 3. 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 Volume restriction is likely adequate. No indication for 3% saline from my perspective. Could attempt to obtain information from [facility] on patient's current malignant burden. Hypokalemia likely secondary to Lasix therapy. Repletion ordered. 4. Spinal stenosis/compression fracture/epilepsy/hypertension/chronic pain syndrome/advanced age/hypothyroidism Complicates care, management, recovery and prognosis. Patient does have an element of kyphosis that may be adding to problem #1. Patient is on her baseline medications and appear to be tolerating this well. Patient states her pain is well controlled. Blood pressures have been adequate. No indication for change in medications from my perspective. Okay to continue with metoprolol and Norvasc. Subjective Subjective Patient in good spirits this morning. Patient with significant hypoxia overnight requiring BiPAP as high as 100%. Patient had a mask change with some improvement and is currently tolerating 93% Airvo. Patient is not reporting any productive cough. Patient does state that the BiPAP is uncomfortable, but does seem to help. I did speak with her son, Bryson, at the bedside and updated him about the current status and plan moving forward. Objective Data Objective Data Vital Signs: Vital Signs Temp Pulse Resp BP Pulse Ox 36.3 C L 84 20 H 135/63 H 98 11/22/21 08:35 11/22/21 09:24 11/22/21 08:35 11/22/21 08:35 11/22/21 08:35 Oxygen Flow Rate (L/min) 60 Oxygen Delivery Method Airvo Weight: 74 kg Body Mass Index (BMI) 25.8 Intake & Output: Intake and Output for Last 24 Hours 11/20/21 11/21/21 11/22/21 23:59 23:59 23:59 Intake Total 698.17 / 998.17 1743.00 / 1943.00 761.33 / 761.33 Output Total 800 / 1350 2200 / 2600 800 / 800 Balance -101.83 / -351.83 -457.00 / -657.00 -38.67 / -38.67 Lab / Micro Data Result Diagrams: 11/22/21 04:29 11/22/21 04:29 Labs: Laboratory Results - last 24 hr 11/17/21 18:00: Diff Path Review Reviewed 11/22/21 04:29: WBC 15.7 H, RBC 2.94 L, Hgb 8.6 L, Hct 24.5 L, MCV 83.3, MCH 29.3, MCHC 35.1, RDW Std Deviation 48.6 H, RDW Coeff of Alpa 16.3 H, Plt Count 259, MPV 8.7, Immature Gran % (Auto) 2.200 H, Neut % (Auto) 88.4 H, Lymph % (Auto) 3.9 L, [place] % (Auto) 5.0, Eos % (Auto) 0.3, Baso % (Auto) 0.2, Absolute Neuts (auto) 13.8 H, Absolute Lymphs (auto) 0.61 L, Nucleated RBC % 0 11/22/21 04:29: Sodium 132 L, Potassium 3.1 L, Chloride 97 L, Carbon Dioxide 27.0, Anion Gap 8, BUN 15, Creatinine 0.52 L, Estim Creat Clear Calc 39.90, Est GFR (MDRD) Af Amer 144, Est GFR (MDRD) Non-Af 119, BUN/Creatinine Ratio 28.7 H, Glucose 140 H, Calcium 8.1 L Micro: Microbiology 11/17/21 21:45 Blood Culture (Wb) - Anticubital Left Blood Culture - Final No growth in 5 days. 11/17/21 21:38 Blood Culture (Wb) - No Site/Description Given Blood Culture - Preliminary No growth in 48 hours. 11/18/21 18:57 Stool Stool Occult Blood (MARIE) - Final Occult Blood Positive 11/18/21 01:23 Mucosa - Nasopharyngeal Respiratory Panel (PCR) - Final 11/17/21 Unknown Urine, Random Legionella Antigen - Final 11/17/21 Unknown Urine, Random Streptococcus pneumoniae Antigen (M - Final 11/17/21 20:46 Nasal Secretion SARS-CoV-2 & FLU Antigen (Rapid) - Final ABG Data ABG results: ABG 11/21/21 16:53 Specimen Type ART Sample Site R Radial pH 7.51 H Bicarbonate Actual 25.0 Total CO2 26 Base Excess 2 O2 Saturation 87 L O2 % 60 ABG pCO2 31.1 L ABG pO2 47 L Sherif Test N/A Respiration Rate 12 O2 Delivery Device BiPAP Vent Mode BiLevel Radiography Diagnostic Testing: Radiology Impression Chest X-Ray 11/21/21 08:40 IMPRESSION: Progressive infiltrate in the left hemithorax. Electronically Signed: Bill Foreman MD at 13:23 EDT , Physical Exam Const alert, oriented x3, no apparent distress and average body habitus General Appearance: cooperative, well kempt and well developed Nutritional Appearance: overweight HEENT normocephalic and head/scalp atraumatic Eyes PERRL, EOMs intact bilaterally and conjunctivae normal Neck nuchal rigidity, supple, no JVD, thyroid normal and no carotid bruits General: trachea midline Chest inspection of chest normal Chest Narrative: Kyphosis noted Chest: symmetrical chest wall rise and crepitus Resp no retractions and no use of accessory muscles Effort and Inspection: able to speak in complete sentences and tachypneic Auscultation: Negative for rhonchi or wheezes Cardio regular rate, regular rhythm, S1 normal heart sound, S2 normal heart sound, no murmurs, no rub and no gallops GI normal to inspection, nondistended, normoactive bowel sounds, soft to palpation, non-tender and non-distended Extremity no clubbing, cyanosis or edema Skin no rashes or lesions noted General Skin Exam: no breakdown Neuro oriented x3, CN's II-XII intact bilaterally, no focal motor deficits and no sensory deficits noted Sensorium / Orientation: awake and alert Speech: speech normal Psych affect normal Charges/Coding Visit Charges Inpatient E&M: 40829 Subs Hosp L3
--- NOTE | 2021-11-22 10:05 | CASEMGMT ---
Social Work Note SW reviewed chart. Pt is currently on Airvo. SW placed a call to Diane with TCU and updated her. Plan: TCU when medically cleared Tika Lynch [employer]LL[employer] PHONE REPAIRER, [employer]ITTER
--- NOTE | 2021-11-22 10:39 | PN.HOSP_ITS ---
Subjective Subjective Coughing up some phlegm. Tolerating air Vo. Objective Data Objective Data Vital Signs: Vital Signs Temp Pulse Resp BP Pulse Ox 36.3 C L 84 20 H 135/63 H 98 11/22/21 08:35 11/22/21 09:24 11/22/21 08:35 11/22/21 08:35 11/22/21 08:35 Oxygen Flow Rate (L/min) 60 Oxygen Delivery Method Airvo Weight: 74 kg Body Mass Index (BMI) 25.8 Intake & Output: Intake and Output for Last 24 Hours 11/20/21 11/21/21 11/22/21 23:59 23:59 23:59 Intake Total 698.17 / 998.17 1743.00 / 1943.00 761.33 / 761.33 Output Total 800 / 1350 2200 / 2600 800 / 800 Balance -101.83 / -351.83 -457.00 / -657.00 -38.67 / -38.67 Lab / Micro Data Result Diagrams: 11/22/21 04:29 11/22/21 04:29 Labs: Laboratory Results - last 24 hr 11/17/21 18:00: Diff Path Review Reviewed 11/22/21 04:29: WBC 15.7 H, RBC 2.94 L, Hgb 8.6 L, Hct 24.5 L, MCV 83.3, MCH 29.3, MCHC 35.1, RDW Std Deviation 48.6 H, RDW Coeff of Alpa 16.3 H, Plt Count 259, MPV 8.7, Immature Gran % (Auto) 2.200 H, Neut % (Auto) 88.4 H, Lymph % (Auto) 3.9 L, [place] % (Auto) 5.0, Eos % (Auto) 0.3, Baso % (Auto) 0.2, Absolute Neuts (auto) 13.8 H, Absolute Lymphs (auto) 0.61 L, Nucleated RBC % 0 11/22/21 04:29: Sodium 132 L, Potassium 3.1 L, Chloride 97 L, Carbon Dioxide 27.0, Anion Gap 8, BUN 15, Creatinine 0.52 L, Estim Creat Clear Calc 39.90, Est GFR (MDRD) Af Amer 144, Est GFR (MDRD) Non-Af 119, BUN/Creatinine Ratio 28.7 H, Glucose 140 H, Calcium 8.1 L Micro: Microbiology 11/17/21 21:45 Blood Culture (Wb) - Anticubital Left Blood Culture - Final No growth in 5 days. 11/17/21 21:38 Blood Culture (Wb) - No Site/Description Given Blood Culture - Preliminary No growth in 48 hours. 11/18/21 18:57 Stool Stool Occult Blood (MARIE) - Final Occult Blood Positive 11/18/21 01:23 Mucosa - Nasopharyngeal Respiratory Panel (PCR) - Final 11/17/21 Unknown Urine, Random Legionella Antigen - Final 11/17/21 Unknown Urine, Random Streptococcus pneumoniae Antigen (M - Final 11/17/21 20:46 Nasal Secretion SARS-CoV-2 & FLU Antigen (Rapid) - Final ABG Data ABG results: ABG 11/21/21 16:53 Specimen Type ART Sample Site R Radial pH 7.51 H Bicarbonate Actual 25.0 Total CO2 26 Base Excess 2 O2 Saturation 87 L O2 % 60 ABG pCO2 31.1 L ABG pO2 47 L Sherif Test N/A Respiration Rate 12 O2 Delivery Device BiPAP Vent Mode BiLevel Radiography Diagnostic Testing: Radiology Impression Chest X-Ray 11/21/21 08:40 IMPRESSION: Progressive infiltrate in the left hemithorax. Electronically Signed: Bill Foreman MD at 13:23 EDT , Physical Exam Const alert and no apparent distress Constitutional Narrative: No respiratory distress. No conversational dyspnea. Resp normal respiratory effort and no retractions Resp Narrative: coarse breath sounds. Cardio regular rate, regular rhythm, S1 normal heart sound and S2 normal heart sound GI normal to inspection, nondistended, normoactive bowel sounds, soft to palpation, non-tender, non-distended and hepatosplenomegaly Extremity normal to inspection and full ROM Neuro Sensorium / Orientation: awake and alert Assessment & Plan Assessment/Plan (1) GI bleed: QUALIFIERS: GI bleed type/associated pathology: unspecified gastrointestinal hemorrhage type Qualified Code(s): K92.2 - Gastrointestinal hemorrhage, unspecified (2) Community acquired pneumonia: QUALIFIERS: Laterality: unspecified laterality Qualified Code(s): J18.9 - Pneumonia, unspecified organism (3) Acute respiratory failure with hypoxia: PLAN: 1. Acute bilateral pneumonia * probably bacterial in nature, * given worsening respiratory failure, broaden abx to aztreonam (PCN allergy) and vancomycin 2. acute hypoxic respiratory failure * ongoing * continue Airvo and vest therapy * 2/2 pneumonia +/- radiation fibrosis * possible inpatient bronch * pulm following * add furosemide challenge 3. acute blood loss anemia * s/p 1 unit * 2/2 GIB * Hg stable 4. GI bleed * seen by GI. * hold on endoscopy until respiratory status stabilized * on pantoprazole, change from gtt to bolus 5. Hypokalemia * replace 6. Chronic issues--complicates care and recovery * spinal stenosis and recent compression fracture of [id number] will be seen by PT and OT, patient may need to consider going to an extended care facility for rehab services at the time of discharge, she was recently in the hospital here and declined to go to an extended care facility for rehab services. 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 VTE prophylaxis: SCDs Charges/Coding Visit Charges Inpatient E&M: 05576 Subs Hosp L3
--- NOTE | 2021-11-22 11:45 | NURSING ---
aquaculture director here Starting PICC line.
[2021-11-22] MEDS: Furosemide 40 MG/4 ML Vial IV (12:48)
[2021-11-22] MEDS: 0.9% Saline Lock 10 ML Syringe IV ×2 (12:49→21:45)
[2021-11-22 15:31] LABS: Allen Test Positive; Base Excess 2 mmol/L (-2 to +2); Blood Gas Specimen Type ART; FI02 80; Mode BiLevel; O2 Delivery Device BiPAP; PEEP 10; PO2 53 mmHG (75-100); RR 12; SITE R Radial; SO2 91 % (95-99); Total Carbon Dioxide 26 mmol/L; pCO2 31.7 mmHg (35-45); pH 7.51 (7.35-7.45)
[2021-11-22 21:48] LABS: Vancomycin, Trough Level 12.9 ug/mL (5.0-15.0)
--- NOTE | 2021-11-22 22:51 | PCM.RX.CS ---
Consult Pharmacy has been consulted to manage selected antiobiotic: Vancomycin Type of Consult: Follow-up Suspected Infection: Pneumonia Prior Doses of Antibiotics Received/Current Regimen: Medications Vancomycin HCl (Vancomycin) 1,000 mg in 200 mls @ 200 mls/hr IV Q12H KEYONNA Vancomycin HCl 750 mg/ Sodium (Chloride) 265 mls @ 250 mls/hr IV Q12H KEYONNA Stop: 11/23/21 01:00 Last Admin: 11/22/21 22:20 Dose: 250 mls/hr Labs: Sodium 132 mmol/L (136-145) L 11/22/21 04:29 Potassium 3.1 mmol/L (3.5-5.1) L 11/22/21 04:29 Chloride 97 mmol/L (98-107) L 11/22/21 04:29 Carbon Dioxide 27.0 mmol/L (21.0-32.0) 11/22/21 04:29 Anion Gap 8 (5-15) 11/22/21 04:29 BUN 15 mg/dL (7-18) 11/22/21 04:29 Creatinine 0.52 mg/dL (0.55-1.02) L 11/22/21 04:29 Est GFR (MDRD) Af Amer 144 mL/min (>60) 11/22/21 04:29 Est GFR (MDRD) Non-Af 119 mL/min (>60) 11/22/21 04:29 BUN/Creatinine Ratio 28.7 RATIO (10-20) H 11/22/21 04:29 Glucose 140 mg/dL (74-106) H 11/22/21 04:29 Vancomycin Trough 12.9 ug/mL (5.0-15.0) 11/22/21 21:24 Microbiology: Microbiology 11/17/21 21:45 Blood Culture (Wb) - Anticubital Left Blood Culture - Final No growth in 5 days. 11/17/21 21:38 Blood Culture (Wb) - No Site/Description Given Blood Culture - Preliminary No growth in 48 hours. 11/18/21 18:57 Stool Stool Occult Blood (MARIE) - Final Occult Blood Positive 11/18/21 01:23 Mucosa - Nasopharyngeal Respiratory Panel (PCR) - Final 11/17/21 Unknown Urine, Random Legionella Antigen - Final 11/17/21 Unknown Urine, Random Streptococcus pneumoniae Antigen (M - Final 11/17/21 20:46 Nasal Secretion SARS-CoV-2 & FLU Antigen (Rapid) - Final Weight used for dosin kg Estimated Creatinine Clearance: 40 Goal Trough: 15-20 mcg/mL Pharmacy Plan for Drug Dosing: Vancomycin trough level was 12.9, below the target range of 15-20. It was drawn appropriately at 12.25hrs post dose. Dose will be increased to 1g q12h, and another trough will be drawn prior to 4th dose of new regimen. Pharmacy Service will continue to monitor and adjust dosing as required. Follow-Up Labs: Trough Vancomycin Labs to be done on [date and time ordered]: 11/24/21 @6881
[2021-11-23] VITALS (32 sets, daily range): BP systolic 118–142; BP diastolic 56–70; PULSE 79–106; RESP 12–36; TEMP 36.6–37.2; O2SAT 88–95
[2021-11-23 05:38] LABS: Absolute Lymphocyte Count 0.45 X10^3/uL (0.83-4.51); Absolute Neutrophil Count 12.6 X10^3/uL (2.0-7.7); Basophil# 0.02 X10^3/uL; Basophil% 0.1 % (0-1); Hematocrit 24.2 % (37-47); Hemoglobin 8.5 g/dL (12.0-15.0); Lymphocyte # 0.45 X10^3/ul (0.83-4.51); Lymphocyte % 3.3 % (19-41); Mean Corp Hgb Conc 35.1 g/dL (32-36); Mean Corpuscular Hgb 29.9 pg (27.0-32.0); Mean Corpuscular Volume 85.2 fL (81-99); Monocyte% 3.6 % (0-10); NRBC Flagged by Analyzer 0 % (0-5); Neutrophil # 12.57 X10^3/uL (2.7-7.7); Neutrophil % 90.8 % (47-70); POSITIVE DIFFERENTIAL YES; Platelet Count 203 K/mm3 (150-450); RBC Distribution Width CV 16.5 % (11.6-14.6); RBC Distribution Width SD 50.6 fl (35.1-43.9); Red Blood Count 2.84 M/mm3 (4.2-5.4); White Blood Count 13.8 K/mm3 (4.4-11.0)
[2021-11-23] MEDS: Levothyroxine 137 MCG Tablet PO (05:38)
[2021-11-23 05:51] LABS: Anion Gap 6 (5-15); BUN 22 mg/dL (7-18); BUN/Creat Ratio 39.6 RATIO (10-20); Calcium,Total 8.2 mg/dL (8.5-10.1); Chloride 103 mmol/L (98-107); Creatinine, Serum 0.56 mg/dL (0.55-1.02); Differential Indicated SCAN CRITERIA MET; EST Glomerular Filtration Rate 111 mL/min (>60); Est Glom Filt Rate - Afr Amer 134 mL/min (>60); Glucose 168 mg/dL (74-106); Magnesium 1.8 mg/dL (1.6-2.6); Potassium 3.3 mmol/L (3.5-5.1); Sodium Level 138 mmol/L (136-145)
[2021-11-23 05:59] LABS: Differential Comment SCANNED
--- NOTE | 2021-11-23 06:39 | RAD_ITS ---
History: Hypoxic respiratory failure EXAMINATION/TECHNIQUE: XR Chest 1 View: Portable COMPARISON: November 21, 2021 FINDINGS: LINES/DEVICES: Right arm PICC line catheter tip projects over the proximal superior vena cava. LUNGS: No change in the bilateral airspace opacification of the lungs. No pneumothorax. MEDIASTINUM AND CARDIOVASCULAR STRUCTURES: Cardiac silhouette not enlarged. Central airways and mediastinal contour are unremarkable. BONES AND SOFT TISSUES: Unremarkable. RAD/Chest 1 View (Portable) IMPRESSION: Satisfactory PICC line placement. No other interval change. at 0809 Reported and signed by: Camilo Lu MD Electronically Signed: Camilo Lu MD at 8:08 EDT ,
--- NOTE | 2021-11-23 07:19 | PCM.PN.INT ---
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 Agree with broadened antibiotics 2. BiPAP breaks as tolerated 3. Continue empiric steroid therapy 4. Cannot exclude the need for intubation. Monitor in ICU IMPRESSIONS: 1. Acute hypoxic respiratory failure of unclear etiology Patient does have a leukocytosis with scattered infiltrates bilaterally. 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 Patient also has significant narrowing of the right pulmonary tree. Some concern patient may be having poor pulmonary toileting leading to acute worsening in oxygen saturations. Patient reportedly has been followed at the [facility] with CT scans and PET scans that show no residual cancer. Chest x-ray this morning shows slight improvement, but this may be secondary to positive pressure. Continue to wean FiO2 as tolerated. Anticipate an additional 24 hours to see full effect of steroid therapy. 2. Acute blood loss anemia Patient to be transfused during this hospitalization. Hemoglobin low at 6.9. Patient has received some volume resuscitation, but does not clinically appear to be volume overloaded. Patient does have a positive guaiac stool. GI has been consulted, but would like to stabilize patient further before any acute interventions. Reticulocyte panel is suggestive that the patient is trying to compensate meaning that this would likely not be related to any chemo or radiation therapy or bone marrow failure. Cannot exclude an underlying GI malignancy 3. 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 Volume restriction is likely adequate. No indication for 3% saline from my perspective. Could attempt to obtain information from [facility] on patient's current malignant burden. Hypokalemia likely secondary to Lasix therapy. Repletion ordered. 4. Spinal stenosis/compression fracture/epilepsy/hypertension/chronic pain syndrome/advanced age/hypothyroidism Complicates care, management, recovery and prognosis. Patient does have an element of kyphosis that may be adding to problem #1. Patient is on her baseline medications and appear to be tolerating this well. Patient states her pain is well controlled. Blood pressures have been adequate. No indication for change in medications from my perspective. Okay to continue with metoprolol and Norvasc. Subjective Subjective Patient transferred to the intensive care unit yesterday secondary to persistent hypoxia. Patient did okay overnight. Patient was able to be off BiPAP for some time. FiO2 on BiPAP was able to be weaned to 75%. Patient overall feels subjectively slightly improved compared to yesterday, but continues to not like the BiPAP in general. Objective Data Objective Data Chest x-ray this morning shows slight improvement compared to 2 days ago. Vital Signs: Vital Signs Temp Pulse Resp BP Pulse Ox 36.8 C 89 26 H 136/68 H 95 11/23/21 00:00 11/23/21 06:00 11/23/21 06:00 11/23/21 06:00 11/23/21 06:00 Oxygen Flow Rate (L/min) 15 Oxygen Delivery Method Bi-pap Weight: 74.2 kg Body Mass Index (BMI) 25.8 Intake & Output: Intake and Output for Last 24 Hours 11/21/21 11/22/21 11/23/21 23:59 23:59 23:59 Intake Total 1743.00 / 1943.00 2598.33 / 2598.33 Output Total 2200 / 2600 2400 / 2400 250 / 250 Balance -457.00 / -657.00 198.33 / 198.33 -250 / -250 Lab / Micro Data Result Diagrams: 11/23/21 05:30 11/23/21 05:30 Labs: Laboratory Results - last 24 hr 11/22/21 21:24: Vancomycin Trough 12.9 11/23/21 05:30: WBC 13.8 H, RBC 2.84 L, Hgb 8.5 L, Hct 24.2 L, MCV 85.2, MCH 29.9, MCHC 35.1, RDW Std Deviation 50.6 H, RDW Coeff of Alpa 16.5 H, Plt Count 203, MPV 9.0, Immature Gran % (Auto) 2.200 H, Neut % (Auto) 90.8 H, Lymph % (Auto) 3.3 L, [place] % (Auto) 3.6, Eos % (Auto) 0.0, Baso % (Auto) 0.1, Absolute Neuts (auto) 12.6 H, Absolute Lymphs (auto) 0.45 L, Nucleated RBC % 0, Differential Comment SCANNED 11/23/21 05:30: Sodium 138, Potassium 3.3 L, Chloride 103, Carbon Dioxide 29.0, Anion Gap 6, BUN 22 H, Creatinine 0.56, Estim Creat Clear Calc 39.90, Est GFR (MDRD) Af Amer 134, Est GFR (MDRD) Non-Af 111, BUN/Creatinine Ratio 39.6 H, Glucose 168 H, Calcium 8.2 L, Magnesium 1.8 Micro: Microbiology 11/17/21 21:45 Blood Culture (Wb) - Anticubital Left Blood Culture - Final No growth in 5 days. 11/17/21 21:38 Blood Culture (Wb) - No Site/Description Given Blood Culture - Preliminary No growth in 48 hours. 11/18/21 18:57 Stool Stool Occult Blood (MARIE) - Final Occult Blood Positive 11/18/21 01:23 Mucosa - Nasopharyngeal Respiratory Panel (PCR) - Final 11/17/21 Unknown Urine, Random Legionella Antigen - Final 11/17/21 Unknown Urine, Random Streptococcus pneumoniae Antigen (M - Final 11/17/21 20:46 Nasal Secretion SARS-CoV-2 & FLU Antigen (Rapid) - Final ABG Data ABG results: ABG 11/22/21 15:26 Specimen Type ART Sample Site R Radial pH 7.51 H Bicarbonate Actual 25.0 Total CO2 26 Base Excess 2 O2 Saturation 91 L O2 % 80 ABG pCO2 31.7 L ABG pO2 53 L Sherif Test Positive Respiration Rate 12 O2 Delivery Device BiPAP Vent Mode BiLevel POC PEEP 10 Clinical Comments 10/06 12 80% Physical Exam Const alert, oriented x3, no apparent distress and average body habitus Constitutional Narrative: On BiPAP therapy resting comfortably. General Appearance: cooperative, well kempt and well developed Nutritional Appearance: overweight HEENT normocephalic and head/scalp atraumatic Eyes PERRL, EOMs intact bilaterally and conjunctivae normal Neck nuchal rigidity, supple, no JVD, thyroid normal and no carotid bruits General: trachea midline Chest inspection of chest normal Chest Narrative: Kyphosis noted Chest: symmetrical chest wall rise and crepitus Resp no retractions and no use of accessory muscles Effort and Inspection: able to speak in complete sentences and tachypneic Auscultation: Negative for rhonchi or wheezes Cardio regular rate, regular rhythm, S1 normal heart sound, S2 normal heart sound, no murmurs, no rub and no gallops GI normal to inspection, nondistended, normoactive bowel sounds, soft to palpation, non-tender and non-distended Extremity no clubbing, cyanosis or edema Skin no rashes or lesions noted General Skin Exam: no breakdown Neuro oriented x3, CN's II-XII intact bilaterally, no focal motor deficits and no sensory deficits noted Sensorium / Orientation: awake and alert Speech: speech normal Psych affect normal Charges/Coding Visit Charges Inpatient E&M: 36119 Subs Hosp L3
[2021-11-23] MEDS: Potassium Chloride 10mEq/100mL 10 MEQ/100 ML IV.SOLN. 100 MEQ IV BOLUS ×4 (07:47→12:04)
[2021-11-23] MEDS: guaiFENesin 1,200 MG Tablet 1200 MG PO (09:51)
[2021-11-23] MEDS: Metoprolol(XL)Succ 100 MG Tablet PO (09:51)
[2021-11-23] MEDS: levETIRAcetam 750 MG Tablet PO ×2 (09:51→21:35)
[2021-11-23] MEDS: Vancomycin IV 1,000 MG/200 ML BAG 200 MG IV ×2 (10:38→22:26)
[2021-11-23] MEDS: CHLORHEXIDINE GLUC 2% CLOTH 1 EACH TOWELETTE TOPICAL (10:39)
--- NOTE | 2021-11-23 12:00 | PN.HOSP_ITS ---
Subjective Subjective Stable overnight. Tolerating Airvo Objective Data Objective Data Vital Signs: Vital Signs Temp Pulse Resp BP Pulse Ox 36.6 C 92 24 H 122/56 H 91 11/23/21 10:00 11/23/21 11:02 11/23/21 11:00 11/23/21 11:00 11/23/21 11:00 Oxygen Flow Rate (L/min) 55 Oxygen Delivery Method Bi-pap Weight: 74.2 kg Body Mass Index (BMI) 25.8 Intake & Output: Intake and Output for Last 24 Hours 11/21/21 11/22/21 11/23/21 23:59 23:59 23:59 Intake Total 1743.00 / 1943.00 2598.33 / 2598.33 503.5 / 503.5 Output Total 2200 / 2600 2400 / 2400 250 / 250 Balance -457.00 / -657.00 198.33 / 198.33 253.5 / 253.5 Lab / Micro Data Result Diagrams: 11/23/21 05:30 11/23/21 05:30 Labs: Laboratory Results - last 24 hr 11/22/21 21:24: Vancomycin Trough 12.9 11/23/21 05:30: WBC 13.8 H, RBC 2.84 L, Hgb 8.5 L, Hct 24.2 L, MCV 85.2, MCH 29.9, MCHC 35.1, RDW Std Deviation 50.6 H, RDW Coeff of Alpa 16.5 H, Plt Count 203, MPV 9.0, Immature Gran % (Auto) 2.200 H, Neut % (Auto) 90.8 H, Lymph % (Auto) 3.3 L, Burnett % (Auto) 3.6, Eos % (Auto) 0.0, Baso % (Auto) 0.1, Absolute Neuts (auto) 12.6 H, Absolute Lymphs (auto) 0.45 L, Nucleated RBC % 0, Dif ferential Comment SCANNED 11/23/21 05:30: Sodium 138, Potassium 3.3 L, Chloride 103, Carbon Dioxide 29.0, Anion Gap 6, BUN 22 H, Creatinine 0.56, Estim Creat Clear Calc 39.90, Est GFR (MDRD) Af Amer 134, Est GFR (MDRD) Non-Af 111, BUN/Creatinine Ratio 39.6 H, Glucose 168 H, Calcium 8.2 L, Magnesium 1.8 Micro: Microbiology 11/22/21 11:00 Sputum, Expectorated/Coughed Respiratory Culture - Pre liminary Appears to be normal respiratory leny. Further studies to follow. 11/17/21 21:45 Blood Culture (Wb) - Anticubital Left Blood Culture - Final No growth in 5 days. 11/17/21 21:38 Blood Culture (Wb) - No Site/Description Given Blood Culture - Preliminary No growth in 48 hours. 11/18/21 18:57 Stool Stool Occult Blood (MARIE) - Final Occult Blood Positive 11/18/21 01:23 Mucosa - Nasopharyngeal Respiratory Panel (PCR) - Final 11/17/21 Unknown Urine, Random Legionella Antigen - Final 11/17/21 Unknown Urine, Random Streptococcus pneumoniae Antigen (M - Final 11/17/21 20:46 Nasal Secretion SARS-CoV-2 & FLU Antigen (Rapid) - Final ABG Data ABG results: ABG 11/22/21 15:26 Specimen Type ART Sample Site R Radial pH 7.51 H Bicarbonate Actual 25.0 Total CO2 26 Base Excess 2 O2 Saturation 91 L O2 % 80 ABG pCO2 31.7 L ABG pO2 53 L Sherif Test Positive Respiration Rate 12 O2 Delivery Device BiPAP Vent Mode BiLevel POC PEEP 10 Clinical Comments 10/06 12 80% Radiography Diagnostic Testing: Radiology Impression Chest X-Ray 11/23/21 06:39 IMPRESSION: Satisfactory PICC line placement. No other interval change. at 0809 Reported and signed by: Camilo Lu MD Electronically Signed: Camilo Lu MD at 8:08 EDT , Physical Exam Const alert Resp normal respiratory effort, no retractions, no use of accessory muscles and clear to auscultation bilaterally Cardio regular rate, regular rhythm, S1 normal heart sound and S2 normal heart sound GI normal to inspection, nondistended, normoactive bowel sounds, soft to palpation, non-tender and non-distended Extremity normal to inspection Neuro Sensorium / Orientation: awake and alert Psych affect normal Assessment & Plan Assessment/Plan (1) GI bleed: QUALIFIERS: GI bleed type/associated pathology: unspecified gastro intestinal hemorrhage type Qualified Code(s): K92.2 - Gastrointestinal hem orrhage, unspecified (2) Community acquired pneumonia: QUALIFIERS: Laterality: unspecified laterality Qualified Code(s): J18.9 - Pneumonia, unspecified organism (3) Acute respiratory failure with hypoxia: PLAN: 1. Acute bilateral pneumonia * probably bacterial in nature, * given worsening respiratory failure, broaden abx to aztreonam (PCN allergy) and vancomycin 2. acute hypoxic respiratory failure * ongoing * continue Airvo and vest therapy * 2/2 pneumonia +/- radiation fibrosis * possible inpatient bronch * pulm following * add furosemide challenge 3. acute blood loss anemia * s/p 1 unit * 2/2 GIB * Hg stable 4. GI bleed * seen by GI. * hold on endoscopy until respiratory status stabilized * on pantoprazole 5. Hypokalemia * replace 6. Chronic issues--complicates care and recovery * spinal stenosis and recent compression fracture of [id number] will be seen by PT and OT, patient may need to consider going to an extended care facility for rehab services at the time of discharge, she was recently in the hospital here and declined to go to an extended care facility for rehab services. 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 VTE prophylaxis: SCDs Advanced care planning: Spent an additional 20 minutes discussing with patient, her and daughter about Roth directives. Verify the patient remains full code. Discussed you have the patient is stable at this time that certainly could change in the near future where she may require being intubated. Did explain to them that if patient does requiring being intubated that she may need to be transferred out due to lack of patient clerical assistant coverage this weekend. Charges/Coding Visit Charges Inpatient E&M: 69685 Subs Hosp L2 Procedures Hospitalists Procedures: 52578 Advncd Care Plan 30 Min
--- NOTE | 2021-11-23 13:21 | CHAPLAIN ---
Type of Pastoral Visit ___ Initial Visit _x__ Follow-up Visit ___ On-call Visit ___ General Patient Visit ___ Spiritual Assessment ___ Family Conference ___ Bereavement ___ Rapid Response ___ Code Blue ___ Other (describe below) Pastoral Care Referral From _x__ Patient ___ Family ___ Nurse ___ Physician ___ Counselor Dormitory ___ Vice Principal ___ Other (describe below) Sacrament/Intervention ___ Active listening ___ Anointing ___ Methodist ___ Bereavement ___ Communion ___ Ella exploration ___ ___ Life review _x__ Prayer ___ Reconciliation ___ Sacrament of Sick _x__ Supportive presence ___ Wedding ___ Other (describe below) Pastoral Comments as patient has been moved now to ICU a follow up visit occurred for her support; SO is in the room; pt is able to speak though on a bi-pap at this time; pt welcomes presence and prayer
[2021-11-23] MEDS: 0.9% Saline Lock 10 ML Syringe IV (22:26)
[2021-11-24] VITALS (30 sets, daily range): BP systolic 109–150; BP diastolic 53–86; PULSE 74–108; RESP 12–34; TEMP 36.4–37.4; O2SAT 90–96
[2021-11-24 04:33] LABS: Absolute Neutrophil Count 14.5 X10^3/uL (2.0-7.7); Basophil# 0.02 X10^3/uL; Basophil% 0.1 % (0-1); Hematocrit 23.5 % (37-47); Lymphocyte % 3.1 % (19-41); Mean Corpuscular Hgb 29.4 pg (27.0-32.0); Mean Corpuscular Volume 86.4 fL (81-99); Mean Platelet Vol. 9.2 fl (6.2-12.0); Monocyte# 0.64 X10^3/uL; Monocyte% 3.9 % (0-10); NRBC Flagged by Analyzer 0.1 % (0-5); Neutrophil # 14.52 X10^3/uL (2.7-7.7); Neutrophil % 89.5 % (47-70); POSITIVE DIFFERENTIAL YES; Platelet Count 195 K/mm3 (150-450); RBC Distribution Width CV 16.7 % (11.6-14.6); RBC Distribution Width SD 52.3 fl (35.1-43.9); Red Blood Count 2.72 M/mm3 (4.2-5.4); White Blood Count 16.2 K/mm3 (4.4-11.0)
[2021-11-24 04:38] LABS: Differential Indicated SCAN CRITERIA MET
[2021-11-24 04:46] LABS: Anion Gap 4 (5-15); BUN 24 mg/dL (7-18); BUN/Creat Ratio 49.8 RATIO (10-20); Calcium,Total 8.1 mg/dL (8.5-10.1); Chloride 106 mmol/L (98-107); Creatinine, Serum 0.48 mg/dL (0.55-1.02); EST Glomerular Filtration Rate 131 mL/min (>60); Est Glom Filt Rate - Afr Amer 158 mL/min (>60); Glucose 188 mg/dL (74-106); Potassium 3.8 mmol/L (3.5-5.1); Sodium Level 138 mmol/L (136-145)
[2021-11-24 05:04] LABS: Anisocytosis 1+; Differential Comment SCANNED
[2021-11-24 05:05] LABS: Hypochromasia RARE; Microcytosis 1+
[2021-11-24] MEDS: 0.9% Saline Lock 10 ML Syringe IV (06:29)
--- NOTE | 2021-11-24 06:57 | PN.CC_ITS ---
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 Continue broad-spectrum antibiotics 2. BiPAP breaks as tolerated 3. Continue empiric steroid therapy 4. Cannot exclude the need for intubation. Monitor in ICU 5. Restrictions per speech therapy IMPRESSIONS: 1. Acute hypoxic respiratory failure of unclear etiology Patient does have a leukocytosis with scattered infiltrates bilaterally. 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 Patient also has significant narrowing of the right pulmonary tree. Some concern patient may be having poor pulmonary toileting leading to acute worsening in oxygen saturations. Patient reportedly has been followed at the [facility] with CT scans and PET scans that show no residual cancer. Chest x-ray shows relative stability. FiO2 appears to have stabilized. We will continue with steroids at the current dosing until oxygenation improves. Some concern by speech therapy for aspiration, but left-sided infiltrates would not be typical of aspiration as they are not lobar. Pattern on x-ray appears to be more compatible with atypical infection 2. Acute blood loss anemia Stable at this time. Patient to be transfused during this hospitalization. Hemoglobin low at 6.9 during this hospitalization, but has remained stable since transfusion. Patient has received some volume resuscitation, but does not clinically appear to be volume overloaded. Patient does have a positive guaiac stool. GI has been consulted, but would like to stabilize patient further before any acute interventions. Reticulocyte panel is suggestive that the patient is trying to compensate meaning that this would likely not be related to any chemo or radiation therapy or bone marrow failure. Cannot exclude an underlying GI malignancy 3. 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 Volume restriction is likely adequate. No indication for 3% saline from my perspective. Could attempt to obtain information from [facility] on patient's current malignant burden. Hypokalemia likely secondary to Lasix therapy. Repletion ordered. 4. Spinal stenosis/compression fracture/epilepsy/hypertension/chronic pain syndrome/advanced age/hypothyroidism Complicates care, management, recovery and prognosis. Patient does have an element of kyphosis that may be adding to problem #1. Patient is on her baseline medications and appear to be tolerating this well. Patient states her pain is well controlled. Blood pressures have been adequate. No indication for change in medications from my perspective. Okay to continue with metoprolol and Norvasc. Subjective Subjective Patient did okay overnight. Patient's oxygenation remains marginal, but she was able to tolerate Airvo until sleep. Patient did tolerate BiPAP overnight with sleep. No acute issues were reported. Patient was evaluated by speech yesterday and there were concerns about aspiration, so she was limited to meds only. Objective Data Objective Data Vital Signs: Vital Signs Temp Pulse Resp BP Pulse Ox 37.2 C 89 24 H 144/62 H 93 11/24/21 04:00 11/24/21 05:00 11/24/21 05:00 11/24/21 05:00 11/24/21 05:00 Oxygen Flow Rate (L/min) 60 Oxygen Delivery Method Bi-pap Weight: 74.4 kg Body Mass Index (BMI) 25.8 Intake & Output: Intake and Output for Last 24 Hours 11/22/21 11/23/21 11/24/21 23:59 23:59 23:59 Intake Total 2598.33 / 2598.33 2015.50 / 2015.50 243 / 243 Output Total 2400 / 2400 800 / 1025 575 / 575 Balance 198.33 / 198.33 1216.50 / 991.50 -332 / -332 Lab / Micro Data Result Diagrams: 11/24/21 04:25 11/24/21 04:25 Labs: Laboratory Results - last 24 hr 11/24/21 04:25: WBC 16.2 H, RBC 2.72 L, Hgb 8.0 L, Hct 23.5 L, MCV 86.4, MCH 29.4, MCHC 34.0, RDW Std Deviation 52.3 H, RDW Coeff of Alpa 16.7 H, Plt Count 195, MPV 9.2, Immature Gran % (Auto) 3.400 H, Neut % (Auto) 89.5 H, Lymph % (Auto) 3.1 L, Blanco % (Auto) 3.9, Eos % (Auto) 0.0, Baso % (Auto) 0.1, Absolute Neuts (auto) 14.5 H, Absolute Lymphs (auto) 0.50 L, Nucleated RBC % 0.1, Differential Comment SCANNED, Hypochromasia RARE, Anisocytosis 1+, Microcytosis 1+ 11/24/21 04:25: Sodium 138, Potassium 3.8, Chloride 106, Carbon Dioxide 28.0, Anion Gap 4 L, BUN 24 H, Creatinine 0.48 L, Estim Creat Clear Calc 39.90, Est GFR (MDRD) Af Amer 158, Est GFR (MDRD) Non-Af 131, BUN/Creatinine Ratio 49.8 H, Glucose 188 H, Calcium 8.1 L Micro: Microbiology 11/22/21 11:00 Sputum, Expectorated/Coughed Gram Stain - Final 11/22/21 11:00 Sputum, Expectorated/Coughed Respiratory Culture - Prelimina ry Appears to be normal respiratory leny. Further studies to follow. 11/17/21 21:45 Blood Culture (Wb) - Anticubital Left Blood Culture - Final No growth in 5 days. 11/17/21 21:38 Blood Culture (Wb) - No Site/Description Given Blood Culture - Preliminary No growth in 48 hours. 11/18/21 18:57 Stool Stool Occult Blood (MARIE) - Final Occult Blood Positive 11/18/21 01:23 Mucosa - Nasopharyngeal Respiratory Panel (PCR) - Final 11/17/21 Unknown Urine, Random Legionella Antigen - Final 11/17/21 Unknown Urine, Random Streptococcus pneumoniae Antigen (M - Final 11/17/21 20:46 Nasal Secretion SARS-CoV-2 & FLU Antigen (Rapid) - Final Radiography Diagnostic Testing: Radiology Impression Chest X-Ray 11/23/21 06:39 IMPRESSION: Satisfactory PICC line placement. No other interval change. at 0809 Reported and signed by: Camilo Lu MD Electronically Signed: Camilo Lu MD at 8:08 EDT , Physical Exam Const alert, oriented x3, no apparent distress and average body habitus Constitutional Narrative: On BiPAP therapy resting comfortably. General Appearance: cooperative, well kempt and well developed Nutritional Appearance: overweight HEENT normocephalic and head/scalp atraumatic Eyes PERRL, EOMs intact bilaterally and conjunctivae normal Neck No nuchal rigidity, supple, no JVD, thyroid normal and no carotid bruits General: trachea midline Chest inspection of chest normal Chest Narrative: Kyphosis noted Chest: symmetrical chest wall rise; Negative for crepitus Resp no retractions and no use of accessory muscles Effort and Inspection: able to speak in complete sentences and tachypneic Auscultation: Negative for rales, rhonchi or wheezes Cardio regular rate, regular rhythm, S1 normal heart sound, S2 normal heart sound, no murmurs, no rub and no gallops GI normal to inspection, nondistended, normoactive bowel sounds, soft to palpation, non-tender and non-distended Extremity no clubbing, cyanosis or edema Skin no rashes or lesions noted General Skin Exam: no breakdown Neuro oriented x3, CN's II-XII intact bilaterally, no focal motor deficits and no sensory deficits noted Sensorium / Orientation: awake and alert Speech: speech normal Psych affect normal Charges/Coding Visit Charges Inpatient E&M: 51479 Subs Hosp L3
--- NOTE | 2021-11-24 08:26 | PN.HOSP_ITS ---
Subjective Subjective No events overnight. Coughing up some. Objective Data Objective Data Vital Signs: Vital Signs Temp Pulse Resp BP Pulse Ox 37.2 C 94 27 H 134/61 H 92 11/24/21 04:00 11/24/21 07:00 11/24/21 07:00 11/24/21 07:00 11/24/21 07:46 Oxygen Flow Rate (L/min) 60 Oxygen Delivery Method Airvo Weight: 74.4 kg Body Mass Index (BMI) 25.8 Intake & Output: Intake and Output for Last 24 Hours 11/22/21 11/23/21 11/24/21 23:59 23:59 23:59 Intake Total 2598.33 / 2598.33 50 / 243 / 243 Output Total 2400 / 2400 800 / 1025 575 / 575 Balance 198.33 / 198.33 1216.50 / 991.50 -332 / -332 Lab / Micro Data Result Diagrams: 11/24/21 04:25 11/24/21 04:25 Labs: Laboratory Results - last 24 hr 11/24/21 04:25: WBC 16.2 H, RBC 2.72 L, Hgb 8.0 L, Hct 23.5 L, MCV 86.4, MCH 29.4, MCHC 34.0, RDW Std Deviation 52.3 H, RDW Coeff of Alpa 16.7 H, Plt Count 195, MPV 9.2, Immature Gran % (Auto) 3.400 H, Neut % (Auto) 89.5 H, Lymph % (Auto) 3.1 L, Wharton % (Auto) 3.9, Eos % (Auto) 0.0, Baso % (Auto) 0.1, Absolute Neuts (auto) 14.5 H, Absolute Lymphs (auto) 0.50 L, Nucleated RBC % 0.1, Differential Comment SCANNED, Hypochromasia RARE, Anisocytosis 1+, Microcytosis 1+ 11/24/21 04:25: Sodium 138, Potassium 3.8, Chloride 106, Carbon Dioxide 28.0, Anion Gap 4 L, BUN 24 H, Creatinine 0.48 L, Estim Creat Clear Calc 39.90, Est GFR (MDRD) Af Amer 158, Est GFR (MDRD) Non-Af 131, BUN/Creatinine Ratio 49.8 H, Glucose 188 H, Calcium 8.1 L Micro: Microbiology 11/22/21 11:00 Sputum, Expectorated/Coughed Gram Stain - Final 11/22/21 11:00 Sputum, Expectorated/Coughed Respiratory Culture - Preliminary Appears to be normal respiratory leny. Further studies to follow. 11/17/21 21:45 Blood Culture (Wb) - Anticubital Left Blood Culture - Final No growth in 5 days. 11/17/21 21:38 Blood Culture (Wb) - No Site/Description Given Blood Culture - Preliminary No growth in 48 hours. 11/18/21 18:57 Stool Stool Occult Blood (MARIE) - Final Occult Blood Positive 11/18/21 01:23 Mucosa - Nasopharyngeal Respiratory Panel (PCR) - Final 11/17/21 Unknown Urine, Random Legionella Antigen - Final 11/17/21 Unknown Urine, Random Streptococcus pneumoniae Antigen (M - Final 11/17/21 20:46 Nasal Secretion SARS-CoV-2 & FLU Antigen (Rapid) - Final Physical Exam Const alert and no apparent distress HEENT head/scalp atraumatic and moist oral mucous membranes HEENT Narrative: edentulous Head and Scalp: normocephalic Eyes Eyes Narrative: no icterus Resp normal respiratory effort and no retractions Resp Narrative: coarse BS Cardio regular rate, regular rhythm, S1 normal heart sound and S2 normal heart sound GI normal to inspection, nondistended, normoactive bowel sounds, soft to palpation, non-tender and non-distended Extremity normal to inspection and no clubbing, cyanosis or edema Skin no rashes or lesions noted and no wounds Neuro Sensorium / Orientation: awake and alert Psych affect normal Assessment & Plan Assessment/Plan (1) GI bleed: QUALIFIERS: GI bleed type/associated pathology: unspecified gastrointestinal hemorrhage type Qualified Code(s): K92.2 - Gastrointestinal hemorrhage, unspecified (2) Community acquired pneumonia: QUALIFIERS: Laterality: unspecified laterality Qualified Code(s): J18.9 - Pneumonia, unspecified organism (3) Acute respiratory failure with hypoxia: PLAN: 1. Acute bilateral pneumonia * probably bacterial in nature, * given worsening respiratory failure, broaden abx to aztreonam (PCN allergy) and vancomycin 2. acute hypoxic respiratory failure * ongoing, but stable today * continue Airvo and vest therapy * 2/2 pneumonia +/- radiation fibrosis * possible inpatient bronch * pulm following 3. acute blood loss anemia * s/p 1 unit * 2/2 GIB * Hg stable 4. GI bleed * seen by GI. * hold on endoscopy until respiratory status stabilized * on pantoprazole Boluses. 5. Hypokalemia * replace 6. Dysphagia * NPO * ST 7. Chronic issues--complicates care and recovery * spinal stenosis and recent compression fracture of [id number] will be seen by PT and OT, patient may need to consider going to an extended care facility for rehab services at the time of discharge, she was recently in the hospital here and declined to go to an extended care facility for rehab services. 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 VTE prophylaxis: SCDs 11/23: Advanced care planning: Discussed with patient, her and daughter about Roth directives. Verify the patient remains full code. Discussed you have the patient is stable at this time that certainly could change in the near future where she may require being intubated. Did explain to them that if patient does requiring being intubated that she may potentially need to be transferred out due to lack of environmental research scientist coverage this weekend. Charges/Coding Visit Charges Inpatient E&M: 45572 Init Hosp L3
[2021-11-24] MEDS: Metoprolol(XL)Succ 100 MG Tablet PO (10:02)
[2021-11-24] MEDS: levETIRAcetam 750 MG Tablet PO (10:02)
[2021-11-24] MEDS: Levothyroxine 137 MCG Tablet PO (10:03)
[2021-11-24] MEDS: CHLORHEXIDINE GLUC 2% CLOTH 1 EACH TOWELETTE TOPICAL (10:03)
[2021-11-24] MEDS: Vancomycin IV 1,000 MG/200 ML BAG 200 MG IV ×2 (10:30→22:30)
--- NOTE | 2021-11-24 10:33 | CASEMGMT ---
Social Work Participating in ICU rounds in patient room. Patient spouse present. Patient no medically cleared. Plan is for patient to discharge to TCU when medically cleared. PLAN: TCU Social work to continue to follow. Christy VERONICA, ANGELICA
--- NOTE | 2021-11-24 19:37 | CPS ---
tried to place pt on Airvo for break from BiPAP, pt desat to 81% on 60 100%, placed kenisha on BiPAP
[2021-11-25] VITALS (32 sets, daily range): BP systolic 106–148; BP diastolic 57–77; PULSE 86–130; RESP 12–32; TEMP 36.4–36.6; O2SAT 88–96
[2021-11-25] MEDS: Haloperidol Lactate 5 MG/ML Vial 4 MG IV ×3 (04:30→21:46)
[2021-11-25 05:16] LABS: Hematocrit 24.2 % (37-47); Hemoglobin 8.1 g/dL (12.0-15.0); Mean Corp Hgb Conc 33.5 g/dL (32-36); Mean Corpuscular Hgb 29.1 pg (27.0-32.0); Mean Corpuscular Volume 87.1 fL (81-99); Mean Platelet Vol. 9.7 fl (6.2-12.0); POSITIVE COUNT YES; POSITIVE MORPHOLOGY YES; Platelet Count 195 K/mm3 (150-450); RBC Distribution Width CV 16.9 % (11.6-14.6); Red Blood Count 2.78 M/mm3 (4.2-5.4); White Blood Count 19.9 K/mm3 (4.4-11.0)
[2021-11-25 05:20] LABS: Differential Indicated MANUAL DIFF
[2021-11-25 05:25] LABS: Anion Gap 6 (5-15); BUN 24 mg/dL (7-18); BUN/Creat Ratio 51.8 RATIO (10-20); Calcium,Total 8.2 mg/dL (8.5-10.1); Chloride 108 mmol/L (98-107); Creatinine, Serum 0.46 mg/dL (0.55-1.02); EST Glomerular Filtration Rate 137 mL/min (>60); Est Glom Filt Rate - Afr Amer 166 mL/min (>60); Glucose 198 mg/dL (74-106); Potassium 3.4 mmol/L (3.5-5.1); Sodium Level 143 mmol/L (136-145)
[2021-11-25 05:38] LABS: Lymphocyte 2 % (19-41); Metamyelocyte 3 % (0-1); Monocyte 5 % (0-10); Myelocyte 2 % (0-0); Neutrophil-Band 3 % (0-5); Neutrophil-Segmented 84 % (47-70); Platelet Estimate ADEQUATE (ADEQ); Promyelocyte 1 % (0-0); Total Cells Counted 100 (MANUAL DIFF)
[2021-11-25 05:39] LABS: Hypochromasia 1+
[2021-11-25 05:40] LABS: Absolute Neutrophil Count 17.3 X10^3/uL (2.0-7.7); Neutrophil # 17.33 X10^3/uL (2.7-7.7)
[2021-11-25] MEDS: Furosemide 40 MG/4 ML Vial IV ×2 (07:27→17:38)
[2021-11-25] MEDS: Vancomycin IV 1,000 MG/200 ML BAG 200 MG IV (07:51)
[2021-11-25] MEDS: Ipratropium/Albuterol Sulfate 3 ML AMPUL.NEB INHALATION (08:51)
[2021-11-25 10:31] LABS: Allen Test Positive; Base Excess 5 mmol/L (-2 to +2); Bicarbonate 27.5 mmol/L (22-26); Blood Gas Specimen Type ART; FI02 95; O2 Delivery Device BiPAP; PEEP 8; PO2 50 mmHG (75-100); SITE R Radial; SO2 90 % (95-99); Total Carbon Dioxide 28 mmol/L; pCO2 32.2 mmHg (35-45); pH 7.54 (7.35-7.45)
[2021-11-25] MEDS: CHLORHEXIDINE GLUC 2% CLOTH 1 EACH TOWELETTE TOPICAL (11:06)
--- NOTE | 2021-11-25 11:53 | PN.HOSP_ITS ---
Subjective Subjective increased oxygen requirements. Objective Data Objective Data Vital Signs: Vital Signs Temp Pulse Resp BP Pulse Ox 36.6 C 113 H 25 H 142/70 H 88 11/25/21 00:00 11/25/21 11:23 11/25/21 11:00 11/25/21 11:00 11/25/21 11:00 Oxygen Flow Rate (L/min) 60 Oxygen Delivery Method Bi-pap Weight: 74.7 kg Body Mass Index (BMI) 25.8 Intake & Output: Intake and Output for Last 24 Hours 11/23/21 11/24/21 11/25/21 23:59 23:59 23:59 Intake Total 2015.50 / 2015.50 1533 / 1533 410 / 410 Output Total 800 / 1025 1575 / 1575 300 / 300 Balance 1216.50 / 991.50 -42 / -42 110 / 110 Lab / Micro Data Result Diagrams: 11/25/21 04:30 11/25/21 04:30 Labs: Laboratory Results - last 24 hr 11/25/21 04:30: WBC 19.9 H, RBC 2.78 L, Hgb 8.1 L, Hct 24.2 L, MCV 87.1, MCH 29.1, MCHC 33.5, RDW Std Deviation 53.0 H, RDW Coeff of Alpa 16.9 H, Plt Count 195, MPV 9.7, Neut % (Auto) Not Reportable, Absolute Neuts (auto) 17.3 H, Absolute Lymphs (auto) 0.40 L, Total Counted 100, Neutrophils % (Manual) 84 H, Band Neutrophils % 3, Lymphocytes % (Manual) 2 L, Monocytes % (Manual) 5, Metamyelocytes % 3 H, Myelocytes % 2 H, Promyelocytes % 1 H, Diff Path Review December, Platelet Estimate ADEQUATE, Hypochromasia 1+ 11/25/21 04:30: Sodium 143, Potassium 3.4 L, Chloride 108 H, Carbon Dioxide 29.0, Anion Gap 6, BUN 24 H, Creatinine 0.46 L, Estim Creat Clear Calc 39.90, Est GFR (MDRD) Af Amer 166, Est GFR (MDRD) Non-Af 137, BUN/Creatinine Ratio 51.8 H, Glucose 198 H, Calcium 8.2 L Micro: Microbiology 11/17/21 21:38 Blood Culture (Wb) - No Site/Description Given Blood Culture - Final No growth in 5 days. 11/22/21 11:00 Sputum, Expectorated/Coughed Gram Stain - Final 11/22/21 11:00 Sputum, Expectorated/Coughed Respiratory Culture - Preliminary Appears to be normal respiratory leny. Further studies to follow. 11/17/21 21:45 Blood Culture (Wb) - Anticubital Left Blood Culture - Final No growth in 5 days. 11/18/21 18:57 Stool Stool Occult Blood (MARIE) - Final Occult Blood Positive 11/18/21 01:23 Mucosa - Nasopharyngeal Respiratory Panel (PCR) - Final 11/17/21 Unknown Urine, Random Legionella Antigen - Final 11/17/21 Unknown Urine, Random Streptococcus pneumoniae Antigen (M - Final 11/17/21 20:46 Nasal Secretion SARS-CoV-2 & FLU Antigen (Rapid) - Final ABG Data ABG results: ABG 11/25/21 10:28 Specimen Type ART Sample Site R Radial pH 7.54 H Bicarbonate Actual 27.5 H Total CO2 28 Base Excess 5 H O2 Saturation 90 L O2 % 95 ABG pCO2 32.2 L ABG pO2 50 L Sherif Test Positive O2 Delivery Device BiPAP POC PEEP 8 Physical Exam Const alert Constitutional Narrative: on BiPAP writing to communicate while on BiPAP Resp normal respiratory effort, no retractions and no use of accessory muscles Resp Narrative: coarse BS bilaterally Cardio regular rate, regular rhythm, S1 normal heart sound and S2 normal heart sound GI normal to inspection, nondistended, normoactive bowel sounds, soft to palpation, non-tender and non-distended Neuro Sensorium / Orientation: awake and alert Assessment & Plan Assessment/Plan (1) GI bleed: QUALIFIERS: GI bleed type/associated pathology: unspecified gastrointestinal hemorrhage type Qualified Code(s): K92.2 - Gastrointestinal hemorrhage, unspecified (2) Community acquired pneumonia: QUALIFIERS: Laterality: unspecified laterality Qualified Code(s): J18.9 - Pneumonia, unspecified organism (3) Acute respiratory failure with hypoxia: PLAN: 1. Acute bilateral pneumonia * probably bacterial in nature, * given worsening respiratory failure, broaden abx to aztreonam (PCN allergy) and vancomycin 2. acute hypoxic respiratory failure * Worsening * continue Airvo and vest therapy * 2/2 pneumonia +/- radiation fibrosis * possible inpatient bronch * pulm following * 11/25: Start furosemide. ABG performed and showed pH of 7.54, PCO2 of 32.2 and PO2 50. 3. acute blood loss anemia * s/p 1 unit * 2/2 GIB * Hg stable 4. GI bleed * seen by GI. * hold on endoscopy until respiratory status stabilized * on pantoprazole Boluses. 5. Hypokalemia * replace 6. Dysphagia * NPO * ST 7. Chronic issues--complicates care and recovery * spinal stenosis and recent compression fracture of [id number] will be seen by PT and OT, patient may need to consider going to an extended care facility for rehab services at the time of discharge, she was recently in the hospital here and declined to go to an extended care facility for rehab services. 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 VTE prophylaxis: SCDs Advanced care planning: Spent additional 20 minutes discussing with the patient and her about intubation. Patient indicated that she did not want to be intubated but upon further discussion she would defer to her . Explained to them both that she will remain full code for now but family is to come in and they would discuss further. 11/23: Advanced care planning: Discussed with patient, her and daughter about Roth directives. Verify the patient remains full code. Discussed you have the patient is stable at this time that certainly could change in the near future where she may require being intubated. Did explain to them that if patient does requiring being intubated that she may potentially need to be transferred out due to lack of batt packer coverage this weekend. Charges/Coding Visit Charges Inpatient E&M: 57414 Subs Hosp L2 Procedures Hospitalists Procedures: 68315 Advncd Care Plan 30 Min
[2021-11-25] MEDS: LORazepam 2 MG/ML Syringe 0.5 MG IV (17:38)
[2021-11-25] MEDS: Potassium Chloride 20mEq/100mL 20 MEQ/100 ML IV.SOLN. 100 MEQ IV BOLUS ×2 (19:59→21:05)
[2021-11-25 22:54] LABS: Vancomycin, Trough Level 21.2 ug/mL (5.0-15.0)
--- NOTE | 2021-11-25 23:15 | PCM.RX.CS ---
Consult Type of Consult: Follow-up Suspected Infection: Pneumonia Labs: Sodium 143 mmol/L (136-145) 11/25/21 04:30 Potassium 3.4 mmol/L (3.5-5.1) L 11/25/21 04:30 Chloride 108 mmol/L (98-107) H 11/25/21 04:30 Carbon Dioxide 29.0 mmol/L (21.0-32.0) 11/25/21 04:30 Anion Gap 6 (5-15) 11/25/21 04:30 BUN 24 mg/dL (7-18) H 11/25/21 04:30 Creatinine 0.46 mg/dL (0.55-1.02) L 11/25/21 04:30 Est GFR (MDRD) Af Amer 166 mL/min (>60) 11/25/21 04:30 Est GFR (MDRD) Non-Af 137 mL/min (>60) 11/25/21 04:30 BUN/Creatinine Ratio 51.8 RATIO (10-20) H 11/25/21 04:30 Glucose 198 mg/dL (74-106) H 11/25/21 04:30 Vancomycin Trough 21.2 ug/mL (5.0-15.0) H 11/25/21 21:55 Microbiology: Microbiology 11/22/21 11:00 Sputum, Expectorated/Coughed Gram Stain - Final 11/22/21 11:00 Sputum, Expectorated/Coughed Respiratory Culture - Final 11/17/21 21:38 Blood Culture (Wb) - No Site/Description Given Blood Culture - Final No growth in 5 days. 11/17/21 21:45 Blood Culture (Wb) - Anticubital Left Blood Culture - Final No growth in 5 days. 11/18/21 18:57 Stool Stool Occult Blood (MARIE) - Final Occult Blood Positive 11/18/21 01:23 Mucosa - Nasopharyngeal Respiratory Panel (PCR) - Final 11/17/21 Unknown Urine, Random Legionella Antigen - Final 11/17/21 Unknown Urine, Random Streptococcus pneumoniae Antigen (M - Final 11/17/21 20:46 Nasal Secretion SARS-CoV-2 & FLU Antigen (Rapid) - Final Goal Trough: 15-20 mcg/mL Pharmacy Plan for Drug Dosing: VANCOMYCIN LEVEL RECEIVED Current Vancomycin Dose: 1000mg Q12H Number of Doses Received: 5 Vancomycin Level: 21.2 Hours Since Last Dose: 14 Renal Function: sCr 0.46 Vancomycin Plan/Comments: Adjust Vancomycin dosing regimen to 750mg Q12H, to start at 0600 11/26/21 following an additional 8-hour HOLD to allow drug clearance. Pending Level: Vancomycin level @ 0530 11/27/21 Pharmacy Service will continue to monitor and adjust dosing as required. Labs to be done on [date and time ordered]: Vancomycin level @ 0530 11/27/21
--- NOTE | 2021-11-25 23:19 | EKG12_ITS ---
Test Reason : Blood Pressure : / mmHG Vent. Rate : 131 BPM Atrial Rate : 131 BPM P-R Int : 144 ms QRS Dur : 118 ms QT Int : 332 ms P-R-T Axes : 019 -06 -21 degrees QTc Int : 490 ms Sinus tachycardia with Fusion complexes Right bundle branch block Abnormal ECG No previous ECGs available Confirmed by FABRICIO CARRION, MORRIS ([id number]), technical writer and editor RUPERTO NICHOLE ([id number]) on 12/08/2021 1:30:06 PM Referred By: Cam Morales Confirmed By:LATA REGALADO MD
[2021-11-25] MEDS: Morphine 2 MG/ML Syringe IV (23:30)
[2021-11-25] MEDS: 0.9% Saline Lock 10 ML Syringe IV (23:38)
[2021-11-25] MEDS: Metoprolol Tartrate 5 MG/5 ML Vial IV (23:38)
--- NOTE | 2021-11-25 23:57 | NURSING ---
231- Pt with increased work of breathing, sat 85% on BiPAP 90% FiO2. Increased to 100% FiO2, slowly recovers to 88%. HR 140-170s on monitor. Dr Humphrey notified of same, orders obtained. See 2344- Pt with easy, unlabored respirations. Remains on 100% FiO2, sat 92% and HR 99. Pt appears to be comfortable, resting with eyes closed. Spouse, Diony, called and updated on pt status; questions answered. Will cont to monitor.
[2021-11-26] VITALS (27 sets, daily range): BP systolic 79–145; BP diastolic 42–95; PULSE 80–126; RESP 12–263; TEMP 36.3–36.4; O2SAT 69–97
[2021-11-26] MEDS: Morphine 2 MG/ML Syringe IV ×3 (02:39→13:24)
[2021-11-26] MEDS: LORazepam 2 MG/ML Syringe 1 MG IV (03:40)
[2021-11-26] MEDS: Metoprolol Tartrate 5 MG/5 ML Vial IV ×2 (05:22→12:01)
[2021-11-26 06:25] LABS: Hematocrit 24.4 % (37-47); Hemoglobin 7.8 g/dL (12.0-15.0); Mean Corpuscular Hgb 29.1 pg (27.0-32.0); Mean Platelet Vol. 10.5 fl (6.2-12.0); POSITIVE COUNT YES; POSITIVE DIFFERENTIAL YES; POSITIVE MORPHOLOGY YES; Platelet Count 161 K/mm3 (150-450); RBC Distribution Width CV 17.4 % (11.6-14.6); RBC Distribution Width SD 56.6 fl (35.1-43.9); Red Blood Count 2.68 M/mm3 (4.2-5.4)
[2021-11-26 06:26] LABS: ALB/GLOB Ratio 0.6 RATIO (0.9-2.4); AST(SGOT) 28 U/L (15-37); Alanine Aminotransfer ALT/SGPT 41 U/L (13-56); Albumin, Serum 1.9 g/dL (3.2-5.0); Alkaline Phosphatase 187 U/L (45-117); Anion Gap 5 (5-15); BUN 36 mg/dL (7-18); BUN/Creat Ratio 43.3 RATIO (10-20); Calcium,Total 8.7 mg/dL (8.5-10.1); Chloride 114 mmol/L (98-107); Creatinine, Serum 0.83 mg/dL (0.55-1.02); EST Glomerular Filtration Rate 70 mL/min (>60); Est Glom Filt Rate - Afr Amer 84 mL/min (>60); Estimated Creatinine Clearance 48.08 ml/min; Globulin 3.4 g/dL (2.2-4.2); Glucose 226 mg/dL (74-106); Potassium 3.7 mmol/L (3.5-5.1); Protein, Total 5.3 g/dL (6.4-8.2); Sodium Level 149 mmol/L (136-145)
[2021-11-26 06:28] LABS: Differential Indicated MANUAL DIFF
[2021-11-26 06:48] LABS: Corrected WBC 26.4 K/mm3 (4.4-11.0); Lymphocyte 2 % (19-41); Metamyelocyte 1 % (0-1); Monocyte 2 % (0-10); Myelocyte 1 % (0-0); Neutrophil-Band 1 % (0-5); Neutrophil-Segmented 93 % (47-70); Nucleated Red Bld Cells,Manual 5 % (0-5); Total Cells Counted 100 (MANUAL DIFF)
[2021-11-26 06:50] LABS: Absolute Lymphocyte Count 0.55 X10^3/uL (0.83-4.51); Absolute Neutrophil Count 26.6 X10^3/uL (2.0-7.7); Lymphocyte # 0.55 X10^3/ul (0.83-4.51); Neutrophil # 26.61 X10^3/uL (2.7-7.7); Platelet Estimate ADEQUATE (ADEQ)
[2021-11-26 06:52] LABS: Polychromasia 1+
[2021-11-26] MEDS: Ipratropium/Albuterol Sulfate 3 ML AMPUL.NEB INHALATION (07:21)
[2021-11-26] MEDS: Furosemide 40 MG/4 ML Vial IV (08:06)
--- NOTE | 2021-11-26 09:52 | PN.HOSP_ITS ---
Subjective Subjective Tachycardia overnight. Decreased responsiveness. Objective Data Objective Data Vital Signs: Vital Signs Temp Pulse Resp BP Pulse Ox 36.3 C L 109 H 26 H 111/61 94 11/26/21 00:00 11/26/21 08:12 11/26/21 07:23 11/26/21 08:12 11/26/21 08:00 Oxygen Flow Rate (L/min) 60 Oxygen Delivery Method Bi-pap Weight: 74.7 kg Body Mass Index (BMI) 25.8 Intake & Output: Intake and Output for Last 24 Hours 11/24/21 11/25/21 11/26/21 23:59 23:59 23:59 Intake Total 1533 / 1533 1170 / 1170 365 / 365 Output Total 1575 / 1575 1850 / 1850 125 / 125 Balance -42 / -42 -680 / -680 240 / 240 Lab / Micro Data Result Diagrams: 11/26/21 05:30 11/26/21 05:30 Labs: Laboratory Results - last 24 hr 11/25/21 21:55: Vancomycin Trough 21.2 H 11/26/21 05:30: WBC [employer], Corrected WBC 26.4 H, RBC 2.68 L, Hgb 7.8 L, Hct 24.4 L, MCV 91.0, MCH 29.1, MCHC 32.0, RDW Std Deviation 56.6 H, RDW Coeff of Alpa 17.4 H , Plt Count 161, MPV 10.5, Neut % (Auto) Not Reportable, Absolute Neuts (auto) 26.6 H, Absolute Lymphs (auto) 0.55 L, Total Counted 100, Neutrophils % (Manual) 93 H, Band Neutrophils % 1, Lymphocytes % (Manual) 2 L, Monocytes % (Manual) 2, Metamyelocytes % 1, Myelocytes % 1 H, Nucleated RBCs/100 WBC 5, Diff Path Review December, Platelet Estimate ADEQUATE, Polychromasia 1+ 11/26/21 05:30: Sodium 149 H, Potassium 3.7, Chloride 114 H, Carbon Dioxide 30.0, Anion Gap 5, BUN 36 H, Creatinine 0.83, Estim Creat Clear Calc 48.08, Est GFR (MDRD) Af Amer 84, Est GFR (MDRD) Non-Af 70, BUN/Creatinine Ratio 43.3 H, Glucose 226 H, Calcium 8.7, Total Bilirubin 0.40, AST 28, ALT 41, Alkaline Phosphatase 187 H, Total Protein 5.3 L, Albumin 1.9 L, Globulin 3.4, Albumin/Globulin Ratio 0.6 L Micro: Microbiology 11/22/21 11:00 Sputum, Expectorated/Coughed Gram Stain - Final 11/22/21 11:00 Sputum, Expectorated/Coughed Respiratory Culture - Final 11/17/21 21:38 Blood Culture (Wb) - No Site/Description Given Blood Culture - Final No growth in 5 days. 11/17/21 21:45 Blood Culture (Wb) - Anticubital Left Blood Culture - Final No growth in 5 days. 11/18/21 18:57 Stool Stool Occult Blood (MARIE) - Final Occult Blood Positive 11/18/21 01:23 Mucosa - Nasopharyngeal Respiratory Panel (PCR) - Final 11/17/21 Unknown Urine, Random Legionella Antigen - Final 11/17/21 Unknown Urine, Random Streptococcus pneumoniae Antigen (M - Final 11/17/21 20:46 Nasal Secretion SARS-CoV-2 & FLU Antigen (Rapid) - Final ABG Data ABG results: ABG 11/25/21 10:28 Specimen Type ART Sample Site R Radial pH 7.54 H Bicarbonate Actual 27.5 H Total CO2 28 Base Excess 5 H O2 Saturation 90 L O2 % 95 ABG pCO2 32.2 L ABG pO2 50 L Sherif Test Positive O2 Delivery Device BiPAP POC PEEP 8 Physical Exam Const Constitutional Narrative: lethargic. withdraws to pain. clenches eyes when I try to open them. on BiPAP HEENT head/scalp atraumatic, moist oral mucous membranes and oropharynx normal Head and Scalp: normocephalic Resp Resp Narrative: coarse breath sounds bilaterally. Cardio regular rate, regular rhythm, S1 normal heart sound and S2 normal heart sound GI normal to inspection, nondistended, normoactive bowel sounds, soft to palpation, non-tender and non-distended Extremity normal to inspection Skin no rashes or lesions noted and no wounds Assessment & Plan Assessment/Plan (1) GI bleed: QUALIFIERS: GI bleed type/associated pathology: unspecified gastrointestinal hemorrhage type Qualified Code(s): K92.2 - Gastrointestinal hemorrhage, unspecified (2) Community acquired pneumonia: QUALIFIERS: Laterality: unspecified laterality Qualified Code(s): J18.9 - Pneumonia, unspecified organism (3) Acute respiratory failure with hypoxia: PLAN: 1. Acute bilateral pneumonia * probably bacterial in nature, * given worsening respiratory failure, broaden abx to aztreonam (PCN allergy) and vancomycin 2. acute hypoxic respiratory failure * Worsening * on BiPAP 100% FiO2 * 2/2 pneumonia +/- radiation fibrosis * pulm following * 11/25: Start furosemide. ABG performed and showed pH of 7.54, PCO2 of 32.2 and PO2 50. 3. acute blood loss anemia * s/p 1 unit * 2/2 GIB * Hg stable 4. GI bleed * seen by GI. * hold on endoscopy until respiratory status stabilized * on pantoprazole Boluses. 5. Hypokalemia * improved after replacement 6. Dysphagia * NPO * ST 7. Chronic issues--complicates care and recovery * spinal stenosis and recent compression fracture of [id number] will be seen by PT and OT, patient may need to consider going to an extended care facility for rehab services at the time of discharge, she was recently in the hospital here and declined to go to an extended care facility for rehab services. 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 VTE prophylaxis: SCDs Advanced care planning: Spent additional 20 minutes discussing with the patient and her about intubation. Patient indicated that she did not want to be intubated but upon further discussion she would defer to her . Explained to them both that she will remain full code for now but family is to come in and they would discuss further. 11/23: Advanced care planning: Discussed with patient, her and daughter about Roth directives. Verify the patient remains full code. Discussed you have the patient is stable at this time that certainly could change in the near future where she may require being intubated. Did explain to them that if patient does requiring being intubated that she may potentially need to be naik sferred out due to lack of dental hygienist coverage this weekend. 11/25: Followed up with patient and family this afternoon. Patient on 95% FiO2 through the BiPAP. No segment change. Patient appears more tired but not in any respiratory distress at this time. Touch base with the family with and daughter who is now present about CODE STATUS. Patient indicating that she does not want to be on a ventilator. Told her that we would follow her wishes and if she does not want to be on a ventilator as I discussed earlier that she should not have CPR. Patient was in agreement to that. She did state that she would want be taken off the BiPAP and her nurse, Sarai, was present and reminded the patient that she dropped pulse ox of 70% when she was put on air Vo. Patient would like to continue with the BiPAP overnight. Patient's daughter was asking if she could have something to drink. I told her that I will be up to the patient if she want to do so because we would have to take her off the BiPAP and that her oxygen can drop down and it may take her a while to recover. Patient does not want everything and drink at this time. 4/3: Worse clinically. On 100% FiO2, decreased mental status. Clinically overall worse. DW patient's at bedside. Expressed concern for further deco mpensation and even . Charges/Coding Visit Charges Inpatient E&M: 47525 Subs Hosp L3
--- NOTE | 2021-11-26 12:00 | RAD_ITS ---
STUDY: X-RAY - ABDOMEN/PELVIS REASON FOR EXAM: Female, 81 years old. Abdominal pain. TECHNIQUE: Single AP view of the abdomen / pelvis. COMPARISON: None. FINDINGS: Nonspecific gaseous small bowel loops. The gas pattern is nonobstructive at this time. Surgical clips in right upper quadrant from previous cholecystectomy. Right hip arthroplasty. Degenerative changes in the lumbar spine. RAD/Abdomen Single View (Portable) IMPRESSION: Nonspecific gas pattern. Electronically Signed: Armond David MD at 12:35 EDT ,
--- NOTE | 2021-11-26 12:00 | RAD_ITS ---
STUDY: X-RAY CHEST REASON FOR EXAM: Female, 81 years old. Dyspnea. TECHNIQUE: Single AP portable view of the chest. COMPARISON: 11/23/2021. FINDINGS: Right-sided PICC line is stable position with the tip in the cavoatrial junction region. Patchy bilateral infiltrates slightly improved since the previous exam. There is no demonstrated pleural abnormality. Normal size heart. Normal mediastinum and marco. Normal visualized pulmonary arteries. Mild tortuosity of the thoracic aorta. Stable soft tissues and osseous structures. There is no demonstrated abnormality of the visualized soft tissue structures of the upper abdomen. RAD/Chest 1 View (Portable) IMPRESSION: Bilateral infiltrates slightly improved since the previous exam. Electronically Signed: Armond David MD at 12:37 EDT ,
--- NOTE | 2021-11-26 12:37 | NURSING ---
Pastor Benz @bedside praying with Family
[2021-11-26] MEDS: CHLORHEXIDINE GLUC 2% CLOTH 1 EACH TOWELETTE TOPICAL (12:39)
--- NOTE | 2021-11-26 16:20 | NURSING ---
pt [email or web address]
--- NOTE | 2021-11-26 17:04 | PCM.DEATH ---
Preliminary Cause of Preliminary Cause of Preliminary Cause of : Pneumonia, gram negative, suspected. Date of Admission: 11/17/21 Principle Diagnosis Problem List: Active and Suspected Problems (Updated 11/22/21 @ 10:[address] Rocco Stoll, DO) Acute respiratory failure with hypoxia (Acute) GI bleed (Acute) Anemia (Acute) Metastasis to lung (Acute) Community acquired pneumonia (Acute) Hypoxia (Acute) Hospital Course This is an 78-year-old female presents with progressive shortness of breath for about a week. Patient was recently discharged 10 days prior with intractable back pain. Patient had a CAT scan that did not show any pulmonary embolism but did show infiltrates. Patient was started on levofloxacin. Patient's respiratory status continued to deteriorate. Patient is antibiotics were changed over to aztreonam and vancomycin, patient was started on steroids as well as furosemide. Her status continued to deteriorate. Patient was increasing oxygen demands was able to go on air Vo but progressively got worse requiring BiPAP. With past 48 hours, patient had since been on BiPAP at 95 200% FiO2. Patient continued to decline and had been mentally alert for several days but had a decline today though patient was also started anxiolytics which certainly were contributing factor to that but overall patient's status continued decline. Patient had bouts of tachycardia. Had conversations with family today and this afternoon they requested hospice. Discussed with in detail details with hospice and focus on comfort measures. Patient's significant other as well as 2 children were present and all agreed to proceed with hospice. Patient on 11/26/2021 at 1620. Visit Charges Inpatient E&M: 09943 Disch Hosp
[2021-11-27 12:43] LABS: Pathologist Review Reviewed
[2021-11-27 12:52] LABS: Pathologist Review Reviewed
== END 2021-11-26 16:20 | DRG 193 ==
LOC: ED 21:47 → MS3 22:07 → ICU 11-23 11:06
PROVIDERS: Hospitalist; Internal Medicine; Internal Medicine Critical Care Medicine; Admitting Provider Internal Medicine; Emergency Provider Emergency Medicine; PCP Family Medicine Geriatric Medicine; Referring Provider Internal Medicine
DX: J15.9 Unspecified bacterial pneumonia (principal); J96.01 Acute respiratory failure with hypoxia; E22.2 Syndrome of inappropriate secretion of antidiuretic hormone; K92.2 Gastrointestinal hemorrhage, unspecified; M48.54XA Collapsed vertebra, not elsewhere classified, thoracic region, initial encounter for fracture; D62 Acute posthemorrhagic anemia; G13.0 Paraneoplastic neuromyopathy and neuropathy; G40.309 Generalized idiopathic epilepsy and epileptic syndromes, not intractable, without status epilepticus; J70.1 Chronic and other pulmonary manifestations due to radiation; M06.9 Rheumatoid arthritis, unspecified; E03.9 Hypothyroidism, unspecified; E78.5 Hyperlipidemia, unspecified; I10 Essential (primary) hypertension; I45.10 Unspecified right bundle-branch block; M48.04 Spinal stenosis, thoracic region; E87.6 Hypokalemia; W19.XXXA Unspecified fall, initial encounter; B96.89 Other specified bacterial agents as the cause of diseases classified elsewhere; Z79.899 Other long term (current) drug therapy; Z87.01 Personal history of pneumonia (recurrent); I49.1 Atrial premature depolarization; R79.89 Other specified abnormal findings of blood chemistry; Z85.828 Personal history of other malignant neoplasm of skin; Z85.118 Personal history of other malignant neoplasm of bronchus and lung; E66.9 Obesity, unspecified; G89.4 Chronic pain syndrome; M81.0 Age-related osteoporosis without current pathological fracture; R13.10 Dysphagia, unspecified; Y93.9 Activity, unspecified; Y92.9 Unspecified place or not applicable; Z68.25 Body mass index [BMI] 25.0-25.9, adult
CPT/HCPCS: 36415; 36569; 36600; 71045; 71046; 71275; 74018; 80048; 80053; 80061; 80202; 82274; 82533; 82728; 82803; 83540; 83735; 83880; 84443; 84484; 85014; 85018; 85025; 85045; 85379; 85610; 85730; 86850; 86900; 86901; 86920; 86922; 87040; 87070; 87205; 87428; 87449; 87633; 92526; 92610; 93005; 93306; 94002; 94003; 94640; 94660; 94667; 94668; 94762; 97110; 97162; 97166; 97530; 97535; 99251; 99285; J7040; J7050; J7120; P9016; A4216; G0463; J1940; J2916; J3490